=== PATIENT | male | born 1935 | race African-American/Black ===

== ENCOUNTER 2016-08-22 10:51 | Observation (INO) ==
--- NOTE | 2016-08-22 11:56 | Emergency Department Note ---
START Narrative - START START: I examined this patient and my medical decision-making was reviewed with the [employer] SERVICE SUPERVISOR/PA/Advanced Practice Nurse/Resident Physician. I agree with the documented findings, disposition and treatment plan as described except to the extent set forth below. Patient presents to the emergency department with a chief complaint of altered mental status. All history is provided per the medics. They state they know him because they transported to dialysis. He is usually oriented 3. Today he is confused. Is apparently seen last night for the same. Patient denies any complaint of having any pain or feeling short of breath. On exam he is awake alert. Abdomen soft. Lungs clear. He is oriented to the month and his name. When asked where he has he just mumbles incoherently. Plan. Altered mental status workup. Patient with UTI. Last cultures grew ESBL. Patient was ordered meropenem. Admitted to Dr. You at 1454.
--- NOTE | 2016-08-22 12:08 | Emergency Department Note ---
Disposition Clinical Impression: Acute encephalopathy Altered mental status Qualifiers: Altered mental status type: transient alteration of awareness Qualified Code(s) : R40.4 - Transient alteration of awareness UTI (urinary tract infection) Qualifiers: Urinary tract infection type: site unspecified Hematuria presence: with hematuria Qualified Code(s): N39.0 - Urinary tract infection, site not specified Disposition: Admitted As Inpatient Condition: Serious Time of Disposition: 14:18 Altered Mental Status HPI - General Chief Complaint: ED Altered Mental Status Stated Complaint: AMS Time Seen by Provider: 08/22/16 10:54 Source: EMS Limitations: altered mental status Nursing Notes Reviewed: Yes Vital Signs Reviewed: Yes - History of Present Illness HPI Narrative: 80-year-old male complains of fall that happened yesterday evening at some time and an unknown time as well as altered mental status without LOC. Patient has a significant cardiac history for CAD, CHF, has pacemaker in place, HLD, ESRD on dialysis, diabetes. EMS reports the patient has been having hallucination day. They stated he is usual with them and he is normally alert and oriented 3 and has memory. He has amputation of fingers of left hand and can tell you how he lost his fingers but today he is having hallucinations about wire sticking out of his hand and talking to his son who is not present - Related Data Home Medications Medication Instructions Recorded Confirmed Allopurinol [Zyloprim] 100 mg PO QAM #0 03/15/15 08/22/16 Aspirin Enteric Coated [Aspirin EC] 81 mg PO QAM #0 03/15/15 08/22/16 Atorvastatin Calcium [Lipitor] 80 mg PO HS #0 03/15/15 08/22/16 Cholecalciferol (Vitamin D3) 50,000 unit PO MO #0 03/15/15 08/22/16 [Vitamin D3] Clopidogrel [Plavix] 75 mg PO QAM #0 03/15/15 08/22/16 Furosemide [Lasix] 40 mg PO SUTUTHSA@0800,1600 #0 03/15/15 08/22/16 Gabapentin [Neurontin] 300 mg PO TID #0 03/15/15 08/22/16 Hydralazine HCl 100 mg PO SUTUTHSA@0800,1600 #0 03/15/15 08/22/16 Terazosin [Hytrin] 5 mg PO QPM #0 03/15/15 08/22/16 Ranolazine [Ranexa] 500 mg PO BID 07/12/15 08/22/16 Lidocaine/Prilocaine CREAM [Emla] 1 appl TP MOWEFR PRN 02/03/16 08/22/16 Sertraline [Zoloft] 50 mg PO DAILY 02/03/16 08/22/16 Sevelamer [Renvela] 800 mg PO TIDWM 02/03/16 08/22/16 Isosorbide MONOnitrate [Isosorbide 120 mg PO DAILY 02/06/16 08/22/16 Mononitrate ER] Nitroglycerin [Nitrostat] 0.4 mg SL Q5M PRN 02/06/16 08/22/16 LORazepam [Ativan] 1 mg PO MOWEFR@1000 04/12/16 08/22/16 Nitroglycerin [Nitro-Bid] 1 appl TD DAILY PRN #0 04/12/16 08/22/16 Pantoprazole Sodium [Protonix] 40 mg PO DAILY 04/12/16 08/22/16 Polyethylene Glycol 3350 [MiraLAX] 17 gm PO QAM 04/12/16 08/22/16 Insulin Glargine [Lantus] 15 unit SQ QAM 06/01/16 08/22/16 Oxycodone HCl 10 mg PO Q4H PRN 07/06/16 08/22/16 Benzocaine/Menthol [Sore Throat 1 each MM PRN PRN 08/22/16 08/22/16 Lozenges] Lisinopril [Zestril] 10 mg PO SUTUTHSA 08/22/16 08/22/16 Megestrol Acetate [Megace] 800 mg PO DAILY 08/22/16 08/22/16 Metoprolol [Lopressor] 25 mg PO SUTUTHSA@0800,1600 08/22/16 08/22/16 Nut.tx.impaired Renal Fxn,Soy 237 ml PO DAILY 08/22/16 08/22/16 [Nepro Carb Steady] Oxycodone HCl [Oxycodone HCl ER] 30 mg PO Q12H 08/22/16 08/22/16 Polyethylene Glycol 3350 [MiraLAX] 17 gm PO DAILY PRN 01/18/17 01/18/17 Allergies Allergy/AdvReac Type Severity Reaction Status Date / Time morphine Allergy Hallucinati Verified 07/06/16 10:27 ng All systems ED: reviewed and negative except as stated. Constitutional: Denies: fever, chills Eyes: Denies: eye pain, eye discharge ENT ED: Denies: ear pain, throat pain Cardiovascular: Denies: chest pain, palpitations Respiratory: Denies: cough, dyspnea Gastrointestinal: Denies: abdominal pain, nausea Genitourinary: Denies: urgency, dysuria Musculoskeletal: Denies: back pain, neck pain Integumentary: Denies: rash, abrasion Neurological: Denies: headache, weakness, vertigo Psychiatric: Denies: anxiety, depression Endocrine: Denies: fatigue, heat or cold intolerance Hematological/Lymphatic: Denies: easy bleeding, easy bruising Allergic/Immunologic: Denies: facial swelling, urticaria Past Medical History - Past Medical History Source: old records reviewed, obtained from family Medical history: Reports: arthritis, cancer, CHF, coronary artery disease, diabetes, dialysis, GERD, hyperlipidemia, hypertension, kidney stones, renal disease, other Surgical history: Reports: cataract, cholecystectomy, knee replacement, pacemaker/AICD, other Psychiatric history: Reports: anxiety - Social History Smoking Status: Never smoker Smokeless Tobacco Status: No Alcohol use: Reports: none Drug use: Reports: none Physical Exam Vital Signs Temperature 97.3 F L 08/22/16 10:52 Pulse Rate 67 08/22/16 10:52 Respiratory Rate 16 08/22/16 10:52 Blood Pressure 132/70 08/22/16 10:52 O2 Sat by Pulse Oximetry 94 L 08/22/16 10:52 Temperature 97.3 F L 08/22/16 11:06 Pulse Rate 64 08/22/16 11:52 Respiratory Rate 16 08/22/16 11:52 Blood Pressure 130/80 08/22/16 11:52 O2 Sat by Pulse Oximetry 95 08/22/16 11:52 Oxygen Delivery Oxygen Delivery Room Air -General Appearance: Patient is a 80-year-old male is alert and oriented 3 at time of exam. Appears patient has periods of a mass intermittently. GCS 15 -Neurological exam: Cranial nerves II-12 intact, no focal deficits observed, strength equal 5/5 bilaterally in upper and lower extremities, Negative loss of sensation - Head Head exam: atraumatic, normocephalic, normal inspection - Eye Eye exam: Present: normal appearance, PERRL, EOMI, negative for scleral icterus negative for conjunctival pallor - ENT ENT exam: normal exam, normal oropharynx, mucous membranes very dry - Neck Neck exam: Present: normal inspection, full ROM, trachea midline, negative JVD - Chest Chest inspection: Present: Patient has bilateral equal rise and fall of chest wall. Non-tender to palpation. - Respiratory Respiratory exam: Clear to auscultation bilaterally without wheezes rales or rhonchi Cardiovascular Cardiovascular exam: Present: regular rate, normal rhythm, normal heart sounds, without murmurs rubs or gallops. - Abdominal Exam Abdominal exam: Present: soft, nondistended, Non-Tender light and deep palpation in all quadrants. Bowel sounds normoactive throughout all 4 quadrants. Negative for hyper or hyperresonance. - Extremities Exam Extremities exam: Present: normal inspection, full ROM - Psychiatric Psychiatric exam: Present: normal affect, normal mood - Skin Skin exam: Present: warm, dry, intact, normal color - General Limitations: altered mental status Course Course Narrative: Patient seen and examined. Labs and imaging ordered. - Reevaluation(s) Reevaluation #1: Patient is seen and reexamined. Patient's has no complaints at this time. Patient's sons are in the room and explained to them what is going on. Patient' s workup so far for him his labs are better than previous accounts to include his troponin which is elevated today but a lot less than his previous troponin. Waiting to get urine. Time: 12:15 Reevaluation #2: Patient's urine came back positive for UTI. Patient admitted to the hospital for further care. - Consultations Consultation #1: Dr. You has accepted the patient for admission Time: 14:19 Vital Signs Temperature 97.3 F L 08/22/16 10:52 Pulse Rate 67 08/22/16 10:52 Respiratory Rate 16 08/22/16 10:52 Blood Pressure 132/70 08/22/16 10:52 O2 Sat by Pulse Oximetry 94 L 08/22/16 10:52 Temperature 98.2 F 08/23/16 07:09 Pulse Rate 77 08/23/16 07:09 Respiratory Rate 19 08/23/16 07:09 Blood Pressure 134/62 08/23/16 07:09 O2 Sat by Pulse Oximetry 93 L 08/23/16 07:09 Oxygen Delivery Oxygen Delivery Room Air Altered Mental Status - MDM Narrative Medical decision making narrative: Mr. Kenny is a 80-year-old male who presented in the state of altered mental status of acute onset. Report is patient also sustained a fall and hit his head. Patient's concerning for possible intracranial hemorrhage: Epidural hematoma, subdural hematoma, subarachnoid hemorrhage, acute delirium secondary to infection. Patient's lung sounds are clear spelled out pulmonary. Patient is on hemodialysis and has previous history of having UTI. Patient's workup so far appears to have no clear source for infection. Patient has an improved troponin compared to previous. Patient's creatinine level 5.07 which is slightly elevated compared to previous but still in our part for patient's baseline. Patient has been started on IV hydration 2/ Patient is very dry. CT and chest x-ray: Chest X-Ray 08/22/16 11:54 IMPRESSION: 1. Cardiomegaly with left basilar atelectasis. 2. Narrowing of the midportion of the left subclavian vein stent. D/ / Shaw Cole MD / Shaw Cole MD Interpreting Provider: Shaw Cole MD Head CT 08/22/16 11:54 IMPRESSION: 1. No acute intracranial abnormality. 2. Chronic small vessel ischemic disease. D/ / Shaw Cole MD / Shaw Cole MD Interpreting Provider: Shaw Cole MD Ankle X-Ray 08/22/16 11:56 IMPRESSION: Study is somewhat limited by diffuse osteopenia. No acute fracture or dislocation noted. D/ / 08/22/2016 12:43:29 Rivera Ng MD / lona Interpreting Provider: Rivera Ng MD Foot X-Ray 08/22/16 11:56 IMPRESSION: Limited study with diffuse osteopenia and no definite acute osseous abnormality noted. D/ / 08/22/2016 12:57:27 Rivera Ng MD / [place] Interpreting Provider: Rivera Ng MD Hand X-Ray 08/22/16 11:56 IMPRESSION: Diffuse osteopenia and postsurgical changes from interval amputation as above. No definite acute abnormality noted. MRI would be more sensitive if there is clinical concern for osteomyelitis D/ / 08/22/2016 12:57:30 Rivera Ng MD / lona Interpreting Provider: Rievra Ng MD Hip X-Ray 08/22/16 11:56 IMPRESSION: 1. No acute osseous abnormality involving the left hip. D/ / Shaw Cole MD / Shaw Cole MD Interpreting Provider: Shaw Cole MD He still waiting urine and we will have to straight catheter patient. Patient has agreed to straight catheter to obtain urine. Patient's urine is only piece of possible that we do not have a source of infection. Patient's urinalysis shows patient has a UTI. Patient started on antibiotics and admitted to hospital for further workup. Dr. You has accepted for admission. - Medical Records Medical records reviewed: Yes I reviewed the patient's medical records. - Lab Data Lab results reviewed: Yes I reviewed the patient's lab results. Lab results narrative: Short CBC 08/22/16 Range/Units 11:05 WBC 9.6 (4.3-11.1) K/mcL Hgb 11.8 L (12.9-16.9) g/dL Hct 38.2 (37.5-50.1) % Plt Count 229 (140-400) K/mcL Neutrophils # 6.5 (1.6-8.9) K/mcL BMP 08/22/16 Range/Units 11:05 Sodium 138 (136-145) mEq/L Potassium 4.5 (3.5-4.5) mEq/L Chloride 102 (98-109) mEq/L Carbon Dioxide 24 (19-29) mEq/L BUN 32 H (8-26) mg/dL Creatinine 5.07 H (0.72-1.25) mg/dL Glucose 108 H (70-99) mg/dL Calcium 9.0 (8.6-10.8) mg/dL Cardiac Enzymes 08/22/16 Range/Units 11:05 Troponin I 0.08 H* (0-0.03) ng/mL Liver Function 08/22/16 Range/Units 11:05 Total Bilirubin 0.8 (0.2-1.2) mg/dL Direct Bilirubin 0.4 (0.0-0.5) mg/dL AST 21 (5-34) Units/L ALT 8 (0-55) Units/L Alkaline Phosphatase 116 (38-126) Units/L Albumin 2.4 L (3.5-5.0) g/dL Urine 08/22/16 Range/Units 13:26 Urine Color Red A (Yellow) Urine Clarity Turbid A (Clear) Urine pH 7.0 (5.0-8.0) pH Units Ur Specific [place] 1.013 (1.010-1.025) Urine Protein >=300 H (Neg-Trace) mg/dL Urine Glucose (UA) Normal (Normal) mg/dL Result diagrams: 08/23/16 05:08 08/23/16 05:08 Lab Results 08/22/16 08/22/16 08/22/16 Range/Units 11:05 11:05 11:05 WBC 9.6 (4.3-11.1) K/mcL RBC 4.28 (4.19-5.50) M/mcL Hgb 11.8 L (12.9-16.9) g/dL Hct 38.2 (37.5-50.1) % MCV 89.3 (83.0-100.0) fL MCH 27.6 L (28.0-33.3) pg MCHC 30.9 L (31.6-35.5) g/dL RDW 18.4 H (11.5-14.5) % Plt Count 229 (140-400) K/mcL MPV 9.7 (9.4-12.4) fL Immature Gran % 0.5 (0-4) % Seg Neutrophils % 67.6 % Lymphocytes % 17.2 % Monocytes % 10.9 % Eosinophils % 3.4 % Basophils % 0.4 % Neutrophils # 6.5 (1.6-8.9) K/mcL Lymphocytes # 1.7 (0.6-4.6) K/mcL Monocytes # 1.1 (0.0-1.3) K/mcL Eosinophils # 0.3 (0.0-0.6) K/mcL Basophils # 0.0 (0.0-0.2) K/mcL PT 11.9 (9.4-12.1) Seconds INR 1.1 APTT 32.0 (26.0-36.0) Seconds Sodium 138 (136-145) mEq/L Potassium 4.5 (3.5-4.5) mEq/L Chloride 102 (98-109) mEq/L Carbon Dioxide 24 (19-29) mEq/L BUN 32 H (8-26) mg/dL Creatinine 5.07 H (0.72-1.25) mg/dL Est GFR ( Amer) 13 L (> 60) Est GFR (Non-Af Amer) 11 L (> 60) BUN/Creatinine Ratio 6 (6-26) Glucose 108 H (70-99) mg/dL Calculated Osmolality 293 (280-300) Calcium 9.0 (8.6-10.8) mg/dL Total Bilirubin 0.8 (0.2-1.2) mg/dL Direct Bilirubin 0.4 (0.0-0.5) mg/dL Indirect Bilirubin 0.4 (0.0-1.2) mg/dL AST 21 (5-34) Units/L ALT 8 (0-55) Units/L Alkaline Phosphatase 116 (38-126) Units/L Troponin I (0-0.03) ng/mL Serum Total Protein 7.2 (6.0-8.3) g/dL Albumin 2.4 L (3.5-5.0) g/dL Globulin 4.8 H (2.4-3.5) g/dL Albumin/Globulin Ratio 0.5 L (1.1-2.2) Urine Color (Yellow) Urine Clarity (Clear) Urine pH (5.0-8.0) pH Units Ur Specific [place] (1.010-1.025) Urine Protein (Neg-Trace) mg/dL Urine Glucose (UA) (Normal) mg/dL Urine Ketones (Negative) mg/dL Urine Blood (Negative) Urine Nitrite (Negative) Urine Bilirubin (Negative) Urine Urobilinogen (Normal) mg/dL Ur Leukocyte Esterase (Negative) Urine Microscopic RBC (0-3) per hpf Urine Microscopic WBC (0-3) per hpf Urine Bacteria (None-Few) per hpf Urine Yeast (None Seen) per hpf Ur Culture Indicated? (NO) 08/22/16 08/22/16 Range/Units 11:05 13:26 WBC (4.3-11.1) K/mcL RBC (4.19-5.50) M/mcL Hgb (12.9-16.9) g/dL Hct (37.5-50.1) % MCV (83.0-100.0) fL MCH (28.0-33.3) pg MCHC (31.6-35.5) g/dL RDW (11.5-14.5) % Plt Count (140-400) K/mcL MPV (9.4-12.4) fL Immature Gran % (0-4) % Seg Neutrophils % % Lymphocytes % % Monocytes % % Eosinophils % % Basophils % % Neutrophils # (1.6-8.9) K/mcL Lymphocytes # (0.6-4.6) K/mcL Monocytes # (0.0-1.3) K/mcL Eosinophils # (0.0-0.6) K/mcL Basophils # (0.0-0.2) K/mcL PT (9.4-12.1) Seconds INR APTT (26.0-36.0) Seconds Sodium (136-145) mEq/L Potassium (3.5-4.5) mEq/L Chloride (98-109) mEq/L Carbon Dioxide (19-29) mEq/L BUN (8-26) mg/dL Creatinine (0.72-1.25) mg/dL Est GFR ( Amer) (> 60) Est GFR (Non-Af Amer) (> 60) BUN/Creatinine Ratio (6-26) Glucose (70-99) mg/dL Calculated Osmolality (280-300) Calcium (8.6-10.8) mg/dL Total Bilirubin (0.2-1.2) mg/dL Direct Bilirubin (0.0-0.5) mg/dL Indirect Bilirubin (0.0-1.2) mg/dL AST (5-34) Units/L ALT (0-55) Units/L Alkaline Phosphatase (38-126) Units/L Troponin I 0.08 H* (0-0.03) ng/mL Serum Total Protein (6.0-8.3) g/dL Albumin (3.5-5.0) g/dL Globulin (2.4-3.5) g/dL Albumin/Globulin Ratio (1.1-2.2) Urine Color Red A (Yellow) Urine Clarity Turbid A (Clear) Urine pH 7.0 (5.0-8.0) pH Units Ur Specific [place] 1.013 (1.010-1.025) Urine Protein >=300 H (Neg-Trace) mg/dL Urine Glucose (UA) Normal (Normal) mg/dL Urine Ketones Negative (Negative) mg/dL Urine Blood Moderate H (Negative) Urine Nitrite Negative (Negative) Urine Bilirubin Small H (Negative) Urine Urobilinogen Normal (Normal) mg/dL Ur Leukocyte Esterase Large H (Negative) Urine Microscopic RBC Present (0-3) per hpf Urine Microscopic WBC TNTC H (0-3) per hpf Urine Bacteria Present (None-Few) per hpf Urine Yeast Present H (None Seen) per hpf Ur Culture Indicated? YES A (NO) - Radiology Data Radiology results reviewed: Yes I reviewed the patient's radiology results. Chest X-Ray 08/22/16 11:54 IMPRESSION: 1. Cardiomegaly with left basilar atelectasis. 2. Narrowing of the midportion of the left subclavian vein stent. D/ / Shaw Cole MD / Shaw Cole MD Interpreting Provider: Shaw Cole MD Head CT 08/22/16 11:54 IMPRESSION: 1. No acute intracranial abnormality. 2. Chronic small vessel ischemic disease. D/ / Shaw Cole MD / Shaw Cole MD Interpreting Provider: Shaw Cole MD Ankle X-Ray 08/22/16 11:56 IMPRESSION: Study is somewhat limited by diffuse osteopenia. No acute fracture or dislocation noted. D/ / 08/22/2016 12:43:29 Rivera Ng MD / lona Interpreting Provider: Rivera Ng MD Foot X-Ray 08/22/16 11:56 IMPRESSION: Limited study with diffuse osteopenia and no definite acute osseous abnormality noted. D/ / 08/22/2016 12:57:27 Rivera Ng MD / [place] Interpreting Provider: Rivera Ng MD Hand X-Ray 08/22/16 11:56 IMPRESSION: Diffuse osteopenia and postsurgical changes from interval amputation as above. No definite acute abnormality noted. MRI would be more sensitive if there is clinical concern for osteomyelitis D/ / 08/22/2016 12:57:30 Rivera Ng MD / lona Interpreting Provider: Rivera Ng MD Hip X-Ray 08/22/16 11:56 IMPRESSION: 1. No acute osseous abnormality involving the left hip. D/ / Shaw Cole MD / Shaw Cole MD Interpreting Provider: Shaw Cole MD - EKG Data EKG attestation: Yes I reviewed and interpreted this EKG. EKG results narrative: EKG taken 08/22/2016 at 1143 hrs. shows a paced rhythm at 64 bpm. EKG looks similar to EKG taken 06/07/2016 shows a ventricularly paced rhythm
[2016-08-22 12:12] LABS: Basophils % 0.4 %; Eosinophils # 0.3 K/mcL (0.0-0.6); Eosinophils % 3.4 %; Hematocrit 38.2 % (37.5-50.1); Hemoglobin 11.8 g/dL (12.9-16.9); Immature Granulocytes % 0.5 % (0-4); Lymphocytes # 1.7 K/mcL (0.6-4.6); Lymphocytes % 17.2 %; Mean Corpuscular HGB Conc 30.9 g/dL (31.6-35.5); Mean Corpuscular Hemoglobin 27.6 pg (28.0-33.3); Mean Corpuscular Volume 89.3 fL (83.0-100.0); Mean Platelet Volume 9.7 fL (9.4-12.4); Monocytes # 1.1 K/mcL (0.0-1.3); Monocytes % 10.9 %; Neutrophils # 6.5 K/mcL (1.6-8.9); Platelet Count 229 K/mcL (140-400); Red Blood Count 4.28 M/mcL (4.19-5.50); Red Cell Distribution Width 18.4 % (11.5-14.5); Segmented Neutrophils % 67.6 %
[2016-08-22 12:18] LABS: INR 1.1; Prothrombin Time 11.9 Seconds (9.4-12.1)
[2016-08-22 12:26] LABS: Albumin 2.4 g/dL (3.5-5.0); Albumin/Globulin Ratio 0.5 (1.1-2.2); Bilirubin,Direct 0.4 mg/dL (0.0-0.5); Bilirubin,Indirect 0.4 mg/dL (0.0-1.2); Bilirubin,Total 0.8 mg/dL (0.2-1.2); Globulin 4.8 g/dL (2.4-3.5); Potassium 4.5 mEq/L (3.5-4.5); Total Protein 7.2 g/dL (6.0-8.3)
[2016-08-22 13:42] LABS: Bilirubin,Urine Small (Negative); Blood,Urine Moderate (Negative); Clarity,Urine Turbid (Clear); Color,Urine Red (Yellow); Glucose,Urine (UA) Normal (Normal); Ketones,Urine Negative (Negative); Leukocyte Esterase,Urine Large (Negative); Nitrite,Urine Negative (Negative); Protein,Urine >=300 mg/dL (Neg-Trace); Specific Gravity,Urine 1.013 (1.010-1.025); Urobilinogen,Urine Normal (Normal)
[2016-08-22 13:58] LABS: Bacteria,Urine Present per hpf (None-Few); RBC,Urine Present per hpf (0-3); WBC,Urine TNTC per hpf (0-3)
[2016-08-22 14:00] LABS: Yeast,Urine Present per hpf (None Seen)
[2016-08-22] MEDS ORDERED: Meropenem 1,000 MG in 0.9 % Sodium Chloride Mini Bag 100 ML IVPB STA (14:19)
[2016-08-22] MEDS ORDERED: Ondansetron 4 MG/2 ML VIAL IVP PRN (15:01)
[2016-08-22] MEDS ORDERED: D5% in Water 1,000 ML IV PRN (15:01)
[2016-08-22] MEDS ORDERED: Dextrose Gel 15 GM PO PRN ×2 (15:01)
[2016-08-22] MEDS ORDERED: *HR* Dextrose 50 % in Water (Syg) 50 ML SYRINGE IVP PRN (15:01)
[2016-08-22] MEDS ORDERED: Naloxone 0.4 MG/ML INJ IVP PRN (15:01)
[2016-08-22] MEDS ORDERED: Acetaminophen 325 MG TABLET PO PRN (15:01)
--- NOTE | 2016-08-22 15:11 | Internal Med History&Physical ---
Date of Encounter: 08/22/16 Time of Encounter: 15:08 Assessment and Plan (1) Encephalopathy Current visit: No Status: Resolved Acute metabolic encephalopathy secondary to urinary tract infection with ESBL Escherichia coli Continue Merrem at adjusted renal dose Mild hydration Full precautions Send culture (2) ESBL (extended spectrum beta-lactamase) producing bacteria infection Current visit: No Status: Acute (3) CAD (coronary artery disease) Current visit: No Status: Acute Continue aspirin, Plavix, Lipitor, metoprolol, isosorbide Qualifiers: Coronary Disease-Associated Artery/Lesion type: [place] artery [place] vs. transplanted heart: lummi heart Associated angina: with unstable angina Qualified Code(s): I25.110 - Atherosclerotic heart disease of [place] coronary artery with unstable angina pectoris (4) Demand ischemia of myocardium Current visit: No Status: Acute Elevated troponins likely secondary to demand ischemia (5) Diabetes mellitus Current visit: No Status: Chronic Continue insulin sliding scale Qualifiers: Diabetes mellitus type: type 2 Diabetes mellitus complication status: with kidney complications Diabetes mellitus complication detail: with chronic kidney disease Diabetes mellitus half-way insulin use: unspecified superintendent terminal insulin use status Chronic kidney disease stage: on chronic dialysis Qualified Code(s): E11.22 - Type 2 diabetes mellitus with diabetic chronic kidney disease; N18.6 - End stage renal disease (6) Diastolic heart failure Current visit: No Status: Chronic Stable Hold Lasix for now Qualifiers: Heart failure chronicity: chronic Qualified Code(s): I50.32 - Chronic diastolic (congestive) heart failure (7) ESRD (end stage renal disease) on dialysis Current visit: No Status: Chronic He is a patient of Dr. Kahlil Mathias for GI prophylaxis and yulisa Hwang for DVT prophylaxis. Patient will be admitted as inpatient, he is expected to stay mobile into midnights. Full code. Time spent on this admission 40 minutes. He is high risk due to recent falls and acute metabolic encephalopathy from ESBL UTI Internal Medicine - H&P: HPI Chief complaint: Altered mental status Admitted From: Emergency Dept History of present illness: Mr. Kenny is a 80 year old male with a past medical history of urinary tract infections with Escherichia coli ESBL last culture on August 13, end-stage renal disease on hemodialysis, CAD, hypertension, diabetes type 2 insulin- dependent who comes emergency room brought by family as he has been very confused since yesterday. Apparently he has been having hallucinations and becomes disoriented at times. The patient fell and multiple x-rays has been done including CT scan of the head in multiple joints without finding any fracture. The patient's urine analysis is positive for too numerous to count white blood cells and positive bacteria, he still makes urine and is on Lasix. His troponin is 0.08 but has been lower than the prior values which were 0.29 and higher. Creatinine is 5.07. Chest x-ray does not show any infectious process. Patient is not able to provide any history due to his confusion but he appears to be in no distress at the time. Past Med Surg Social Fam HX - Past Medical History Medical history: arthritis, cancer (Prostate), CHF (Diastolic ), coronary artery disease, diabetes (Insulin-dependent), dialysis, GERD, hyperlipidemia, hypertension, kidney stones, renal disease (End-stage renal disease on hemodialysis), other (Left second phalanx gangrene, Escherichia coli ESBL recurrent UTIs, gastritis, nephrolithiasis, degenerative joint disease) Psychiatric history: anxiety - Past Surgical History Surgical History: cataract, cholecystectomy, knee replacement, pacemaker/AICD, other (Left subclavian stent, left hand surgeries/amputations of all fingers, bilateral knee replacement) - Social History Smoking Status: Former smoker (Quit smoking in 1958) Smokeless Tobacco Status: No Alcohol use: none Drug use: none - Family History Father Living Status: Hx Family Cardiac Disorders: Yes Mother Adopted: No Living Status: Hx Family Cardiac Disorders: Yes Hx Family Respiratory Disorders: No Hx Family Cancer: No Hx Family GI Disorders: No Hx Family Endocrine Disorder: No Hx Family Neuromuscular Disorders: No Hx Family Neurologic Disorders: No Hx Family HEENT Disorders: No Hx Family Autoimmune Disorders: No - Additional Family History Additional family history: Father with CHF, mother with hypertension and heart disease Internal Medicine - H&P: Meds Allopurinol [Zyloprim] 100 mg PO QAM #0 03/15/15 [History] Aspirin Enteric Coated [Aspirin EC] 81 mg PO QAM #0 03/15/15 [History] Atorvastatin Calcium [Lipitor] 80 mg PO HS #0 03/15/15 [History] Cholecalciferol (Vitamin D3) [Vitamin D3] 50,000 unit PO MO #0 03/15/15 [ History] Clopidogrel [Plavix] 75 mg PO QAM #0 03/15/15 [History] Furosemide [Lasix] 40 mg PO BID #0 03/15/15 [History] Gabapentin [Neurontin] 300 mg PO TID #0 03/15/15 [History] Hydralazine HCl 100 mg PO BID #0 03/15/15 [History] Lisinopril [Zestril] 20 mg PO BID #0 03/15/15 [History] Terazosin [Hytrin] 5 mg PO QPM #0 03/15/15 [History] Metoprolol [Lopressor] 25 mg PO BID #60 tablet 05/02/15 [Rx] Ranolazine [Ranexa] 500 mg PO BID 07/12/15 [History] Lidocaine/Prilocaine CREAM [Emla] 1 appl TP AD PRN 02/03/16 [History] Sertraline [Zoloft] 50 mg PO DAILY 02/03/16 [History] Sevelamer [Renvela] 800 mg PO TIDWM 02/03/16 [History] Isosorbide MONOnitrate [Isosorbide Mononitrate ER] 120 mg PO DAILY 02/06/16 [ History] Nitroglycerin [Nitrostat] 0.4 mg SL AD PRN 02/06/16 [History] LORazepam [Ativan] 1 mg PO MOWEFR 04/12/16 [History] Nitroglycerin [Nitro-Bid] 1 appl TD AD PRN #0 04/12/16 [History] Pantoprazole Sodium [Protonix] 40 mg PO DAILY 04/12/16 [History] Polyethylene Glycol 3350 [MiraLAX] 17 gm PO DAILY PRN 04/12/16 [History] Triamcinolone Acetonide [Nasacort] 2 spray NS DAILY 04/12/16 [History] Insulin Glargine [Lantus] 15 unit SQ QAM 06/01/16 [History] Oxycodone HCl 10 mg PO Q4H PRN 07/06/16 [History] Allergies morphine Allergy (Verified 07/06/16 10:27) Hallucinating All Systems PM: A 10-system review of systems was performed and is negative for pertinent findings except as documented above in the HPI. Review of systems: Review of systems Unable to be completed due to confusion - Constitutional Vitals: Temp Pulse Resp BP Pulse Ox 97.3 F L 66 16 153/86 95 08/22/16 11:06 08/22/16 13:42 08/22/16 11:52 08/22/16 13:42 08/22/16 13:42 General appearance: Present: A&O X 2 - Head Head exam: Present: atraumatic, normocephalic - Eye Eye exam: Present: PERRL, conjuntiva pink, sclera anicteric Pupils: Present: PERRL - Neck Neck exam general surgery: Present: supple, trachea midline. Absent: lymphadenopathy - Respiratory Respiratory exam: Present: decreased breath sounds, CTAB. Absent: accessory muscle use, rales, rhonchi, wheezes - Cardiovascular Cardiovascular exam: Present: RRR, +S1, +S2. Absent: diastolic murmur, gallop, rubs, systolic murmur - GI/Abdominal GI/Abdominal exam: Present: distended, normal bowel sounds, soft, no peritoneal signs. Absent: tenderness - Extremities Exam Extremities exam: Present: warm, radial pulses palpable and symetrical. Absent : calf tenderness, cyanotic, pedal edema Additional comments: Left fingers amputation, left upper extremity AV fistula - Neurological Exam Neurological exam: Present: CN II-XII intact, no focal deficits. Absent: oriented X3, pronater drift, facial droop, speech deficit - Skin Skin exam: Present: dry, intact Internal Med - H&P Results - Labs CBC & Chem 7: 08/22/16 11:05 08/22/16 11:05 Labs: Short CBC 08/22/16 Range/Units 11:05 WBC 9.6 (4.3-11.1) K/mcL Hgb 11.8 L (12.9-16.9) g/dL Hct 38.2 (37.5-50.1) % Plt Count 229 (140-400) K/mcL Neutrophils # 6.5 (1.6-8.9) K/mcL BMP 08/22/16 11:05 Sodium 138 Potassium 4.5 Chloride 102 Carbon Dioxide 24 BUN 32 H Creatinine 5.07 H Glucose 108 H Calcium 9.0 Cardiac Enzymes 08/22/16 Range/Units 11:05 Troponin I 0.08 H* (0-0.03) ng/mL Liver Function 08/22/16 Range/Units 11:05 Total Bilirubin 0.8 (0.2-1.2) mg/dL Direct Bilirubin 0.4 (0.0-0.5) mg/dL AST 21 (5-34) Units/L ALT 8 (0-55) Units/L Alkaline Phosphatase 116 (38-126) Units/L Albumin 2.4 L (3.5-5.0) g/dL Urine 08/22/16 Range/Units 13:26 Urine Color Red A (Yellow) Urine Clarity Turbid A (Clear) Urine pH 7.0 (5.0-8.0) pH Units Ur Specific Lyman 1.013 (1.010-1.025) Urine Protein >=300 H (Neg-Trace) mg/dL Urine Glucose (UA) Normal (Normal) mg/dL - Impressions ITS Impressions Chest X-Ray 08/22/16 11:54 IMPRESSION: 1. Cardiomegaly with left basilar atelectasis. 2. Narrowing of the midportion of the left subclavian vein stent. D/ / Shaw Cole MD / Shaw Cole MD Interpreting Provider: Shaw Cole MD Head CT 08/22/16 11:54 IMPRESSION: 1. No acute intracranial abnormality. 2. Chronic small vessel ischemic disease. D/ / Shaw Cole MD / Shaw Cole MD Interpreting Provider: Shaw Cole MD Ankle X-Ray 08/22/16 11:56 IMPRESSION: Study is somewhat limited by diffuse osteopenia. No acute fracture or dislocation noted. D/ / 08/22/2016 12:43:29 Rivera Ng MD / lona Interpreting Provider: Rivera Ng MD Foot X-Ray 08/22/16 11:56 IMPRESSION: Limited study with diffuse osteopenia and no definite acute osseous abnormality noted. D/ / 08/22/2016 12:57:27 Rivera Ng MD / [place] Interpreting Provider: Rivera Ng MD Hand X-Ray 08/22/16 11:56 IMPRESSION: Diffuse osteopenia and postsurgical changes from interval amputation as above. No definite acute abnormality noted. MRI would be more sensitive if there is clinical concern for osteomyelitis D/ / 08/22/2016 12:57:30 Rivera Ng MD / [facility] Interpreting Provider: Rivera Ng MD Hip X-Ray 08/22/16 11:56 IMPRESSION: 1. No acute osseous abnormality involving the left hip. D/ / Shaw Cole MD / Shaw Cole MD Interpreting Provider: Shaw Cole MD
[2016-08-22] MEDS ORDERED: 0.9 % Sodium Chloride 1,000 ML IVC SCH (15:15)
[2016-08-22] MEDS: Insulin LISPRO 300 UNITS/3 ML VIAL SQ SCH (17:09)
[2016-08-22] MEDS: hydrALAZINE 25 MG TABLET PO SCH (20:46)
[2016-08-22] MEDS: Ranolazine 500 MG TAB.ER.12H PO SCH (20:46)
[2016-08-22] MEDS ORDERED: Gabapentin 300 MG CAPSULE PO SCH (21:00)
[2016-08-22] MEDS ORDERED: Famotidine 20 MG TABLET PO SCH ×2 (21:00)
[2016-08-23] MEDS: Meropenem 500 MG in 0.9 % Sodium Chloride Mini Bag 100 ML IVPB SCH ×2 (03:55→15:33)
[2016-08-23 05:36] LABS: Calcium 8.6 mg/dL (8.6-10.8); Potassium 5.1 mEq/L (3.5-4.5)
[2016-08-23 05:43] LABS: Hematocrit 38.7 % (37.5-50.1); Hemoglobin 12.2 g/dL (12.9-16.9); Mean Corpuscular HGB Conc 31.5 g/dL (31.6-35.5); Mean Corpuscular Hemoglobin 27.7 pg (28.0-33.3); Mean Corpuscular Volume 87.8 fL (83.0-100.0); Mean Platelet Volume 9.8 fL (9.4-12.4); Platelet Count 208 K/mcL (140-400); Red Blood Count 4.41 M/mcL (4.19-5.50); Red Cell Distribution Width 18.3 % (11.5-14.5)
[2016-08-23] MEDS: Insulin LISPRO 300 UNITS/3 ML VIAL SQ SCH ×4 (07:31→21:29)
--- NOTE | 2016-08-23 08:04 | Internal Med Progress Note ---
Date of Encounter: 08/23/16 Time of Encounter: 08:02 - Assessment and plan (1) Acute encephalopathy Current Visit: Yes Status: Acute Assessment and plan: Continues to be altered, unclear etiology. Could be related to UTI but unclear if this is a true UTI or contamination as patient is noted to have ESBL positive Escherichia coli in the last 2 urine cultures with no evidence of receiving treatment in the hospital. CT head done in the emergency room shows no acute abnormality, no other metabolic abnormalities found at this time. Recurrent admissions with encephalopathy could be related to uremia, acid base, volume and electrolyte shifts related to hemodialysis. Continue to monitor closely, fall precautions. (2) UTI (urinary tract infection) Current Visit: Yes Status: Acute Assessment and plan: No fever or leukocytosis or suprapubic pain. Urine dipstick positive for UTI. History of ESBL positive Escherichia coli in previous urine cultures. Continue IV meropenem and follow up final urine culture. 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 Medical management is recommended at this time. Continue aspirin, Plavix, beta benjy, statin, and Ranexa. Qualifiers: Coronary Disease-Associated Artery/Lesion type: [place] artery [place] vs. transplanted heart: [place] heart Associated angina: with unstable angina Qualified Code(s): I25.110 - Atherosclerotic heart disease of [place] coronary artery with unstable angina pectoris (4) AICD (automatic cardioverter/defibrillator) present Current Visit: Yes Status: Chronic (5) Chronic diastolic CHF (congestive heart failure) Current Visit: Yes Status: Chronic (6) Diabetes mellitus Current Visit: Yes Status: Chronic Assessment and plan: Continue Accu-Chek blood glucose monitoring with basal bolus insulin regimen. Diabetic diet. Qualifiers: Diabetes mellitus type: type 2 Diabetes mellitus complication status: with kidney complications Diabetes mellitus complication detail: with chronic kidney disease Diabetes mellitus half-way insulin use: with edge dyer use Chronic kidney disease stage: on chronic dialysis Qualified Code(s): E11.22 - Type 2 diabetes mellitus with diabetic chronic kidney disease; N18.6 - End stage renal disease; Z79.4 - MCFP (current) use of insulin; Z99.2 - Dependence on renal dialysis (7) ESRD (end stage renal disease) on dialysis Current Visit: Yes Status: Chronic Assessment and plan: Nephrology has been consulted, patient will receive regular hemodialysis sessions while in the hospital. Continue phosphate binders and multivitamins. - Subjective Interval history: continues to be confused; able to answer 1 or 2 questions but mostly speaks inappropriately; no distress but reports left hand chronic pain due to ischemia and recent finger amputations; - Constitutional Vitals: Temp Pulse Resp BP Pulse Ox 98.2 F 77 19 134/62 93 L 08/23/16 07:09 08/23/16 07:09 08/23/16 07:09 08/23/16 07:09 08/23/16 07:09 General appearance: Present: A&O X 0 - Head Head exam: Present: atraumatic, normocephalic - Neck Neck exam general surgery: Present: supple, trachea midline. Absent: lymphadenopathy - Respiratory Respiratory exam: Present: CTAB. Absent: accessory muscle use, rales, rhonchi, wheezes - Cardiovascular Cardiovascular exam: Present: RRR, +S1, +S2. Absent: diastolic murmur, gallop, rubs, systolic murmur - GI/Abdominal GI/Abdominal exam: Present: normal bowel sounds, soft, no peritoneal signs. Absent: distended, tenderness - Extremities Exam Extremities exam: Present: normal inspection (left hand s/p amputation of 1st 4 fingers, no active signs of infection/discharge), warm, radial pulses palpable and symetrical. Absent: calf tenderness, cyanotic, pedal edema - Neurological Exam Neurological exam: Present: altered (confused and disoriented, able to follow simpe commands; occasional hallucinations;), no focal deficits (moves all 4 extremities spontaneously; ). Absent: pronater drift, facial droop, speech deficit - Skin Skin exam: Present: dry, intact Internal Medicine: Result - Labs CBC & Chem 7: 08/23/16 05:08 08/23/16 05:08 Labs: Short CBC 08/23/16 Range/Units 05:08 WBC 11.1 (4.3-11.1) K/mcL Hgb 12.2 L (12.9-16.9) g/dL Hct 38.7 (37.5-50.1) % Plt Count 208 (140-400) K/mcL BMP 08/23/16 05:08 Sodium 137 Potassium 5.1 H Chloride 105 Carbon Dioxide 18 L BUN 37 H Creatinine 5.27 H Glucose 107 H Calcium 8.6 - ABG Interpretation ABG results: PT/INR, D-dimer PT 11.9 Seconds (9.4-12.1) 08/22/16 11:05 Consult Discharge Plan - Plan Referrals: NO,PCP [Non-Partnered Physician] -
[2016-08-23] MEDS ORDERED: 0.9 % Sodium Chloride 250 ML IV PRN (08:21)
--- NOTE | 2016-08-23 08:27 | Nephrology Consult Note ---
Date of Encounter: 08/23/16 Time of Encounter: 10:00 Assessment and Plan (1) ESRD (end stage renal disease) on dialysis Current Visit: Yes Status: Chronic ESRD on HD M/W/F, patient of Dr. Jeronimo. I reviewed the outside medical records from [facility]: Dry Weight 90kg, CONCEPCION AVF Will arrange for an abbreviated HD treatment today () since he missed yesterday for clearance as he is hyperkalemic on today's labs. I'll also plan for HD tomorrow (Saturday) to maintain his M/W/F schedule. Acute Encephalopathy/AMS: it is unclear why he takes such a high dose of Gabapentin, but I recommend reducing it to no more than 300mg per day, which is the FDA listed limit for patients on Dialysis. His UTI could be contributing as well. 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 He has Hectorol provided incenter at [facility] , but will monitor during this expected brief hospitalization. Access: LUE AVF Nutrition: goal serum Albumin is 4, when able and when he is eating, please provide Nepro protein shakes. Anemia in CKD: the goal Hgb is 10-11 and he is above the goal. It appears that he is not on an RUPERT at the HD unit when I reviewed his incenter medication list Thank you for consulting the [facility] group. (2) Hyperkalemia Current Visit: No Status: Acute Will need HD today to make up for the missed dialysis yesterday. (3) Acute encephalopathy Current Visit: Yes Status: Acute (4) UTI (urinary tract infection) Current Visit: Yes Status: Acute Qualifiers: Urinary tract infection type: site unspecified Hematuria presence: without hematuria Qualified Code(s): N39.0 - Urinary tract infection, site not specified (5) Secondary hyperparathyroidism (of renal origin) Current Visit: Yes Status: Chronic See above comments on Hectorol. History of Present Illness - Reason for Consult Consult date: 08/23/16 end stage renal disease Requesting physician: Clara Mendez - Chief Complaint ESRD, Missed Dialysis, AMS - History of Present Illness Que Kenny is a very pleasant gentleman with a pmh of ESRD on HD M/W/F, left hand/digital ischemia, and et al who presented with AMS. He last dialyzed on Saturday. Last night he was admitted and the wrong nephrology group was consulted , but today the consult order was changed to [facility]. His primary Environmental Professional is Dr. Jeronimo, he dialyzes via a LUE AVF at [facility] unit in [place], [place]. He was found to have a UTI, and was started on Abx. I reviewed his [facility] medical records and his listed dry/target weight is 90kg (of the note the listed weights in [facility] for this hospitalization thus far are widely different and therefore appear less reliable). He was not able to provide any history due to his AMS. His RN was in the room at the time of my exam; the pt was receiving IVF of 0.9% and I instructed him to stop the IVF as I plan for him to have HD today. Past Med Surg Social Fam HX - Past Medical History Medical history: arthritis, cancer, CHF, coronary artery disease, diabetes, dialysis, GERD, hyperlipidemia, hypertension, kidney stones, renal disease, other Psychiatric history: anxiety - Past Surgical History Surgical History: cataract, cholecystectomy, knee replacement, pacemaker/AICD, other - Social History Smoking Status: Never smoker Smokeless Tobacco Status: No Alcohol use: none Drug use: none - Family History Father Living Status: Hx Family Cardiac Disorders: Yes Mother Adopted: No Living Status: Hx Family Cardiac Disorders: Yes Hx Family Respiratory Disorders: No Hx Family Cancer: No Hx Family GI Disorders: No Hx Family Endocrine Disorder: No Hx Family Neuromuscular Disorders: No Hx Family Neurologic Disorders: No Hx Family HEENT Disorders: No Hx Family Autoimmune Disorders: No Medications and Allergies Allopurinol [Zyloprim] 100 mg PO QAM #0 03/15/15 [History] Aspirin Enteric Coated [Aspirin EC] 81 mg PO QAM #0 03/15/15 [History] Atorvastatin Calcium [Lipitor] 80 mg PO HS #0 03/15/15 [History] Cholecalciferol (Vitamin D3) [Vitamin D3] 50,000 unit PO MO #0 03/15/15 [ History] Clopidogrel [Plavix] 75 mg PO QAM #0 03/15/15 [History] Furosemide [Lasix] 40 mg PO SUTUTHSA@0800,1600 #0 03/15/15 [History] Gabapentin [Neurontin] 300 mg PO TID #0 03/15/15 [History] Hydralazine HCl 100 mg PO SUTUTHSA@0800,1600 #0 03/15/15 [History] Terazosin [Hytrin] 5 mg PO QPM #0 03/15/15 [History] Ranolazine [Ranexa] 500 mg PO BID 07/12/15 [History] Lidocaine/Prilocaine CREAM [Emla] 1 appl TP MOWEFR PRN 02/03/16 [History] Sertraline [Zoloft] 50 mg PO DAILY 02/03/16 [History] Sevelamer [Renvela] 800 mg PO TIDWM 02/03/16 [History] Isosorbide MONOnitrate [Isosorbide Mononitrate ER] 120 mg PO DAILY 02/06/16 [ History] Nitroglycerin [Nitrostat] 0.4 mg SL Q5M PRN 02/06/16 [History] LORazepam [Ativan] 1 mg PO MOWEFR@1000 04/12/16 [History] Nitroglycerin [Nitro-Bid] 1 appl TD DAILY PRN #0 04/12/16 [History] Pantoprazole Sodium [Protonix] 40 mg PO DAILY 04/12/16 [History] Polyethylene Glycol 3350 [MiraLAX] 17 gm PO QAM 04/12/16 [History] Insulin Glargine [Lantus] 15 unit SQ QAM 06/01/16 [History] Oxycodone HCl 10 mg PO Q4H PRN 07/06/16 [History] Benzocaine/Menthol [Sore Throat Lozenges] 1 each MM PRN PRN 08/22/16 [History] Lisinopril [Zestril] 10 mg PO SUTUTHSA 08/22/16 [History] Megestrol Acetate [Megace] 800 mg PO DAILY 08/22/16 [History] Metoprolol [Lopressor] 25 mg PO SUTUTHSA@0800,1600 08/22/16 [History] Nut.tx.impaired Renal Fxn,Soy [Nepro Carb Steady] 237 ml PO DAILY 08/22/16 [ History] Oxycodone HCl [Oxycodone HCl ER] 30 mg PO Q12H 08/22/16 [History] Polyethylene Glycol 3350 [MiraLAX] 17 gm PO DAILY PRN 08/22/16 [History] Allergies morphine Allergy (Verified 07/06/16 10:27) Hallucinating Review of Systems ROS unobtainable: due to mental status Exam - Vital Signs Vital signs: Initial Vital Signs Temp Pulse Resp BP Pulse Ox 97.3 F L 67 16 132/70 94 L 08/22/16 10:52 08/22/16 10:52 08/22/16 10:52 08/22/16 10:52 08/22/16 10:52 Vital Signs - Last 8 Hours Temp Pulse Resp BP Pulse Ox 08/23/16 07:09 98.2 F 77 19 134/62 93 L 08/23/16 04:05 98.8 F 75 16 137/75 93 L Intake and Output 08/22/16 08/23/16 08/23/16 23:59 07:59 15:59 Intake Total 0 / 0 100 / 100 Balance 0 / 0 100 / 100 Intake: IV Fluids 100 / 100 Merrem 500 MG In 0.9 % 100 / 100 Sodium Chloride (Mini-Bag +) 100 ML @ 200 mls/hr IVPB Q12H ELISE Rx#: [id number] Oral 0 / 0 Other: # Urine Diapers 1 1 Weight 90.4 kg 85.2 kg Blood Glucose* 82 92 Patient Weight 08/23/16 23:59 Weight 85.2 kg - General Appearance General appearance: fatigue, frail EENT: mucous membranes moist Neck: supple Respiratory: clear Cardiology: edema, normal S1, normal S2 - Dialysis Access Dialysis Vascular Access: Arteriovenous Fistula thrill: Yes bruit: Yes Gastrointestinal: normoactive bowel sounds, no tenderness, no guarding Integumentary: warm and dry Neurologic: disoriented Musculoskeletal: deformities (Left hand/fingers were absent) Psychiatric: cooperative Results - Lab Results 08/23/16 05:08 08/23/16 05:08 Most recent lab results Calcium 8.6 mg/dL (8.6-10.8) 08/23/16 05:08 I reviewed the above autogenerated data including labs, meds, vital, imaging and outside med records from [facility]. Consult Discharge Plan - Plan Referrals: NO,PCP [Non-Partnered Physician] - (PATIENT WILL FOLLOW UP WITH THE F PCP)
[2016-08-23] MEDS ORDERED: NON-FORMULARY MEDICATION 1 EACH EACH (Insulin Glargine [Lantus] 15 UNIT) SQ SCH (09:00)
[2016-08-23] MEDS: Insulin DETEMIR 100 UNIT/ML X5UNITS SQ SCH (09:07)
[2016-08-23] MEDS: Aspirin Enteric Coated 81 MG Tablet PO SCH (09:07)
[2016-08-23] MEDS: hydrALAZINE 25 MG TABLET PO SCH ×2 (09:17→21:50)
[2016-08-23] MEDS: Isosorbide MONOnitrate (24 HR) 60 MG TAB.ER.24H PO SCH (09:18)
[2016-08-23] MEDS: Ranolazine 500 MG TAB.ER.12H PO SCH ×2 (09:19→21:50)
[2016-08-23] MEDS: Gabapentin 100 MG CAPSULE PO SCH ×2 (09:34→21:50)
--- NOTE | 2016-08-23 11:23 | Electrocardiograph Report ---
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
--- NOTE | 2016-08-23 16:14 | Neurology - Consult Note ---
Date of Encounter: 08/23/16 Time of Encounter: 16:09 Assessment and Plan (1) Acute encephalopathy Current Visit: Yes Status: Acute This likely still medically related and may be complicated by missing HD, polypharmacy, on top of chronic renal failure. No focal deficits/ no speech difficulty note, although he appears disoriented to time and place but language appears fluent especially when talking to tis daughter. No nuchal rigidity, no leucocytosis on CBC to suspect [employer] infection. Would recommend that he complete an MRI of brain without contrast to rule out intracranial abnormality and continue medical treatment. I agree that he would be better off taking a smaller dose of gabapentin and his other pain medications/benzo can also be a source of fluctuating mental status. History of Present Illness Chief complaint: confusion HPI: Mr. Kenny is a 80 year old male, halfway resident, with PMH significant for ESRD on HD, HTN, DM, hyperlipidemia, chronic pain on regular narcotic regimen who presented with changes in his mental status. He has ESRD getting HD 1,3,5 but missed HD yesterday and did get HD this morning. Developed changes in his mental status. No focal neurological deficits. Seems restless. Interviewed the daughter and she says that the patient used to have difficulty walking and unable to walk without assistance. He used to be able to make good conversation but today he is different. Patient did make some conversation with his daughter and it seemed that his language is fluent. But he seems very restless and moves his hands up and down in bed. CT of head showed no acute abnormality. Urine analysis negative for infection per medical team. Patient denies headaches and no fever reported. Past Med Surg Social Fam HX - Past Medical History Medical history: arthritis, cancer, CHF, coronary artery disease, diabetes, dialysis, GERD, hyperlipidemia, hypertension, kidney stones, renal disease, other Psychiatric history: anxiety - Past Surgical History Surgical History: cataract, cholecystectomy, knee replacement, pacemaker/AICD, other - Social History Smoking Status: Never smoker Smokeless Tobacco Status: No Alcohol use: none Drug use: none - Family History Father Living Status: Hx Family Cardiac Disorders: Yes Mother Adopted: No Living Status: Hx Family Cardiac Disorders: Yes Hx Family Respiratory Disorders: No Hx Family Cancer: No Hx Family GI Disorders: No Hx Family Endocrine Disorder: No Hx Family Neuromuscular Disorders: No Hx Family Neurologic Disorders: No Hx Family HEENT Disorders: No Hx Family Autoimmune Disorders: No Medications and Allergies Allopurinol [Zyloprim] 100 mg PO QAM #0 03/15/15 [History] Aspirin Enteric Coated [Aspirin EC] 81 mg PO QAM #0 03/15/15 [History] Atorvastatin Calcium [Lipitor] 80 mg PO HS #0 03/15/15 [History] Cholecalciferol (Vitamin D3) [Vitamin D3] 50,000 unit PO MO #0 03/15/15 [ History] Clopidogrel [Plavix] 75 mg PO QAM #0 03/15/15 [History] Furosemide [Lasix] 40 mg PO SUTUTHSA@0800,1600 #0 03/15/15 [History] Gabapentin [Neurontin] 300 mg PO TID #0 03/15/15 [History] Hydralazine HCl 100 mg PO SUTUTHSA@0800,1600 #0 03/15/15 [History] Terazosin [Hytrin] 5 mg PO QPM #0 03/15/15 [History] Ranolazine [Ranexa] 500 mg PO BID 07/12/15 [History] Lidocaine/Prilocaine CREAM [Emla] 1 appl TP MOWEFR PRN 02/03/16 [History] Sertraline [Zoloft] 50 mg PO DAILY 02/03/16 [History] Sevelamer [Renvela] 800 mg PO TIDWM 02/03/16 [History] Isosorbide MONOnitrate [Isosorbide Mononitrate ER] 120 mg PO DAILY 02/06/16 [ History] Nitroglycerin [Nitrostat] 0.4 mg SL Q5M PRN 02/06/16 [History] LORazepam [Ativan] 1 mg PO MOWEFR@1000 04/12/16 [History] Nitroglycerin [Nitro-Bid] 1 appl TD DAILY PRN #0 04/12/16 [History] Pantoprazole Sodium [Protonix] 40 mg PO DAILY 04/12/16 [History] Polyethylene Glycol 3350 [MiraLAX] 17 gm PO QAM 04/12/16 [History] Insulin Glargine [Lantus] 15 unit SQ QAM 06/01/16 [History] Oxycodone HCl 10 mg PO Q4H PRN 07/06/16 [History] Benzocaine/Menthol [Sore Throat Lozenges] 1 each MM PRN PRN 08/22/16 [History] Lisinopril [Zestril] 10 mg PO SUTUTHSA 08/22/16 [History] Megestrol Acetate [Megace] 800 mg PO DAILY 08/22/16 [History] Metoprolol [Lopressor] 25 mg PO SUTUTHSA@0800,1600 08/22/16 [History] Nut.tx.impaired Renal Fxn,Soy [Nepro Carb Steady] 237 ml PO DAILY 08/22/16 [ History] Oxycodone HCl [Oxycodone HCl ER] 30 mg PO Q12H 08/22/16 [History] Polyethylene Glycol 3350 [MiraLAX] 17 gm PO DAILY PRN 08/22/16 [History] Allergies morphine Allergy (Verified 07/06/16 10:27) Hallucinating All Systems: A 10-system review of systems was performed and is negative for pertinent findings except as documented above in the HPI. Physical Examination - Vital Signs Vital Signs: Initial Vital Signs Temp Pulse Resp BP Pulse Ox 97.3 F L 67 16 132/70 94 L 08/22/16 10:52 08/22/16 10:52 08/22/16 10:52 08/22/16 10:52 08/22/16 10:52 - Constitutional General appearance: comfortable - Neurologic Sensorimotor examination: other (Uanble to assess. Patient has his eyes closed and follows simple command but most of time he simply ingores questions. Able to keep conversation only to his daughter. Says that he was just sitting and sleeping. Says that he feels pretty good) Detailed motor examination: grossly full strength in all extremities (He moves every thing. No signficant focal weakness noted. Seems restless in his arms. Strength 5/5. Able to squeez hand, right and left with thumb) Mental Status Examination: awake, alert, oriented to person (Not to time per my inquiry but conversation more to the point with his daughter. ), no agnosia, no aphasia, no aproxia, agitated, opens eyes to voice, opens eyes to noxious stimulation, follows simple commands, inattentive Cranial nerve examination: PERRL, EOMI, visual brandon intact (unable to assess) , corneal reflexes brisk symmetrically, sensory to face intact, mastication intact, no facial asymmetry is present, no dysarthria, soft palate elevates bilaterally upon phonation, gag reflex intact, tongue protrudes midline Results - Laboratory Findings CBC and BMP: 08/23/16 05:08 08/23/16 05:08 Abnormal lab findings: Abnormal lab results Hgb 12.2 g/dL (12.9-16.9) L 08/23/16 05:08 MCH 27.7 pg (28.0-33.3) L 08/23/16 05:08 MCHC 31.5 g/dL (31.6-35.5) L 08/23/16 05:08 RDW 18.3 % (11.5-14.5) H 08/23/16 05:08 Potassium 5.1 mEq/L (3.5-4.5) H 08/23/16 05:08 Carbon Dioxide 18 mEq/L (19-29) L 08/23/16 05:08 BUN 37 mg/dL (8-26) H 08/23/16 05:08 Creatinine 5.27 mg/dL (0.72-1.25) H 08/23/16 05:08 Est GFR ( Amer) 13 (> 60) L 08/23/16 05:08 Est GFR (Non-Af Amer) 11 (> 60) L 08/23/16 05:08 Glucose 107 mg/dL (70-99) H 08/23/16 05:08 POC Glucose 92 (58-89) H 08/23/16 07:11 Troponin I 0.11 ng/mL (0-0.03) H* 08/23/16 14:01 Albumin 2.4 g/dL (3.5-5.0) L 08/22/16 11:05 Globulin 4.8 g/dL (2.4-3.5) H 08/22/16 11:05 Albumin/Globulin Ratio 0.5 (1.1-2.2) L 08/22/16 11:05 Urine Color Red (Yellow) A 08/22/16 13:26 Urine Clarity Turbid (Clear) A 08/22/16 13:26 Urine Protein >=300 mg/dL (Neg-Trace) H 08/22/16 13:26 Urine Blood Moderate (Negative) H 08/22/16 13:26 Urine Bilirubin Small (Negative) H 08/22/16 13:26 Ur Leukocyte Esterase Large (Negative) H 08/22/16 13:26 Urine Microscopic WBC TNTC per hpf (0-3) H 08/22/16 13:26 Urine Yeast Present per hpf (None Seen) H 08/22/16 13:26 Ur Culture Indicated? YES (NO) A 08/22/16 13:26 Consult Discharge Plan - Plan Referrals: NO,PCP [Non-Partnered Physician] - (PATIENT WILL FOLLOW UP WITH THE ECF PCP)
[2016-08-23] MEDS: *HR* Heparin 5,000 UNIT/ML VIAL SQ SCH (18:16)
[2016-08-24] MEDS: Meropenem 500 MG in 0.9 % Sodium Chloride Mini Bag 100 ML IVPB SCH (03:36)
[2016-08-24 04:51] LABS: ABG Base Excess 4.9 mEq/L (-2.0 to 3.0); ABG HCO3 29.2 mEQ/L (21-27); ABG PCO2 41 mmHg (35-45); ABG PH 7.46 pH Units (7.32-7.45); ABG PO2 60 mmHg (85-104); ABG TCO2 30.5 mEq/L (20-26)
[2016-08-24 04:52] LABS: ABG Oxygen Saturation 92 % (95-98); Blood Gas FiO2 21 %
[2016-08-24] MEDS ORDERED: 0.9 % Sodium Chloride 250 ML IV PRN (05:46)
[2016-08-24 05:52] LABS: Basophils # 0.1 K/mcL (0.0-0.2); Basophils % 0.7 %; Eosinophils # 0.3 K/mcL (0.0-0.6); Hematocrit 36.1 % (37.5-50.1); Hemoglobin 11.1 g/dL (12.9-16.9); Immature Granulocytes % 0.4 % (0-4); Lymphocytes # 1.6 K/mcL (0.6-4.6); Lymphocytes % 19.1 %; Mean Corpuscular HGB Conc 30.7 g/dL (31.6-35.5); Mean Corpuscular Hemoglobin 27.3 pg (28.0-33.3); Mean Corpuscular Volume 88.9 fL (83.0-100.0); Mean Platelet Volume 9.6 fL (9.4-12.4); Monocytes # 1.1 K/mcL (0.0-1.3); Monocytes % 13.3 %; Neutrophils # 5.3 K/mcL (1.6-8.9); Platelet Count 182 K/mcL (140-400); Red Blood Count 4.06 M/mcL (4.19-5.50); Red Cell Distribution Width 18.4 % (11.5-14.5); Segmented Neutrophils % 62.5 %
[2016-08-24 06:11] LABS: Calcium 8.3 mg/dL (8.6-10.8); Phosphorous 5.7 mg/dL (2.3-4.7); Potassium 5.2 mEq/L (3.5-4.5)
[2016-08-24] MEDS: Ranolazine 500 MG TAB.ER.12H PO SCH ×2 (06:15→20:04)
[2016-08-24] MEDS: Gabapentin 100 MG CAPSULE PO SCH (06:15)
[2016-08-24] MEDS: Aspirin Enteric Coated 81 MG Tablet PO SCH (06:15)
[2016-08-24] MEDS: *HR* Heparin 5,000 UNIT/ML VIAL SQ SCH ×2 (06:21→20:03)
[2016-08-24] MEDS: Insulin LISPRO 300 UNITS/3 ML VIAL SQ SCH ×4 (07:04→20:39)
--- NOTE | 2016-08-24 07:47 | Internal Med Progress Note ---
Date of Encounter: 08/24/16 Time of Encounter: 07:45 - Assessment and plan (1) Acute encephalopathy Current Visit: Yes Status: Acute Assessment and plan: Uncertain etiology. Also noted to have intermittent myoclonic jerks?. Discussed with patient's rn care manager from the [facility] was reported that patient is alert and oriented 3 at baseline. Neurology evaluation appreciated. Recommend MRI brain, will follow-up. His mental status is likely a result of polypharmacy in the setting of missing hemodialysis; continue to monitor closely. Home dose of gabapentin has been decreased 200 mg twice daily. Avoid narcotic pain medications for now. (2) UTI (urinary tract infection) Current Visit: Yes Status: Acute Assessment and plan: Urine culture shows no growth, previous urine cultures growing ESBL Escherichia coli and likely a colonization. Hold meropenem for now. 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 Medical management is recommended at this time. Serum troponins noted to be fluctuating around 0.1 and currently trending down. Patient always has minor troponin leak due to ESRD. No changes on telemetry and no reported chest pain. Continue aspirin, Plavix, beta benjy , statin, and Ranexa. Qualifiers: Coronary Disease-Associated Artery/Lesion type: [place] artery [place] vs. transplanted heart: [place] heart Associated angina: with unstable angina Qualified Code(s): I25.110 - Atherosclerotic heart disease of [place] coronary artery with unstable angina pectoris (4) AICD (automatic cardioverter/defibrillator) present Current Visit: Yes Status: Chronic (5) Chronic diastolic CHF (congestive heart failure) Current Visit: Yes Status: Chronic (6) Diabetes mellitus Current Visit: Yes Status: Chronic Assessment and plan: Continue Accu-Chek blood glucose monitoring with basal bolus insulin regimen. Diabetic diet. Qualifiers: Diabetes mellitus type: type 2 Diabetes mellitus complication status: with kidney complications Diabetes mellitus complication detail: with chronic kidney disease Diabetes mellitus shelter insulin use: with shelter use Chronic kidney disease stage: on chronic dialysis Qualified Code(s): E11.22 - Type 2 diabetes mellitus with diabetic chronic kidney disease; N18.6 - End stage renal disease; Z79.4 - shelter (current) use of insulin; Z99.2 - Dependence on renal dialysis (7) ESRD (end stage renal disease) on dialysis Current Visit: Yes Status: Chronic Assessment and plan: Nephrology consult appreciated. Patient underwent hemodialysis yesterday and is due today. Continue phosphate binders and multivitamins. - Subjective Interval history: Noted to be somnolent today, difficult to arouse. Not noted to be in distress. Nursing notes show that patient has been alert earlier this morning after which he received his scheduled gabapentin. Awaiting hemodialysis today. - Constitutional Vitals: Temp Pulse Resp BP Pulse Ox 99.1 F 65 18 136/73 94 L 08/24/16 07:03 08/24/16 07:03 08/24/16 07:03 08/24/16 07:03 08/24/16 07:03 General appearance: Present: A&O X 0 (Somnolent) - Head Head exam: Present: atraumatic, normocephalic - Neck Neck exam general surgery: Present: supple, trachea midline. Absent: lymphadenopathy - Respiratory Respiratory exam: Present: CTAB. Absent: accessory muscle use, rales, rhonchi, wheezes - Cardiovascular Cardiovascular exam: Present: RRR, +S1, +S2. Absent: diastolic murmur, gallop, rubs, systolic murmur - GI/Abdominal GI/Abdominal exam: Present: normal bowel sounds, soft, no peritoneal signs. 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 Absent: calf tenderness, cyanotic, pedal edema - Neurological Exam Neurological exam: Absent: pronater drift, facial droop, speech deficit Additional comments: Complete examination cannot be completed. Patient is noted to be lethargic and somnolent, grimacing and withdrawing to deep painful stimuli. Intermittent shoulder and upper extremity jerks noted. - Skin Skin exam: Present: dry, intact Internal Medicine: Result - Labs CBC & Chem 7: 08/24/16 05:33 08/24/16 05:33 Labs: Short CBC 08/24/16 Range/Units 05:33 WBC 8.4 (4.3-11.1) K/mcL Hgb 11.1 L (12.9-16.9) g/dL Hct 36.1 L (37.5-50.1) % Plt Count 182 (140-400) K/mcL Neutrophils # 5.3 (1.6-8.9) K/mcL BMP 08/24/16 05:33 Sodium 134 L Potassium 5.2 H Chloride 103 Carbon Dioxide 20 BUN 45 H Creatinine 5.43 H Glucose 77 Calcium 8.3 L Cardiac Enzymes 08/23/16 08/23/16 08/23/16 Range/Units 08:58 14:01 21:37 Troponin I 0.10 H* 0.11 H* 0.12 H* (0-0.03) ng/mL 08/24/16 Range/Units 05:33 Troponin I 0.09 H* (0-0.03) ng/mL - ABG Interpretation ABG results: ABG ABG pH 7.46 pH Units (7.32-7.45) H 08/24/16 04:16 ABG pCO2 41 mmHg (35-45) 08/24/16 04:16 ABG pO2 60 mmHg (85-104) L 08/24/16 04:16 ABG O2 Saturation 92 % (95-98) L 08/24/16 04:16 PT/INR, D-dimer PT 11.9 Seconds (9.4-12.1) 08/22/16 11:05 Consult Discharge Plan - Plan Referrals: NO,PCP [Non-Partnered Physician] - (PATIENT WILL FOLLOW UP WITH THE ECF PCP)
[2016-08-24 09:38] LABS: Hepatitis B Surface Antibody 0.07 mIU/mL; Hepatitis B Surface Antigen Nonreactive (Nonreactive)
--- NOTE | 2016-08-24 10:10 | Nephrology Progress Note ---
Date of Encounter: 08/24/16 Time of Encounter: 10:08 - Assessment and Plan (1) Altered mental status Current Visit: Yes Status: Acute Unclear etiology. Gabapentin discontinued until mental status returns to normal. Then restart gabapentin at 100mg po tid. Avoid mind altering medications such as sedatives. Continue to evaluate for sources of infection. Per neurology and primary care. Qualifiers: Altered mental status type: transient alteration of awareness Qualified Code(s): R40.4 - Transient alteration of awareness (2) Diabetes mellitus Current Visit: Yes Status: Chronic Per primary team. 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 Adjust medications for renal function. Renal diet. Subjective Principal diagnosis: ESRD Interval history: Mr. Kenny was seen while on dialysis. He remains confused, but is able to answer questions. He denies shortness of breath, but then does not answer any other questions. Objective - Vital Signs Vital signs: Vital Signs Temp Pulse Resp BP Pulse Ox 08/24/16 07:46 94 L 08/24/16 07:03 99.1 F 65 18 136/73 94 L 08/24/16 04:00 98.8 F 76 16 110/62 94 L 08/24/16 03:38 98.8 F 66 12 110/62 92 L 08/24/16 00:03 98.3 F 78 20 150/72 94 L 08/23/16 20:17 98.9 F 69 20 125/57 91 L 08/23/16 15:36 75 14 125/72 08/23/16 11:15 132/51 08/23/16 11:00 130/48 08/23/16 10:45 129/47 08/23/16 10:30 107/63 08/23/16 10:15 97.4 F L 22 154/70 Intake and Output 0108/24/16 08/24/16 23:59 07:59 15:59 Intake Total 160 / 160 0 / 0 0 / 0 Output Total 0 / 0 Balance 160 / 160 0 / 0 0 / 0 Intake: IV Fluids 100 / 100 Merrem 500 MG In 0.9 % 100 / 100 Sodium Chloride (Mini-Bag +) 100 ML @ 200 mls/hr IVPB Q12H ELISE Rx#: [id number] Oral 60 / 60 0 / 0 0 / 0 Output: Urine 0 / 0 Other: Meal Breakfast Percent of Meal Consumed 0% Stool Size Small Stool Consistency soft Stool Color Brown # Urine Diapers 1 1 Weight 85.7 kg Blood Glucose* 100 80 Patient Weight 08/24/16 23:59 Weight 85.7 kg - General Appearance General appearance: Present: well-developed, well-nourished EENT: Present: ATNC Respiratory: Present: clear Cardiology: Present: no edema, regular rate, regular rhythm Gastrointestinal: Present: no tenderness Integumentary: Present: warm and dry Neurologic: Present: confused Musculoskeletal: Present: no cyanosis - Lab 08/24/16 05:33 08/24/16 05:33 Most recent lab results ABG pH 7.46 pH Units (7.32-7.45) H 08/24/16 04:16 ABG pCO2 41 mmHg (35-45) 08/24/16 04:16 ABG pO2 60 mmHg (85-104) L 08/24/16 04:16 ABG HCO3 29.2 mEQ/L (21-27) H 08/24/16 04:16 ABG O2 Saturation 92 % (95-98) L 08/24/16 04:16 Calcium 8.3 mg/dL (8.6-10.8) L 08/24/16 05:33 Phosphorus 5.7 mg/dL (2.3-4.7) H 08/24/16 05:33 Consult Discharge Plan - Plan Referrals: NO,PCP [Non-Partnered Physician] - (PATIENT WILL FOLLOW UP WITH THE ECF PCP)
[2016-08-24] MEDS ORDERED: 0.9 % Sodium Chloride 2,000 ML ONE (11:04)
[2016-08-24] MEDS ORDERED: *HR* LORazepam 2 MG/ML VIAL IVP PRN (13:09)
[2016-08-24] MEDS: hydrALAZINE 25 MG TABLET PO SCH ×2 (14:52→20:04)
[2016-08-24] MEDS: Isosorbide MONOnitrate (24 HR) 60 MG TAB.ER.24H PO SCH (14:53)
[2016-08-24] MEDS: Insulin DETEMIR 100 UNIT/ML X5UNITS SQ SCH (14:53)
--- NOTE | 2016-08-24 15:24 | Neurology Progress Note ---
Date of Encounter: 08/24/16 Time of Encounter: 15:22 Assessment and Plan (1) Acute encephalopathy Current Visit: Yes Status: Acute Patient has acute encephalopathy, slightly improved today. No speech difficulty and still mildly disoriented. No focal weakness. MRI of brain showed no acute changes. The symptoms are likely secondary to diffuse encephalopathy related to medical conditions.Please continue medical and supportive care. Will sign off at this time. Subjective Principal diagnosis: confusion Interval history: Patient seen and examined at noon right after hemodialysis. He is lying in bed and comfortable. Wide awake and his mental status appears improved compared to yesterday when i saw him. It was told that he was lethagic this morning however. No significant discomforts. MRI just done and reviewed, no acute infarct noted. Objective - Constitutional Vitals: Temp Pulse Resp BP Pulse Ox 97.5 F L 64 16 128/57 94 L 08/24/16 14:47 08/24/16 14:47 08/24/16 14:47 08/24/16 14:47 08/24/16 14:47 - Neurological Exam Sensorimotor examination: Present: other (Grossly intact. Pain to left hand when touched) Motor Examination: Present: grossly full strength in all extremities Sensation intact: Present: other (Grossly intact) Reflexes: Biceps: 1+, Brachioradialis: 1+, Patella: 1+ Mental Status Examination: Present: awake, alert, oriented to person (Not to time per my inquiry but conversation more to the point with his daughter. ), oriented to time, no agnosia, no aphasia, no aproxia, agitated, opens eyes to voice, opens eyes to noxious stimulation, follows simple commands, inattentive Cranial nerve examination: Present: PERRL, EOMI, visual brandon intact (unable to assess), corneal reflexes brisk symmetrically, sensory to face intact, mastication intact, no facial asymmetry is present, no dysarthria, soft palate elevates bilaterally upon phonation, gag reflex intact, tongue protrudes midline Results - Laboratory Findings CBC and BMP: 08/24/16 05:33 08/24/16 05:33 Abnormal lab findings: Abnormal lab results RBC 4.06 M/mcL (4.19-5.50) L 08/24/16 05:33 Hgb 11.1 g/dL (12.9-16.9) L 08/24/16 05:33 Hct 36.1 % (37.5-50.1) L 08/24/16 05:33 MCH 27.3 pg (28.0-33.3) L 08/24/16 05:33 MCHC 30.7 g/dL (31.6-35.5) L 08/24/16 05:33 RDW 18.4 % (11.5-14.5) H 08/24/16 05:33 ABG pH 7.46 pH Units (7.32-7.45) H 08/24/16 04:16 ABG pO2 60 mmHg (85-104) L 08/24/16 04:16 ABG HCO3 29.2 mEQ/L (21-27) H 08/24/16 04:16 ABG Total CO2 30.5 mEq/L (20-26) H 08/24/16 04:16 ABG O2 Saturation 92 % (95-98) L 08/24/16 04:16 ABG Base Excess 4.9 mEq/L (-2.0 to 3.0) H 08/24/16 04:16 Sodium 134 mEq/L (136-145) L 08/24/16 05:33 Potassium 5.2 mEq/L (3.5-4.5) H 08/24/16 05:33 BUN 45 mg/dL (8-26) H 08/24/16 05:33 Creatinine 5.43 mg/dL (0.72-1.25) H 08/24/16 05:33 Est GFR ( Amer) 12 (> 60) L 08/24/16 05:33 Est GFR (Non-Af Amer) 10 (> 60) L 08/24/16 05:33 Calcium 8.3 mg/dL (8.6-10.8) L 08/24/16 05:33 Phosphorus 5.7 mg/dL (2.3-4.7) H 08/24/16 05:33 Troponin I 0.09 ng/mL (0-0.03) H* 08/24/16 05:33 Albumin 2.4 g/dL (3.5-5.0) L 08/22/16 11:05 Globulin 4.8 g/dL (2.4-3.5) H 08/22/16 11:05 Albumin/Globulin Ratio 0.5 (1.1-2.2) L 08/22/16 11:05 Urine Color Red (Yellow) A 08/22/16 13:26 Urine Clarity Turbid (Clear) A 08/22/16 13:26 Urine Protein >=300 mg/dL (Neg-Trace) H 08/22/16 13:26 Urine Blood Moderate (Negative) H 08/22/16 13:26 Urine Bilirubin Small (Negative) H 08/22/16 13:26 Ur Leukocyte Esterase Large (Negative) H 08/22/16 13:26 Urine Microscopic WBC TNTC per hpf (0-3) H 08/22/16 13:26 Urine Yeast Present per hpf (None Seen) H 08/22/16 13:26 Ur Culture Indicated? YES (NO) A 08/22/16 13:26 Consult Discharge Plan - Plan Referrals: NO,PCP [Non-Partnered Physician] - (PATIENT WILL FOLLOW UP WITH THE [facility] PCP)
[2016-08-25] MEDS: Insulin LISPRO 300 UNITS/3 ML VIAL SQ SCH ×2 (09:55→12:34)
[2016-08-25] MEDS: *HR* Heparin 5,000 UNIT/ML VIAL SQ SCH (09:55)
[2016-08-25] MEDS: hydrALAZINE 25 MG TABLET PO SCH (10:02)
[2016-08-25] MEDS: Ranolazine 500 MG TAB.ER.12H PO SCH (10:02)
[2016-08-25] MEDS: Aspirin Enteric Coated 81 MG Tablet PO SCH (10:03)
[2016-08-25] MEDS: Isosorbide MONOnitrate (24 HR) 60 MG TAB.ER.24H PO SCH (10:03)
[2016-08-25] MEDS: Insulin DETEMIR 100 UNIT/ML X5UNITS SQ SCH (10:03)
--- NOTE | 2016-08-25 10:24 | Nephrology Progress Note ---
Date of Encounter: 08/25/16 Time of Encounter: 10:11 - Assessment and Plan (1) Altered mental status Current Visit: Yes Status: Acute Unclear etiology, but seems to be metabolic. Gabapentin discontinued. Can resume at a reduced dose and titrate up to 300mg/day max. Avoid mind altering medications such as sedatives. Continue to evaluate for sources of infection. Per neurology and primary care. MRI without acute change. Qualifiers: Altered mental status type: transient alteration of awareness Qualified Code(s): R40.4 - Transient alteration of awareness (2) Diabetes mellitus Current Visit: Yes Status: Chronic Per primary team. 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 Adjust medications for renal function. Renal diet. No labs today. Subjective Principal diagnosis: confusion Interval history: Patient seen and evaluated. No new complaint. He is alert and appropriate this am and seems to be close to his baseline from a mental status standpoint. Objective - Vital Signs Vital signs: Vital Signs Temp Pulse Resp BP Pulse Ox 08/25/16 08:00 92 L 08/25/16 07:05 98.2 F 65 17 128/65 92 L 08/25/16 04:59 98.9 F 65 16 127/62 94 L 08/25/16 00:32 97.8 F 60 16 75/53 96 08/24/16 20:00 97.8 F 64 16 118/71 93 L 08/24/16 16:45 99.9 F H 67 18 113/66 99 08/24/16 14:47 97.5 F L 64 16 128/57 94 L 08/24/16 12:57 99/68 08/24/16 12:45 99/68 08/24/16 12:30 117/66 08/24/16 12:15 120/68 08/24/16 12:00 121/58 08/24/16 11:45 150/79 08/24/16 11:30 121/57 08/24/16 11:15 120/60 08/24/16 11:00 149/107 08/24/16 10:45 157/70 08/24/16 10:30 130/59 08/24/16 10:15 117/63 Intake and Output 08/24/16 08/25/16 08/25/16 23:59 07:59 15:59 Other: Weight 85 kg Blood Glucose* 148 92 Patient Weight 08/25/16 23:59 Weight 85 kg - General Appearance General appearance: Present: well-developed, well-nourished EENT: Present: ATNC Neck: Present: supple Respiratory: Present: clear Cardiology: Present: no edema, regular rate, regular rhythm Gastrointestinal: Present: no tenderness Integumentary: Present: warm and dry Additional Comments: Alert and answered questions appropriately. Musculoskeletal: Present: no cyanosis Psychiatric: Present: mood/affect appropriate - Lab 08/24/16 05:33 08/24/16 05:33 Most recent lab results ABG pH 7.46 pH Units (7.32-7.45) H 08/24/16 04:16 ABG pCO2 41 mmHg (35-45) 08/24/16 04:16 ABG pO2 60 mmHg (85-104) L 08/24/16 04:16 ABG HCO3 29.2 mEQ/L (21-27) H 08/24/16 04:16 ABG O2 Saturation 92 % (95-98) L 08/24/16 04:16 Calcium 8.3 mg/dL (8.6-10.8) L 08/24/16 05:33 Phosphorus 5.7 mg/dL (2.3-4.7) H 08/24/16 05:33 Consult Discharge Plan - Plan Referrals: NO,PCP [Non-Partnered Physician] - (PATIENT WILL FOLLOW UP WITH THE F PCP)
[2016-08-25 11:07] VITALS: BP 133/61
--- NOTE | 2016-08-25 11:35 | Discharge Summary ---
Date of Encounter: 08/25/16 Time of Encounter: 11:35 - Discharge Diagnosis (1) Acute encephalopathy Priority: Primary Status: Resolved (2) UTI (urinary tract infection) Priority: Primary Status: Ruled-out Qualifiers: Urinary tract infection type: site unspecified Hematuria presence: without hematuria Qualified Code(s): N39.0 - Urinary tract infection, site not specified (3) CAD (coronary artery disease) Priority: Secondary Status: Chronic Qualifiers: Coronary Disease-Associated Artery/Lesion type: [place] artery [place] vs. transplanted heart: [place] heart Associated angina: with unstable angina Qualified Code(s): I25.110 - Atherosclerotic heart disease of [place] coronary artery with unstable angina pectoris (4) AICD (automatic cardioverter/defibrillator) present Priority: Secondary Status: Chronic (5) Chronic diastolic CHF (congestive heart failure) Priority: Secondary Status: Chronic (6) Diabetes mellitus Priority: Secondary Status: Chronic Qualifiers: Diabetes mellitus complication status: with kidney complications Diabetes mellitus complication detail: with chronic kidney disease Diabetes mellitus longterm insulin use: with remote computer terminal operator use Chronic kidney disease stage: on chronic dialysis Qualified Code(s): E08.22 - Diabetes mellitus due to underlying condition with diabetic chronic kidney disease; N18.6 - End stage renal disease; Z79.4 - manager long term care (current) use of insulin; Z99.2 - Dependence on renal dialysis (7) ESRD (end stage renal disease) on dialysis Priority: Secondary Status: Chronic - Discharge Medications Prescriptions: Gabapentin [Neurontin] 100 mg PO DAILY #30 capsule Home Medications: Allopurinol [Zyloprim] 100 mg PO QAM #0 03/15/15 [History] Aspirin Enteric Coated [Aspirin EC] 81 mg PO QAM #0 03/15/15 [History] Atorvastatin Calcium [Lipitor] 80 mg PO HS #0 03/15/15 [History] Cholecalciferol (Vitamin D3) [Vitamin D3] 50,000 unit PO MO #0 03/15/15 [ History] Clopidogrel [Plavix] 75 mg PO QAM #0 03/15/15 [History] Furosemide [Lasix] 40 mg PO SUTUTHSA@0800,1600 #0 03/15/15 [History] Hydralazine HCl 100 mg PO SUTUTHSA@0800,1600 #0 03/15/15 [History] Terazosin [Hytrin] 5 mg PO QPM #0 03/15/15 [History] Ranolazine [Ranexa] 500 mg PO BID 07/12/15 [History] Lidocaine/Prilocaine CREAM [Emla] 1 appl TP MOWEFR PRN 02/03/16 [History] Sertraline [Zoloft] 50 mg PO DAILY 02/03/16 [History] Sevelamer [Renvela] 800 mg PO TIDWM 02/03/16 [History] Isosorbide MONOnitrate [Isosorbide Mononitrate ER] 120 mg PO DAILY 02/06/16 [ History] Nitroglycerin [Nitrostat] 0.4 mg SL Q5M PRN 02/06/16 [History] Nitroglycerin [Nitro-Bid] 1 appl TD DAILY PRN #0 04/12/16 [History] Pantoprazole Sodium [Protonix] 40 mg PO DAILY 04/12/16 [History] Polyethylene Glycol 3350 [MiraLAX] 17 gm PO QAM 04/12/16 [History] Insulin Glargine [Lantus] 15 unit SQ QAM 06/01/16 [History] Benzocaine/Menthol [Sore Throat Lozenges] 1 each MM PRN PRN 08/22/16 [History] Lisinopril [Zestril] 10 mg PO SUTUTHSA 08/22/16 [History] Megestrol Acetate [Megace] 800 mg PO DAILY 08/22/16 [History] Metoprolol [Lopressor] 25 mg PO SUTUTHSA@0800,1600 08/22/16 [History] Nut.tx.impaired Renal Fxn,Soy [Nepro Carb Steady] 237 ml PO DAILY 08/22/16 [ History] Polyethylene Glycol 3350 [MiraLAX] 17 gm PO DAILY PRN 08/22/16 [History] Gabapentin [Neurontin] 100 mg PO DAILY #30 capsule 08/25/16 [Rx] LORazepam [Ativan] 1 mg PO MOWEFR@1000 #20 08/25/16 [Rx] Oxycodone HCl 10 mg PO Q6H PRN #0 08/25/16 [Rx] Oxycodone HCl [Oxycodone HCl ER] 30 mg PO Q12H #20 08/25/16 [Rx] Allergies/Adverse Reactions: Allergies morphine Allergy (Verified 07/06/16 10:27) Hallucinating Procedures/tests Complete & Pending: Procedures Performed prior 72 hours Category Date Time Status MR head/brain wo con [MR] Routine MRI 08/24/16 13:00 Completed Date of admission: 08/22/16 15:15 Primary care physician: Tone Kirkland Consults: 08/22/16 16:38 Consult to Celebrity Manager [CONS] Routine Reason for SW Consult: from [facility] 08/23/16 08:08 Consult to Nephrology [CONS] Routine Consulting Provider: Mark Lay Reason for Consult: HD Time Notified: 08:08 Call Completed: Yes 08/23/16 08:30 Consult to Dialysis [CONS] ONCE 08/23/16 15:10 Consult to Neurology [CONS] Routine Consulting Provider: Neu[facility] Reason for Consult: Acute encephalopathy Call Completed: Yes 08/24/16 06:00 Consult to Dialysis [CONS] ONCE Discharging clinician: Clara Mendez Anticipated date of discharge: 08/25/16 - Patient Status Disposition: Transfer SNF Condition: Good Functional capacity at discharge: uses cane/walker Overall status at discharge: patient is back to baseline - Discharge Instructions Follow Up With: NO,PCP [Non-Partnered Physician] - (PATIENT WILL FOLLOW UP WITH THE F PCP) Additional Instructions: F/up with PCP, - [facility] - Diet and Activity Activity: as per physical therapy, resume usual activities as tolerated Diet: diabetic diet, low fat, low cholesterol, low salt diet, other (renal diet) Hospital course: Mr. Kenny is a 80 year old male with the above medical problems [facility] from jail for evaluation of altered mental status. CT head done in the emergency room showed no acute abnormality. Initial labs were within normal limits. Urine dipstick was positive for UTI and he was started on IV meropenem due to history of previous urine cultures growing ESBL positive Escherichia coli. However, urine culture showed no significant growth and his antibiotics were held. Patient remained confused and disoriented initially after which he became more lethargic and somnolent and difficult to arouse. He was noted to be on multiple pain medications and sedatives including opiates, gabapentin, benzodiazepines at the jail for ongoing left hand ischemic pain, anxiety and depression. These medications were held and the dose of gabapentin is being changed to a lower dose, adjusted for his renal function. Neurology was consulted and recommended MRI brain, each was noted to be normal. His encephalopathy is likely metabolic and toxic related to hemodialysis, along with polypharmacy. Nephrology was consulted and patient received regular hemodialysis sessions while in the hospital. His mental status significantly improved today after receiving 2 sessions of dialysis since admission. He is medically stable for discharge back to jail. - Time Spent with Patient Total time spent providing and/or coordinating discharge services: Greater than 30 minutes (50 min) - Constitutional Vitals: Temp Pulse Resp BP Pulse Ox 98.1 F 64 17 133/61 93 L 08/25/16 11:06 08/25/16 11:06 08/25/16 11:06 08/25/16 11:06 08/25/16 11:06 General appearance: Present: A&O X 3, answers questions appropriately - Respiratory Respiratory exam: Present: CTAB. Absent: accessory muscle use, rales, rhonchi, wheezes - Cardiovascular Cardiovascular exam: Present: RRR, +S1, +S2. Absent: diastolic murmur, gallop, rubs, systolic murmur
--- NOTE | 2016-08-25 11:47 | Physician Discharge Referral ---
ExtendedCare Referral Info Transfer To: [facility] Provider in Charge: Clara Mendez Provider in Charge after Transfer: PCP Institutional Level of Care: Skilled - Diagnosis (1) Acute encephalopathy Priority: Primary Status: Resolved (2) UTI (urinary tract infection) Priority: Primary Status: Ruled-out (3) CAD (coronary artery disease) Priority: Secondary Status: Chronic (4) AICD (automatic cardioverter/defibrillator) present Priority: Secondary Status: Chronic (5) Chronic diastolic CHF (congestive heart failure) Priority: Secondary Status: Chronic (6) Diabetes mellitus Priority: Secondary Status: Chronic (7) ESRD (end stage renal disease) on dialysis Priority: Secondary Status: Chronic Expected Duration of Placement: 4 weeks Prognosis: Fair Aware of Diagnosis: Patient Aware of Prognosis: Patient - Transfer Medications Prescriptions: Gabapentin [Neurontin] 100 mg PO DAILY #30 capsule Home Medications: Allopurinol [Zyloprim] 100 mg PO QAM #0 03/15/15 [History] Aspirin Enteric Coated [Aspirin EC] 81 mg PO QAM #0 03/15/15 [History] Atorvastatin Calcium [Lipitor] 80 mg PO HS #0 03/15/15 [History] Cholecalciferol (Vitamin D3) [Vitamin D3] 50,000 unit PO MO #0 03/15/15 [ History] Clopidogrel [Plavix] 75 mg PO QAM #0 03/15/15 [History] Furosemide [Lasix] 40 mg PO SUTUTHSA@0800,1600 #0 03/15/15 [History] Hydralazine HCl 100 mg PO SUTUTHSA@0800,1600 #0 03/15/15 [History] Terazosin [Hytrin] 5 mg PO QPM #0 03/15/15 [History] Ranolazine [Ranexa] 500 mg PO BID 07/12/15 [History] Lidocaine/Prilocaine CREAM [Emla] 1 appl TP MOWEFR PRN 02/03/16 [History] Sertraline [Zoloft] 50 mg PO DAILY 02/03/16 [History] Sevelamer [Renvela] 800 mg PO TIDWM 02/03/16 [History] Isosorbide MONOnitrate [Isosorbide Mononitrate ER] 120 mg PO DAILY 02/06/16 [ History] Nitroglycerin [Nitrostat] 0.4 mg SL Q5M PRN 02/06/16 [History] LORazepam [Ativan] 1 mg PO MOWEFR@1000 04/12/16 [History] Nitroglycerin [Nitro-Bid] 1 appl TD DAILY PRN #0 04/12/16 [History] Pantoprazole Sodium [Protonix] 40 mg PO DAILY 04/12/16 [History] Polyethylene Glycol 3350 [MiraLAX] 17 gm PO QAM 04/12/16 [History] Insulin Glargine [Lantus] 15 unit SQ QAM 06/01/16 [History] Benzocaine/Menthol [Sore Throat Lozenges] 1 each MM PRN PRN 08/22/16 [History] Lisinopril [Zestril] 10 mg PO SUTUTHSA 08/22/16 [History] Megestrol Acetate [Megace] 800 mg PO DAILY 08/22/16 [History] Metoprolol [Lopressor] 25 mg PO SUTUTHSA@0800,1600 08/22/16 [History] Nut.tx.impaired Renal Fxn,Soy [Nepro Carb Steady] 237 ml PO DAILY 08/22/16 [ History] Polyethylene Glycol 3350 [MiraLAX] 17 gm PO DAILY PRN 08/22/16 [History] Gabapentin [Neurontin] 100 mg PO DAILY #30 capsule 08/25/16 [Rx] Oxycodone HCl 10 mg PO Q6H PRN #0 08/25/16 [Rx] Oxycodone HCl [Oxycodone HCl ER] 30 mg PO Q12H #20 08/25/16 [Rx] Allergies/Adverse Reactions: Allergies morphine Allergy (Verified 07/06/16 10:27) Hallucinating - Respiratory Orders Smoking Cessation: Smoking cessation has been advised. For more information, call the [place] Tobacco Quit Line at 3-139-DAAR-NOW. - Ancillary Orders May use pressure relief devices daily prn - Advance Directives Code Status: Full Code - Mobility Orders Ambulate - Rehabiliation Orders Rehab Potential: Fair Rehab Orders: ROM Exercises, Evaluation for Physical Therapy, Evaluation for Occupational Therapy - Diet Orders No Added Salt (BRIAN), No Concentrated Sweets, Renal, Cardiac CERTIFICATION: I certify that the transfer of the above named patient to an Extended Care Facility is necessary for the continuing treatment of the diagnosis listed. The above information is true and accurate reflection of patient's current condition. Confidential - Redisclosure prohibited without a patient's written consent.
[2016-08-26] MEDS ORDERED: Gabapentin 100 MG CAPSULE PO SCH (09:00)
== END 2016-08-25 13:27 ==
LOC: 2ANU 10:51 → EMEROO 10:51 → 2ANU 15:10 → UNDODISIN 08-25 12:59
PROVIDERS: ADMIT Internal Medicine; ATTEND Internal Medicine

== ENCOUNTER 2016-08-28 18:17 | Inpatient (IN) ==
[2016-08-28 19:07] LABS: Hematocrit 32.5 % (37.5-50.1); Hemoglobin 10.3 g/dL (12.9-16.9); Mean Corpuscular HGB Conc 31.7 g/dL (31.6-35.5); Mean Corpuscular Hemoglobin 28.4 pg (28.0-33.3); Mean Corpuscular Volume 89.5 fL (83.0-100.0); Red Blood Count 3.63 M/mcL (4.19-5.50)
[2016-08-28 19:08] LABS: Basophils % 0.2 %; Eosinophils # 0.1 K/mcL (0.0-0.6); Eosinophils % 0.6 %; Immature Granulocytes % 0.2 % (0-4); Lymphocytes # 1.2 K/mcL (0.6-4.6); Lymphocytes % 14.4 %; Mean Platelet Volume 9.7 fL (9.4-12.4); Monocytes # 0.9 K/mcL (0.0-1.3); Monocytes % 10.5 %; Neutrophils # 6.2 K/mcL (1.6-8.9); Platelet Count 267 K/mcL (140-400); Segmented Neutrophils % 74.1 %
[2016-08-28 19:21] LABS: Albumin 2.3 g/dL (3.5-5.0); Albumin/Globulin Ratio 0.5 (1.1-2.2); Bilirubin,Direct 0.5 mg/dL (0.0-0.5); Bilirubin,Indirect 0.3 mg/dL (0.0-1.2); Bilirubin,Total 0.8 mg/dL (0.2-1.2); Calcium 9.3 mg/dL (8.6-10.8); Globulin 5.1 g/dL (2.4-3.5); Potassium 4.2 mEq/L (3.5-4.5); Total Protein 7.4 g/dL (6.0-8.3)
[2016-08-28 19:22] LABS: INR 1.1; Prothrombin Time 12.2 Seconds (9.4-12.1)
[2016-08-28 19:25] LABS: Activated Partial Thrombo Time 29.9 Seconds (26.0-36.0)
--- NOTE | 2016-08-28 20:30 | Emergency Department Note ---
Disposition Clinical Impression: Subcapital fracture of left femur Disposition: Admitted As Inpatient Referrals: Tone Kirkland DO [Primary Care Provider] - Forms: ED Satisfaction Letter Lower Extremity Injury HPI - General Chief Complaint: ED Extremity Injury, Lower Stated Complaint: left hip fracture Time Seen by Provider: 08/28/16 18:21 Source: patient, EMS Mode of arrival: EMS Limitations: no limitations Nursing Notes Reviewed: Yes Vital Signs Reviewed: Yes - History of Present Illness Pt Subjective Complaint: hip injury Injury location: Left hip Onset (ago): day(s) (1) Mechanism of Injury: fall (Her wheelchair) Place: home Pain Severity: moderate Improves with: nothing Worsens with: movement, palpation Associated symptoms: Reports: other (She can normally walk with a walker but also uses a wheelchair he has been unable to ambulate since his fall). Denies: ambulatory - Related Data Home Medications Medication Instructions Recorded Confirmed Allopurinol [Zyloprim] 100 mg PO QAM #0 03/15/15 08/22/16 Aspirin Enteric Coated [Aspirin EC] 81 mg PO QAM #0 03/15/15 08/22/16 Atorvastatin Calcium [Lipitor] 80 mg PO HS #0 03/15/15 08/22/16 Cholecalciferol (Vitamin D3) 50,000 unit PO MO #0 03/15/15 08/22/16 [Vitamin D3] Clopidogrel [Plavix] 75 mg PO QAM #0 03/15/15 08/22/16 Furosemide [Lasix] 40 mg PO SUTUTHSA@0800,1600 #0 03/15/15 08/22/16 Hydralazine HCl 100 mg PO SUTUTHSA@0800,1600 #0 03/15/15 08/22/16 Terazosin [Hytrin] 5 mg PO QPM #0 03/15/15 08/22/16 Ranolazine [Ranexa] 500 mg PO BID 07/12/15 08/22/16 Lidocaine/Prilocaine CREAM [Emla] 1 appl TP MOWEFR PRN 02/03/16 08/22/16 Sertraline [Zoloft] 50 mg PO DAILY 02/03/16 08/22/16 Sevelamer [Renvela] 800 mg PO TIDWM 02/03/16 08/22/16 Isosorbide MONOnitrate [Isosorbide 120 mg PO DAILY 02/06/16 08/22/16 Mononitrate ER] Nitroglycerin [Nitrostat] 0.4 mg SL Q5M PRN 02/06/16 08/22/16 Nitroglycerin [Nitro-Bid] 1 appl TD DAILY PRN #0 04/12/16 08/22/16 Pantoprazole Sodium [Protonix] 40 mg PO DAILY 04/12/16 08/22/16 Polyethylene Glycol 3350 [MiraLAX] 17 gm PO QAM 04/12/16 08/22/16 Insulin Glargine [Lantus] 15 unit SQ QAM 06/01/16 08/22/16 Benzocaine/Menthol [Sore Throat 1 each MM PRN PRN 08/22/16 08/22/16 Lozenges] Lisinopril [Zestril] 10 mg PO SUTUTHSA 08/22/16 08/22/16 Megestrol Acetate [Megace] 800 mg PO DAILY 08/22/16 08/22/16 Metoprolol [Lopressor] 25 mg PO SUTUTHSA@0800,1600 08/22/16 08/22/16 Nut.tx.impaired Renal Fxn,Soy 237 ml PO DAILY 08/22/16 08/22/16 [Nepro Carb Steady] Polyethylene Glycol 3350 [MiraLAX] 17 gm PO DAILY PRN 08/22/16 08/22/16 Previous Rx's Medication Instructions Recorded Gabapentin [Neurontin] 100 mg PO DAILY #30 capsule 08/25/16 LORazepam [Ativan] 1 mg PO MOWEFR@1000 #20 08/25/16 Oxycodone HCl 10 mg PO Q6H PRN #0 08/25/16 Oxycodone HCl [Oxycodone HCl ER] 30 mg PO Q12H #20 08/25/16 Allergies Allergy/AdvReac Type Severity Reaction Status Date / Time morphine Allergy Hallucinati Verified 07/06/16 10:27 ng All systems ED: reviewed and negative except as stated. Constitutional: Denies: fever, chills Cardiovascular: Denies: chest pain, palpitations Past Medical History - Past Medical History Source: patient, old records reviewed, nursing notes reviewed Medical history: Reports: arthritis, cancer, CHF, coronary artery disease, diabetes, dialysis, GERD, hyperlipidemia, hypertension, kidney stones, renal disease, other Surgical history: Reports: cataract, cholecystectomy, knee replacement, pacemaker/AICD, other Psychiatric history: Reports: anxiety - Social History Smoking Status: Never smoker Smokeless Tobacco Status: No Alcohol use: Reports: none Drug use: Reports: none Physical Exam - General Limitations: no limitations General appearance: alert, in no apparent distress - Head Head exam: atraumatic, normocephalic, normal inspection - Eye Eye exam: Present: normal appearance, PERRL, EOMI - ENT ENT exam: normal exam, normal oropharynx, mucous membranes moist - Neck Neck exam: Present: normal inspection, full ROM, trachea midline - Chest Chest inspection: Present: normal inspection, symmetric chest wall rise - Respiratory Respiratory exam: Present: normal lung sounds bilaterally - Cardiovascular Cardiovascular exam: Present: regular rate, normal rhythm, normal heart sounds - Expanded Lower Extremity Exam Hip/Pelvis exam: Present: external rotation, other (Patient unable to move the left hip without pain) Neurovascular/Tendon exam: Present: normal capillary refill - Neurological Exam Neurological exam: Present: alert, oriented X3 - Psychiatric Psychiatric exam: Present: normal affect, normal mood - Skin Skin exam: Present: warm, dry, intact, normal color Course Vital Signs Temperature 98.3 F 08/28/16 18:29 Pulse Rate 74 08/28/16 18:29 Respiratory Rate 16 08/28/16 18:29 Blood Pressure 149/81 08/28/16 18:29 O2 Sat by Pulse Oximetry 100 08/28/16 18:29 Temperature 98.3 F 08/28/16 18:29 Pulse Rate 68 08/28/16 19:49 Respiratory Rate 16 08/28/16 19:49 Blood Pressure 149/81 08/28/16 18:29 O2 Sat by Pulse Oximetry 100 08/28/16 19:49 Oxygen Delivery Oxygen Delivery Room Air Extremity Injury, Lower - MDM Narrative Medical decision making narrative: Dr. Ramires consult and will admit the medical service - Differential Diagnosis Likely: sprain/strain, acute internal derangement of knee, puncture wound, dislocation - Medical Records Medical records reviewed: Yes I reviewed the patient's medical records. - Lab Data Lab results reviewed: Yes I reviewed the patient's lab results. Result diagrams: 08/28/16 18:59 08/28/16 18:59 Lab Results 08/28/16 08/28/16 08/28/16 Range/Units 18:59 18:59 18:59 WBC 8.4 (4.3-11.1) K/mcL RBC 3.63 L (4.19-5.50) M/mcL Hgb 10.3 L (12.9-16.9) g/dL Hct 32.5 L (37.5-50.1) % MCV 89.5 (83.0-100.0) fL MCH 28.4 (28.0-33.3) pg MCHC 31.7 (31.6-35.5) g/dL RDW 17.0 H (11.5-14.5) % Plt Count 267 (140-400) K/mcL MPV 9.7 (9.4-12.4) fL Immature Gran % 0.2 (0-4) % Seg Neutrophils % 74.1 % Lymphocytes % 14.4 % Monocytes % 10.5 % Eosinophils % 0.6 % Basophils % 0.2 % Neutrophils # 6.2 (1.6-8.9) K/mcL Lymphocytes # 1.2 (0.6-4.6) K/mcL Monocytes # 0.9 (0.0-1.3) K/mcL Eosinophils # 0.1 (0.0-0.6) K/mcL Basophils # 0.0 (0.0-0.2) K/mcL Immature Plt Fraction 2.0 (1.1-6.1) % PT 12.2 H (9.4-12.1) Seconds INR 1.1 APTT 29.9 (26.0-36.0) Seconds Sodium 139 (136-145) mEq/L Potassium 4.2 (3.5-4.5) mEq/L Chloride 100 (98-109) mEq/L Carbon Dioxide 26 (19-29) mEq/L BUN 32 H D (8-26) mg/dL Creatinine 4.33 H (0.72-1.25) mg/dL Est GFR ( Amer) 16 L (> 60) Est GFR (Non-Af Amer) 13 L (> 60) BUN/Creatinine Ratio 7 (6-26) Glucose 121 H (70-99) mg/dL Calculated Osmolality 296 (280-300) Calcium 9.3 (8.6-10.8) mg/dL Total Bilirubin 0.8 (0.2-1.2) mg/dL Direct Bilirubin 0.5 (0.0-0.5) mg/dL Indirect Bilirubin 0.3 (0.0-1.2) mg/dL AST 32 (5-34) Units/L ALT 7 (0-55) Units/L Alkaline Phosphatase 95 (38-126) Units/L Serum Total Protein 7.4 (6.0-8.3) g/dL Albumin 2.3 L (3.5-5.0) g/dL Globulin 5.1 H (2.4-3.5) g/dL Albumin/Globulin Ratio 0.5 L (1.1-2.2) Blood Type Antibody Screen 08/28/16 Range/Units 18:59 WBC (4.3-11.1) K/mcL RBC (4.19-5.50) M/mcL Hgb (12.9-16.9) g/dL Hct (37.5-50.1) % MCV (83.0-100.0) fL MCH (28.0-33.3) pg MCHC (31.6-35.5) g/dL RDW (11.5-14.5) % Plt Count (140-400) K/mcL MPV (9.4-12.4) fL Immature Gran % (0-4) % Seg Neutrophils % % Lymphocytes % % Monocytes % % Eosinophils % % Basophils % % Neutrophils # (1.6-8.9) K/mcL Lymphocytes # (0.6-4.6) K/mcL Monocytes # (0.0-1.3) K/mcL Eosinophils # (0.0-0.6) K/mcL Basophils # (0.0-0.2) K/mcL Immature Plt Fraction (1.1-6.1) % PT (9.4-12.1) Seconds INR APTT (26.0-36.0) Seconds Sodium (136-145) mEq/L Potassium (3.5-4.5) mEq/L Chloride (98-109) mEq/L Carbon Dioxide (19-29) mEq/L BUN (8-26) mg/dL Creatinine (0.72-1.25) mg/dL Est GFR ( Amer) (> 60) Est GFR (Non-Af Amer) (> 60) BUN/Creatinine Ratio (6-26) Glucose (70-99) mg/dL Calculated Osmolality (280-300) Calcium (8.6-10.8) mg/dL Total Bilirubin (0.2-1.2) mg/dL Direct Bilirubin (0.0-0.5) mg/dL Indirect Bilirubin (0.0-1.2) mg/dL AST (5-34) Units/L ALT (0-55) Units/L Alkaline Phosphatase (38-126) Units/L Serum Total Protein (6.0-8.3) g/dL Albumin (3.5-5.0) g/dL Globulin (2.4-3.5) g/dL Albumin/Globulin Ratio (1.1-2.2) Blood Type O POSITIVE Antibody Screen NEGATIVE - Radiology Data Radiology results reviewed: Yes I reviewed the patient's radiology results.
[2016-08-28] MEDS ORDERED: *HR* OxyCODONE/APAP 5/325 TABLET PO ONE (20:32)
[2016-08-29] MEDS ORDERED: Nitroglycerin 0.4 MG TAB.SUBL SL PRN (00:15)
[2016-08-29] MEDS ORDERED: Naloxone 0.4 MG/ML INJ IVP PRN ×2 (00:19→20:17)
[2016-08-29] MEDS ORDERED: Ondansetron 4 MG/2 ML VIAL IVP PRN (00:19)
[2016-08-29] MEDS ORDERED: Dextrose Gel 15 GM PO PRN ×2 (00:25)
[2016-08-29] MEDS ORDERED: D5% in Water 1,000 ML IV PRN (00:25)
[2016-08-29] MEDS ORDERED: *HR* Dextrose 50 % in Water (Syg) 50 ML SYRINGE IVP PRN (00:25)
--- NOTE | 2016-08-29 00:32 | Internal Med History&Physical ---
Date of Encounter: 08/29/16 Time of Encounter: 23:40 Internal Medicine - H&P: HPI Chief complaint: left hip pain x 2 days Admitted From: Emergency Dept Plans for Post Hospital Care: Transfer [facility] History of present illness: Mr. Kenny is a 80 year old male resident of a local [facility] with medical history significant for ESRD on HD, HTN, DM2, hyperlipidemia, chronic pain, on chronic maintenance opioid analgesia, recently evaluated for encephalopathy which is now thought to be medication-related, presents with left hip pain after a mechanical fall 2 days ago. Patient is wheel-chair bound, he was attempting to reach a candy bar above him when his wheel-chair (which he describes as defective) turned over. He fell on his left hip. The [facility] requested pelvic xray at the time of the incident, but studies did not show hip fracture. However, pain persisting, he was referred ti the ED TODAY, CT pelvis/hip done to re-evaluate hip pain shows a sub-capital femoral neck fracture with anterior angulation of apex. No focal neurological deficits reported, MRI done a couple of days ago to evaluated somnolence and change in status did not suggest acute intracranial findings. His daughter was concerned for AMS 3 days ago and brought him to hospital. He was evaluated by neurology and nephrology. Medication and metabolic effects of missed hemodialysis was entertained. He still appears to be drowsy and intermittently gibberish despite discontinuing high dose Gabapentin and reducing use of opioid analgesia. He only reports left hip pain. He is drowy, uncertain if this is related to analgesia given in the ED. He answers no to items of ROS. He is FULL CODE as per discussion, he nominates his son, Elliot Kenny ([phone]) as his NOK/POA. Source: patient, old records reviewed, nursing notes reviewed Medical history: Reports: arthritis, cancer, CHF, coronary artery disease, diabetes, ESRD on hemodialysis, GERD, hyperlipidemia, hypertension, nephrolithiasis. Surgical history: Reports: cataract, cholecystectomy, bilateral knee replacement , pacemaker/AICD, AV fistula for HD Psychiatric history: Reports: anxiety Smoking Status: Never smoker Smokeless Tobacco Status: No Alcohol use: Reports: none Drug use: Reports: none Family history: The patient is unable to provide. ROS: A 10-point ROS was performed, positives and relevant negatives are detailed , system-symptoms not mentioned are assumed negative unless otherwise stated. Vital Signs Temperature 98.3 F 08/28/16 18:29 Pulse Rate 74 08/28/16 18:29 Respiratory Rate 16 08/28/16 18:29 Blood Pressure 149/81 08/28/16 18:29 O2 Sat by Pulse Oximetry 100 08/28/16 18:29 Temperature 98.3 F 08/28/16 18:29 Pulse Rate 68 08/28/16 19:49 Respiratory Rate 16 08/28/16 19:49 Blood Pressure 149/81 08/28/16 18:29 O2 Sat by Pulse Oximetry 100 08/28/16 19:49 O/E: In mild distress from left hip pain/spasm HEENT: Not pale, anicteric, afebrile, acyanotic, no JVD Chest: CTAB, Heart/CVS: RRR, HS1/2, soft systolic murmur Abdomen: right subcoastal (cholecystectomy), and midline laparostomy scar, soft , non-tender, no masses. EXCEL EXPERT: largely coherent, buy intermittently drowsy, he moves all limbs spontaneous. no gross focal neurological decifits, PERRL/EOMI Skin: clinical evidence of ESRD on HD, hyperpigmentation with mild xerosis. 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 weak pedal pulses bilaterally, no calf tenderness. Left upper arm AVF with palpable thril, left lower extremity is marginally shorter, held in a mild lateral rotated position. Lab Results 08/28/16 08/28/16 08/28/16 Range/Units 18:59 18:59 18:59 WBC 8.4 (4.3-11.1) K/mcL RBC 3.63 L (4.19-5.50) M/mcL Hgb 10.3 L (12.9-16.9) g/dL Hct 32.5 L (37.5-50.1) % MCV 89.5 (83.0-100.0) fL MCH 28.4 (28.0-33.3) pg MCHC 31.7 (31.6-35.5) g/dL RDW 17.0 H (11.5-14.5) % Plt Count 267 (140-400) K/mcL MPV 9.7 (9.4-12.4) fL Immature Gran % 0.2 (0-4) % Seg Neutrophils % 74.1 % Lymphocytes % 14.4 % Monocytes % 10.5 % Eosinophils % 0.6 % Basophils % 0.2 % Neutrophils # 6.2 (1.6-8.9) K/mcL Lymphocytes # 1.2 (0.6-4.6) K/mcL Monocytes # 0.9 (0.0-1.3) K/mcL Eosinophils # 0.1 (0.0-0.6) K/mcL Basophils # 0.0 (0.0-0.2) K/mcL Immature Plt Fraction 2.0 (1.1-6.1) % PT 12.2 H (9.4-12.1) Seconds INR 1.1 APTT 29.9 (26.0-36.0) Seconds Sodium 139 (136-145) mEq/L Potassium 4.2 (3.5-4.5) mEq/L Chloride 100 (98-109) mEq/L Carbon Dioxide 26 (19-29) mEq/L BUN 32 H D (8-26) mg/dL Creatinine 4.33 H (0.72-1.25) mg/dL Est GFR ( Amer) 16 L (> 60) Est GFR (Non-Af Amer) 13 L (> 60) BUN/Creatinine Ratio 7 (6-26) Glucose 121 H (70-99) mg/dL Calculated Osmolality 296 (280-300) Calcium 9.3 (8.6-10.8) mg/dL Total Bilirubin 0.8 (0.2-1.2) mg/dL Direct Bilirubin 0.5 (0.0-0.5) mg/dL Indirect Bilirubin 0.3 (0.0-1.2) mg/dL AST 32 (5-34) Units/L ALT 7 (0-55) Units/L Alkaline Phosphatase 95 (38-126) Units/L Serum Total Protein 7.4 (6.0-8.3) g/dL Albumin 2.3 L (3.5-5.0) g/dL Globulin 5.1 H (2.4-3.5) g/dL Albumin/Globulin Ratio 0.5 L (1.1-2.2) Blood Type Antibody Screen 08/28/16 Range/Units 18:59 WBC (4.3-11.1) K/mcL RBC (4.19-5.50) M/mcL Hgb (12.9-16.9) g/dL Hct (37.5-50.1) % MCV (83.0-100.0) fL MCH (28.0-33.3) pg MCHC (31.6-35.5) g/dL RDW (11.5-14.5) % Plt Count (140-400) K/mcL MPV (9.4-12.4) fL Immature Gran % (0-4) % Seg Neutrophils % % Lymphocytes % % Monocytes % % Eosinophils % % Basophils % % Neutrophils # (1.6-8.9) K/mcL Lymphocytes # (0.6-4.6) K/mcL Monocytes # (0.0-1.3) K/mcL Eosinophils # (0.0-0.6) K/mcL Basophils # (0.0-0.2) K/mcL Immature Plt Fraction (1.1-6.1) % PT (9.4-12.1) Seconds INR APTT (26.0-36.0) Seconds Sodium (136-145) mEq/L Potassium (3.5-4.5) mEq/L Chloride (98-109) mEq/L Carbon Dioxide (19-29) mEq/L BUN (8-26) mg/dL Creatinine (0.72-1.25) mg/dL Est GFR ( Amer) (> 60) Est GFR (Non-Af Amer) (> 60) BUN/Creatinine Ratio (6-26) Glucose (70-99) mg/dL Calculated Osmolality (280-300) Calcium (8.6-10.8) mg/dL Total Bilirubin (0.2-1.2) mg/dL Direct Bilirubin (0.0-0.5) mg/dL Indirect Bilirubin (0.0-1.2) mg/dL AST (5-34) Units/L ALT (0-55) Units/L Alkaline Phosphatase (38-126) Units/L Serum Total Protein (6.0-8.3) g/dL Albumin (3.5-5.0) g/dL Globulin (2.4-3.5) g/dL Albumin/Globulin Ratio (1.1-2.2) Blood Type O POSITIVE Antibody Screen NEGATIVE CT hip: subcapital fracture of left femoral neck, no other fracture. CXR: stable cardiomegaly with radiological evidence of decompensation IMP Left sub-capital femoral fracture after a fall Mechanical fall ESRD for hemodialysis Medication related drowsiness vs uremic encephalopathy. 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 Mild anemia of CKD, stable, at goal. PLAN Admit Hold Plavix Heprin sub-cut q12h for DVT prophylaxis Optimal pain control Consult orthopedic surgeon Consult staff editor, will need hemodialysis today. I await recommendation of orthopedic surgeon, if surgery contemplated should be done after dialysis. Continue other medications of chronic morbidities. Levemir 10u QHS, low dose insulin sliding scale. Continue diabetic diet until details of surgery is available. I will clear patient as at least moderate risk for naomi-operative cardiovascular event for IM nailing or unipolar left hip replacement. Past Med Surg Social Fam HX - Past Medical History Medical history: arthritis, cancer, CHF, coronary artery disease, diabetes, dialysis, GERD, hyperlipidemia, hypertension, kidney stones, renal disease, other Psychiatric history: anxiety - Past Surgical History Surgical History: cataract, cholecystectomy, knee replacement, pacemaker/AICD, other - Social History Smoking Status: Never smoker Smokeless Tobacco Status: No Alcohol use: none Drug use: none - Family History Father Living Status: Hx Family Cardiac Disorders: Yes Mother Adopted: No Living Status: Hx Family Cardiac Disorders: Yes Hx Family Respiratory Disorders: No Hx Family Cancer: No Hx Family GI Disorders: No Hx Family Endocrine Disorder: No Hx Family Neuromuscular Disorders: No Hx Family Neurologic Disorders: No Hx Family HEENT Disorders: No Hx Family Autoimmune Disorders: No Internal Medicine - H&P: Meds Allopurinol [Zyloprim] 100 mg PO QAM #0 03/15/15 [History] Aspirin Enteric Coated [Aspirin EC] 81 mg PO QAM #0 03/15/15 [History] Atorvastatin Calcium [Lipitor] 80 mg PO HS #0 03/15/15 [History] Clopidogrel [Plavix] 75 mg PO QAM #0 03/15/15 [History] Furosemide [Lasix] 40 mg PO SUTUTHSA@0800,1600 #0 03/15/15 [History] Hydralazine HCl 100 mg PO SUTUTHSA@0800,1600 #0 03/15/15 [History] Terazosin [Hytrin] 5 mg PO QPM #0 03/15/15 [History] Ranolazine [Ranexa] 500 mg PO BID 07/12/15 [History] Lidocaine/Prilocaine CREAM [Emla] 1 appl TP MOWEFR PRN 02/03/16 [History] Sertraline [Zoloft] 50 mg PO DAILY 02/03/16 [History] Sevelamer [Renvela] 800 mg PO TIDWM 02/03/16 [History] Isosorbide MONOnitrate [Isosorbide Mononitrate ER] 120 mg PO DAILY 02/06/16 [ History] Nitroglycerin [Nitrostat] 0.4 mg SL Q5M PRN 02/06/16 [History] Pantoprazole Sodium [Protonix] 40 mg PO DAILY 04/12/16 [History] Polyethylene Glycol 3350 [MiraLAX] 17 gm PO QAM 04/12/16 [History] Insulin Glargine [Lantus] 15 unit SQ QAM 06/01/16 [History] Lisinopril [Zestril] 10 mg PO SUTUTHSA 08/22/16 [History] Megestrol Acetate [Megace] 800 mg PO DAILY 08/22/16 [History] Metoprolol [Lopressor] 25 mg PO SUTUTHSA@0800,1600 08/22/16 [History] Nut.tx.impaired Renal Fxn,Soy [Nepro Carb Steady] 237 ml PO DAILY 08/22/16 [ History] LORazepam [Ativan] 1 mg PO MOWEFR@1000 #20 08/25/16 [Rx] Oxycodone HCl 10 mg PO Q6H PRN #0 08/25/16 [Rx] Oxycodone HCl [Oxycodone HCl ER] 30 mg PO Q12H #20 08/25/16 [Rx] Allergies morphine Allergy (Verified 07/06/16 10:27) Hallucinating All Systems PM: A 10-system review of systems was performed and is negative for pertinent findings except as documented above in the HPI. - Constitutional Vitals: Temp Pulse Resp BP Pulse Ox 98.9 F 67 16 148/64 96 08/28/16 22:32 08/28/16 22:32 08/28/16 22:32 08/28/16 22:32 08/28/16 22:32 Internal Med - H&P Results - Labs CBC & Chem 7: 08/28/16 18:59 08/28/16 18:59
[2016-08-29 01:07] LABS: Hemoglobin A1C 4.4 %
[2016-08-29] MEDS: *HR* OxyCODONE ER (12 HR) 10 MG TABLET PO SCH ×3 (01:30→23:17)
[2016-08-29] MEDS: *HR* HYDROmorphone (PF) 1 MG/ML SYRINGE IVP PRN (02:53)
[2016-08-29] MEDS ORDERED: *HR* Heparin 5,000 UNIT/ML VIAL SQ SCH (07:00)
--- NOTE | 2016-08-29 07:27 | Orthopedic Consult Note ---
Date of Encounter: 08/29/16 Time of Encounter: 07:25 Assessment and Plan (1) Subcapital fracture of left femur Current Visit: Yes Status: Acute The patient has clinical and radiographic evidence of left displaced femoral neck fracture. The recommendation at this time is to proceed with a left hip hemiarthroplasty in order to control his pain, facilitate nursing care. The risks, benefits, potential complications, and alternatives were discussed with the patient in detail. The risks discussed included but were not limited to bleeding, infection, anesthesia risks, damage to neurovascular structures, damage to tendons, ligaments, and bone, continued pain, possible need for further procedures, blood clots, myocardial infarction, stroke, and . Perioperative blood management and the potential for blood transfusion were discussed with risks and options clearly outlined. Specific details of the surgical procedure, hospitalization, recovery, rehabilitation, and long-term precautions were also presented. Preoperative teaching was provided. Implants/ prosthesis selection was outlined, and the many options available were explained ; final choice will be made at the time of the procedure to match the anatomy and the condition of the bone, ligaments, tendons, and muscles. Given this instruction, the patient wishes to proceed with the left hip hemiarthroplasty and consent will be obtained. Of note I discussed this thoroughly with both the patient is well as Bryant Kenny, the patient's son. The patient will require medical clearance as well as dialysis today prior to surgery. History of Present Illness Chief complaint: Left hip fracture HPI: Mr. Kenny is a 80 year old multiply medically comorbid male who sustained a fall from his wheelchair couple of days ago. He is reaching for something on the vanity when he fell out of the chair and has left hip and groin pain. He was admitted after being found to have a left displaced femoral neck fracture. I was consult to assist in the evaluation and management of the patient. Again estimated he is multiply medically comorbid, notably for his end-stage renal disease on dialysis. I had recently treated him for gangrenous digits on the left via amputation of the index through small fingers. He had been recovering reasonably well from this, however he said episodes of urinary tract infections and altered mental status since, including a recent admission for such. Nevertheless, this morning his mental status is very good, and the patient does corroborate the above history. He is complaining of isolated pain to the left hip and groin which radiates down to the knee. He denies any other pain. He denies loss of consciousness, headaches, neck pain, chest pain, abdominal pain, bilateral proximity pain, and right lower extremity pain. Past Med Surg Social Fam HX - Past Medical History Medical history: arthritis, cancer, CHF, coronary artery disease, diabetes, dialysis, GERD, hyperlipidemia, hypertension, kidney stones, renal disease, other Psychiatric history: anxiety - Past Surgical History Surgical History: cataract, cholecystectomy, knee replacement, pacemaker/AICD, other - Social History Smoking Status: Never smoker Smokeless Tobacco Status: No Alcohol use: none Drug use: none - Family History Father Living Status: Hx Family Cardiac Disorders: Yes Mother Adopted: No Living Status: Hx Family Cardiac Disorders: Yes Hx Family Respiratory Disorders: No Hx Family Cancer: No Hx Family GI Disorders: No Hx Family Endocrine Disorder: No Hx Family Neuromuscular Disorders: No Hx Family Neurologic Disorders: No Hx Family HEENT Disorders: No Hx Family Autoimmune Disorders: No Medications and Allergies Allopurinol [Zyloprim] 100 mg PO QAM #0 03/15/15 [History] Aspirin Enteric Coated [Aspirin EC] 81 mg PO QAM #0 03/15/15 [History] Atorvastatin Calcium [Lipitor] 80 mg PO HS #0 03/15/15 [History] Clopidogrel [Plavix] 75 mg PO QAM #0 03/15/15 [History] Furosemide [Lasix] 40 mg PO SUTUTHSA@0800,1600 #0 03/15/15 [History] Hydralazine HCl 100 mg PO SUTUTHSA@0800,1600 #0 03/15/15 [History] Terazosin [Hytrin] 5 mg PO QPM #0 03/15/15 [History] Ranolazine [Ranexa] 500 mg PO BID 07/12/15 [History] Lidocaine/Prilocaine CREAM [Emla] 1 appl TP MOWEFR PRN 02/03/16 [History] Sertraline [Zoloft] 50 mg PO DAILY 02/03/16 [History] Sevelamer [Renvela] 800 mg PO TIDWM 02/03/16 [History] Isosorbide MONOnitrate [Isosorbide Mononitrate ER] 120 mg PO DAILY 02/06/16 [ History] Nitroglycerin [Nitrostat] 0.4 mg SL Q5M PRN 02/06/16 [History] Pantoprazole Sodium [Protonix] 40 mg PO DAILY 04/12/16 [History] Polyethylene Glycol 3350 [MiraLAX] 17 gm PO QAM 04/12/16 [History] Insulin Glargine [Lantus] 15 unit SQ QAM 06/01/16 [History] Lisinopril [Zestril] 10 mg PO SUTUTHSA 08/22/16 [History] Megestrol Acetate [Megace] 800 mg PO DAILY 08/22/16 [History] Metoprolol [Lopressor] 25 mg PO SUTUTHSA@0800,1600 08/22/16 [History] Nut.tx.impaired Renal Fxn,Soy [Nepro Carb Steady] 237 ml PO DAILY 08/22/16 [ History] LORazepam [Ativan] 1 mg PO MOWEFR@1000 #20 08/25/16 [Rx] Oxycodone HCl 10 mg PO Q6H PRN #0 08/25/16 [Rx] Oxycodone HCl [Oxycodone HCl ER] 30 mg PO Q12H #20 08/25/16 [Rx] Allergies morphine Allergy (Verified 07/06/16 10:27) Hallucinating All Systems Reviewed: Constitutional and musculoskeletal systems were reviewed and are negative unless otherwise stated in history of present illness. Physical Exam - Constitutional Vitals: Temp Pulse Resp BP Pulse Ox 99.1 F 81 16 164/64 95 08/29/16 04:44 08/29/16 04:44 08/29/16 04:44 08/29/16 04:44 08/29/16 04:44 Constitutional -Vitals reviewed -The patient is well developed and well nourished. -Mood is pleasant. -The patient is well groomed. Psychiatric -The patient is fully alert and oriented x 3. Respiratory: -Respiratory effort normal Abdomen: -Soft abdomen -Non tender -Non distended: Left upper extremity: -Absent index, long finger, ring finger, and small fingers. The wound is dry with eschar. Looks good overall, no concern for infection. -No tenderness to palpation throughout. -No significant pain with passive motion of the shoulder, elbow, and wrist within the limits of the bed. -Sensation grossly intact to light touch throughout the median, radial, and ulnar distributions. Right upper extremity: -No deformities. The overlying skin is intact. No obvious signs of acute trauma. -No tenderness to palpation throughout. -No significant pain with passive motion of the shoulder, elbow, wrist, and fingers within the limits of the bed. -Able to make an "OK" sign, cross the index and long fingers, and extend the thumb. -Sensation grossly intact to light touch throughout the median, radial, and ulnar distributions. -Radial pulse is present; Fingers have good capillary refill. Left lower extremity: -Mildly shortened extremity. -Tenderness about the left thigh and groin. -I did not range the hip due to his known fracture. -Able to dorsiflex and plantarflex the ankle and toes. -Sensation is grossly intact to light touch throughout the sural, saphenous, superficial peroneal, and deep peroneal distributions. -Toes have good capillary refill. Right lower extremity: -No deformities. The overlying skin is intact. No obvious signs of acute trauma. -No tenderness to palpation throughout. -No pain with passive motion of the hip, knee, ankle, and toes within the limits of the bed. -No pain with axial loading of the thigh. -Able to dorsiflex and plantarflex the ankle and toes. -Sensation is grossly intact to light touch throughout the sural, saphenous, superficial peroneal, and deep peroneal distributions. -Toes have good capillary refill. Results - Labs Result Diagrams: 08/28/16 18:59 08/28/16 18:59 Labs: Abnormal lab results RBC 3.63 M/mcL (4.19-5.50) L 08/28/16 18:59 Hgb 10.3 g/dL (12.9-16.9) L 08/28/16 18:59 Hct 32.5 % (37.5-50.1) L 08/28/16 18:59 RDW 17.0 % (11.5-14.5) H 08/28/16 18:59 PT 12.2 Seconds (9.4-12.1) H 08/28/16 18:59 BUN 32 mg/dL (8-26) H D 08/28/16 18:59 Creatinine 4.33 mg/dL (0.72-1.25) H 08/28/16 18:59 Est GFR ( Amer) 16 (> 60) L 08/28/16 18:59 Est GFR (Non-Af Amer) 13 (> 60) L 08/28/16 18:59 Glucose 121 mg/dL (70-99) H 08/28/16 18:59 Albumin 2.3 g/dL (3.5-5.0) L 08/28/16 18:59 Globulin 5.1 g/dL (2.4-3.5) H 08/28/16 18:59 Albumin/Globulin Ratio 0.5 (1.1-2.2) L 08/28/16 18:59 All other labs normal. - Diagnostic results Hip CT: image reviewed (Hip CT scan on the left does demonstrate a displaced femoral neck fracture.) Consult Discharge Plan - Plan Referrals: Tone Kirkland DO [Primary Care Provider] -
[2016-08-29 07:30] LABS: Hematocrit 31.6 % (37.5-50.1); Hemoglobin 9.8 g/dL (12.9-16.9); Immature Platelets 1.6 % (1.1-6.1); Mean Corpuscular Hemoglobin 27.8 pg (28.0-33.3); Mean Corpuscular Volume 89.8 fL (83.0-100.0); Mean Platelet Volume 9.5 fL (9.4-12.4); Red Blood Count 3.52 M/mcL (4.19-5.50)
[2016-08-29 07:43] LABS: Potassium 4.4 mEq/L (3.5-4.5)
[2016-08-29] MEDS ORDERED: 0.9 % Sodium Chloride 250 ML IV PRN (08:43)
[2016-08-29] MEDS ORDERED: 0.9 % Sodium Chloride 1,000 ML PRIME SCH (08:45)
[2016-08-29] MEDS ORDERED: NON-FORMULARY MEDICATION 1 EACH EACH (Insulin Glargine [Lantus] 15 UNIT) SQ SCH (09:00)
[2016-08-29] MEDS ORDERED: NON-FORMULARY MEDICATION 1 EACH EACH (Insulin Glargine [Lantus] 10 UNIT) SQ SCH (09:00)
[2016-08-29] MEDS ORDERED: Aspirin Enteric Coated 81 MG Tablet PO SCH (09:00)
--- NOTE | 2016-08-29 09:15 | Anesthesia Evaluation PreOp ---
Date of Encounter: 08/28/16 Time of Encounter: 16:40 - Past History Planned Operation: Left Anthony Hip Cardiac History: CHF, HTN, Hyperlipidemia, Cardiac Stent (Multiple stents all > 1 year old), Pacemaker/ICD (Dual chamber pacemaker only. ECHO 06/07/2016 EF 45- 50%, Apical-Mid Inferior and apical septal - mid inferior septal wall hypokinesis) Other Medical History: Renal (ESRD Dialysis today ( MWF)), Diabetes Type II Anesthesia History: No Prior Anesthetic Complications, Past Anesthesia (Long finger amp., B-tkr, GB, Pacer, Left had ring, small and index finger amps) Alcohol Use: none Drug use: none Medications and Allergies Allopurinol [Zyloprim] 100 mg PO QAM #0 03/15/15 [History] Atorvastatin Calcium [Lipitor] 80 mg PO HS #0 03/15/15 [History] Clopidogrel [Plavix] 75 mg PO QAM #0 03/15/15 [History] Furosemide [Lasix] 40 mg PO SUTUTHSA@0800,1600 #0 03/15/15 [History] Hydralazine HCl 100 mg PO SUTUTHSA@0800,1600 #0 03/15/15 [History] Terazosin [Hytrin] 5 mg PO QPM #0 03/15/15 [History] Ranolazine [Ranexa] 500 mg PO BID 07/12/15 [History] Lidocaine/Prilocaine CREAM [Emla] 1 appl TP MOWEFR PRN 02/03/16 [History] Sertraline [Zoloft] 50 mg PO DAILY 02/03/16 [History] Sevelamer [Renvela] 800 mg PO TIDWM 02/03/16 [History] Isosorbide MONOnitrate [Isosorbide Mononitrate ER] 120 mg PO DAILY 02/06/16 [ History] Nitroglycerin [Nitrostat] 0.4 mg SL Q5M PRN 02/06/16 [History] Pantoprazole Sodium [Protonix] 40 mg PO DAILY 04/12/16 [History] Polyethylene Glycol 3350 [MiraLAX] 17 gm PO QAM 04/12/16 [History] Lisinopril [Zestril] 10 mg PO SUTUTHSA 08/22/16 [History] Megestrol Acetate [Megace] 800 mg PO DAILY 08/22/16 [History] Metoprolol [Lopressor] 25 mg PO SUTUTHSA@0800,1600 08/22/16 [History] Nut.tx.impaired Renal Fxn,Soy [Nepro Carb Steady] 237 ml PO DAILY 08/22/16 [ History] Aspirin Enteric Coated [Aspirin EC] 325 mg PO BID 30 Days 09/01/16 [Rx] HYDROmorphone [Dilaudid] 1 mg PO BID PRN #10 tablet 09/01/16 [Rx] LORazepam [Ativan] 1 mg PO MOWEFR@1000 #20 tablet 09/01/16 [Rx] Oxycodone HCl 10 mg PO Q4H PRN #20 tablet 09/01/16 [Rx] Oxycodone HCl [Oxycodone HCl ER] 30 mg PO Q12H #30 tab.er.12h 09/01/16 [Rx] Allergies morphine Allergy (Verified 07/06/16 10:27) Hallucinating - Meds/Allergy Pre-op Review Medications Reviewed: Yes Allergies Reviewed: Yes Anesthesia Results - Labs 09/01/16 06:21 09/01/16 06:21 - Imaging EKG: image reviewed (Demand AV paced) Anesthesia Exam O2 Sat Height 1.83 m Weight 86.5 kg Weight 135.171 kg O2 Sat by Pulse Oximetry 95 O2 Sat by Pulse Oximetry 96 O2 Sat by Pulse Oximetry 100 O2 Sat by Pulse Oximetry 100 O2 Sat by Pulse Oximetry 100 Vital Signs Temp Pulse Resp BP Pulse Ox 98.3 F 74 16 149/81 100 08/28/16 18:29 08/28/16 18:29 08/28/16 18:29 08/28/16 18:29 08/28/16 18:29 Vital Signs/O2 Sat, Most Current Vital Signs/O2 Sat, Most Current Temp Pulse Resp BP Pulse Ox 98.0 F 67 16 160/78 95 08/29/16 16:42 08/29/16 16:42 08/29/16 16:42 08/29/16 16:42 08/29/16 12:12 Height: 6' Weight: 190# Pain Scale: 0 Pain Scale Used: Numeric (1 - 10) - HEENT Pupil (Motor): Pupils equal, EOMI Mallampati: II Teeth: Edentulous Denture Type: Upper: Complete, Lower: Complete Oral Opening: Greater than 3 - HANDLE ROUNDER OPERATOR LOC: Oriented HANDLE ROUNDER OPERATOR Motor: Normal RUE, Normal LUE, Normal RLE, Normal LLE, Normal Face HANDLE ROUNDER OPERATOR Sensory: Normal: RUE, LUE, RLE, LLE, Face - Cardiac Rhythm: Regular Murmur: None JVD: No Carotid Bruit: No - Pulmonary Breath Sounds: bilateral Clear Respiratory Effort: Symmetrical Anesthesia Assess/Plan ASA Score: 4 Modified Mar Scale for Level of Consciousness: Cooperative, oriented, and tranquil Anesthetic Plan: General Autologous Blood: Yes Monitoring Plan: Standard Monitors Recovery Plan: PACU
--- NOTE | 2016-08-29 09:51 | Nephrology Consult Note ---
Date of Encounter: 08/29/16 Time of Encounter: 09:47 Assessment and Plan (1) Subcapital fracture of left femur Current Visit: Yes Status: Acute Management per orthopedic surgery. (2) End stage renal disease Current Visit: No Status: Acute Patient with ESRD - Continue HD MWF and as needed. Renal dose medications Renal diet. (3) Anemia in chronic kidney disease Current Visit: No Status: Chronic Monitor for bleeding. If hemoglobin trends down then give RUPERT. (4) Diabetes mellitus Current Visit: No Status: Chronic per primary team. Qualifiers: Diabetes mellitus complication status: with kidney complications Diabetes mellitus complication detail: with chronic kidney disease Diabetes mellitus terminal carman insulin use: with terminal carman use Chronic kidney disease stage: on chronic dialysis Qualified Code(s): E08.22 - Diabetes mellitus due to underlying condition with diabetic chronic kidney disease; N18.6 - End stage renal disease; Z79.4 - senior living (current) use of insulin; Z99.2 - Dependence on renal dialysis History of Present Illness - Reason for Consult Consult date: 08/29/16 end stage renal disease - Chief Complaint ESRD. Hip fracture - History of Present Illness Mr. Kenny is a 80 yo man with a history of ESRD who was recently in the hospital for altered mental status. He presents to [facility] after suffering a mechanical fall from his wheelchair according to the H&P. Patient was asleep at the time of evaluation, and when awakened he simply nodded yes in agreement with the story I relayed from the H&P and then he went back to sleep. He denied hip pain, chest pain or shortness of breath. Past Med Surg Social Fam HX - Past Medical History Medical history: arthritis, cancer, CHF, coronary artery disease, diabetes, dialysis, GERD, hyperlipidemia, hypertension, kidney stones, renal disease, other Psychiatric history: anxiety - Past Surgical History Surgical History: cataract, cholecystectomy, knee replacement, pacemaker/AICD, other - Social History Smoking Status: Never smoker Smokeless Tobacco Status: No Alcohol use: none Drug use: none - Family History Father Living Status: Hx Family Cardiac Disorders: Yes Mother Adopted: No Living Status: Hx Family Cardiac Disorders: Yes Hx Family Respiratory Disorders: No Hx Family Cancer: No Hx Family GI Disorders: No Hx Family Endocrine Disorder: No Hx Family Neuromuscular Disorders: No Hx Family Neurologic Disorders: No Hx Family HEENT Disorders: No Hx Family Autoimmune Disorders: No Medications and Allergies Allopurinol [Zyloprim] 100 mg PO QAM #0 03/15/15 [History] Aspirin Enteric Coated [Aspirin EC] 81 mg PO QAM #0 03/15/15 [History] Atorvastatin Calcium [Lipitor] 80 mg PO HS #0 03/15/15 [History] Clopidogrel [Plavix] 75 mg PO QAM #0 03/15/15 [History] Furosemide [Lasix] 40 mg PO SUTUTHSA@0800,1600 #0 03/15/15 [History] Hydralazine HCl 100 mg PO SUTUTHSA@0800,1600 #0 03/15/15 [History] Terazosin [Hytrin] 5 mg PO QPM #0 03/15/15 [History] Ranolazine [Ranexa] 500 mg PO BID 07/12/15 [History] Lidocaine/Prilocaine CREAM [Emla] 1 appl TP MOWEFR PRN 02/03/16 [History] Sertraline [Zoloft] 50 mg PO DAILY 02/03/16 [History] Sevelamer [Renvela] 800 mg PO TIDWM 02/03/16 [History] Isosorbide MONOnitrate [Isosorbide Mononitrate ER] 120 mg PO DAILY 02/06/16 [ History] Nitroglycerin [Nitrostat] 0.4 mg SL Q5M PRN 02/06/16 [History] Pantoprazole Sodium [Protonix] 40 mg PO DAILY 04/12/16 [History] Polyethylene Glycol 3350 [MiraLAX] 17 gm PO QAM 04/12/16 [History] Insulin Glargine [Lantus] 15 unit SQ QAM 06/01/16 [History] Lisinopril [Zestril] 10 mg PO SUTUTHSA 08/22/16 [History] Megestrol Acetate [Megace] 800 mg PO DAILY 08/22/16 [History] Metoprolol [Lopressor] 25 mg PO SUTUTHSA@0800,1600 08/22/16 [History] Nut.tx.impaired Renal Fxn,Soy [Nepro Carb Steady] 237 ml PO DAILY 08/22/16 [ History] LORazepam [Ativan] 1 mg PO MOWEFR@1000 #20 08/25/16 [Rx] Oxycodone HCl 10 mg PO Q6H PRN #0 08/25/16 [Rx] Oxycodone HCl [Oxycodone HCl ER] 30 mg PO Q12H #20 08/25/16 [Rx] Allergies morphine Allergy (Verified 07/06/16 10:27) Hallucinating Review of Systems ROS unobtainable: due to mental status Exam - Vital Signs Vital signs: Initial Vital Signs Temp Pulse Resp BP Pulse Ox 98.3 F 74 16 149/81 100 08/28/16 18:29 08/28/16 18:29 08/28/16 18:29 08/28/16 18:29 08/28/16 18:29 Vital Signs - Last 8 Hours Temp Pulse Resp BP Pulse Ox 08/29/16 04:44 99.1 F 81 16 164/64 95 Intake and Output 08/28/16 08/29/16 08/29/16 23:59 07:59 15:59 Other: Weight 86.5 kg Patient Weight 08/29/16 23:59 Weight 86.5 kg - General Appearance General appearance: well-developed, well-nourished EENT: ATNC Neck: supple Respiratory: clear Cardiology: no edema Gastrointestinal: normoactive bowel sounds Integumentary: warm and dry Additional Comments: Asleep, but arousable. He quickly falls asleep. Musculoskeletal: no cyanosis Psychiatric: mood/affect appropriate Results - Lab Results 08/29/16 07:24 08/29/16 07:24 Most recent lab results Calcium 9.0 mg/dL (8.6-10.8) 08/29/16 07:24 Consult Discharge Plan - Plan Referrals: Tone Kirkland DO [Primary Care Provider] -
--- NOTE | 2016-08-29 11:43 | Electrocardiograph Report ---
[facility] Test Date: 2016-08-28 Pat Name: Que Kenny Department: 105 Room: 2A51 Gender: M Infectious Disease Physician: PAULO : [id number] Requested By: Dewayne Dowling Order Number: [id number] Reading MD: Aniket Packer MD Measurements Intervals [place] Rate: 70 P: 261 DE: 194 QRS: -78 QRSD: 178 T: 97 QT: 442 QTc: 464 Interpretive Statements DEMAND AV PACING Electronically Signed On 08-29-16 11:42:44 EST by Aniket Packer MD
[2016-08-29] MEDS ORDERED: 0.9 % Sodium Chloride 2,000 ML ONE (14:37)
[2016-08-29] MEDS ORDERED: *HR* FentaNYL (PF) 100 MCG/2 ML VIAL ONE ×2 (16:19→17:47)
[2016-08-29] MEDS ORDERED: *HR* Propofol 200 MG/20 ML VIAL IVP ONE (16:19)
[2016-08-29] MEDS ORDERED: Lidocaine -MPF 2% 2 ML VIAL ONE (16:20)
[2016-08-29] MEDS ORDERED: *HR* Rocuronium Bromide 50 MG/5 ML VIAL ONE (16:20)
[2016-08-29] MEDS ORDERED: Ketamine *HR* 500 MG/10 ML MDV ONE (17:00)
[2016-08-29] MEDS ORDERED: Acetaminophen IV 1,000 MG/100 ML INFUS..BTL ONE (17:00)
--- NOTE | 2016-08-29 17:11 | Internal Med Progress Note ---
Date of Encounter: 08/29/16 Time of Encounter: 17:09 - Assessment and plan (1) Subcapital fracture of left femur Current Visit: Yes Status: Acute Assessment and plan: moderate risk for naomi-operative cardiovascular event for IM nailing or unipolar left hip replacement. planned for surgery today after HD, ortho on board. remains NPO. pain adequately controlled continue DVT prophylaxis. management as per ortho. (2) DVT prophylaxis Current Visit: No Status: Acute (3) Anemia in chronic kidney disease Current Visit: No Status: Chronic Assessment and plan: h/h stable, will continue to monitor. (4) HTN (hypertension) Current Visit: No Status: Chronic Assessment and plan: stable. Qualifiers: Hypertension type: essential hypertension Qualified Code(s): I10 - Essential (primary) hypertension (5) Type 2 diabetes mellitus Current Visit: No Status: Chronic Assessment and plan: continue to monitor accuchecks. Qualifiers: Diabetes mellitus complication status: with kidney complications Diabetes mellitus complication detail: with chronic kidney disease Diabetes mellitus detention insulin use: without detention use Chronic kidney disease stage: on chronic dialysis Qualified Code(s): E11.22 - Type 2 diabetes mellitus with diabetic chronic kidney disease; N18.6 - End stage renal disease; Z99.2 - Dependence on renal dialysis (6) End stage renal disease Current Visit: No Status: Acute Assessment and plan: on HD, no signs of volume overload. HD today, renal on board. - Time Spent With Patient 25 - 35 minutes - Subjective Interval history: seen at the bedside, denies any complaints, no pain. here for Left sub-capital femoral fracture after a fall planned for surgery ortho has been consulted. - Constitutional Vitals: Temp Pulse Resp BP Pulse Ox 98.0 F 67 16 160/78 95 08/29/16 16:42 08/29/16 16:42 08/29/16 16:42 08/29/16 16:42 08/29/16 12:12 General appearance: Present: A&O X 3, no acute distress Exam: O/E: no acute distress HEENT: Not pale, anicteric, afebrile, acyanotic, no JVD Chest: CTAB, Heart/CVS: RRR, HS1/2, soft systolic murmur Abdomen: right subcoastal (cholecystectomy), and midline laparostomy scar, soft , non-tender, no masses. ENGINEERING GROUP MANAGER: no gross focal neurological decifits, PERRL/EOMI Skin: clinical evidence of ESRD on HD, hyperpigmentation with mild xerosis. 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 weak pedal pulses bilaterally, no calf tenderness. Left upper arm AVF with palpable thril, left lower extremity is marginally shorter, held in a mild lateral rotated position. Internal Medicine: Result - Labs CBC & Chem 7: 08/29/16 07:24 08/29/16 07:24 Labs: Short CBC 08/29/16 Range/Units 07:24 WBC 7.5 (4.3-11.1) K/mcL Hgb 9.8 L (12.9-16.9) g/dL Hct 31.6 L (37.5-50.1) % Plt Count 273 (140-400) K/mcL BMP 08/29/16 07:24 Sodium 140 Potassium 4.4 Chloride 102 Carbon Dioxide 27 BUN 38 H Creatinine 4.81 H Glucose 84 Calcium 9.0 - ABG Interpretation ABG results: PT/INR, D-dimer PT 12.2 Seconds (9.4-12.1) H 08/28/16 18:59 - Impressions Impressions Femur X-Ray 08/29/16 07:34 IMPRESSION: Stable alignment of a subcapital left femoral neck fracture when compared with yesterday's CT. Osteopenia. 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 D/ / Derrick Gage MD / Derrick Gage MD Interpreting Provider: Derrick Gage MD Consult Discharge Plan - Plan Referrals: Tone Kirkland DO [Primary Care Provider] -
[2016-08-29] MEDS ORDERED: Vancomycin 1,000 MG VIAL ONE (17:15)
[2016-08-29] MEDS ORDERED: *HR* Labetalol 100 MG/20 ML MDV IVP PRN (17:58)
[2016-08-29] MEDS ORDERED: 0.9 % Sodium Chloride 1,000 ML IVC SCH (18:00)
[2016-08-29] MEDS: Insulin LISPRO 300 UNITS/3 ML VIAL SQ SCH ×2 (18:30→21:53)
[2016-08-29] MEDS: Megestrol Acetate 400 MG/10 ML UDC PO SCH (18:31)
[2016-08-29] MEDS: Isosorbide MONOnitrate (24 HR) 60 MG TAB.ER.24H PO SCH (18:31)
[2016-08-29] MEDS: Insulin DETEMIR 100 UNIT/ML X5UNITS SQ SCH (18:31)
[2016-08-29] MEDS: *HR* LORazepam 1 MG TABLET PO SCH (18:32)
[2016-08-29] MEDS: NEPRO CARB STEADY PO SCH (18:32)
[2016-08-29] MEDS: Ranolazine 500 MG TAB.ER.12H PO SCH ×3 (18:32→22:05)
[2016-08-29] MEDS: *HR* FentaNYL (PF) 100 MCG/2 ML VIAL IVP PRN ×2 (19:40→19:49)
--- NOTE | 2016-08-29 20:10 | Orthopedic Operative Note ---
Procedure: OPERATIVE REPORT DATE OF PROCEDURE: 08/29/2016 SURGEON: Regulo Ramires MD AGRONOMY TECHNICIAN(S): There are no assistants PREOPERATIVE DIAGNOSIS: Left displaced femoral neck fracture POSTOPERATIVE DIAGNOSIS: Left displaced femoral neck fracture PROCEDURE: Left hip hemiarthroplasty ANESTHESIA: General anesthesia PREOPERATIVE ANTIBIOTICS: 2 g of Ancef ESTIMATED BLOOD LOSS: 400 milliliters SPECIMENS: There were no specimens IMPLANTS: Duncan Secur-Fit Max Size 10 127 degree hip stem, press fit. Unitrax -3mm neck sleeve. Unitrax 53 mm head component. LOCAL INJECTION: None PREOPERATIVE NOTE AND INDICATIONS: Que is a 80 year old male who sustained a left displaced femoral neck fracture after fall from his wheelchair. He has multiple medical comorbidities including diabetes and end-stage renal disease on dialysis. He has also been treated for recent lower urinary tract infections without concern for pyelonephritis or sepsis. Treatment options regarding the left hip were discussed and the recommendation was for left hip hemiarthroplasty in order to provide pain control facilitate nursing care. The surgical plan was discussed with the patient. The risks, benefits, alternatives, and potential complications of this procedure were discussed with the patient including injury to veins, arteries, nerves, tendons, ligaments, and bone. Also discussed were the risks of infection, bleeding, pain, blood clots, the possible need for a blood transfusion, the possible need for further procedures, heart attack, stroke, and . Specific risks for the surgery also include dislocation, prosthetic infection, fracture, and the need for revision hip surgery. All of this was explained in simple terms, and the patient and power of civil attorney verbalized understanding and wished to proceed. Consent was given to proceed with surgery. PROCEDURE: The patient was seen in the preoperative holding area where the identify and the consent were confirmed. The left hip was marked. Final questions were answered. The patient was brought back to the operating room and placed supine on the operating room table. A huddle was performed with the patient and all vital surgical team members confirming patient identity, the correct procedure, and the correct operative site. General anesthesia was administered. The patient was placed in the right lateral decubitus position. The left lower extremity was prepped and draped in the usual sterile fashion. A surgical time out was performed immediately preceding the incision with all personnel in the operating room to confirm patient identity, the correct operative site and extremity, correct radiographic studies, availability of appropriate surgical equipment, and agreement on the planned procedure. A curvilinear incision was made centered over the greater trochanter and dissection proceeded through the subcutaneous tissue down to the deep fascial layer. The iliotibial band was split distally and the gluteal fascia was opened and the gluteus vikram split open. The loose areolar tissue around the posterior greater trochanteric region and over the short external rotators was dissected posteriorly. The sciatic nerve was palpable but it was not dissected out. A retractor was placed just superior to the piriformis to reflect the abductors out of the way. The piriformis as well as the short external rotators were taken down and tagged for later repair. The capsule was opened and the femoral neck fracture was identified. A revision neck cut was made 1 cm above the lesser trochanter. The femur was retracted out of the way and the femoral head extracted with a corkscrew. It measured 53 mm. Pulvinar and the round ligament were debrided. Attention was directed to the femoral neck. A corrugated box machine operator was used to open the lateral portion. The opening reamer was used. Broaching started with a 5 and went up to a 10 which fit nicely, though during the process, the canal was reamed to allow the trial to fit. The calcar was planed. The high offset neck and 53 mm trial were placed and the hip was articulated. The hip was stable throughout a functional range of motion and length felt good. The trial components were removed and the hip was copiously irrigated. The definitive size 10 stem was placed and impacted. During impaction, the lateral portion of the prosthesis wedged into the medial portion of the greater trochanter, causing a crack to propagate through the greater trochanter. The decision was made to fix this with a tension band, and therefore a small 2 mm hole was drilled through the lateral cortex distal to the crack and a [id number] #5 FiberWire stitch was weaved through this hole and through the insertion of the abductors and tied down securely. This secured the fracture very nicely. The definitive femoral head was impacted onto the prosthesis. The hip was re-articulated, and again it felt very stable throughout a range of motion and length felt appropriate. The short external rotators were repaired with the #2 FiberWire tag stitches through bone tunnels in the greater trochanter. The wound was again copiously irrigated. A layered closure was performed using #2 Fiberwire and #1 Vicryl stitches for the deep layer followed by 0-Vicryl, 3-0 Vicryl, and pavan for the skin. The instrument, sponge, and needle counts were correct after wound closure. POST OPERATIVE PLAN: Weight Bearing: NWDolores LLE. Okay to pivot for transfers on the left lower extremity. DVT Prophylaxis: Aspirin Activity: As tolerated Wound Care: Daily dressing changes with dry gauze and paper tape Pain Control: Per primary team Perioperative antibiotic prophylaxis: 2 doses of Ancef Social work for discharge planning Follow Up: 2 weeks
--- NOTE | 2016-08-29 20:15 | Anesthesia Evaluation Post Op ---
Date of Encounter: 08/29/16 Time of Encounter: 20:15 - Vital Signs Vital Signs: Last Vital Signs Temp 97.3 F L 08/29/16 19:58 Pulse 80 08/29/16 20:08 Resp 20 08/29/16 20:08 BP 124/76 08/29/16 20:08 Pulse Ox 99 08/29/16 20:08 - Lungs Lungs: Clear Ascult./Percussion - Airway Airway: Non-obstructed - Cardiovascular Baseline Rhythm (paced rhythm) - Mental Status Mental Status: Confused - Nausea Vomiting Nausea Vomiting: Not Present - Hydration Hydration: NPO, Chow catheter - Discharge PostOp Status: Transfer Patient to floor
[2016-08-29] MEDS: *HR* OxyCODONE Immed Rel 5 MG TABLET PO PRN (21:55)
[2016-08-30] MEDS: ceFAZolin 2,000 MG in D5% in Water 100 ML IVPB SCH ×2 (00:08→09:09)
[2016-08-30 06:05] LABS: Hematocrit 34.4 % (37.5-50.1); Hemoglobin 10.7 g/dL (12.9-16.9)
[2016-08-30 06:17] LABS: Calcium 9.3 mg/dL (8.6-10.8); Phosphorous 4.7 mg/dL (2.3-4.7); Potassium 4.5 mEq/L (3.5-4.5)
--- NOTE | 2016-08-30 07:48 | Orthopedics Progress Note ---
Date of Encounter: 08/30/16 Time of Encounter: 07:45 - Assessment and Plan (1) Subcapital fracture of left femur Current Visit: Yes Status: Acute Subjective Interval history: S: Expected postoperative pain to the left thigh. His pain med was held due to his blood pressure. O: Afebrile, and vitals are stable. Sitting up in a chair. No distress. Left thigh dressing is clean and dry. I can gently passively range the hip without significant pain exacerbation. He can flex and extend his ankle and toes. Foot perfused at baseline. A: Post left hip hemiarthroplasty. P: -Post op ABX (Ancef 2 doses). -PT/OT; NWB LLE - Okay to put weight down for transferring. -Posterior hip precautions. -Up to chair BID at least. -Aspirin 325 PO BID for DVT prophylaxis. -Hold BP meds to allow for pain meds. -Dressing change tomorrow. Objective Vital signs: Vital Signs Temp Pulse Resp BP Pulse Ox 08/30/16 07:35 97.8 F 86 16 140/56 96 08/30/16 05:17 98.3 F 89 20 96/54 97 08/30/16 00:18 99.3 F 75 20 136/63 94 L 08/29/16 22:11 71 152/64 08/29/16 21:45 73 159/69 08/29/16 21:30 72 147/60 08/29/16 21:28 97.8 F 73 16 154/71 100 08/29/16 21:15 73 138/64 08/29/16 21:00 75 141/66 95 08/29/16 20:18 97.3 F L 81 20 114/63 99 08/29/16 20:08 80 20 124/76 99 08/29/16 19:58 97.3 F L 82 20 129/81 100 08/29/16 19:48 92 20 155/70 100 08/29/16 19:38 96 20 158/78 100 08/29/16 19:28 97.9 F 74 20 179/89 100 08/29/16 16:42 98.0 F 67 16 160/78 08/29/16 16:10 98.0 F 14 170/75 08/29/16 16:00 169/76 08/29/16 15:45 142/80 08/29/16 15:30 168/71 08/29/16 15:15 164/84 08/29/16 15:00 170/81 08/29/16 14:45 162/84 08/29/16 14:30 160/86 08/29/16 14:15 164/87 08/29/16 14:00 173/78 08/29/16 13:45 163/76 08/29/16 13:30 179/83 08/29/16 13:15 165/66 08/29/16 13:00 166/77 08/29/16 12:45 151/67 08/29/16 12:30 98.0 F 14 148/63 08/29/16 12:12 98.0 F 66 16 149/66 95 Intake and Output 08/29/16 08/29/16 08/30/16 15:59 23:59 07:59 Intake Total 600 / 600 100 / 100 Output Total 2250 / 2250 50 / 50 Balance 600 / 600 -2250 / -2250 50 / 50 Intake: IV Fluids 100 / 100 Ancef 2,000 MG In 100 / 100 Dextrose 5% 100 ML @ 200 mls/hr IVPB Q8HR [facility] Rx#: [id number] Oral 0 / 0 0 / 0 Intake, Rinseback and 600 / 600 Flushes Output: Urine 0 / 0 Total Dialysis Output 1600 / 1600 Estimated Blood Loss 400 / 400 Urine Amount (Catheter) 250 / 250 Catheter 50 / 50 Other: Weight 91.3 kg Blood Glucose* 67 113 Hemodialysis Net Fluid 1491 1000 Removed (mL) - Labs CBC & BMP: 08/30/16 05:52 08/30/16 05:52 Labs: Abnormal lab results RBC 3.52 M/mcL (4.19-5.50) L 08/29/16 07:24 Hgb 10.7 g/dL (12.9-16.9) L 08/30/16 05:52 Hct 34.4 % (37.5-50.1) L 08/30/16 05:52 MCH 27.8 pg (28.0-33.3) L 08/29/16 07:24 MCHC 31.0 g/dL (31.6-35.5) L 08/29/16 07:24 RDW 17.0 % (11.5-14.5) H 08/29/16 07:24 PT 12.2 Seconds (9.4-12.1) H 08/28/16 18:59 Sodium 135 mEq/L (136-145) L 08/30/16 05:52 Chloride 96 mEq/L (98-109) L 08/30/16 05:52 Creatinine 3.31 mg/dL (0.72-1.25) H 08/30/16 05:52 Est GFR ( Amer) 22 (> 60) L 08/30/16 05:52 Est GFR (Non-Af Amer) 18 (> 60) L 08/30/16 05:52 Glucose 105 mg/dL (70-99) H 08/30/16 05:52 Albumin 2.3 g/dL (3.5-5.0) L 08/28/16 18:59 Globulin 5.1 g/dL (2.4-3.5) H 08/28/16 18:59 Albumin/Globulin Ratio 0.5 (1.1-2.2) L 08/28/16 18:59 - VTE Documentation of Mechanical Device: Intermittent pneumatic compression device Consult Discharge Plan - Plan Referrals: ColTone koroma DO [Primary Care Provider] -
[2016-08-30] MEDS ORDERED: hydrALAZINE 25 MG TABLET PO SCH (08:00)
[2016-08-30] MEDS: Insulin LISPRO 300 UNITS/3 ML VIAL SQ SCH ×4 (08:48→23:48)
[2016-08-30] MEDS: *HR* OxyCODONE Immed Rel 5 MG TABLET PO PRN ×2 (09:10→16:42)
[2016-08-30] MEDS: Ranolazine 500 MG TAB.ER.12H PO SCH ×2 (09:11→21:17)
[2016-08-30] MEDS: Megestrol Acetate 400 MG/10 ML UDC PO SCH (09:13)
[2016-08-30] MEDS: Insulin DETEMIR 100 UNIT/ML X5UNITS SQ SCH (09:14)
[2016-08-30] MEDS: NEPRO CARB STEADY PO SCH (09:20)
[2016-08-30] MEDS ORDERED: 0.9 % Sodium Chloride 1,000 ML ONE (09:21)
[2016-08-30] MEDS: Furosemide 40 MG TABLET PO SCH ×2 (09:22→16:42)
--- NOTE | 2016-08-30 09:35 | Nephrology Progress Note ---
Date of Encounter: 08/30/16 Time of Encounter: 09:33 - Assessment and Plan (1) End stage renal disease Current Visit: No Status: Acute Plan for dialysis tomorrow Renal diet Fluid restriction of 1.5 liters/day Avoid nephrotoxins if possible (2) Subcapital fracture of left femur Current Visit: Yes Status: Acute per orthopedics team (3) Anemia in chronic kidney disease Current Visit: No Status: Chronic Hgb 10.7 Goal hgb between 10-11 (4) Diabetes mellitus Current Visit: No Status: Chronic per primary team Qualifiers: Diabetes mellitus type: type 2 Diabetes mellitus complication status: with kidney complications Diabetes mellitus complication detail: with chronic kidney disease Diabetes mellitus door captain insulin use: with fpc use Chronic kidney disease stage: on chronic dialysis Qualified Code(s): E11.22 - Type 2 diabetes mellitus with diabetic chronic kidney disease; N18.6 - End stage renal disease; Z79.4 - asset protection specialist (current) use of insulin; Z99.2 - Dependence on renal dialysis Subjective Principal diagnosis: subcapital fracure of left femur; ESRD on dialysis Interval history: Patient seen and examined. Sleeping during exam but does open eyes a few times and mumbles a little to my questions. Appears to be resting easily. Objective - Vital Signs Vital signs: Vital Signs Temp Pulse Resp BP Pulse Ox 08/30/16 07:35 97.8 F 86 16 140/56 96 08/30/16 05:17 98.3 F 89 20 96/54 97 08/30/16 00:18 99.3 F 75 20 136/63 94 L 08/29/16 22:11 71 152/64 08/29/16 21:45 73 159/69 08/29/16 21:30 72 147/60 08/29/16 21:28 97.8 F 73 16 154/71 100 08/29/16 21:15 73 138/64 08/29/16 21:00 75 141/66 95 08/29/16 20:18 97.3 F L 81 20 114/63 99 08/29/16 20:08 80 20 124/76 99 08/29/16 19:58 97.3 F L 82 20 129/81 100 08/29/16 19:48 92 20 155/70 100 08/29/16 19:38 96 20 158/78 100 08/29/16 19:28 97.9 F 74 20 179/89 100 08/29/16 16:42 98.0 F 67 16 160/78 08/29/16 16:10 98.0 F 14 170/75 08/29/16 16:00 169/76 08/29/16 15:45 142/80 08/29/16 15:30 168/71 08/29/16 15:15 164/84 08/29/16 15:00 170/81 08/29/16 14:45 162/84 08/29/16 14:30 160/86 08/29/16 14:15 164/87 08/29/16 14:00 173/78 08/29/16 13:45 163/76 08/29/16 13:30 179/83 08/29/16 13:15 165/66 08/29/16 13:00 166/77 08/29/16 12:45 151/67 08/29/16 12:30 98.0 F 14 148/63 08/29/16 12:12 98.0 F 66 16 149/66 95 Intake and Output 08/29/16 08/30/16 08/30/16 23:59 07:59 15:59 Intake Total 100 / 100 Output Total 2250 / 2250 50 / 50 Balance -2250 / -2250 50 / 50 Intake: IV Fluids 100 / 100 Ancef 2,000 MG In 100 / 100 Dextrose 5% 100 ML @ 200 mls/hr IVPB Q8HR [facility] Rx#: [id number] Oral 0 / 0 Output: Urine 0 / 0 Total Dialysis Output 1600 / 1600 Estimated Blood Loss 400 / 400 Urine Amount (Catheter) 250 / 250 Catheter 50 / 50 Other: Blood Glucose* 67 113 Hemodialysis Net Fluid 1000 Removed (mL) - General Appearance General appearance: Present: well-developed, well-nourished EENT: Present: ATNC Neck: Present: supple Respiratory: Present: clear Cardiology: Present: no edema, normal S1, normal S2 Dialysis Vascular Access: Arteriovenous Fistula Gastrointestinal: Present: no guarding Integumentary: Present: warm and dry Psychiatric: Present: cooperative - Lab 08/30/16 05:52 08/30/16 05:52 Most recent lab results Calcium 9.3 mg/dL (8.6-10.8) 08/30/16 05:52 Phosphorus 4.7 mg/dL (2.3-4.7) 08/30/16 05:52 - VTE Documentation of Mechanical Device: Intermittent pneumatic compression device Consult Discharge Plan - Plan Referrals: ColTone koroma DO [Primary Care Provider] -
[2016-08-30] MEDS: Isosorbide MONOnitrate (24 HR) 60 MG TAB.ER.24H PO SCH (10:36)
--- NOTE | 2016-08-30 11:00 | Internal Med Progress Note ---
Date of Encounter: 08/30/16 Time of Encounter: 10:15 - Assessment and plan (1) Subcapital fracture of left femur Current Visit: Yes Status: Acute Assessment and plan: 08/29: Left hip hemiarthroplasty Orthopedic service is following. continue pain control with opiates and may hold anitypertensive if episode of hypotension re-occurs. continue PT/OT, aspirin 325 bid. (2) Diabetes mellitus Current Visit: No Status: Chronic Assessment and plan: controlled with no medication. patient takes levemir 10 units at home. hold levemir for now. continue sliding scale and diabetic diet. 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 may hold lisinopril and oral hydralazine for SBP<150. continue imdur, lasix and metoprolol. Qualifiers: Hypertension type: essential hypertension Qualified Code(s): I10 - Essential (primary) hypertension (4) Anemia in chronic kidney disease Current Visit: No Status: Chronic Assessment and plan: h/h stable, will continue to monitor. (5) ESRD (end stage renal disease) on dialysis Current Visit: No Status: Chronic Assessment and plan: nephrology service is following. continue HD per their recs. (6) Diastolic dysfunction with chronic heart failure Current Visit: Yes Status: Acute Assessment and plan: compensated. continue lasix and fluid restriction diet. - Subjective Interval history: Patient underwent reports that his hip pain is well controlled with medications. no diarrhea. Episode of hypotension due to IV opiates in combination with antihypertensive. - Constitutional Vitals: Temp Pulse Resp BP Pulse Ox 97.8 F 86 16 144/49 96 08/30/16 07:35 08/30/16 07:35 08/30/16 07:35 08/30/16 10:25 08/30/16 07:35 General appearance: Present: cooperative, A&O X 3, pleasant, no acute distress, answers questions appropriately - Eye Eye exam: Present: PERRL, sclera anicteric - ENT ENT exam: Present: mucous membranes moist - Neck Neck exam general surgery: Present: supple, trachea midline. Absent: lymphadenopathy - Respiratory Respiratory exam: Present: CTAB - Cardiovascular Cardiovascular exam: Present: RRR - GI/Abdominal GI/Abdominal exam: Present: distended, normal bowel sounds, soft. Absent: tenderness - Extremities Exam Extremities exam: Absent: pedal edema - Back Exam Back exam: Absent: CVA tenderness (L), CVA tenderness (R) - Neurological Exam Neurological exam: Present: alert, oriented X3. Absent: facial droop, speech deficit - Skin Skin exam: Absent: rash Internal Medicine: Result - Labs CBC & Chem 7: 08/30/16 05:52 08/30/16 05:52 Labs: Short CBC 08/30/16 Range/Units 05:52 Hgb 10.7 L (12.9-16.9) g/dL Hct 34.4 L (37.5-50.1) % BMP 08/30/16 05:52 Sodium 135 L Potassium 4.5 Chloride 96 L Carbon Dioxide 21 BUN 24 D Creatinine 3.31 H Glucose 105 H Calcium 9.3 - ABG Interpretation ABG results: PT/INR, D-dimer PT 12.2 Seconds (9.4-12.1) H 08/28/16 18:59 - Impressions Impressions Hip X-Ray 08/29/16 19:25 IMPRESSION: 1. Status post left hip hemiarthroplasty without evidence for immediate postoperative complication. 2. Moderate osteoarthritis of the right hip. 3. Severe atherosclerotic disease. D/ / Theodore Barney MD / Theodore Barney MD Interpreting Provider: Theodore Barney MD Pelvis X-Ray 08/29/16 19:25 IMPRESSION: 1. Status post left hip hemiarthroplasty without evidence for immediate postoperative complication. 2. Moderate osteoarthritis of the right hip. 3. Severe atherosclerotic disease. D/ / Theodore Barney MD / Theodore Barney MD Interpreting Provider: Theodore Barney MD - VTE Documentation of Mechanical Device: Intermittent pneumatic compression device Consult Discharge Plan - Plan Referrals: Colopy,Tone Stern DO [Primary Care Provider] - (PATIENT WILL F/U WITH ECF PCP )
[2016-08-30] MEDS: *HR* OxyCODONE ER (12 HR) 10 MG TABLET PO SCH ×2 (11:55→23:53)
[2016-08-30] MEDS: hydrALAZINE 25 MG TABLET PO SCH ×2 (17:09→21:17)
[2016-08-30] MEDS: Aspirin Enteric Coated 325 MG Tablet PO SCH (21:17)
[2016-08-31] MEDS: *HR* OxyCODONE Immed Rel 5 MG TABLET PO PRN ×2 (01:14→14:41)
[2016-08-31] MEDS: Aspirin Enteric Coated 325 MG Tablet PO SCH (06:16)
[2016-08-31 06:17] LABS: Basophils % 0.4 %; Eosinophils # 0.1 K/mcL (0.0-0.6); Eosinophils % 1.7 %; Hematocrit 24.1 % (37.5-50.1); Immature Granulocytes % 0.4 % (0-4); Lymphocytes # 1.7 K/mcL (0.6-4.6); Mean Corpuscular HGB Conc 31.5 g/dL (31.6-35.5); Mean Corpuscular Hemoglobin 27.9 pg (28.0-33.3); Mean Corpuscular Volume 88.6 fL (83.0-100.0); Mean Platelet Volume 9.8 fL (9.4-12.4); Monocytes % 12.8 %; Neutrophils # 4.8 K/mcL (1.6-8.9); Platelet Count 290 K/mcL (140-400); Red Blood Count 2.72 M/mcL (4.19-5.50); Red Cell Distribution Width 17.3 % (11.5-14.5); Segmented Neutrophils % 62.7 %
[2016-08-31] MEDS: *HR* HYDROmorphone (PF) 1 MG/ML SYRINGE IVP PRN ×2 (06:17→10:21)
[2016-08-31 06:20] LABS: Hemoglobin 7.6 g/dL (12.9-16.9)
[2016-08-31 06:35] LABS: Calcium 8.6 mg/dL (8.6-10.8); Magnesium 1.7 mg/dL (1.6-2.6); Potassium 4.2 mEq/L (3.5-4.5)
[2016-08-31] MEDS: Insulin LISPRO 300 UNITS/3 ML VIAL SQ SCH ×4 (08:00→22:03)
[2016-08-31 08:04] LABS: Basophils % 0.2 %; Eosinophils # 0.2 K/mcL (0.0-0.6); Eosinophils % 1.8 %; Hematocrit 24.4 % (37.5-50.1); Hemoglobin 7.7 g/dL (12.9-16.9); Immature Granulocytes % 0.2 % (0-4); Immature Platelets 1.4 % (1.1-6.1); Lymphocytes # 1.6 K/mcL (0.6-4.6); Lymphocytes % 19.1 %; Mean Corpuscular HGB Conc 31.6 g/dL (31.6-35.5); Mean Corpuscular Hemoglobin 28.1 pg (28.0-33.3); Mean Corpuscular Volume 89.1 fL (83.0-100.0); Mean Platelet Volume 9.1 fL (9.4-12.4); Monocytes # 0.9 K/mcL (0.0-1.3); Neutrophils # 5.5 K/mcL (1.6-8.9); Platelet Count 332 K/mcL (140-400); Red Blood Count 2.74 M/mcL (4.19-5.50); Red Cell Distribution Width 17.2 % (11.5-14.5); Segmented Neutrophils % 67.7 %
[2016-08-31] MEDS: Megestrol Acetate 400 MG/10 ML UDC PO SCH (10:20)
[2016-08-31] MEDS: *HR* LORazepam 1 MG TABLET PO SCH (10:21)
--- NOTE | 2016-08-31 11:33 | Nephrology Progress Note ---
Date of Encounter: 08/31/16 Time of Encounter: 11:30 - Assessment and Plan (1) Acute blood loss anemia Status: Acute Hgb now down from 10.7 to 7.7 after surgery, will transfuse a unit pRBCs during HD Will monitor closely (2) End stage renal disease Status: Acute HD planned today with UF as tolerated (3) Subcapital fracture of left femur Status: Acute POD #2, no new complaints Continue current pain management Subjective Principal diagnosis: subcapital fracure of left femur; ESRD on dialysis Interval history: Pt seen and examined with no new complaints. Pain controlled. Nurse at bedside Objective - Vital Signs Vital signs: Vital Signs Temp Pulse Resp BP Pulse Ox 08/31/16 07:45 98.1 F 60 18 133/53 95 08/31/16 04:46 98.1 F 60 18 110/49 95 08/31/16 01:22 98.3 F 59 16 108/46 93 L 08/30/16 19:56 98 F 59 16 106/49 97 08/30/16 15:31 98.7 F 62 17 124/71 96 Intake and Output 08/30/16 08/31/16 08/31/16 23:59 07:59 15:59 Intake Total 300 / 300 80 / 80 Output Total 0 / 0 0 / 0 Balance 300 / 300 80 / 80 Intake: IV Fluids 250 / 250 0.9 % Sodium Chloride 1, 250 / 250 000 ML @ 25 mls/hr IVC . Q24H ELISE Rx#:[id number] Oral 50 / 50 80 / 80 Output: Urine 0 / 0 0 / 0 Other: Meal Dinner Percent of Meal Consumed 10% Weight 83.4 kg Blood Glucose* 148 98 Patient Weight 08/31/16 23:59 Weight 83.4 kg - General Appearance General appearance: Present: chronically ill (NAD) EENT: Present: ATNC, mucous membranes moist Neck: Present: no JVD, supple Respiratory: Present: clear Cardiology: Present: no edema, normal S1, normal S2 Dialysis Vascular Access: Arteriovenous Fistula thrill: Yes bruit: Yes Gastrointestinal: Present: no tenderness, no guarding Integumentary: Present: warm and dry Neurologic: Present: no focal deficit Musculoskeletal: Present: no deformities Psychiatric: Present: mood/affect appropriate, cooperative - Lab 09/01/16 06:21 09/01/16 06:21 Most recent lab results Calcium 8.6 mg/dL (8.6-10.8) 08/31/16 05:41 Phosphorus 4.7 mg/dL (2.3-4.7) 08/30/16 05:52 Magnesium 1.7 mg/dL (1.6-2.6) 08/31/16 05:41 - VTE Documentation of Mechanical Device: Intermittent pneumatic compression device Consult Discharge Plan - Plan Additional Instructions: DISCHARGE INSTRUCTIONS Dr. Ramires Left Hip Hemiarthroplasty Wound Care -Keep wound / incision area clean and dry. -Change dressing daily with dry gauze and paper tape. -No baths or swimming until otherwise instructed. -After 14 days, you may begin to shower only if no drainage is present. No submerging the wound under standing water until cleared by your physician (no baths, hot tubs, swimming pools, etc). Sponge baths are the best way to perform personal hygiene while at the same time protecting the wound from moisture. -No scrubbing the wound. You may "pad dry" the wound, but do not rub, as this may open up he wound and pre-dispose to wound infection. -Do not apply lotions or creams to incision site, unless instructed otherwise. -Observe for redness, swelling, or drainage. Please call the clinic immediately if you have fevers, chills with warmth/redness surrounding wound site or if you notice pus drainage from the wound site Activity -No heavy lifting objects greater than 10 pounds. -Do not put any weight down on the left lower extremity when walking, though may put weight down on the left for transfers. -Use crutches or a walker for ambulation. -Posterior hip precautions for 6 weeks: No bending the hip past 90 degrees. Do not allow the leg to cross the midline of your body (adduction). No twisting motions. Ask your physical therapist to review these precautions with you. Reducing the Risk of Blood Clots -You will need to complete a total 4 week course of enteric coated aspirin 325 mg twice daily. -Wear knee high compression hose 23 hours per day. Discharge Pain Medications -You will be given a prescription for pain medication. Wean off as tolerated. Do not wait to take the pain medication until the pain is severe, as it will be difficult to "catch up" once this occurs. The pain medication usually reaches its full effect ~1 hour after ingesting. -Your prescribed pain medication may contain Tylenol. You must be careful not to exceed 4,000 mg (4 g) of Tylenol (or generic equivalent), from all sources, within a single 24-hour period. -Some common side effects of the narcotic pain medications (Percocet, Oxycodone , Vicodin, etc) include nausea and itching. Benadryl is a great over the counter medication that helps calm your stomach, decreases your anxiety levels, and minimizes the itching. You can easily purchase this at your local pharmacy as an [id number] medication. Please abide by the instructions as printed on t-he bottle. If your nausea persists, make sure to take small amounts of crackers or other meteorological technician foods. Follow-Up -Follow-up with Dr. Ramires office in 2 weeks from the surgery date for a post- operative evaluation. -Call the office at [phone] to schedule or confirm your appointment. Referrals: Tone Kirkland DO [Primary Care Provider] - (PATIENT WILL F/U WITH ECF PCP ) Regulo Ramires MD [Partnered Physician] - (f/u in 2 weeks) Prescriptions: HYDROmorphone [Dilaudid] 1 mg PO BID PRN #10 tablet PRN Reason: Pain LORazepam [Ativan] 1 mg PO MOWEFR@1000 #20 tablet Oxycodone HCl 10 mg PO Q4H PRN #20 tablet PRN Reason: Pain Oxycodone HCl [Oxycodone HCl ER] 30 mg PO Q12H #30 tab.er.12h
[2016-08-31] MEDS: *HR* OxyCODONE ER (12 HR) 10 MG TABLET PO SCH ×2 (12:16→23:35)
--- NOTE | 2016-08-31 13:46 | Internal Med Progress Note ---
Date of Encounter: 08/31/16 Time of Encounter: 11:30 - Assessment and plan (1) Subcapital fracture of left femur Current Visit: Yes Status: Acute Assessment and plan: 08/29: Left hip hemiarthroplasty Orthopedic service is following. continue pain control with opiates. continue PT /OT, aspirin 325 bid. (2) Diabetes mellitus Current Visit: No Status: Chronic Assessment and plan: controlled with no medication. patient takes levemir 10 units at home. holding levemir and glucose levels are adequate. continue insulin sliding scale and diabetic diet. 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 controlled. may hold lisinopril and oral hydralazine for SBP<150. continue imdur , lasix and metoprolol. Qualifiers: Hypertension type: essential hypertension Qualified Code(s): I10 - Essential (primary) hypertension (4) ESRD (end stage renal disease) on dialysis Current Visit: No Status: Chronic Assessment and plan: nephrology service is following. continue HD per their recs. (5) Acute blood loss anemia Current Visit: Yes Status: Acute Assessment and plan: Acute blood loss anemia in the setting of anemia of chronic kidney disease. patient lost 400 ml of blood during surgery. 08/31: hgb dropped to 7.7. will transfuse 1 PRBC during dialysis. continue to monitor. (6) Anemia in chronic kidney disease Current Visit: No Status: Chronic Assessment and plan: plan as above (7) Diastolic dysfunction with chronic heart failure Current Visit: Yes Status: Acute Assessment and plan: compensated. continue lasix and fluid restriction diet. - Subjective Interval history: Patient reports his pain is well controlled with oral opiates. no other complaints. - Constitutional Vitals: Temp Pulse Resp BP Pulse Ox 98.2 F 66 18 148/58 93 L 08/31/16 11:36 08/31/16 11:36 08/31/16 11:36 08/31/16 11:36 08/31/16 11:36 General appearance: Present: cooperative, A&O X 3, pleasant, no acute distress, answers questions appropriately - Eye Eye exam: Present: PERRL, sclera anicteric - Neck Neck exam general surgery: Present: supple, trachea midline. Absent: lymphadenopathy - Respiratory Respiratory exam: Present: CTAB - Cardiovascular Cardiovascular exam: Present: RRR - GI/Abdominal GI/Abdominal exam: Present: normal bowel sounds, soft. Absent: distended, tenderness - Extremities Exam Extremities exam: Absent: pedal edema - Back Exam Back exam: Absent: CVA tenderness (L), CVA tenderness (R) - Neurological Exam Neurological exam: Present: alert, oriented X3. Absent: facial droop, speech deficit Internal Medicine: Result - Labs CBC & Chem 7: 08/31/16 07:57 08/31/16 05:41 Labs: Short CBC 08/31/16 08/31/16 Range/Units 05:41 07:57 WBC 7.7 8.2 (4.3-11.1) K/mcL Hgb 7.6 L D 7.7 L (12.9-16.9) g/dL Hct 24.1 L 24.4 L (37.5-50.1) % Plt Count 290 332 (140-400) K/mcL Neutrophils # 4.8 5.5 (1.6-8.9) K/mcL BMP 08/31/16 05:41 Sodium 135 L Potassium 4.2 Chloride 97 L Carbon Dioxide 27 BUN 36 H D Creatinine 4.35 H Glucose 90 Calcium 8.6 - ABG Interpretation ABG results: PT/INR, D-dimer PT 12.2 Seconds (9.4-12.1) H 08/28/16 18:59 - VTE Documentation of Mechanical Device: Intermittent pneumatic compression device Consult Discharge Plan - Plan Referrals: Tone Kirkland DO [Primary Care Provider] - (PATIENT WILL F/U WITH ECF PCP )
--- NOTE | 2016-08-31 14:49 | Orthopedics Progress Note ---
Date of Encounter: 08/31/16 Time of Encounter: 14:47 - Assessment and Plan (1) Subcapital fracture of left femur Current Visit: Yes Status: Acute Subjective Principal diagnosis: subcapital fracure of left femur; ESRD on dialysis Interval history: S: Expected postoperative pain to the left thigh. O: Afebrile, and vitals are stable. No distress. Left thigh wound is clean, dry, and intact. I can gently passively range the hip without significant pain exacerbation. He can flex and extend his ankle and toes. Foot perfused at baseline. A: Post left hip hemiarthroplasty. P: -PT/OT; NWB LLE - Okay to put weight down for transferring. -Posterior hip precautions. -Up to chair BID at least. -Aspirin 325 PO BID for DVT prophylaxis. -Will need continued therapy upon discharge at facility. -Getting blood today for acute blood loss anemia. -Follow up with me in the office 2 weeks after the surgery date. Objective Vital signs: Vital Signs Temp Pulse Resp BP Pulse Ox 08/31/16 11:36 98.2 F 66 18 148/58 93 L 08/31/16 07:45 98.1 F 60 18 133/53 95 08/31/16 04:46 98.1 F 60 18 110/49 95 08/31/16 01:22 98.3 F 59 16 108/46 93 L 08/30/16 19:56 98 F 59 16 106/49 97 08/30/16 15:31 98.7 F 62 17 124/71 96 Intake and Output 08/30/16 08/31/16 08/31/16 23:59 07:59 15:59 Intake Total 300 / 300 80 / 80 240 / 240 Output Total 0 / 0 0 / 0 Balance 300 / 300 80 / 80 240 / 240 Intake: IV Fluids 250 / 250 0.9 % Sodium Chloride 1, 250 / 250 000 ML @ 25 mls/hr IVC . Q24H ELISE Rx#:[id number] Oral 50 / 50 80 / 80 240 / 240 Output: Urine 0 / 0 0 / 0 Other: Meal Dinner Lunch Percent of Meal Consumed 10% 100% Weight 83.4 kg Blood Glucose* 148 98 167 Patient Weight 08/31/16 23:59 Weight 83.4 kg - Labs CBC & BMP: 08/31/16 07:57 08/31/16 05:41 Labs: Abnormal lab results RBC 2.74 M/mcL (4.19-5.50) L 08/31/16 07:57 Hgb 7.7 g/dL (12.9-16.9) L 08/31/16 07:57 Hct 24.4 % (37.5-50.1) L 08/31/16 07:57 RDW 17.2 % (11.5-14.5) H 08/31/16 07:57 MPV 9.1 fL (9.4-12.4) L 08/31/16 07:57 PT 12.2 Seconds (9.4-12.1) H 08/28/16 18:59 Sodium 135 mEq/L (136-145) L 08/31/16 05:41 Chloride 97 mEq/L (98-109) L 08/31/16 05:41 BUN 36 mg/dL (8-26) H D 08/31/16 05:41 Creatinine 4.35 mg/dL (0.72-1.25) H 08/31/16 05:41 Est GFR ( Amer) 16 (> 60) L 08/31/16 05:41 Est GFR (Non-Af Amer) 13 (> 60) L 08/31/16 05:41 POC Glucose 167 (58-89) H 08/31/16 11:31 Albumin 2.3 g/dL (3.5-5.0) L 08/28/16 18:59 Globulin 5.1 g/dL (2.4-3.5) H 08/28/16 18:59 Albumin/Globulin Ratio 0.5 (1.1-2.2) L 08/28/16 18:59 - VTE Documentation of Mechanical Device: Intermittent pneumatic compression device Consult Discharge Plan - Plan Additional Instructions: DISCHARGE INSTRUCTIONS Dr. Ramires Left Hip Hemiarthroplasty Wound Care -Keep wound / incision area clean and dry. -Change dressing daily with dry gauze and paper tape. -No baths or swimming until otherwise instructed. -After 14 days, you may begin to shower only if no drainage is present. No submerging the wound under standing water until cleared by your physician (no baths, hot tubs, swimming pools, etc). Sponge baths are the best way to perform personal hygiene while at the same time protecting the wound from moisture. -No scrubbing the wound. You may "pad dry" the wound, but do not rub, as this may open up he wound and pre-dispose to wound infection. -Do not apply lotions or creams to incision site, unless instructed otherwise. -Observe for redness, swelling, or drainage. Please call the clinic immediately if you have fevers, chills with warmth/redness surrounding wound site or if you notice pus drainage from the wound site Activity -No heavy lifting objects greater than 10 pounds. -Do not put any weight down on the left lower extremity when walking, though may put weight down on the left for transfers. -Use crutches or a walker for ambulation. -Posterior hip precautions for 6 weeks: No bending the hip past 90 degrees. Do not allow the leg to cross the midline of your body (adduction). No twisting motions. Ask your physical therapist to review these precautions with you. Reducing the Risk of Blood Clots -You will need to complete a total 4 week course of enteric coated aspirin 325 mg twice daily. -Wear knee high compression hose 23 hours per day. Discharge Pain Medications -You will be given a prescription for pain medication. Wean off as tolerated. Do not wait to take the pain medication until the pain is severe, as it will be difficult to "catch up" once this occurs. The pain medication usually reaches its full effect ~1 hour after ingesting. -Your prescribed pain medication may contain Tylenol. You must be careful not to exceed 4,000 mg (4 g) of Tylenol (or generic equivalent), from all sources, within a single 24-hour period. -Some common side effects of the narcotic pain medications (Percocet, Oxycodone , Vicodin, etc) include nausea and itching. Benadryl is a great over the counter medication that helps calm your stomach, decreases your anxiety levels, and minimizes the itching. You can easily purchase this at your local pharmacy as an [id number] medication. Please abide by the instructions as printed on t-he bottle. If your nausea persists, make sure to take small amounts of crackers or other public works technician foods. Follow-Up -Follow-up with Dr. Ramires office in 2 weeks from the surgery date for a post- operative evaluation. -Call the office at [phone] to schedule or confirm your appointment. Referrals: Colga,Tone Stern DO [Primary Care Provider] - (PATIENT WILL F/U WITH ECF PCP )
[2016-08-31] MEDS ORDERED: 0.9 % Sodium Chloride 250 ML IV PRN (15:17)
[2016-08-31] MEDS: Ranolazine 500 MG TAB.ER.12H PO SCH (16:59)
[2016-08-31] MEDS: hydrALAZINE 25 MG TABLET PO SCH ×2 (16:59→20:47)
[2016-08-31] MEDS: Isosorbide MONOnitrate (24 HR) 60 MG TAB.ER.24H PO SCH (17:00)
[2016-08-31] MEDS ORDERED: 0.9 % Sodium Chloride 250 ML ONE (18:01)
[2016-09-01] MEDS: *HR* OxyCODONE Immed Rel 5 MG TABLET PO PRN ×2 (00:38→08:40)
[2016-09-01] MEDS: Aspirin Enteric Coated 325 MG Tablet PO SCH ×2 (00:38→08:37)
[2016-09-01] MEDS: Ranolazine 500 MG TAB.ER.12H PO SCH ×2 (00:38→08:37)
[2016-09-01] MEDS: *HR* HYDROmorphone (PF) 1 MG/ML SYRINGE IVP PRN (01:53)
[2016-09-01 06:29] LABS: Hematocrit 26.5 % (37.5-50.1); Hemoglobin 8.4 g/dL (12.9-16.9)
[2016-09-01 06:46] LABS: Calcium 8.7 mg/dL (8.6-10.8); Potassium 3.9 mEq/L (3.5-4.5)
[2016-09-01] MEDS: Insulin LISPRO 300 UNITS/3 ML VIAL SQ SCH (08:13)
[2016-09-01 08:14] VITALS: BP 147/65
[2016-09-01] MEDS: hydrALAZINE 25 MG TABLET PO SCH (08:37)
[2016-09-01] MEDS: Megestrol Acetate 400 MG/10 ML UDC PO SCH (08:37)
[2016-09-01] MEDS: Isosorbide MONOnitrate (24 HR) 60 MG TAB.ER.24H PO SCH (08:37)
[2016-09-01] MEDS: Furosemide 40 MG TABLET PO SCH (08:41)
--- NOTE | 2016-09-01 08:52 | Discharge Summary ---
Date of Encounter: 09/01/16 Time of Encounter: 08:30 - Discharge Diagnosis (1) Subcapital fracture of left femur Priority: Primary Status: Acute (2) Acute blood loss anemia Priority: Primary Status: Acute (3) Diabetes mellitus Priority: Secondary Status: Chronic Qualifiers: Diabetes mellitus type: type 2 Diabetes mellitus complication status: with kidney complications Diabetes mellitus complication detail: with chronic kidney disease Diabetes mellitus medical terminologist insulin use: with long-term use Chronic kidney disease stage: on chronic dialysis Qualified Code(s): E11.22 - Type 2 diabetes mellitus with diabetic chronic kidney disease; N18.6 - End stage renal disease; 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; Z99.2 - Dependence on renal dialysis (4) HTN (hypertension) Priority: Secondary Status: Chronic Qualifiers: Hypertension type: essential hypertension Qualified Code(s): I10 - Essential (primary) hypertension (5) ESRD (end stage renal disease) on dialysis Priority: Secondary Status: Chronic (6) Anemia in chronic kidney disease Priority: Secondary Status: Chronic (7) Diastolic dysfunction with chronic heart failure Priority: Secondary Status: Chronic - Discharge Medications Prescriptions: HYDROmorphone [Dilaudid] 1 mg PO BID PRN #10 tablet PRN Reason: Pain LORazepam [Ativan] 1 mg PO MOWEFR@1000 #20 tablet Oxycodone HCl 10 mg PO Q4H PRN #20 tablet PRN Reason: Pain Oxycodone HCl [Oxycodone HCl ER] 30 mg PO Q12H #30 tab.er.12h Home Medications: Allopurinol [Zyloprim] 100 mg PO QAM #0 03/15/15 [History] Atorvastatin Calcium [Lipitor] 80 mg PO HS #0 03/15/15 [History] Clopidogrel [Plavix] 75 mg PO QAM #0 03/15/15 [History] Furosemide [Lasix] 40 mg PO SUTUTHSA@0800,1600 #0 03/15/15 [History] Hydralazine HCl 100 mg PO SUTUTHSA@0800,1600 #0 03/15/15 [History] Terazosin [Hytrin] 5 mg PO QPM #0 03/15/15 [History] Ranolazine [Ranexa] 500 mg PO BID 07/12/15 [History] Lidocaine/Prilocaine CREAM [Emla] 1 appl TP MOWEFR PRN 02/03/16 [History] Sertraline [Zoloft] 50 mg PO DAILY 02/03/16 [History] Sevelamer [Renvela] 800 mg PO TIDWM 02/03/16 [History] Isosorbide MONOnitrate [Isosorbide Mononitrate ER] 120 mg PO DAILY 02/06/16 [ History] Nitroglycerin [Nitrostat] 0.4 mg SL Q5M PRN 02/06/16 [History] Pantoprazole Sodium [Protonix] 40 mg PO DAILY 04/12/16 [History] Polyethylene Glycol 3350 [MiraLAX] 17 gm PO QAM 04/12/16 [History] Lisinopril [Zestril] 10 mg PO SUTUTHSA 08/22/16 [History] Megestrol Acetate [Megace] 800 mg PO DAILY 08/22/16 [History] Metoprolol [Lopressor] 25 mg PO SUTUTHSA@0800,1600 08/22/16 [History] Nut.tx.impaired Renal Fxn,Soy [Nepro Carb Steady] 237 ml PO DAILY 08/22/16 [ History] Aspirin Enteric Coated [Aspirin EC] 325 mg PO BID 30 Days 09/01/16 [Rx] HYDROmorphone [Dilaudid] 1 mg PO BID PRN #10 tablet 09/01/16 [Rx] LORazepam [Ativan] 1 mg PO MOWEFR@1000 #20 tablet 09/01/16 [Rx] Oxycodone HCl 10 mg PO Q4H PRN #20 tablet 09/01/16 [Rx] Oxycodone HCl [Oxycodone HCl ER] 30 mg PO Q12H #30 tab.er.12h 09/01/16 [Rx] Allergies/Adverse Reactions: Allergies morphine Allergy (Verified 07/06/16 10:27) Hallucinating Date of admission: 08/28/16 21:24 Primary care physician: Tone Stern Colopy Consults: 08/28/16 22:42 Consult to Nutrition [CONS] Routine Comment: losing weight---ECF pt Consulting Provider: NUTRITION Reason for Dietary Consult: MST Score Consult to Animal Anatomist [CONS] Routine Reason for SW Consult: discharge back to ECF--signature [place] 08/29/16 00:23 Consult to Nephrology [CONS] Routine Consulting Provider: Kidney Spclst Chrissy MCGINNIS/ROSIE Reason for Consult: ESRD on HD TTHSAT, admitted with left hip fracture. Call Completed: No 08/29/16 08:45 Consult to Dialysis [CONS] ONCE 08/29/16 20:17 Consult to Occupational Therapy [CONS] Routine Comment: Evaluate, develop and implement POC Consult to Orthopedic Navigator [CONS] [CONS] Routine Consult to Physical Therapy [CONS] Routine Comment: Evaluate, develop and implement POC Consult to Animal Anatomist [CONS] Routine Reason for SW Consult: post -op hip fracture RT Post Op Consult [CONS] Routine 08/31/16 15:30 Consult to Dialysis [CONS] ONCE - Patient Status Disposition: Transfer Inpatient Rehab Fac Condition: Good Functional capacity at discharge: uses cane/walker Overall status at discharge: patient is not back to baseline - Discharge Instructions Follow Up With: Tone Kirkland DO [Primary Care Provider] - (PATIENT WILL F/U WITH ECF PCP ) Regulo Ramires MD [Partnered Physician] - (f/u in 2 weeks) Additional Instructions: DISCHARGE INSTRUCTIONS Dr. Ramires Left Hip Hemiarthroplasty Wound Care -Keep wound / incision area clean and dry. -Change dressing daily with dry gauze and paper tape. -No baths or swimming until otherwise instructed. -After 14 days, you may begin to shower only if no drainage is present. No submerging the wound under standing water until cleared by your physician (no baths, hot tubs, swimming pools, etc). Sponge baths are the best way to perform personal hygiene while at the same time protecting the wound from moisture. -No scrubbing the wound. You may "pad dry" the wound, but do not rub, as this may open up he wound and pre-dispose to wound infection. -Do not apply lotions or creams to incision site, unless instructed otherwise. -Observe for redness, swelling, or drainage. Please call the clinic immediately if you have fevers, chills with warmth/redness surrounding wound site or if you notice pus drainage from the wound site Activity -No heavy lifting objects greater than 10 pounds. -Do not put any weight down on the left lower extremity when walking, though may put weight down on the left for transfers. -Use crutches or a walker for ambulation. -Posterior hip precautions for 6 weeks: No bending the hip past 90 degrees. Do not allow the leg to cross the midline of your body (adduction). No twisting motions. Ask your physical therapist to review these precautions with you. Reducing the Risk of Blood Clots -You will need to complete a total 4 week course of enteric coated aspirin 325 mg twice daily. -Wear knee high compression hose 23 hours per day. Discharge Pain Medications -You will be given a prescription for pain medication. Wean off as tolerated. Do not wait to take the pain medication until the pain is severe, as it will be difficult to "catch up" once this occurs. The pain medication usually reaches its full effect ~1 hour after ingesting. -Your prescribed pain medication may contain Tylenol. You must be careful not to exceed 4,000 mg (4 g) of Tylenol (or generic equivalent), from all sources, within a single 24-hour period. -Some common side effects of the narcotic pain medications (Percocet, Oxycodone , Vicodin, etc) include nausea and itching. Benadryl is a great over the counter medication that helps calm your stomach, decreases your anxiety levels, and minimizes the itching. You can easily purchase this at your local pharmacy as an pjmh-ylg-abrilry medication. Please abide by the instructions as printed on t-he bottle. If your nausea persists, make sure to take small amounts of crackers or other geography department chair foods. Follow-Up -Follow-up with Dr. Ramires office in 2 weeks from the surgery date for a post- operative evaluation. -Call the office at [phone] to schedule or confirm your appointment. - Diet and Activity Activity: resume usual activities as tolerated Diet: other (renal. diabetic. ) Interval History: patient reports his pain is controlled with pain meds. no other complaint. Hospital course: Mr. Kenny is a 80 year old male resident of a local longterm with medical history significant for ESRD on HD, HTN, DM2, hyperlipidemia, chronic pain, and on chronic maintenance opioid analgesia who had a mechanical fall and developed a left sub-capital femoral fracture. He underwent Left hip hemiarthroplasty on 08/29. His hospital course was complicated by acute blood loss anemia and episodes of hypotension. He received 1 unit PRBC. His blood pressure medications were held sometime to allow for him to have his pain medications and being able to do PT/OT. He underwent HD as usual. PLAN: PT/OT. aspirin 325 mg bid for 30 days, then resume 81 mg daily. continue plavix. repeat H/H in 1 week. - Time Spent with Patient Total time spent providing and/or coordinating discharge services: - Constitutional Vitals: Temp Pulse Resp BP Pulse Ox 97.7 F 62 16 147/65 99 09/01/16 08:13 09/01/16 08:13 09/01/16 08:13 09/01/16 08:13 09/01/16 08:13 General appearance: Present: cooperative, A&O X 3, pleasant, no acute distress, answers questions appropriately - Eye Eye exam: Present: PERRL, sclera anicteric - Neck Neck exam general surgery: Present: supple, trachea midline. Absent: lymphadenopathy - Respiratory Respiratory exam: Present: CTAB - Cardiovascular Cardiovascular exam: Present: RRR - GI/Abdominal GI/Abdominal exam: Present: normal bowel sounds, soft. Absent: distended, tenderness - Extremities Exam Extremities exam: Present: pedal edema - Back Exam Back exam: Absent: CVA tenderness (L), CVA tenderness (R) - Neurological Exam Neurological exam: Present: alert, oriented X3. Absent: facial droop, speech deficit - VTE Documentation of Mechanical Device: Intermittent pneumatic compression device
--- NOTE | 2016-09-01 09:08 | Physician Discharge Referral ---
ExtendedCare Referral Info Transfer To: rehab Provider in Charge: barrett Provider in Charge after Transfer: PCP Institutional Level of Care: Skilled - Diagnosis (1) Subcapital fracture of left femur Status: Acute (2) Acute blood loss anemia Status: Acute (3) Diabetes mellitus Status: Chronic (4) HTN (hypertension) Status: Chronic (5) ESRD (end stage renal disease) on dialysis Status: Chronic (6) Anemia in chronic kidney disease Status: Chronic (7) Diastolic dysfunction with chronic heart failure Status: Chronic - Transfer Medications Prescriptions: HYDROmorphone [Dilaudid] 1 mg PO BID PRN #10 tablet PRN Reason: Pain LORazepam [Ativan] 1 mg PO MOWEFR@1000 #20 tablet Oxycodone HCl 10 mg PO Q4H PRN #20 tablet PRN Reason: Pain Oxycodone HCl [Oxycodone HCl ER] 30 mg PO Q12H #30 tab.er.12h Home Medications: Allopurinol [Zyloprim] 100 mg PO QAM #0 03/15/15 [History] Atorvastatin Calcium [Lipitor] 80 mg PO HS #0 03/15/15 [History] Clopidogrel [Plavix] 75 mg PO QAM #0 03/15/15 [History] Furosemide [Lasix] 40 mg PO SUTUTHSA@0800,1600 #0 03/15/15 [History] Hydralazine HCl 100 mg PO SUTUTHSA@0800,1600 #0 03/15/15 [History] Terazosin [Hytrin] 5 mg PO QPM #0 03/15/15 [History] Ranolazine [Ranexa] 500 mg PO BID 07/12/15 [History] Lidocaine/Prilocaine CREAM [Emla] 1 appl TP MOWEFR PRN 02/03/16 [History] Sertraline [Zoloft] 50 mg PO DAILY 02/03/16 [History] Sevelamer [Renvela] 800 mg PO TIDWM 02/03/16 [History] Isosorbide MONOnitrate [Isosorbide Mononitrate ER] 120 mg PO DAILY 02/06/16 [ History] Nitroglycerin [Nitrostat] 0.4 mg SL Q5M PRN 02/06/16 [History] Pantoprazole Sodium [Protonix] 40 mg PO DAILY 04/12/16 [History] Polyethylene Glycol 3350 [MiraLAX] 17 gm PO QAM 04/12/16 [History] Lisinopril [Zestril] 10 mg PO SUTUTHSA 08/22/16 [History] Megestrol Acetate [Megace] 800 mg PO DAILY 08/22/16 [History] Metoprolol [Lopressor] 25 mg PO SUTUTHSA@0800,1600 08/22/16 [History] Nut.tx.impaired Renal Fxn,Soy [Nepro Carb Steady] 237 ml PO DAILY 08/22/16 [ History] Aspirin Enteric Coated [Aspirin EC] 325 mg PO BID 30 Days 09/01/16 [Rx] HYDROmorphone [Dilaudid] 1 mg PO BID PRN #10 tablet 09/01/16 [Rx] LORazepam [Ativan] 1 mg PO MOWEFR@1000 #20 tablet 09/01/16 [Rx] Oxycodone HCl 10 mg PO Q4H PRN #20 tablet 09/01/16 [Rx] Oxycodone HCl [Oxycodone HCl ER] 30 mg PO Q12H #30 tab.er.12h 09/01/16 [Rx] Allergies/Adverse Reactions: Allergies morphine Allergy (Verified 07/06/16 10:27) Hallucinating - Respiratory Orders Smoking Cessation: Smoking cessation has been advised. For more information, call the [place] Tobacco Quit Line at 5-306-UYGD-NOW. - Lab Orders Lab Orders: Other (include drug levels w/frequency) (H/H in 1 week) - Advance Directives Code Status: Full Code - Mobility Orders Ambulate - Rehabiliation Orders Rehab Potential: Good Rehab Orders: Evaluation for Physical Therapy, Evaluation for Occupational Therapy - Treatments List/Other: May hold BP meds to allow for patient to receive pain medications and being able to do PT/OT. - Diet Orders No Concentrated Sweets, Renal CERTIFICATION: I certify that the transfer of the above named patient to an Extended Care Facility is necessary for the continuing treatment of the diagnosis listed. The above information is true and accurate reflection of patient's current condition. Confidential - Redisclosure prohibited without a patient's written consent.
== END 2016-09-01 10:29 | DRG 469 ==
LOC: EMEROO 18:17 → SUATTDRO 21:24 → 2ANU 21:24
PROVIDERS: ADMIT Family Medicine; ATTEND Internal Medicine

== ENCOUNTER 2016-09-24 14:30 | Observation (INO) ==
--- NOTE | 2016-09-24 15:01 | Emergency Department Note ---
Disposition Clinical Impression: Delirium due to general medical condition Disposition: Admitted As Inpatient Condition: Fair Altered Mental Status HPI - General Chief Complaint: ED Altered Mental Status Stated Complaint: confusion Time Seen by Provider: 09/24/16 14:34 Source: patient, EMS Mode of arrival: EMS Limitations: altered mental status Nursing Notes Reviewed: Yes Vital Signs Reviewed: Yes - History of Present Illness HPI Narrative: This 80-year-old male with a history of altered mental status and delirium is here for the above. He was at dialysis today they stated he was very confused he was unaware where he was at or surroundings. When he arrives here he was not aware that he was in the ER he is talking about relatives very difficult to follow story is not having any complaints at this time. MD complaint: altered mental status Onset (ago): hour(s) (3) Timing confirmed by: caregiver Pain Severity: moderate Consistency of Symptoms: constant Associated symptoms: Reports: denies other symptoms - Related Data Home Medications Medication Instructions Recorded Confirmed Allopurinol [Zyloprim] 100 mg PO QAM #0 03/15/15 09/24/16 Atorvastatin Calcium [Lipitor] 80 mg PO HS #0 03/15/15 09/24/16 Clopidogrel [Plavix] 75 mg PO QAM #0 03/15/15 09/24/16 Furosemide [Lasix] 40 mg PO SUTUTHSA@0800,1600 #0 03/15/15 09/24/16 Hydralazine HCl 100 mg PO SUTUTHSA@0800,1600 #0 03/15/15 09/24/16 Terazosin [Hytrin] 5 mg PO QPM #0 03/15/15 09/24/16 Ranolazine [Ranexa] 500 mg PO BID 07/12/15 09/24/16 Lidocaine/Prilocaine CREAM [Emla] 1 appl TP MOWEFR PRN 02/03/16 08/28/16 Sertraline [Zoloft] 50 mg PO DAILY 02/03/16 09/24/16 Sevelamer [Renvela] 800 mg PO TIDWM 02/03/16 09/24/16 Isosorbide MONOnitrate [Isosorbide 120 mg PO DAILY 02/06/16 09/24/16 Mononitrate ER] Nitroglycerin [Nitrostat] 0.4 mg SL Q5M PRN 02/06/16 09/24/16 Pantoprazole Sodium [Protonix] 40 mg PO DAILY 04/12/16 09/24/16 Polyethylene Glycol 3350 [MiraLAX] 17 gm PO QAM 04/12/16 09/24/16 Lisinopril [Zestril] 10 mg PO SUTUTHSA 08/22/16 09/24/16 Megestrol Acetate [Megace] 800 mg PO DAILY 08/22/16 09/24/16 Metoprolol [Lopressor] 25 mg PO SUTUTHSA@0800,1600 08/22/16 09/24/16 Nut.tx.impaired Renal Fxn,Soy 237 ml PO BID 08/22/16 09/24/16 [Nepro Carb Steady] Bisacodyl [Dulcolax] 10 mg RC HS PRN 09/24/16 09/24/16 Docusate [Colace] 100 mg PO BID 09/24/16 09/24/16 FentaNYL PATCH [Duragesic] 100 mcg TD Q72H 09/24/16 09/24/16 HYDROmorphone [Dilaudid] 2 mg PO ONCE PRN 09/24/16 09/24/16 Magnesium Hydroxide [Milk of 2,400 mg PO DAILY PRN 09/24/16 09/24/16 Magnesia] Oxycodone HCl 10 mg PO Q4H PRN 09/24/16 09/24/16 Previous Rx's Medication Instructions Recorded Aspirin Enteric Coated [Aspirin EC] 325 mg PO BID 30 Days 09/01/16 HYDROmorphone [Dilaudid] 1 mg PO BID PRN #10 tablet 09/01/16 LORazepam [Ativan] 1 mg PO MOWEFR@1000 #20 tablet 09/01/16 Allergies Allergy/AdvReac Type Severity Reaction Status Date / Time morphine Allergy Hallucinati Verified 07/06/16 10:27 ng Limitations: ROS unobtainable due to patients medical condition Cardiovascular: Denies: chest pain Past Medical History - Past Medical History Source: patient, old records reviewed, nursing notes reviewed Medical history: Reports: arthritis, cancer, CHF, coronary artery disease, diabetes, dialysis, GERD, hyperlipidemia, hypertension, kidney stones, renal disease, other Surgical history: Reports: cataract, cholecystectomy, knee replacement, pacemaker/AICD, other Psychiatric history: Reports: anxiety - Social History Smoking Status: Former smoker Smokeless Tobacco Status: No Alcohol use: Reports: none Drug use: Reports: none Physical Exam - General Limitations: altered mental status General appearance: in no apparent distress - Head Head exam: atraumatic, normocephalic, normal inspection - Eye Eye exam: Present: normal appearance, PERRL, EOMI - ENT ENT exam: normal exam, normal oropharynx, mucous membranes moist - Neck Neck exam: Present: normal inspection, full ROM, trachea midline - Chest Chest inspection: Present: normal inspection, symmetric chest wall rise - Respiratory Respiratory exam: Present: normal lung sounds bilaterally - Cardiovascular Cardiovascular exam: Present: regular rate, normal rhythm, normal heart sounds - Abdominal Exam Abdominal exam: Present: soft, Non-Tender. Absent: tenderness, distention, guarding, rebound, rigidity - Psychiatric Psychiatric exam: Present: other (Patient is alert and speaks fluently but is acutely delirious he thinks that he is heading out to the parking lot to talk to his [id number] is unaware these in the emergency department he is confused about what going on) - Skin Skin exam: Present: warm, dry, intact, normal color Course Vital Signs Temperature 98.3 F 09/24/16 14:32 Pulse Rate 69 09/24/16 14:32 Respiratory Rate 18 09/24/16 14:32 Blood Pressure 130/59 09/24/16 14:32 O2 Sat by Pulse Oximetry 99 09/24/16 14:32 Temperature 98.4 F 09/24/16 19:15 Pulse Rate 71 09/24/16 19:15 Respiratory Rate 16 09/24/16 19:15 Blood Pressure 167/76 09/24/16 19:15 O2 Sat by Pulse Oximetry 98 09/24/16 19:15 Oxygen Delivery Oxygen Delivery Room Air Altered Mental Status - Differential Diagnosis Likely: delirium, dementia, hypoglycemia, psychiatric disease, subarachnoid hemorrhage, sepsis - Medical Records Medical records reviewed: Yes I reviewed the patient's medical records. - Lab Data Lab results reviewed: Yes I reviewed the patient's lab results. Result diagrams: 09/24/16 16:05 09/24/16 16:05 Lab Results 09/24/16 09/24/16 09/24/16 Range/Units 16:05 16:05 16:05 WBC 9.3 (4.3-11.1) K/mcL RBC 3.26 L (4.19-5.50) M/mcL Hgb 9.6 L (12.9-16.9) g/dL Hct 31.2 L (37.5-50.1) % MCV 95.7 (83.0-100.0) fL MCH 29.4 (28.0-33.3) pg MCHC 30.8 L (31.6-35.5) g/dL RDW 16.8 H (11.5-14.5) % Plt Count 326 (140-400) K/mcL MPV 9.2 L (9.4-12.4) fL Immature Gran % 0.2 (0-4) % Seg Neutrophils % 78.1 % Lymphocytes % 11.8 % Monocytes % 8.2 % Eosinophils % 1.5 % Basophils % 0.2 % Neutrophils # 7.3 (1.6-8.9) K/mcL Lymphocytes # 1.1 (0.6-4.6) K/mcL Monocytes # 0.8 (0.0-1.3) K/mcL Eosinophils # 0.1 (0.0-0.6) K/mcL Basophils # 0.0 (0.0-0.2) K/mcL PT 11.5 (9.4-12.1) Seconds INR 1.1 APTT 27.9 (26.0-36.0) Seconds Sodium 139 (136-145) mEq/L Potassium 3.1 L (3.5-4.5) mEq/L Chloride 101 (98-109) mEq/L Carbon Dioxide 29 (19-29) mEq/L BUN 13 D (8-26) mg/dL Creatinine 2.54 H (0.72-1.25) mg/dL Est GFR ( Amer) 30 L (> 60) Est GFR (Non-Af Amer) 25 L (> 60) BUN/Creatinine Ratio 5 L (6-26) Glucose 133 H (70-99) mg/dL Calculated Osmolality 290 (280-300) Calcium 8.3 L (8.6-10.8) mg/dL Total Bilirubin 0.5 (0.2-1.2) mg/dL Direct Bilirubin 0.3 (0.0-0.5) mg/dL Indirect Bilirubin 0.2 (0.0-1.2) mg/dL AST 17 (5-34) Units/L ALT < 6 (0-55) Units/L Alkaline Phosphatase 127 H (38-126) Units/L Serum Total Protein 7.2 (6.0-8.3) g/dL Albumin 2.2 L (3.5-5.0) g/dL Globulin 5.0 H (2.4-3.5) g/dL Albumin/Globulin Ratio 0.4 L (1.1-2.2) TPA Checklist - LKW: 3-4.5 hrs Add. Contraindications Patient/family understanding: The patient/family members have been counseled and understood the risk, benefit , and alternatives of treatment.
[2016-09-24 16:29] LABS: Basophils % 0.2 %; Eosinophils # 0.1 K/mcL (0.0-0.6); Eosinophils % 1.5 %; Hematocrit 31.2 % (37.5-50.1); Hemoglobin 9.6 g/dL (12.9-16.9); Immature Granulocytes % 0.2 % (0-4); Lymphocytes # 1.1 K/mcL (0.6-4.6); Lymphocytes % 11.8 %; Mean Corpuscular HGB Conc 30.8 g/dL (31.6-35.5); Mean Corpuscular Hemoglobin 29.4 pg (28.0-33.3); Mean Corpuscular Volume 95.7 fL (83.0-100.0); Mean Platelet Volume 9.2 fL (9.4-12.4); Monocytes # 0.8 K/mcL (0.0-1.3); Monocytes % 8.2 %; Neutrophils # 7.3 K/mcL (1.6-8.9); Platelet Count 326 K/mcL (140-400); Red Blood Count 3.26 M/mcL (4.19-5.50); Red Cell Distribution Width 16.8 % (11.5-14.5); Segmented Neutrophils % 78.1 %
[2016-09-24 16:33] LABS: INR 1.1; Prothrombin Time 11.5 Seconds (9.4-12.1)
[2016-09-24 16:36] LABS: Activated Partial Thrombo Time 27.9 Seconds (26.0-36.0)
[2016-09-24 16:47] LABS: Alanine Aminotransferase < 6 Units/L (0-55); Albumin 2.2 g/dL (3.5-5.0); Albumin/Globulin Ratio 0.4 (1.1-2.2); Alkaline Phosphatase 127 Units/L (38-126); Aspartate Amino Transferase 17 Units/L (5-34); BUN/Creatinine Ratio 5 (6-26); Bilirubin,Direct 0.3 mg/dL (0.0-0.5); Bilirubin,Indirect 0.2 mg/dL (0.0-1.2); Bilirubin,Total 0.5 mg/dL (0.2-1.2); Blood Urea Nitrogen 13 mg/dL (8-26); Calcium 8.3 mg/dL (8.6-10.8); Carbon Dioxide 29 mEq/L (19-29); Chloride 101 mEq/L (98-109); Glucose 133 mg/dL (70-99); Osmolality,Calculated 290 (280-300); Potassium 3.1 mEq/L (3.5-4.5); Sodium 139 mEq/L (136-145); Total Protein 7.2 g/dL (6.0-8.3); eGFR For African Americans 30 (> 60); eGFR For Non-African Americans 25 (> 60)
[2016-09-24] MEDS ORDERED: Bisacodyl 10 MG RECTAL SUPPOSITORY RC PRN (21:12)
[2016-09-24] MEDS ORDERED: *HR* OxyCODONE Immed Rel 5 MG TABLET PO PRN (21:12)
[2016-09-24] MEDS ORDERED: Nitroglycerin 0.4 MG TAB.SUBL SL PRN (21:12)
[2016-09-24] MEDS ORDERED: *HR* FentaNYL PATCH 100 MCG PATCH TD SCH (21:15)
[2016-09-24] MEDS ORDERED: Ondansetron 4 MG/2 ML VIAL IVP PRN (21:32)
[2016-09-24] MEDS ORDERED: Naloxone 0.4 MG/ML INJ IVP PRN (21:32)
[2016-09-24] MEDS ORDERED: *HR* FentaNYL (PF) 100 MCG/2 ML VIAL IVP PRN (21:34)
[2016-09-24] MEDS ORDERED: Temazepam 15 MG CAPSULE PO PRN (21:35)
--- NOTE | 2016-09-24 21:38 | Internal Med History&Physical ---
Date of Encounter: 09/25/16 Time of Encounter: 21:36 Assessment and Plan (1) Delirium due to general medical condition Current visit: Yes Status: Acute The patient is back close to his baseline. His delirium could be caused by hemodialysis versus infection versus stroke or cardiovascular event. We will monitor the patient on telemetry. Close hemodynamic monitoring and check white blood cell count in the morning. (2) Acute encephalopathy Current visit: No Status: Acute Seems to be improving. Differential includes toxic versus metabolic. The patient is taking multiple opiate medication for pain given that he has had a repeat recent hip replacement and currently has a fractured left femur which was not operated on. We will try to take extreme care with his sedative medication and we will confirm his pain medication with the skilled nursing prior to discharge. He has a high risk for morbidity mortality and complications due to acute change in mental status. (3) DVT prophylaxis Current visit: No Status: Acute We will use subcutaneous heparin (4) CAD (coronary artery disease) Current visit: No Status: Chronic Continue with aspirin and statin and ARB. Qualifiers: Coronary Disease-Associated Artery/Lesion type: [place] artery [place] vs. transplanted heart: [place] heart Associated angina: without angina Qualified Code(s): I25.10 - Atherosclerotic heart disease of [place] coronary artery without angina pectoris (5) ESRD (end stage renal disease) on dialysis Current visit: No Status: Chronic Continue hemodialysis scheduled Saturday. Consider consultation nephrology and the patient ends up staying in the hospital beyond 1 midnight. (6) Type 2 diabetes mellitus Current visit: No Status: Chronic Qualifiers: Diabetes mellitus complication status: with kidney complications Diabetes mellitus complication detail: with chronic kidney disease Diabetes mellitus residential insulin use: without residential use Chronic kidney disease stage: on chronic dialysis Qualified Code(s): E11.22 - Type 2 diabetes mellitus with diabetic chronic kidney disease; N18.6 - End stage renal disease; Z99.2 - Dependence on renal dialysis (7) Ulcer of heel Current visit: No Status: Chronic Pressure relieved with wound care dressing. Qualifiers: Laterality: left Non-pressure ulcer stage: limited to breakdown of skin Qualified Code(s): L97.421 - Non-pressure chronic ulcer of left heel and midfoot limited to breakdown of skin Internal Medicine - H&P: HPI Chief complaint: Delirium Admitted From: Emergency Dept Plans for Post Hospital Care: Home History of present illness: Mr. Kenny is a 80 year old male with multiple medical comorbidities including end -stage renal disease on hemodialysis, skilled nursing resident was brought to the hospital for delirium. History obtained from the patient is limited by confusion. Patient's family members at the bedside and provided additional history. He is usually slightly confused after dialysis. Today he appeared to be more than his usual and therefore the family was concerned and brought him to the hospital. His initial workup in the emergency department was not revealing and he was referred for admission. Past medical family social history and review of systems Limited by confusion. Past Med Surg Social Fam HX - Past Medical History Medical history: arthritis, cancer, CHF, coronary artery disease, diabetes, dialysis, GERD, hyperlipidemia, hypertension, kidney stones, renal disease, other Psychiatric history: anxiety - Past Surgical History Surgical History: cataract, cholecystectomy, knee replacement, pacemaker/AICD, other - Social History Smoking Status: Former smoker Smokeless Tobacco Status: No Alcohol use: none Drug use: none - Family History Father History Unknown: Yes Living Status: Hx Family Cardiac Disorders: Yes Mother History Unknown: Yes Adopted: No Living Status: Hx Family Cardiac Disorders: Yes Hx Family Respiratory Disorders: No Hx Family Cancer: No Hx Family GI Disorders: No Hx Family Endocrine Disorder: No Hx Family Neuromuscular Disorders: No Hx Family Neurologic Disorders: No Hx Family HEENT Disorders: No Hx Family Autoimmune Disorders: No Internal Medicine - H&P: Meds Allopurinol [Zyloprim] 100 mg PO QAM #0 03/15/15 [History] Atorvastatin Calcium [Lipitor] 80 mg PO HS #0 03/15/15 [History] Clopidogrel [Plavix] 75 mg PO QAM #0 03/15/15 [History] Furosemide [Lasix] 40 mg PO SUTUTHSA@0800,1600 #0 03/15/15 [History] Hydralazine HCl 100 mg PO SUTUTHSA@0800,1600 #0 03/15/15 [History] Terazosin [Hytrin] 5 mg PO QPM #0 03/15/15 [History] Ranolazine [Ranexa] 500 mg PO BID 07/12/15 [History] Lidocaine/Prilocaine CREAM [Emla] 1 appl TP MOWEFR PRN 02/03/16 [History] Sertraline [Zoloft] 50 mg PO DAILY 02/03/16 [History] Sevelamer [Renvela] 800 mg PO TIDWM 02/03/16 [History] Isosorbide MONOnitrate [Isosorbide Mononitrate ER] 120 mg PO DAILY 02/06/16 [ History] Nitroglycerin [Nitrostat] 0.4 mg SL Q5M PRN 02/06/16 [History] Pantoprazole Sodium [Protonix] 40 mg PO DAILY 04/12/16 [History] Polyethylene Glycol 3350 [MiraLAX] 17 gm PO QAM 04/12/16 [History] Lisinopril [Zestril] 10 mg PO SUTUTHSA 08/22/16 [History] Megestrol Acetate [Megace] 800 mg PO DAILY 08/22/16 [History] Metoprolol [Lopressor] 25 mg PO SUTUTHSA@0800,1600 08/22/16 [History] Nut.tx.impaired Renal Fxn,Soy [Nepro Carb Steady] 237 ml PO BID 08/22/16 [ History] Aspirin Enteric Coated [Aspirin EC] 325 mg PO BID 30 Days 09/01/16 [Rx] HYDROmorphone [Dilaudid] 1 mg PO BID PRN #10 tablet 09/01/16 [Rx] LORazepam [Ativan] 1 mg PO MOWEFR@1000 #20 tablet 09/01/16 [Rx] Bisacodyl [Dulcolax] 10 mg RC HS PRN 09/24/16 [History] Docusate [Colace] 100 mg PO BID 09/24/16 [History] FentaNYL PATCH [Duragesic] 100 mcg TD Q72H 09/24/16 [History] HYDROmorphone [Dilaudid] 2 mg PO ONCE PRN 09/24/16 [History] Magnesium Hydroxide [Milk of Magnesia] 2,400 mg PO DAILY PRN 09/24/16 [History] Oxycodone HCl 10 mg PO Q4H PRN 09/24/16 [History] Allergies morphine Allergy (Verified 07/06/16 10:27) Hallucinating All Systems PM: A 10-system review of systems was performed and is negative for pertinent findings except as documented above in the HPI. - Constitutional Vitals: Temp Pulse Resp BP Pulse Ox 98.4 F 71 16 167/76 98 09/24/16 19:15 09/24/16 19:15 09/24/16 19:15 09/24/16 19:15 09/24/16 19:15 General appearance: Present: A&O X 2 - Head Head exam: Present: atraumatic, normocephalic - Respiratory Respiratory exam: Present: CTAB. Absent: accessory muscle use, rales, rhonchi, wheezes - Cardiovascular Cardiovascular exam: Present: RRR, +S1, +S2. Absent: diastolic murmur, gallop, rubs, systolic murmur - GI/Abdominal GI/Abdominal exam: Present: normal bowel sounds, soft, no peritoneal signs. Absent: distended, tenderness - Extremities Exam Extremities exam: Present: warm, radial pulses palpable and symetrical. 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 Absent: pronater drift, facial droop, speech deficit - Skin Additional comments: L heel stage2 decubitus ulcer Internal Med - H&P Results - Labs CBC & Chem 7: 09/25/16 06:04 09/25/16 06:04 - EKG Data EKG comments: 09/25/16 07:43 EKG was personally reviewed and is ventricularly paced at 60 bpm with 100% capture.
[2016-09-25 06:19] LABS: Basophils % 0.4 %; Eosinophils # 0.1 K/mcL (0.0-0.6); Eosinophils % 1.4 %; Hematocrit 31.4 % (37.5-50.1); Hemoglobin 9.4 g/dL (12.9-16.9); Immature Granulocytes % 0.4 % (0-4); Lymphocytes # 1.7 K/mcL (0.6-4.6); Lymphocytes % 21.6 %; Mean Corpuscular HGB Conc 29.9 g/dL (31.6-35.5); Mean Corpuscular Hemoglobin 28.1 pg (28.0-33.3); Mean Platelet Volume 8.8 fL (9.4-12.4); Monocytes # 0.7 K/mcL (0.0-1.3); Monocytes % 8.5 %; Neutrophils # 5.2 K/mcL (1.6-8.9); Platelet Count 291 K/mcL (140-400); Red Blood Count 3.34 M/mcL (4.19-5.50); Red Cell Distribution Width 16.6 % (11.5-14.5); Segmented Neutrophils % 67.7 %
[2016-09-25 06:32] LABS: Calcium 8.7 mg/dL (8.6-10.8); Potassium 3.5 mEq/L (3.5-4.5)
[2016-09-25] MEDS ORDERED: hydrALAZINE 25 MG TABLET PO SCH (08:00)
[2016-09-25] MEDS ORDERED: Furosemide 40 MG TABLET PO SCH (08:00)
[2016-09-25] MEDS ORDERED: Isosorbide MONOnitrate (24 HR) 60 MG TAB.ER.24H PO SCH (09:00)
[2016-09-25] MEDS ORDERED: Aspirin Enteric Coated 325 MG Tablet PO SCH (09:00)
[2016-09-25] MEDS ORDERED: Ranolazine 500 MG TAB.ER.12H PO SCH (09:00)
[2016-09-25] MEDS ORDERED: NON-FORMULARY MEDICATION 1 EACH EACH (Nut.Tx.Impaired Renal Fxn,Soy [Nepro Carb Steady] 23 PO SCH (09:00)
--- NOTE | 2016-09-25 09:31 | Discharge Summary ---
Date of Encounter: 09/25/16 Time of Encounter: 09:31 - Discharge Diagnosis (1) Delirium due to general medical condition Priority: Primary Status: Acute (2) Chronic renal disease Priority: Secondary Status: Acute Qualifiers: Chronic kidney disease stage: stage 5 Qualified Code(s): N18.5 - Chronic kidney disease, stage 5 (3) DVT prophylaxis Priority: Secondary Status: Acute - Discharge Medications Home Medications: Allopurinol [Zyloprim] 100 mg PO QAM #0 03/15/15 [History] Atorvastatin Calcium [Lipitor] 80 mg PO HS #0 03/15/15 [History] Clopidogrel [Plavix] 75 mg PO QAM #0 03/15/15 [History] Furosemide [Lasix] 40 mg PO SUTUTHSA@0800,1600 #0 03/15/15 [History] Hydralazine HCl 100 mg PO SUTUTHSA@0800,1600 #0 03/15/15 [History] Terazosin [Hytrin] 5 mg PO QPM #0 03/15/15 [History] Ranolazine [Ranexa] 500 mg PO BID 07/12/15 [History] Lidocaine/Prilocaine CREAM [Emla] 1 appl TP MOWEFR PRN 02/03/16 [History] Sertraline [Zoloft] 50 mg PO DAILY 02/03/16 [History] Sevelamer [Renvela] 800 mg PO TIDWM 02/03/16 [History] Isosorbide MONOnitrate [Isosorbide Mononitrate ER] 120 mg PO DAILY 02/06/16 [ History] Nitroglycerin [Nitrostat] 0.4 mg SL Q5M PRN 02/06/16 [History] Pantoprazole Sodium [Protonix] 40 mg PO DAILY 04/12/16 [History] Polyethylene Glycol 3350 [MiraLAX] 17 gm PO QAM 04/12/16 [History] Lisinopril [Zestril] 10 mg PO SUTUTHSA 08/22/16 [History] Megestrol Acetate [Megace] 800 mg PO DAILY 08/22/16 [History] Metoprolol [Lopressor] 25 mg PO SUTUTHSA@0800,1600 08/22/16 [History] Nut.tx.impaired Renal Fxn,Soy [Nepro Carb Steady] 237 ml PO BID 08/22/16 [ History] Aspirin Enteric Coated [Aspirin EC] 325 mg PO BID 30 Days 09/01/16 [Rx] HYDROmorphone [Dilaudid] 1 mg PO BID PRN #10 tablet 09/01/16 [Rx] LORazepam [Ativan] 1 mg PO MOWEFR@1000 #20 tablet 09/01/16 [Rx] Bisacodyl [Dulcolax] 10 mg RC HS PRN 09/24/16 [History] Docusate [Colace] 100 mg PO BID 09/24/16 [History] FentaNYL PATCH [Duragesic] 100 mcg TD Q72H 09/24/16 [History] HYDROmorphone [Dilaudid] 2 mg PO ONCE PRN 09/24/16 [History] Magnesium Hydroxide [Milk of Magnesia] 2,400 mg PO DAILY PRN 09/24/16 [History] Oxycodone HCl 10 mg PO Q4H PRN 09/24/16 [History] Allergies/Adverse Reactions: Allergies morphine Allergy (Verified 07/06/16 10:27) Hallucinating Date of admission: 09/24/16 17:44 Primary care physician: PCP NO Consults: 09/24/16 19:10 Consult to Scarf Gluer [CONS] Routine Reason for SW Consult: f/u dialysis, possible ECF 09/24/16 21:34 Consult to Occupational Therapy [CONS] Routine Comment: Evaluate, develop and implement POC Consult to Physical Therapy [CONS] Routine Comment: Evaluate, develop and implement POC Discharging clinician: Lamin Tiwari Anticipated date of discharge: 09/25/16 - Patient Status Disposition: Transfer Inpatient Rehab Fac Condition: Fair Functional capacity at discharge: uses cane/walker Overall status at discharge: patient is back to baseline - Discharge Instructions Follow Up With: NO,PCP [Primary Care Provider] - - Diet and Activity Activity: increase activity as tolerated Diet: advance to your usual diet Interval History: Mr. Kenny is a 80 year old male with multiple medical comorbidities including end -stage renal disease on hemodialysis, residential resident was brought to the hospital for delirium. History obtained from the patient is limited by confusion. Patient's family members at the bedside and provided additional history. He is usually slightly confused after dialysis. Today he appeared to be more than his usual and therefore the family was concerned and brought him to the hospital. His initial workup in the emergency department was not revealing and he was referred for admission. Past medical family social history and review of systems Limited by confusion. Hospital course: Mr. Kenny is a 80 year old male admitted due to acute confusion after hemodialysis. Durig my encounter with the patient he was otherwise alert, awake , oriented, not in distress. I have seen this patient in the past and at this point the patient seems to be at his baseline clinical condition. Likely etiology of confusion is due to medications, additionally AMS could be associated with hemodialysis. We will discharge the patient back to rehabilitation center today. Vital signs are otherwise stable. Mild elevation of troponins in the absence of chest pain, which Has been noted as well in the past. - Time Spent with Patient Total time spent providing and/or coordinating discharge services: Greater than 30 minutes - Constitutional Vitals: Temp Pulse Resp BP Pulse Ox 97.6 F 72 16 163/75 99 09/25/16 06:47 09/25/16 06:47 09/25/16 06:47 09/25/16 06:47 09/25/16 06:47 General appearance: Present: A&O X 2 - Head Head exam: Present: atraumatic, normocephalic - Eye Eye exam: Present: PERRL, conjuntiva pink, sclera anicteric Pupils: Present: PERRL - Neck Neck exam general surgery: Present: supple, trachea midline. Absent: lymphadenopathy - Respiratory Respiratory exam: Present: CTAB. Absent: accessory muscle use, rales, rhonchi, wheezes - Cardiovascular Cardiovascular exam: Present: RRR, +S1, +S2. Absent: diastolic murmur, gallop, rubs, systolic murmur - GI/Abdominal GI/Abdominal exam: Present: normal bowel sounds, soft, no peritoneal signs. Absent: distended, tenderness - Extremities Exam Extremities exam: Present: warm, radial pulses palpable and symetrical. Absent : calf tenderness, cyanotic, pedal edema - Neurological Exam Neurological exam: Present: CN II-XII intact, oriented X3, no focal deficits. Absent: pronater drift, facial droop, speech deficit - Skin Skin exam: Present: dry, intact
--- NOTE | 2016-09-25 09:37 | Physician Discharge Referral ---
ExtendedCare Referral Info Transfer To: REhab Institutional Level of Care: Skilled - Diagnosis (1) Delirium due to general medical condition Status: Acute (2) Chronic renal disease Status: Acute (3) DVT prophylaxis Status: Acute Prognosis: Fair Aware of Diagnosis: Patient Aware of Prognosis: Patient - Transfer Medications Home Medications: Allopurinol [Zyloprim] 100 mg PO QAM #0 03/15/15 [History] Atorvastatin Calcium [Lipitor] 80 mg PO HS #0 03/15/15 [History] Clopidogrel [Plavix] 75 mg PO QAM #0 03/15/15 [History] Furosemide [Lasix] 40 mg PO SUTUTHSA@0800,1600 #0 03/15/15 [History] Hydralazine HCl 100 mg PO SUTUTHSA@0800,1600 #0 03/15/15 [History] Terazosin [Hytrin] 5 mg PO QPM #0 03/15/15 [History] Ranolazine [Ranexa] 500 mg PO BID 07/12/15 [History] Lidocaine/Prilocaine CREAM [Emla] 1 appl TP MOWEFR PRN 02/03/16 [History] Sertraline [Zoloft] 50 mg PO DAILY 02/03/16 [History] Sevelamer [Renvela] 800 mg PO TIDWM 02/03/16 [History] Isosorbide MONOnitrate [Isosorbide Mononitrate ER] 120 mg PO DAILY 02/06/16 [ History] Nitroglycerin [Nitrostat] 0.4 mg SL Q5M PRN 02/06/16 [History] Pantoprazole Sodium [Protonix] 40 mg PO DAILY 04/12/16 [History] Polyethylene Glycol 3350 [MiraLAX] 17 gm PO QAM 04/12/16 [History] Lisinopril [Zestril] 10 mg PO SUTUTHSA 08/22/16 [History] Megestrol Acetate [Megace] 800 mg PO DAILY 08/22/16 [History] Metoprolol [Lopressor] 25 mg PO SUTUTHSA@0800,1600 08/22/16 [History] Nut.tx.impaired Renal Fxn,Soy [Nepro Carb Steady] 237 ml PO BID 08/22/16 [ History] Aspirin Enteric Coated [Aspirin EC] 325 mg PO BID 30 Days 09/01/16 [Rx] HYDROmorphone [Dilaudid] 1 mg PO BID PRN #10 tablet 09/01/16 [Rx] LORazepam [Ativan] 1 mg PO MOWEFR@1000 #20 tablet 09/01/16 [Rx] Bisacodyl [Dulcolax] 10 mg RC HS PRN 09/24/16 [History] Docusate [Colace] 100 mg PO BID 09/24/16 [History] FentaNYL PATCH [Duragesic] 100 mcg TD Q72H 09/24/16 [History] HYDROmorphone [Dilaudid] 2 mg PO ONCE PRN 09/24/16 [History] Magnesium Hydroxide [Milk of Magnesia] 2,400 mg PO DAILY PRN 09/24/16 [History] Oxycodone HCl 10 mg PO Q4H PRN 09/24/16 [History] Allergies/Adverse Reactions: Allergies morphine Allergy (Verified 07/06/16 10:27) Hallucinating - Respiratory Orders Smoking Cessation: Smoking cessation has been advised. For more information, call the [place] Tobacco Quit Line at 4-629-UDDD-NOW. - Advance Directives Code Status: Full Code - Mobility Orders Other (As tolerated, fall precautions) - Rehabiliation Orders Rehab Potential: Fair Rehab Orders: ROM Exercises, Evaluation for Physical Therapy, Evaluation for Occupational Therapy - Diet Orders Renal CERTIFICATION: I certify that the transfer of the above named patient to an Extended Care Facility is necessary for the continuing treatment of the diagnosis listed. The above information is true and accurate reflection of patient's current condition. Confidential - Redisclosure prohibited without a patient's written consent.
[2016-09-25 10:57] VITALS: BP 117/51
--- NOTE | 2016-09-25 18:15 | Electrocardiograph Report ---
[address] [address] Test Date: 2016-09-24 Pat Name: Que Kenny Department: 103 Room: [facility] Gender: M Medical Office Representative: : 1935 Requested By: Dewayne Dowling Order Number: [id number] Reading MD: She Nava Measurements Intervals [place] Rate: 68 P: 52 SD: 197 QRS: -82 QRSD: 163 T: 94 QT: 401 QTc: 419 Interpretive Statements ELECTRONIC VENTRICULAR PACEMAKER ABNORMAL RHYTHM ECG Electronically Signed On 09-25-2016 18:13:29 EST by She Nava
== END 2016-09-25 13:35 ==
LOC: 2ANU 14:30 → EMEROO 14:30 → 2ANU 18:42
PROVIDERS: ADMIT Registered Nurse; ATTEND Internal Medicine

== ENCOUNTER 2017-12-20 19:45 | Inpatient (IN) ==
[2017-12-20] MEDS ORDERED: 0.9 % Sodium Chloride 250 ML IVC ONE (20:01)
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
[2017-12-20 20:18] LABS: Basophils % 0.4 %; Eosinophils # 0.2 K/mcL (0.0-0.6); Eosinophils % 3.9 %; Hematocrit 29.9 % (37.5-50.1); Hemoglobin 9.9 g/dL (12.9-16.9); Immature Granulocytes % 0.4 % (0-4); Lymphocytes # 1.1 K/mcL (0.6-4.6); Lymphocytes % 19.7 %; Mean Corpuscular HGB Conc 33.1 g/dL (31.6-35.5); Mean Corpuscular Hemoglobin 32.2 pg (28.0-33.3); Mean Corpuscular Volume 97.4 fL (83.0-100.0); Mean Platelet Volume 10.4 fL (9.4-12.4); Monocytes # 0.7 K/mcL (0.0-1.3); Monocytes % 12.2 %; Neutrophils # 3.5 K/mcL (1.6-8.9); Platelet Count 149 K/mcL (140-400); Red Blood Count 3.07 M/mcL (4.19-5.50); Red Cell Distribution Width 13.1 % (11.5-14.5); Segmented Neutrophils % 63.4 %
[2017-12-20 20:24] LABS: INR 1.1; Prothrombin Time 11.6 Seconds (9.4-12.1)
[2017-12-20 20:27] LABS: Activated Partial Thrombo Time 32.4 Seconds (26.0-36.0)
--- NOTE | 2017-12-20 20:39 | Emergency Department Note ---
Disposition Clinical Impression: Altered mental status, Hypotension Disposition: Still a Patient Condition: Undetermined Forms: ED Satisfaction Letter, Work/School Release General Adult HPI - General Chief complaint: ED General Medical Stated complaint: Left arm pain Source: patient, family Mode of arrival: ambulatory Limitations: no limitations Nursing Notes Reviewed: Yes Vital Signs Reviewed: Yes - History of Present Illness Pain Scale: 8 - Related Data Home Medications Medication Instructions Recorded Confirmed Allopurinol [Zyloprim] 100 mg PO QAM #0 03/15/15 11/16/16 Atorvastatin Calcium [Lipitor] 80 mg PO HS #0 03/15/15 11/16/16 Clopidogrel [Plavix] 75 mg PO QAM #0 03/15/15 11/16/16 Furosemide [Lasix] 40 mg PO SUTUTHSA@0800,1600 #0 03/15/15 11/16/16 Hydralazine HCl 100 mg PO SUTUTHSA@0800,1600 #0 03/15/15 11/16/16 Terazosin [Hytrin] 5 mg PO QPM #0 03/15/15 11/16/16 Ranolazine [Ranexa] 500 mg PO BID 07/12/15 11/16/16 Lidocaine/Prilocaine CREAM [Emla] 1 appl TP MOWEFR PRN 02/03/16 11/16/16 Sertraline [Zoloft] 50 mg PO DAILY 02/03/16 11/16/16 Sevelamer [Renvela] 800 mg PO TIDWM 02/03/16 11/16/16 Isosorbide MONOnitrate [Isosorbide 120 mg PO DAILY 02/06/16 11/16/16 Mononitrate ER] Nitroglycerin [Nitrostat] 0.4 mg SL Q5M PRN 02/06/16 11/16/16 Pantoprazole Sodium [Protonix] 40 mg PO DAILY 04/12/16 11/16/16 Polyethylene Glycol 3350 [MiraLAX] 17 gm PO QAM 04/12/16 11/16/16 Lisinopril [Zestril] 10 mg PO SUTUTHSA 08/22/16 11/16/16 Megestrol Acetate [Megace] 800 mg PO DAILY 08/22/16 11/16/16 Metoprolol [Lopressor] 25 mg PO SUTUTHSA@0800,1600 08/22/16 11/16/16 Nut.tx.impaired Renal Fxn,Soy 237 ml PO BID 08/22/16 11/16/16 [Nepro Carb Steady] Bisacodyl [Dulcolax] 10 mg RC HS PRN 09/24/16 11/16/16 Docusate [Colace] 100 mg PO BID 09/24/16 11/16/16 Magnesium Hydroxide [Milk of 2,400 mg PO DAILY PRN 09/24/16 11/16/16 Magnesia] Previous Rx's Medication Instructions Recorded Aspirin Enteric Coated [Aspirin EC] 325 mg PO BID 30 Days tablet. 09/01/16 FentaNYL PATCH [Duragesic] 100 mcg TD Q72H #4 patch.td72 09/25/16 LORazepam [Ativan] 1 mg PO MOWEFR@1000 #20 tablet 09/25/16 OxyCODONE Immed Rel [Roxicodone 10 10 mg PO Q6H PRN #20 tablet 09/25/16 MG] levoFLOXacin [Levaquin] 500 mg PO DAILY #7 tablet 04/05/17 Allergies Allergy/AdvReac Type Severity Reaction Status Date / Time morphine Allergy Hallucinati Verified 07/06/16 10:27 ng Past Medical History - Past Medical History Medical history: Reports: arthritis, cancer, CHF, coronary artery disease, diabetes, dialysis, GERD, hyperlipidemia, hypertension, kidney stones, renal disease, other Surgical history: Reports: cataract, cholecystectomy, knee replacement, pacemaker/AICD, other Psychiatric history: Reports: anxiety - Social History Smoking Status: Former smoker Smokeless Tobacco Status: No Alcohol use: Reports: none Drug use: Reports: none Physical Exam - General Limitations: no limitations General appearance: alert, in no apparent distress Course Vital Signs Temperature 97.7 F 12/20/17 19:47 Pulse Rate 70 12/20/17 19:47 Respiratory Rate 18 12/20/17 19:47 Blood Pressure 70/55 12/20/17 19:47 O2 Sat by Pulse Oximetry 98 12/20/17 19:47 Temperature 97.7 F 12/20/17 19:47 Pulse Rate 59 12/20/17 20:09 Respiratory Rate 18 12/20/17 20:09 Blood Pressure 117/87 12/20/17 20:09 O2 Sat by Pulse Oximetry 100 12/20/17 20:09 Oxygen Delivery Oxygen Delivery Room Air Medical Decision Making - Lab Data Result diagrams: 12/20/17 20:10 Lab Results 12/20/17 12/20/17 Range/Units 20:00 20:10 WBC 5.6 (4.3-11.1) K/mcL RBC 3.07 L (4.19-5.50) M/mcL Hgb 9.9 L (12.9-16.9) g/dL Hct 29.9 L (37.5-50.1) % MCV 97.4 (83.0-100.0) fL MCH 32.2 (28.0-33.3) pg MCHC 33.1 (31.6-35.5) g/dL RDW 13.1 (11.5-14.5) % Plt Count 149 (140-400) K/mcL MPV 10.4 (9.4-12.4) fL Immature Gran % 0.4 (0-4) % Seg Neutrophils % 63.4 % Lymphocytes % 19.7 % Monocytes % 12.2 % Eosinophils % 3.9 % Basophils % 0.4 % Neutrophils # 3.5 (1.6-8.9) K/mcL Lymphocytes # 1.1 (0.6-4.6) K/mcL Monocytes # 0.7 (0.0-1.3) K/mcL Eosinophils # 0.2 (0.0-0.6) K/mcL Basophils # 0.0 (0.0-0.2) K/mcL PT 11.6 (9.4-12.1) Seconds INR 1.1 APTT 32.4 (26.0-36.0) Seconds D-Dimer 1477 H (0-500) ng/mLFEU Attestation Statement - Attestation Attestation: I, Mukund Diaz, examined this patient and my medical decision-making was reviewed with the INSURANCE CLAIMS PROCESSOR/PA/Advanced Practice Nurse/Resident Physician. I agree with the documented findings, disposition and treatment plan as described except to the extent set forth below. 82-year-old male brought to the emergency department by EMS for concerns of altered mental status, lethargy and left-sided chest and lower extremity pain. Patient states pain started within the past 12 hours. He does report having had a dialysis session today. He denies associated fever, shortness of breath. Patient states his chest pain is an aching in the left upper chest that radiates to his left upper extremity. He denies syncopal events. Patient was initially hypotensive on the evaluation. It is unclear how long he has been hypertensive. Patient has a history of blood pressure at 115 systolic per the family. Patient is unable to give a history regarding his case presentation. We will obtain laboratory evaluation for investigation of his chest pain as well as the hypotension. CT of the head was ordered for altered mental status. Imaging and laboratory evaluation is pending at this time.
[2017-12-20 20:41] LABS: Calcium 8.9 mg/dL (8.6-10.3); Potassium 4.1 mEq/L (3.5-5.1)
[2017-12-20 20:43] LABS: Troponin I 0.17 ng/mL (< 0.04)
[2017-12-20] MEDS ORDERED: Isovue-370 500 ML INFUS..BTL IV ONE (20:56)
[2017-12-20] MEDS ORDERED: *HR* FentaNYL (PF) 100 MCG/2 ML VIAL IVP ONE (22:38)
[2017-12-20] MEDS ORDERED: Aspirin 81 MG TAB.CHEW PO ONE (23:01)
--- NOTE | 2017-12-21 00:32 | Internal Med History&Physical ---
<Olivier Way - Last Filed: 12/21/17 05:53> Date of Encounter: 12/21/17 Time of Encounter: 00:15 Internal Medicine - H&P: HPI Chief complaint: Hypotension and lower extremity pain Admitted From: Long-term Nursing Facility Plans for Post Hospital Care: Transfer [facility] History of present illness: Mr. Kenny is a 82 year old male PMHx CKD on dialysis, HTN, CAD with 3 stents, BL lower extremity ulcerations, multiple comorbidities, presents with confusion, lethargy, and left-sided chest and lower extremity pain. Patient also has episodes of hypotension while lying supine. He states that CP and LE pain started today after dialysis. He denies f/c/SOB, diaphoresis, syncope, headaches. At ED, ASA, Fentanyl, IVF were given and CP resolved. Patient reports that both his legs are very painful. Chest pain resolved with fentanyl, IVFs, ASA. Currently confused and lethargic. mental status improves with movement. No /GI symptoms. Past Med Surg Social Fam HX - Past Medical History Medical history: arthritis, cancer, CHF, coronary artery disease, diabetes, dialysis, GERD, hyperlipidemia, hypertension, kidney stones, renal disease, other Psychiatric history: anxiety - Past Surgical History Surgical History: cataract, cholecystectomy, knee replacement, pacemaker/AICD, other - Social History Smoking Status: Former smoker Smokeless Tobacco Status: No Alcohol use: none Drug use: none - Family History Father Living Status: Hx Family Cardiac Disorders: Yes Mother Adopted: No Living Status: Hx Family Cardiac Disorders: Yes Hx Family Respiratory Disorders: No Hx Family Cancer: No Hx Family GI Disorders: No Hx Family Endocrine Disorder: No Hx Family Neuromuscular Disorders: No Hx Family Neurologic Disorders: No Hx Family HEENT Disorders: No Hx Family Autoimmune Disorders: No Internal Medicine - H&P: Meds Allopurinol [Zyloprim] 100 mg PO QAM #0 03/15/15 [History] Atorvastatin Calcium [Lipitor] 40 mg PO HS #0 03/15/15 [History] Clopidogrel [Plavix] 75 mg PO QAM #0 03/15/15 [History] Furosemide [Lasix] 40 mg PO TUTHSA@0900 #0 03/15/15 [History] Hydralazine HCl 100 mg PO SUTUTHSA@0900 #0 03/15/15 [History] Terazosin [Hytrin] 5 mg PO QPM #0 03/15/15 [History] Ranolazine [Ranexa] 500 mg PO BID 07/12/15 [History] Lidocaine/Prilocaine CREAM [Emla] 1 appl TP MOWEFR PRN 02/03/16 [History] Sertraline [Zoloft] 75 mg PO DAILY 02/03/16 [History] Sevelamer [Renvela] 2,400 mg PO TIDWM 02/03/16 [History] Isosorbide MONOnitrate [Isosorbide Mononitrate ER] 120 mg PO DAILY 02/06/16 [ History] Nitroglycerin [Nitrostat] 0.4 mg SL Q5M PRN 02/06/16 [History] Pantoprazole Sodium [Protonix] 40 mg PO DAILY 04/12/16 [History] Polyethylene Glycol 3350 [MiraLAX] 17 gm PO DAILY 04/12/16 [History] Lisinopril [Zestril] 10 mg PO SUTUTHSA 08/22/16 [History] Megestrol Acetate [Megace] 800 mg PO DAILY 08/22/16 [History] Metoprolol [Lopressor] 25 mg PO SUTUTHSA@0900 08/22/16 [History] Nut.tx.impaired Renal Fxn,Soy [Nepro Carb Steady] 237 ml PO BID 08/22/16 [ History] Aspirin Enteric Coated [Aspirin EC] 325 mg PO BID 30 Days tablet. 09/01/16 [ Rx] Bisacodyl [Dulcolax] 10 mg RC HS PRN 09/24/16 [History] Docusate [Colace] 100 mg PO BID 09/24/16 [History] Magnesium Hydroxide [Milk of Magnesia] 2,400 mg PO DAILY PRN 09/24/16 [History] LORazepam [Ativan] 1 mg PO MOWEFR@1000 #20 tablet 09/25/16 [Rx] levoFLOXacin [Levaquin] 500 mg PO DAILY #7 tablet 04/05/17 [Rx] ALPRAZolam [Xanax 1 MG Tablet] 1 mg PO QMWF 12/21/17 [History] Besifloxacin HCl 0.6 % OP TID 12/21/17 [History] Ergocalciferol (VITAMIN D2) [Drisdol] 50,000 unit PO QWEEK 12/21/17 [History] Famotidine [Acid Filenet Architect] 10 mg PO DAILY 12/21/17 [History] FentaNYL PATCH [Duragesic] 125 mcg TD Q48H 12/21/17 [History] Loratadine [Claritin] 10 mg PO DAILY 12/21/17 [History] Metoclopramide HCl 5 mg PO TID 12/21/17 [History] Multivitamin with Minerals [One-A-Day Maximum Formula] 1 each PO DAILY 12/21/17 [History] OxyCODONE Immed Rel [Roxicodone 10 MG] 10 mg PO Q4H 12/21/17 [History] Pregabalin [Lyrica] 50 mg PO TID 12/21/17 [History] 3 Allergy/AdvReac Type Severity Reaction Status Date / Time morphine Allergy Hallucinati Verified 07/06/16 10:27 ng All Systems PM: A 10-system review of systems was performed and is negative for pertinent findings except as documented above in the HPI. - Constitutional Constitutional: no chills, no fever(s), no night sweats - EENT Eyes: no change in vision, no discharge, no pain, no photophobia Ears: no ear discharge, no ear pain, no tinnitus Nose, mouth and throat: no dysphagia, no nasal discharge, no neck pain, no sore throat - Cardiovascular Cardiovascular ROS IM: no chest pain, no diaphoresis, no dyspnea, no lightheadedness, no palpitations, no syncope - Respiratory Respiratory: no cough, no dyspnea, no wheezing, no excessive phlegm production - Gastrointestinal Gastrointestinal: no abdominal pain, no diarrhea, no hematemesis, no hematochezia, no melena, no nausea, no vomiting - Musculoskeletal Musculoskeletal ROS IM: no numbness, no tingling Additional comments: BL lower extremity pain. - Integumentary Integumentary IM: no rash, no unusual bruising - Neurological Neurological ROS: no confusion, no convulsions, no focal weakness, no numbness, no tingling, no tremor(s) - Hematologic/Lymphatic Hematologic/Lymphatic: no easy bruising - Constitutional Vitals: Temp Pulse Resp BP Pulse Ox 97.7 F 71 18 130/47 98 12/20/17 19:47 12/20/17 22:31 12/20/17 23:28 12/20/17 23:28 12/20/17 22:31 General appearance: Present: A&O X 3, no acute distress, answers questions appropriately - Head Head exam: Present: atraumatic, normocephalic - Eye Eye exam: Present: EOMI, conjuntiva pink, sclera anicteric - Neck Neck exam general surgery: Present: full ROM, supple, trachea midline. Absent: lymphadenopathy - Respiratory Respiratory exam: Present: CTAB. Absent: accessory muscle use, rales, respiratory distress, rhonchi, wheezes - Cardiovascular Cardiovascular exam: Present: RRR, +S1, +S2. Absent: diastolic murmur, gallop, rubs, systolic murmur - GI/Abdominal GI/Abdominal exam: Present: normal bowel sounds, soft, no peritoneal signs. Absent: distended, tenderness - Extremities Exam Extremities exam: Present: warm, radial pulses palpable and symmetrical. Absent : calf tenderness, cyanotic, pedal edema Additional comments: extensive ulcers on BL legs including the soles. Both LE covered in gauze. + edema - Neurological Exam Neurological exam: Present: oriented X3. Absent: pronater drift, facial droop, speech deficit Additional comments: Loss of sensation and motor strength on BL lower extremities. Very tender to palpation. - Skin Skin exam: Present: intact, mottled Internal Med - H&P Results - Labs CBC & Chem 7: 12/21/17 02:34 12/21/17 02:34 - Assessment and plan (1) Chest pain Current Visit: Yes Status: Acute Assessment and plan: Chest pain currently resolved after fentanyl, ASA and IVFs in ED. Patient has extensive history of CAD. Chronically elevated troponins. History of atrial pacemaker. Consult cardiology in the setting of complicated cardiac history with presenting chest pain. Qualifiers: Chest pain type: unspecified Qualified Code(s): R07.9 - Chest pain, unspecified (2) Elevated troponin Current Visit: No Status: Acute Assessment and plan: chronic elevated troponins. Patient did have chest pain prior to admission. history of 3V disease. Consult cardiology for recommendations (3) Hypotension Current Visit: Yes Status: Acute Assessment and plan: Recurring episodes of hypotension while supine. Patient is non-ambulatory. Blood pressure dropped to 60/40 this AM, but improved to 140/70 after sitting patient on side of bed. Have patient sit on side of bed TID. Hold pain medication if SBP <60 IVFs as needed. Qualifiers: Qualified Code(s): I95.9 - Hypotension, unspecified (4) Chronic kidney disease Current Visit: No Status: Acute Assessment and plan: Patient becomes hypotensive when he gets dialysis. Confusion likely secondary to hypotensive episodes. Qualifiers: Qualified Code(s): N18.9 - Chronic kidney disease, unspecified (5) History of pacemaker Current Visit: No Status: Chronic (6) HTN (hypertension) Current Visit: No Status: Chronic Assessment and plan: Hold hypertensive medications in the setting of hypotensive episodes. Qualifiers: Hypertension type: essential hypertension Qualified Code(s): I10 - Essential (primary) hypertension (7) DVT prophylaxis Current Visit: No Status: Acute Assessment and plan: subq heparin (8) Ulcer of heel Current Visit: No Status: Chronic Assessment and plan: consult podiatry for recommendations. Qualifiers: Laterality: left Non-pressure ulcer stage: limited to breakdown of skin Qualified Code(s): L97.421 - Non-pressure chronic ulcer of left heel and midfoot limited to breakdown of skin (9) Chronic venous hypertension with ulcer and inflammation involving both sides Current Visit: No Status: Acute Assessment and plan: wound care. (10) Confusion Current Visit: Yes Status: Acute Assessment and plan: CT head and CXR are unremarkable. Currently, patient is AOx3 Encourage incentive spirometer Up and ambulate/on wheelchair TID - Time Spent With Patient Total time spent is greater than 50% in coordination of care (as documented) at patient's floor/unit and/or counseling patient: Greater than 35 minutes <Todd Oakes P - Last Filed: 12/21/17 07:57> Date of Encounter: 12/20/17 Time of Encounter: 23:47 Internal Medicine - H&P: HPI History of present illness: Mr. Kenny is a 82 year old male All Systems PM: A 10-system review of systems was performed and is negative for pertinent findings except as documented above in the HPI. - Constitutional Vitals: Temp Pulse Resp BP Pulse Ox 98.2 F 67 14 105/64 95 12/21/17 06:57 12/21/17 06:57 12/21/17 06:57 12/21/17 06:57 12/21/17 06:57 Internal Med - H&P Results - Labs CBC & Chem 7: 12/21/17 02:34 12/21/17 02:34 - Attending Attestation I have seen patient and performed my own physical examination on 12/20/17. I have discussed the case with the resident physician, and agree with his plan of care as documented in his history and physical note. Briefly, patient presented to ED with chest pain. Troponin elevated at 0.17; patient has elevated troponin at baseline. Also, some report in ED chart about AMS and lethargy. Patient alert and oriented x 3. Chest pain resolved during my interview. Chest and lungs normal on my exam. Some concern for hypotension, maybe positional, in ED. BP normal on floor right now. Will hydrate gently. Will hold BP medications for now and monitor. Get ECHO in AM. Trend troponins. Consider cardiology consult in AM. Consult nephro in AM. Has some chronic BLE wounds that are bandaged. Will consult wound care in AM. - Assessment and plan (1) Chronic kidney disease Current Visit: No Status: Acute Qualifiers: Qualified Code(s): N18.9 - Chronic kidney disease, unspecified (2) History of pacemaker Current Visit: No Status: Chronic (3) HTN (hypertension) Current Visit: No Status: Chronic Qualifiers: Hypertension type: essential hypertension Qualified Code(s): I10 - Essential (primary) hypertension (4) DVT prophylaxis Current Visit: No Status: Acute (5) Ulcer of heel Current Visit: No Status: Chronic Qualifiers: Laterality: left Non-pressure ulcer stage: limited to breakdown of skin Qualified Code(s): L97.421 - Non-pressure chronic ulcer of left heel and midfoot limited to breakdown of skin (6) Chest pain Current Visit: Yes Status: Acute Qualifiers: Chest pain type: unspecified Qualified Code(s): R07.9 - Chest pain, unspecified (7) Elevated troponin Current Visit: No Status: Acute (8) Chronic venous hypertension with ulcer and inflammation involving both sides Current Visit: No Status: Acute (9) Hypotension Current Visit: Yes Status: Acute Qualifiers: Qualified Code(s): I95.9 - Hypotension, unspecified (10) Confusion Current Visit: Yes Status: Acute - Time Spent With Patient Total time spent is greater than 50% in coordination of care (as documented) at patient's floor/unit and/or counseling patient:
[2017-12-21] MEDS ORDERED: Naloxone 0.4 MG/ML INJ IVP PRN (00:35)
[2017-12-21] MEDS ORDERED: FENTANYL TD SCH (00:45)
[2017-12-21] MEDS: *HR* OxyCODONE Immed Rel 5 MG TABLET PO SCH ×6 (01:39→19:55)
[2017-12-21 03:09] LABS: Basophils % 0.5 %; Eosinophils # 0.1 K/mcL (0.0-0.6); Eosinophils % 2.2 %; Hematocrit 29.9 % (37.5-50.1); Hemoglobin 9.6 g/dL (12.9-16.9); Immature Granulocytes % 0.3 % (0-4); Lymphocytes # 1.1 K/mcL (0.6-4.6); Lymphocytes % 17.2 %; Mean Corpuscular HGB Conc 32.1 g/dL (31.6-35.5); Mean Corpuscular Volume 96.5 fL (83.0-100.0); Mean Platelet Volume 10.3 fL (9.4-12.4); Monocytes # 0.7 K/mcL (0.0-1.3); Neutrophils # 4.4 K/mcL (1.6-8.9); Platelet Count 141 K/mcL (140-400); Red Cell Distribution Width 13.2 % (11.5-14.5); Segmented Neutrophils % 68.8 %
[2017-12-21 03:28] LABS: Calcium 9.1 mg/dL (8.6-10.3); Potassium 4.3 mEq/L (3.5-5.1)
[2017-12-21] MEDS: FentaNYL PATCH 100 MCG, FentaNYL PATCH 25 MCG TD SCH ×2 (05:59→17:08)
[2017-12-21] MEDS: *HR* Heparin 5,000 UNIT/ML VIAL SQ SCH ×2 (06:00→17:08)
[2017-12-21] MEDS: Famotidine 20 MG TABLET PO SCH (06:00)
[2017-12-21] MEDS ORDERED: 0.9 % Sodium Chloride 1,000 ML IVC SCH (07:30)
[2017-12-21] MEDS: Isosorbide MONOnitrate (24 HR) 60 MG TAB.ER.24H PO SCH (08:24)
[2017-12-21] MEDS: Aspirin Enteric Coated 325 MG Tablet PO SCH ×2 (08:25→19:55)
[2017-12-21] MEDS: Multivit/Ca/Min/Fe/FA 1 TAB TABLET PO SCH (08:25)
[2017-12-21] MEDS: Loratadine 10 MG TABLET PO SCH (08:25)
[2017-12-21] MEDS: hydrALAZINE 25 MG TABLET PO SCH (08:35)
[2017-12-21] MEDS: BESIFLOXACIN HCL OP SCH ×3 (08:36→19:58)
[2017-12-21] MEDS ORDERED: Furosemide 40 MG TABLET PO SCH (09:00)
--- NOTE | 2017-12-21 09:09 | Nephrology Consult Note ---
Date of Encounter: 12/22/17 Time of Encounter: 09:00 Assessment and Plan (1) ESRD (end stage renal disease) on dialysis Current Visit: No Status: Chronic Hx of ESRD on HD M/W/. Last HD was yesterday, and his chemistries do not support indications for extra dialysis today. He was not on my list this AM, but I did see a Nephrology consult sent to Dr. Way, so I've corrected the consult order to [facility] (this pt follows with us, specifically Dr. Jeronimo). Last night, the ER asked me if he may have IV contrast, since he has kidney disease; since he was emergently ill and since he has been on dialysis for nearly 2 years (this vintage would suggest a much smaller residual renal function), then his potential benefits outweigh the risks. There are no randomized controlled trial that would suggest dialysis after IV contrast. Will tentatively plan for his next dialysis on Saturday. Thank you for having consulted the [facility] group. I will be available this weekend if needed. Please feel free to call or page me with any questions. (2) Hypotension Current Visit: Yes Status: Acute Could be multifactorial. Certainly dialysis would lower BP, but in a bedbound patient with longstanding DM and probable (to some presumed degree of) autonomic dysfunction, his hypotension may have several contributors. He does not appear to need extra UF today, so will not risk orthostasis. Will defer work up and mgt to primary team. Qualifiers: Hypotension type: unspecified hypotension type Qualified Code(s): I95.9 - Hypotension, unspecified History of Present Illness - Reason for Consult Consult date: 12/20/17 end stage renal disease Requesting physician: Mukund Diaz - Chief Complaint ESRD - History of Present Illness Que Kenny is a very pleasant 82 y/o AAM with a pmh of HTN, T2DM, multiple chronic wounds, ESRD on HD M/W/F and etc who presented with worsening pain of his chronic wounds. He was by himself and was not able to provide a coherent history. He was unsure of the duration of his wounds, of what makes the pain better/worse, but he did describe the intensity as "very painful." He last had HD on Saturday, but he said his memory has not been well of late. I logged into the [facility] mobile [facility] EHR and see that he completed all of his dialysis on Saturday. His primary system admin is Dr. Jeronimo. He dialyzes via a LUE AVF. He did not affirm N/V/D or CP or ShOB. Past Med Surg Social Fam HX - Past Medical History Medical history: arthritis, cancer, CHF, coronary artery disease, diabetes, dialysis, GERD, hyperlipidemia, hypertension, kidney stones, renal disease, other Psychiatric history: anxiety - Past Surgical History Surgical History: cataract, cholecystectomy, knee replacement, pacemaker/AICD, other - Social History Smoking Status: Former smoker Smokeless Tobacco Status: No Alcohol use: none Drug use: none - Family History Father Living Status: Hx Family Cardiac Disorders: Yes Mother Adopted: No Living Status: Hx Family Cardiac Disorders: Yes Hx Family Respiratory Disorders: No Hx Family Cancer: No Hx Family GI Disorders: No Hx Family Endocrine Disorder: No Hx Family Neuromuscular Disorders: No Hx Family Neurologic Disorders: No Hx Family HEENT Disorders: No Hx Family Autoimmune Disorders: No Medications and Allergies Clopidogrel [Plavix] 75 mg PO QAM #0 03/15/15 [History] Hydralazine HCl 100 mg PO SUTUTHSA@0900 #0 03/15/15 [History] Sertraline [Zoloft] 75 mg PO DAILY 02/03/16 [History] Sevelamer [Renvela] 2,400 mg PO TIDWM 02/03/16 [History] Isosorbide MONOnitrate [Isosorbide Mononitrate ER] 120 mg PO DAILY 02/06/16 [ History] Nitroglycerin [Nitrostat] 0.4 mg SL Q5M PRN 02/06/16 [History] Polyethylene Glycol 3350 [MiraLAX] 17 gm PO DAILY 04/12/16 [History] Bisacodyl [Dulcolax] 10 mg RC HS PRN 09/24/16 [History] Docusate [Colace] 100 mg PO BID 09/24/16 [History] Magnesium Hydroxide [Milk of Magnesia] 2,400 mg PO DAILY PRN 09/24/16 [History] ALPRAZolam [Xanax 1 MG Tablet] 1 mg PO MOWEFR 12/21/17 [History] Allopurinol [Zyloprim 100 MG] 100 mg PO QAM 12/21/17 [History] Atorvastatin [Lipitor] 40 mg PO HS 12/21/17 [History] Besifloxacin HCl [Besivance] 1 drop OP TID 12/21/17 [History] Ergocalciferol (VITAMIN D2) [Drisdol] 50,000 unit PO QWEEK 12/21/17 [History] Famotidine [Acid Medical Scientific Liaison] 10 mg PO DAILY 12/21/17 [History] FentaNYL PATCH [Duragesic] 25 mcg TD Q48H 12/21/17 [History] FentaNYL PATCH [Duragesic] 100 mcg TD Q48H 12/21/17 [History] Furosemide [Lasix] 40 mg PO TUTHSA@0900 12/21/17 [History] Glucagon,Human Recombinant [Glucagen] 1 mg IJ ONCE 12/21/17 [History] Insulin ASPART [Novolog Flexpen] 5 units SQ TIDWM 12/21/17 [History] Insulin DETEMIR [Levemir Flextouch] 10 units SQ HS 12/21/17 [History] Lisinopril [Zestril] 10 mg PO SUTUTHSA 12/21/17 [History] Loratadine [Claritin] 10 mg PO DAILY 12/21/17 [History] Metoclopramide HCl 5 mg PO TID 12/21/17 [History] Metoprolol [Lopressor] 25 mg PO SUTUTHSA@0900 12/21/17 [History] Multivitamin with Minerals [One-A-Day Maximum Formula] 1 tab PO DAILY 12/21/17 [ History] Ondansetron HCl [Zofran] 4 mg PO Q8HR PRN 12/21/17 [History] OxyCODONE Immed Rel [Roxicodone 10 MG] 10 mg PO Q4H 12/21/17 [History] Pregabalin [Lyrica] 50 mg PO TID 12/21/17 [History] Ranolazine [Ranexa] 500 mg PO BID 12/21/17 [History] Terazosin [Hytrin] 5 mg PO QPM 12/21/17 [History] 3 Allergy/AdvReac Type Severity Reaction Status Date / Time morphine Allergy Hallucinati Verified 07/06/16 10:27 ng Review of Systems All Systems: reviewed and no additional remarkable complaints except as stated Exam - Vital Signs Vital signs: Initial Vital Signs Temp Pulse Resp BP Pulse Ox 97.7 F 70 18 70/55 98 12/20/17 19:47 12/20/17 19:47 12/20/17 19:47 12/20/17 19:47 12/20/17 19:47 Vital Signs - Last 8 Hours Temp Pulse Resp BP Pulse Ox 12/21/17 06:57 98.2 F 67 14 105/64 95 Intake and Output 12/20/17 12/21/17 12/21/17 23:59 07:59 15:59 Other: Blood Glucose* 171 - General Appearance General appearance: appears started age, chronically ill, fatigue, frail EENT: mucous membranes moist Neck: supple Respiratory: clear Cardiology: no edema, normal S1, normal S2 - Dialysis Access Dialysis Vascular Access: Arteriovenous Fistula (LUE) thrill: Yes bruit: Yes Gastrointestinal: no tenderness, no guarding Integumentary: erythema, ecchymotic Additional Comments: wound dressings of both LEs upto the knees Neurologic: confused Psychiatric: cooperative Results - Lab Results 12/21/17 02:34 12/21/17 02:34 Most recent lab results Calcium 9.1 mg/dL (8.6-10.3) 12/21/17 02:34 I reviewed the labs, vitals, med lists, outpatient dialysis notes and run sheets , imaging and progress notes. Consult Discharge Plan - Plan Referrals: Morales Fischer MD [Primary Care Provider] -
--- NOTE | 2017-12-21 13:05 | Cardiology Consult Note ---
Date of Encounter: 12/21/17 Time of Encounter: 13:00 Assessment and Plan (1) Elevated troponin Current Visit: No Status: Acute Flat troponin elevation in the setting of ESRD, non-diagnostic for ACS. Also found to have hypotension upon admission. No chest pain/angina reported. No ECG changes noted. Suspect demand ischemia. Continue current medical therapy including asa, statin, BB, plavix, and nitrates. Monitor BP closely as inpatient. Echo pending, prior EF 45-50%. If no significant changes noted on TTE, anticipate continuation of medical therapy. (2) CAD (coronary artery disease) Current Visit: No Status: Chronic Hx of CAD s/p PCI. Last [facility] 2015 demonstrated stable CAD with patent stents. Asa, statin, BB, nitrates. Qualifiers: Coronary Disease-Associated Artery/Lesion type: [place] artery [place] vs. transplanted heart: [place] heart Associated angina: without angina Qualified Code(s): I25.10 - Atherosclerotic heart disease of [place] coronary artery without angina pectoris (3) Chronic renal disease Current Visit: No Status: Acute Hx of CKD on HD, MWF. Nephrology consulted and following. Qualifiers: Chronic kidney disease stage: on chronic dialysis Qualified Code(s): N18.6 - End stage renal disease; Z99.2 - Dependence on renal dialysis Discussion w patient/family: The assessment and plan as outlined above was discussed with the patient and/or family members who expressed understanding and agreement. All questions were answered. Thank you for involving us in the care of your patient. Please call with any questions. The patient will be discussed and reviewed with Dr. She Nava; changes to be made accordingly. History of Present Illness Consult date: 12/21/17 Requesting physician: Nora Melo Consult reason: Elevated trop Chief complaint: Left leg pain History of present illness: Mr. Kenny is a 82 year old male with PMHx significant for CAD s/p PCI, AV node dysfunction s/p PPM, HTN, HLD, CKD on HD who resides in a SNF who presented to the ED with complaints of left leg pain. Reports brief left sided chest discomfort. States has multiple open wounds and sores on legs however has severe left leg pain which prompted ED evaluation. He denies chest pain/ discomfort or symptoms similar to prior [place] presentation. Also noted to be hypotensive upon admission. ECG demonstrated paced rhythm. Troponin 0.17. Prior CV testing: [facility] 06/2016: stable CAD, patent stents from previous procedure--proximal and mid LAD, proximal and mid RCA and R PDA. Medical therapy recommended. TTE 06/2016: LVEF 45-50% with SWMA. Past Med Surg Social Fam HX - Past Medical History Attestation: Yes The following information was validated with the patient. Source: patient Medical history: arthritis, cancer, coronary artery disease, diabetes, dialysis , GERD, hyperlipidemia, hypertension, kidney stones, renal disease, other Psychiatric history: anxiety - Past Surgical History Surgical History: angioplasty/stent, cataract, cholecystectomy, knee replacement , pacemaker - Social History Smoking Status: Former smoker Smokeless Tobacco Status: No Alcohol use: none Drug use: none Current living situation: ECF - Family History Father Living Status: Hx Family Cardiac Disorders: Yes Mother Adopted: No Living Status: Hx Family Cardiac Disorders: Yes Hx Family Respiratory Disorders: No Hx Family Cancer: No Hx Family GI Disorders: No Hx Family Endocrine Disorder: No Hx Family Neuromuscular Disorders: No Hx Family Neurologic Disorders: No Hx Family HEENT Disorders: No Hx Family Autoimmune Disorders: No Medications and Allergies Clopidogrel [Plavix] 75 mg PO QAM #0 03/15/15 [History] Hydralazine HCl 100 mg PO SUTUTHSA@0900 #0 03/15/15 [History] Sertraline [Zoloft] 75 mg PO DAILY 02/03/16 [History] Sevelamer [Renvela] 2,400 mg PO TIDWM 02/03/16 [History] Isosorbide MONOnitrate [Isosorbide Mononitrate ER] 120 mg PO DAILY 02/06/16 [ History] Nitroglycerin [Nitrostat] 0.4 mg SL Q5M PRN 02/06/16 [History] Polyethylene Glycol 3350 [MiraLAX] 17 gm PO DAILY 04/12/16 [History] Bisacodyl [Dulcolax] 10 mg RC HS PRN 09/24/16 [History] Docusate [Colace] 100 mg PO BID 09/24/16 [History] Magnesium Hydroxide [Milk of Magnesia] 2,400 mg PO DAILY PRN 09/24/16 [History] ALPRAZolam [Xanax 1 MG Tablet] 1 mg PO MOWEFR 12/21/17 [History] Allopurinol [Zyloprim 100 MG] 100 mg PO QAM 12/21/17 [History] Atorvastatin [Lipitor] 40 mg PO HS 12/21/17 [History] Besifloxacin HCl [Besivance] 1 drop OP TID 12/21/17 [History] Ergocalciferol (VITAMIN D2) [Drisdol] 50,000 unit PO QWEEK 12/21/17 [History] Famotidine [Acid Filtration Plant Mechanic] 10 mg PO DAILY 12/21/17 [History] FentaNYL PATCH [Duragesic] 25 mcg TD Q48H 12/21/17 [History] FentaNYL PATCH [Duragesic] 100 mcg TD Q48H 12/21/17 [History] Furosemide [Lasix] 40 mg PO TUTHSA@0900 12/21/17 [History] Glucagon,Human Recombinant [Glucagen] 1 mg IJ ONCE 12/21/17 [History] Insulin ASPART [Novolog Flexpen] 5 units SQ TIDWM 12/21/17 [History] Insulin DETEMIR [Levemir Flextouch] 10 units SQ HS 12/21/17 [History] Lisinopril [Zestril] 10 mg PO SUTUTHSA 12/21/17 [History] Loratadine [Claritin] 10 mg PO DAILY 12/21/17 [History] Metoclopramide HCl 5 mg PO TID 12/21/17 [History] Metoprolol [Lopressor] 25 mg PO SUTUTHSA@0900 12/21/17 [History] Multivitamin with Minerals [One-A-Day Maximum Formula] 1 tab PO DAILY 12/21/17 [ History] Ondansetron HCl [Zofran] 4 mg PO Q8HR PRN 12/21/17 [History] OxyCODONE Immed Rel [Roxicodone 10 MG] 10 mg PO Q4H 12/21/17 [History] Pregabalin [Lyrica] 50 mg PO TID 12/21/17 [History] Ranolazine [Ranexa] 500 mg PO BID 12/21/17 [History] Terazosin [Hytrin] 5 mg PO QPM 12/21/17 [History] 3 Allergy/AdvReac Type Severity Reaction Status Date / Time morphine Allergy Hallucinati Verified 07/06/16 10:27 ng All Systems Review: The remainder of the systems were reviewed and are negative - Cardiovascular Cardiovascular: as per HPI Physical Examination Vital Signs, Last 4 Hours Temp Pulse Resp BP Pulse Ox 12/21/17 10:54 98.0 F 64 15 105/74 95 General: Conversant, No Apparent Distress HEENT: Atraumatic, Normocephaly, Mucus Membranes Moist Cardiac: Reg Rate and Rhythm, Normal S1 and S2 Lungs: Normal Breath Sounds Neuro: Alert and responsive Abdomen: Soft Skin: No rashes noted on visualized skin Extremities: Other (bilateral LE's wrapped in kerlix) Results 12/21/17 02:34 12/21/17 02:34 Lab Results 12/21/17 08:33 Troponin I 0.17 H* Active Medications Acetaminophen (Tylenol) 650 mg PO Q6HR PRN PRN Reason: Mild Pain/Fever Stop: 06/22/18 00:36 Aspirin (Aspirin Ec) 325 mg PO BID [facility] Stop: 06/22/18 09:01 Last Admin: 12/21/17 08:25 Dose: 325 mg Atorvastatin Calcium (Lipitor) 40 mg PO HS [facility] Stop: 06/22/18 21:01 Clopidogrel Bisulfate (Plavix) 75 mg PO QAM [facility] Stop: 06/22/18 09:01 Last Admin: 12/21/17 08:25 Dose: 75 mg Docusate Sodium (Colace) 100 mg PO BID [facility] PRN Reason: Protocol Stop: 06/22/18 09:01 Last Admin: 12/21/17 08:25 Dose: 100 mg Ergocalciferol (Drisdol (50,000 Unit)) 50,000 unit PO QWEEK [facility] Stop: 06/24/18 08:01 Famotidine (Pepcid) 10 mg PO 0630 [facility] Stop: 06/22/18 06:31 Last Admin: 12/21/17 06:00 Dose: 10 mg Fentanyl 100 mcg/ Fentanyl 25 (mcg) 125 mcg TD Q48H [facility] Stop: 06/22/18 06:01 Last Admin: 12/21/17 05:59 Dose: 125 mcg Furosemide (Lasix) 40 mg PO TUTHSA@0900 [facility] Stop: 06/22/18 09:01 Last Admin: 12/21/17 08:33 Dose: 40 mg Heparin Sodium (Porcine) (Heparin) 5,000 unit SQ Q12HCO [facility] Stop: 06/22/18 06:01 Last Admin: 12/21/17 06:00 Dose: 5,000 unit Hydralazine HCl (Hydralazine) 100 mg PO SUTUTHSA@0900 [facility] Stop: 06/22/18 09:01 Last Admin: 12/21/17 08:35 Dose: 100 mg Sodium Chloride (0.9 % Sodium Chloride) 1,000 mls @ 50 mls/hr IVC .Q20H [facility] Stop: 06/22/18 07:31 Last Admin: 12/21/17 11:00 Dose: 50 mls/hr Isosorbide Mononitrate (Imdur) 120 mg PO DAILY [facility] Stop: 06/22/18 09:01 Last Admin: 12/21/17 08:24 Dose: 120 mg Loratadine (Claritin) 10 mg PO DAILY [facility] PRN Reason: Protocol Stop: 06/22/18 09:01 Last Admin: 12/21/17 08:25 Dose: 10 mg Metoclopramide HCl (Reglan) 5 mg PO TID [facility] Stop: 06/22/18 09:01 Last Admin: 12/21/17 08:25 Dose: 5 mg Multivitamins/Calcium (Thera M Plus) 1 tab PO DAILY [facility] Stop: 06/22/18 09:01 Last Admin: 12/21/17 08:25 Dose: 1 tab Naloxone HCl (Narcan) 0.4 mg IVP Q2MIN PRN PRN Reason: SEE COMMENTS Stop: 06/22/18 00:36 Oxycodone HCl (Roxicodone) 10 mg PO Q4HR [facility] Stop: 06/22/18 00:46 Last Admin: 12/21/17 11:39 Dose: 10 mg Pharmacy Profile Note (Patient Taking Own Medication) 1 each OP TID [facility] Stop: 12/24/17 09:01 Last Admin: 12/21/17 08:36 Dose: Not Given Sevelamer HCl (Renvela) 2,400 mg PO TIDWM [facility] Stop: 06/22/18 08:01 Last Admin: 12/21/17 11:39 Dose: 2,400 mg - Imaging and Cardiology Echo: pending, report reviewed Cardiac cath: report reviewed - EKG Interpretation EKG results cardiology: personally reviewed Consult Discharge Plan - Plan Referrals: Morales Fischer MD [Primary Care Provider] -
[2017-12-21] MEDS ORDERED: Bisacodyl 10 MG RECTAL SUPPOSITORY RC PRN (16:27)
[2017-12-21] MEDS ORDERED: Nitroglycerin 0.4 MG TAB.SUBL SL PRN (16:27)
[2017-12-21] MEDS ORDERED: MOM Conc 10 ML UD.LIQ PO PRN (16:27)
--- NOTE | 2017-12-21 16:56 | Internal Med Progress Note ---
Date of Encounter: 12/21/17 Time of Encounter: 16:30 - Assessment and plan (1) Chest pain Current Visit: Yes Status: Acute Assessment and plan: Prior CV testing: [facility] 06/2016: stable CAD, patent stents from previous procedure--proximal and mid LAD, proximal and mid RCA and R PDA. Medical therapy recommended. TTE 06/2016: LVEF 45-50% with SWMA. Plan: Repeat echo is pending. Troponin elevated to 0.17 but no further elevation noted. Suspect type II [place]. Continue aspirin, statin, beta benjy, Plavix, nitrates. Qualifiers: Chest pain type: unspecified Qualified Code(s): R07.9 - Chest pain, unspecified (2) Confusion Current Visit: Yes Status: Acute Assessment and plan: Resolved. Possibly related to ESRD/HD related hypertension with medication side effects. Send blood cultures due to hypotension.. (3) Chronic kidney disease Current Visit: No Status: Acute Assessment and plan: Qualifiers: Qualified Code(s): N18.9 - Chronic kidney disease, unspecified (4) History of pacemaker Current Visit: No Status: Chronic (5) HTN (hypertension) Current Visit: No Status: Chronic Assessment and plan: Hold hypertensive medications in the setting of hypotensive episodes. Qualifiers: Hypertension type: essential hypertension Qualified Code(s): I10 - Essential (primary) hypertension (6) Ulcer of heel Current Visit: No Status: Chronic Assessment and plan: consult podiatry for recommendations. 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 (8) Hypotension Current Visit: Yes Status: Acute Assessment and plan: Qualifiers: Hypotension type: unspecified hypotension type Qualified Code(s): I95.9 - Hypotension, unspecified (9) DVT prophylaxis Current Visit: No Status: Acute Assessment and plan: subq heparin - Time Spent With Patient Total time spent is greater than 50% in coordination of care (as documented) at patient's floor/unit and/or counseling patient: 25 - 35 minutes - Subjective Interval history: Reports pain in legs and swelling. He denies chest pain. - Constitutional Vitals: Temp Pulse Resp BP Pulse Ox 98.0 F 64 15 105/74 95 12/21/17 10:54 12/21/17 10:54 12/21/17 10:54 12/21/17 10:54 12/21/17 10:54 General appearance: Present: A&O X 3, no acute distress, answers questions appropriately Exam: Physical exam Gen: Comfortable, laying in bed, in no visible distress HEENT: Normocephalic, atraumatic. No conjunctival icterus. Moist oral mucosa. Neck: Supple Lungs: Clear to auscultation, no foreign sounds Heart: Normal S1-S2, no murmurs rubs or gallops Abdomen: Normoactive bowel sounds, no guarding rigidity or tenderness Extremities: 2+ edema of lower extremities. No clubbing or cyanosis Neuro: Alert oriented 3, no focal deficits Skin: Legs covered with bandages Internal Medicine: Result - Labs CBC & Chem 7: 12/21/17 02:34 12/21/17 02:34 Labs: Cardiac Enzymes 12/21/17 Range/Units 08:33 Troponin I 0.17 H* (< 0.04) ng/mL - ABG Interpretation ABG results: PT/INR, D-dimer PT 11.6 Seconds (9.4-12.1) 12/20/17 20:00 D-Dimer 1477 ng/mLFEU (0-500) H 12/20/17 20:00 Consult Discharge Plan - Plan Referrals: Morales Fischer MD [Primary Care Provider] -
[2017-12-21] MEDS: *HR* FentaNYL PATCH 25 MCG PATCH TD SCH (17:36)
[2017-12-21] MEDS: *HR* FentaNYL PATCH 100 MCG PATCH TD SCH (17:37)
[2017-12-21] MEDS: Pregabalin 50 MG CAPSULE PO SCH (19:55)
[2017-12-21] MEDS: Ranolazine 500 MG TAB.ER.12H PO SCH (19:56)
[2017-12-22] MEDS: *HR* OxyCODONE Immed Rel 5 MG TABLET PO SCH ×7 (00:48→23:59)
[2017-12-22] MEDS: *HR* Heparin 5,000 UNIT/ML VIAL SQ SCH ×2 (05:05→15:41)
[2017-12-22] MEDS: Famotidine 20 MG TABLET PO SCH (05:05)
[2017-12-22] MEDS: Multivit/Ca/Min/Fe/FA 1 TAB TABLET PO SCH (08:04)
[2017-12-22] MEDS: Aspirin Enteric Coated 325 MG Tablet PO SCH ×2 (08:04→20:38)
[2017-12-22] MEDS: Loratadine 10 MG TABLET PO SCH (08:04)
[2017-12-22] MEDS: Ranolazine 500 MG TAB.ER.12H PO SCH ×2 (08:04→20:38)
[2017-12-22] MEDS: Pregabalin 50 MG CAPSULE PO SCH ×3 (08:05→20:39)
[2017-12-22] MEDS: Isosorbide MONOnitrate (24 HR) 60 MG TAB.ER.24H PO SCH (08:05)
[2017-12-22] MEDS: hydrALAZINE 25 MG TABLET PO SCH (08:20)
[2017-12-22] MEDS: BESIFLOXACIN HCL OP SCH ×3 (08:21→20:35)
--- NOTE | 2017-12-22 10:30 | Internal Med Progress Note ---
Date of Encounter: 12/22/17 Time of Encounter: 10:00 - Assessment and plan (1) Chest pain Current Visit: Yes Status: Acute Assessment and plan: Prior CV testing: [facility] 06/2016: stable CAD, patent stents from previous procedure--proximal and mid LAD, proximal and mid RCA and R PDA. Medical therapy recommended. TTE 06/2016: LVEF 45-50% with SWMA. Plan: Repeat echo is pending. Troponin elevated to 0.17 but no further elevation noted. Suspect type II [place]. Continue aspirin, statin, beta benjy, Plavix, nitrates. Qualifiers: Chest pain type: unspecified Qualified Code(s): R07.9 - Chest pain, unspecified (2) Confusion Current Visit: Yes Status: Resolved Assessment and plan: Resolved. Possibly related to ESRD/HD related hypertension with medication side effects. Send blood cultures due to hypotension.. (3) Chronic kidney disease Current Visit: No Status: Acute Assessment and plan: Qualifiers: Qualified Code(s): N18.9 - Chronic kidney disease, unspecified (4) History of pacemaker Current Visit: No Status: Chronic (5) HTN (hypertension) Current Visit: No Status: Chronic Assessment and plan: Hold hypertensive medications in the setting of hypotensive episodes. Qualifiers: Hypertension type: essential hypertension Qualified Code(s): I10 - Essential (primary) hypertension (6) Ulcer of heel Current Visit: No Status: Chronic Assessment and plan: consult podiatry for recommendations. 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 (8) Hypotension Current Visit: Yes Status: Acute Assessment and plan: Qualifiers: Hypotension type: unspecified hypotension type Qualified Code(s): I95.9 - Hypotension, unspecified (9) DVT prophylaxis Current Visit: No Status: Acute Assessment and plan: subq heparin - Time Spent With Patient Total time spent is greater than 50% in coordination of care (as documented) at patient's floor/unit and/or counseling patient: 25 - 35 minutes - Subjective Interval history: Reports pain in legs and swelling. He denies chest pain. No new complaints. - Constitutional Vitals: Temp Pulse Resp BP Pulse Ox 98.0 F 62 17 128/54 96 12/22/17 07:34 12/22/17 07:34 12/22/17 07:34 12/22/17 07:34 12/22/17 07:34 General appearance: Present: A&O X 3, no acute distress, answers questions appropriately Exam: Physical exam Gen: Comfortable, laying in bed, in no visible distress HEENT: Normocephalic, atraumatic. No conjunctival icterus. Moist oral mucosa. Neck: Supple Lungs: Clear to auscultation, no foreign sounds Heart: Normal S1-S2, no murmurs rubs or gallops Abdomen: Normoactive bowel sounds, no guarding rigidity or tenderness Extremities: No clubbing or cyanosis. 2+ edema of legs. Neuro: Alert oriented 3, no focal deficits Skin: Leg ulcers under dressing. Internal Medicine: Result - Labs CBC & Chem 7: 12/21/17 02:34 12/21/17 02:34 - ABG Interpretation ABG results: PT/INR, D-dimer PT 11.6 Seconds (9.4-12.1) 12/20/17 20:00 D-Dimer 1477 ng/mLFEU (0-500) H 12/20/17 20:00 Consult Discharge Plan - Plan Referrals: Morales Fischer MD [Primary Care Provider] -
[2017-12-23] MEDS: Famotidine 20 MG TABLET PO SCH (05:08)
[2017-12-23] MEDS: *HR* Heparin 5,000 UNIT/ML VIAL SQ SCH ×2 (05:08→17:19)
[2017-12-23] MEDS: *HR* OxyCODONE Immed Rel 5 MG TABLET PO SCH ×3 (05:08→13:35)
[2017-12-23] MEDS ORDERED: 0.9 % Sodium Chloride 250 ML IVC PRN (06:00)
[2017-12-23 06:46] LABS: Calcium 8.9 mg/dL (8.6-10.3); Potassium 6.1 mEq/L (3.5-5.1)
[2017-12-23 06:50] LABS: Basophils % 0.4 %; Eosinophils # 0.2 K/mcL (0.0-0.6); Eosinophils % 3.7 %; Hematocrit 28.4 % (37.5-50.1); Hemoglobin 9.2 g/dL (12.9-16.9); Immature Granulocytes % 0.5 % (0-4); Lymphocytes % 18.7 %; Mean Corpuscular HGB Conc 32.4 g/dL (31.6-35.5); Mean Corpuscular Hemoglobin 31.9 pg (28.0-33.3); Mean Corpuscular Volume 98.6 fL (83.0-100.0); Monocytes # 0.6 K/mcL (0.0-1.3); Monocytes % 10.6 %; Neutrophils # 3.6 K/mcL (1.6-8.9); Platelet Count 147 K/mcL (140-400); Red Blood Count 2.88 M/mcL (4.19-5.50); Red Cell Distribution Width 13.1 % (11.5-14.5); Segmented Neutrophils % 66.1 %
[2017-12-23 07:35] LABS: Hepatitis B Surface Antibody 0.13 mIU/mL; Hepatitis B Surface Antigen Nonreactive (Nonreactive)
[2017-12-23] MEDS: BESIFLOXACIN HCL OP SCH (08:29)
[2017-12-23] MEDS: Aspirin Enteric Coated 325 MG Tablet PO SCH ×2 (08:30→21:02)
[2017-12-23] MEDS: Multivit/Ca/Min/Fe/FA 1 TAB TABLET PO SCH (08:30)
[2017-12-23] MEDS: Loratadine 10 MG TABLET PO SCH (08:30)
[2017-12-23] MEDS: Ranolazine 500 MG TAB.ER.12H PO SCH ×2 (08:30→21:02)
[2017-12-23] MEDS: Isosorbide MONOnitrate (24 HR) 60 MG TAB.ER.24H PO SCH (08:31)
[2017-12-23] MEDS: Pregabalin 50 MG CAPSULE PO SCH ×3 (08:32→21:02)
--- NOTE | 2017-12-23 09:38 | Nephrology Progress Note ---
Date of Encounter: 12/23/17 Time of Encounter: 09:36 - Assessment and Plan (1) End stage renal disease Current Visit: No Status: Acute MWF of Dr. Glynn at [facility]. Continue to renal dose and avoid nephrotoxins. HD in progress now, last treatment was Saturday. (2) Hypotension Current Visit: Yes Status: Acute Has resolved. Qualifiers: Hypotension type: unspecified hypotension type Qualified Code(s): I95.9 - Hypotension, unspecified (3) Chronic venous hypertension with ulcer and inflammation involving both sides Current Visit: No Status: Acute Per wound care. Subjective Principal diagnosis: Left arm pain Interval history: Pt seen and examined in HD, Denies CP, SOB, nausea/vomiting. Objective - Vital Signs Vital signs: Vital Signs Temp Pulse Resp BP Pulse Ox 12/23/17 08:23 97.8 F 65 18 126/80 94 12/23/17 03:44 97.7 F 60 16 127/74 96 12/22/17 23:46 97.6 F 65 16 132/56 94 12/22/17 19:29 97.7 F 75 16 103/65 93 12/22/17 16:00 98.1 F 80 18 131/76 96 12/22/17 11:07 97.7 F 72 18 113/52 95 Intake and Output 12/22/17 12/23/17 12/23/17 23:59 07:59 15:59 Intake Total 660 / 660 150 / 150 60 / 60 Output Total 0 / 0 0 / 0 Balance 660 / 660 150 / 150 60 / 60 Intake: Oral 660 / 660 150 / 150 60 / 60 Output: Urine 0 / 0 0 / 0 Other: Meal yogert Percent of Meal Consumed 100% Weight 89.3 kg Blood Glucose* 151 106 Patient Weight 12/23/17 23:59 Weight 89.3 kg - General Appearance General appearance: Present: well-developed, well-nourished EENT: Present: ATNC, mucous membranes moist, hearing intact, vision intact Respiratory: Present: clear Cardiology: Present: edema (+ ) Dialysis Vascular Access: Arteriovenous Fistula thrill: Yes bruit: Yes Additional Comments: LUE. Gastrointestinal: Present: normoactive bowel sounds, no tenderness, no guarding Integumentary: Present: no rash, warm and dry Additional Comments: Bilat lower extremities wrapped in Kerlix, C/D/I. Neurologic: Present: alert and oriented x3 - Lab 12/23/17 05:31 12/23/17 05:31 Most recent lab results Calcium 8.9 mg/dL (8.6-10.3) 12/23/17 05:31 Consult Discharge Plan - Plan Referrals: Morales Fischer MD [Primary Care Provider] - (patient is from [facility])
--- NOTE | 2017-12-23 11:16 | Event Note ---
Date of Encounter: 12/23/17 Time of Encounter: 11:00 - Cardiology Event Note Awaiting echo findings, however patient reportedly refuses. Presented with non-cardiac symptoms, mild troponin elevation in the setting of CKD on ESRD. Cardiology will sign-off. Will coordinate outpatient follow-up
[2017-12-23] MEDS ORDERED: 0.9 % Sodium Chloride 2,000 ML ONE (11:18)
[2017-12-23] MEDS ORDERED: Dextrose Gel 15 GM/37.5 ML TUBE PO PRN ×2 (12:51)
[2017-12-23] MEDS ORDERED: *HR* Dextrose 50 % in Water (Syg) 50 ML SYRINGE IVP PRN (12:51)
[2017-12-23] MEDS ORDERED: D5% in Water 1,000 ML IVC PRN (12:51)
--- NOTE | 2017-12-23 14:17 | Electrocardiograph Report ---
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
[2017-12-23] MEDS: *HR* OxyCODONE Immed Rel 5 MG TABLET PO PRN ×2 (14:37→21:02)
[2017-12-23] MEDS ORDERED: Vancomycin 1 EACH in 0.9 % Sodium Chloride 250 ML IVPB SCH (14:50)
[2017-12-23] MEDS: Piperacillin/Tazobactam 3.375 GM in 0.9 % Sodium Chloride Mini Bag 100 ML IVPB SCH (16:00)
[2017-12-23] MEDS: Moxifloxacin OPTH Drops 3 ML BOTTLE BOTH EYES SCH ×2 (16:00→21:04)
[2017-12-23] MEDS ORDERED: ALPRAZolam 1 MG TABLET PO SCH (16:27)
[2017-12-23] MEDS: Acetaminophen 325 MG TABLET PO PRN ×2 (17:12→23:55)
[2017-12-23] MEDS: *HR* FentaNYL PATCH 100 MCG PATCH TD SCH (17:13)
[2017-12-23] MEDS: *HR* FentaNYL PATCH 25 MCG PATCH TD SCH (17:13)
--- NOTE | 2017-12-23 17:48 | Internal Med Progress Note ---
Date of Encounter: 12/23/17 Time of Encounter: 14:00 - Assessment and plan (1) Foot abscess, left Current Visit: Yes Status: Acute Assessment and plan: Seems to be he does have foot abscess Hydrogenation Operator consulted started him on empirical abx Zosyn and Vanc Check ESR and CRP Reviewed x ray of both feet - showing diffuse soft tissue swelling (2) Venous stasis ulcer limited to breakdown of skin without varicose veins Current Visit: Yes Status: Acute Qualifiers: Venous stasis ulcer site: other part of lower leg Laterality: unspecified laterality Qualified Code(s): I87.2 - Venous insufficiency (chronic) ( peripheral); L97.801 - Non-pressure chronic ulcer of other part of unspecified lower leg limited to breakdown of skin (3) PAD (peripheral artery disease) Current Visit: Yes Status: Acute Assessment and plan: Ordered SANJEEV and arterial doppler studies (4) Chest pain Current Visit: Yes Status: Acute Assessment and plan: Prior CV testing: [facility] 06/2016: stable CAD, patent stents from previous procedure--proximal and mid LAD, proximal and mid RCA and R PDA. Medical therapy recommended. TTE 06/2016: LVEF 45-50% with SWMA. Reviewed repeat Echo - no septal or wall motion abnormalities Continue aspirin, statin, beta benjy, Plavix, nitrates. Qualifiers: Chest pain type: unspecified Qualified Code(s): R07.9 - Chest pain, unspecified (5) History of pacemaker Current Visit: No Status: Chronic (6) HTN (hypertension) Current Visit: No Status: Chronic Assessment and plan: Stable with home medications Qualifiers: Hypertension type: essential hypertension Qualified Code(s): I10 - Essential (primary) hypertension (7) DVT prophylaxis Current Visit: No Status: Acute Assessment and plan: subq heparin - Time Spent With Patient Total time spent is greater than 50% in coordination of care (as documented) at patient's floor/unit and/or counseling patient: - Subjective Interval history: Mr. Kenny is a 82 year old male PMHx CKD on dialysis, HTN, CAD with 3 stents, BL lower extremity ulcerations, multiple comorbidities, presents with confusion, lethargy, and left-sided chest and lower extremity pain. Patient also has episodes of hypotension while lying supine. He denies f/c/SOB, diaphoresis, syncope, headaches. At ED, ASA, Fentanyl, IVF were given and CP resolved. Patient reports that both his legs are very painful. Pt is alert, awake and O x 3. He just came back from HD. Denied any CP / SOB. Still has severe pain in both legs. No events over night. - Constitutional Vitals: Temp Pulse Resp BP Pulse Ox 97.4 F L 74 17 106/58 94 12/23/17 15:47 12/23/17 15:47 12/23/17 15:47 12/23/17 15:47 12/23/17 15:47 General appearance: Present: A&O X 3, no acute distress, answers questions appropriately - Head Head exam: Present: atraumatic, normal inspection - Neck Neck exam general surgery: Present: supple - Respiratory Respiratory exam: Present: decreased breath sounds. Absent: rales, respiratory distress, rhonchi, wheezes - Cardiovascular Cardiovascular exam: Present: +S1, +S2. Absent: tachycardia - GI/Abdominal GI/Abdominal exam: Present: normal bowel sounds, soft. Absent: rebound, rigid, tenderness - Extremities Exam Extremities exam: Present: pedal edema, tenderness. Absent: calf tenderness Additional comments: 2+ pitting edema Venous stasis ulcers on both lower legs medially and anteriorly He does have 4x4 cm size loculated abscess noticed over Left foot - which may need to be drained - Back Exam Back exam: Absent: CVA tenderness (L), CVA tenderness (R) - Neurological Exam Neurological exam: Present: alert, oriented X3 - Psychiatric Psychiatric exam: Present: normal affect, normal mood Internal Medicine: Result - Labs CBC & Chem 7: 12/23/17 05:31 12/23/17 05:31 Labs: Short CBC 12/23/17 Range/Units 05:31 WBC 5.5 (4.3-11.1) K/mcL Hgb 9.2 L (12.9-16.9) g/dL Hct 28.4 L (37.5-50.1) % Plt Count 147 (140-400) K/mcL Neutrophils # 3.6 (1.6-8.9) K/mcL BMP 12/23/17 05:31 Sodium 135 L Potassium 6.1 H Chloride 96 L Carbon Dioxide 26 BUN 82 H Creatinine 5.81 H Glucose 67 L Calcium 8.9 - ABG Interpretation ABG results: PT/INR, D-dimer PT 11.6 Seconds (9.4-12.1) 12/20/17 20:00 D-Dimer 1477 ng/mLFEU (0-500) H 12/20/17 20:00 - Impressions Impressions Knee X-Ray 12/23/17 01:08 IMPRESSION: No radiographic evidence of complication status post left total knee arthroplasty. Probable osteopenia. D/ / Lamberto Acosta MD / Lamberto Acosta MD Interpreting Provider: Lamberto Acosta MD Foot X-Ray 12/23/17 14:50 IMPRESSION: Diffuse soft tissue swelling about the feet with irregularity along the dorsal left forefoot which may correlate with areas of ulceration. Limited capacity to evaluate for underlying osteomyelitis given extensive osteopenia/ renal osteodystrophy. If there is ongoing clinical concern, recommend evaluation with MRI. D/ / Bryant Mireles / Bryant Mireles Interpreting Provider: Bryant Mireles Foot X-Ray 12/23/17 14:50 IMPRESSION: Diffuse soft tissue swelling about the feet with irregularity along the dorsal left forefoot which may correlate with areas of ulceration. Limited capacity to evaluate for underlying osteomyelitis given extensive osteopenia/ renal osteodystrophy. If there is ongoing clinical concern, recommend evaluation with MRI. D/ / Bryant Mireles / Bryant Mireles Interpreting Provider: Bryant Mireles Consult Discharge Plan - Plan Referrals: Morales Fischer MD [Primary Care Provider] - (patient is from [facility])
--- NOTE | 2017-12-23 18:13 | Podiatry Consult Note ---
Date of Encounter: 12/23/17 Time of Encounter: 17:25 Assessment and Plan (1) Venous ulcer Current visit: Yes Status: Acute Venous ulcerations to BLE secondary to chronic venous hypertension. No signs of bacterial infection. WBC: 5.5 Foot X-Ray 12/23/17 14:50 IMPRESSION: Diffuse soft tissue swelling about the feet with irregularity along the dorsal left forefoot which may correlate with areas of ulceration. Plan: Continue wound care orders with calcium alginate and compression. Keep BLE elevated. Follow up with Dr. Vasquez in the wound care center one week after discharge from the hospital. (2) Chronic kidney disease Current visit: No Status: Acute Qualifiers: Chronic kidney disease stage: on chronic dialysis Qualified Code(s): N18.6 - End stage renal disease; Z99.2 - Dependence on renal dialysis (3) Chronic venous hypertension with ulcer Current visit: Yes Status: Acute Qualifiers: Laterality: bilateral Qualified Code(s): I87.313 - Chronic venous hypertension (idiopathic) with ulcer of bilateral lower extremity; L97.919 - Non -pressure chronic ulcer of unspecified part of right lower leg with unspecified severity; L97.929 - Non-pressure chronic ulcer of unspecified part of left lower leg with unspecified severity History of Present Illness HPI: Mr. Kenny is a 82 year old male admitted to [facility] for lethargy and altered mental status. Patient has a medical history significant for arthritis, cancer, CHF, coronary artery disease, diabetes, dialysis, GERD, hyperlipidemia, hypertension, kidney stones. Podiatry was consulted for wounds to BLE. Patient is currently being managed in wound care with Dr. Vasquez and was last seen . Calcium alginate and unna boots were ordered in wound care. Wound care was consulted as well and recommended continuing the calcium alginate with carlos wraps while patient is inpatient. Arterial studies from December of 2016 showed moderately diminished waveforms, nomcompressible vessels. Patient states the wounds on his legs started a few weeks ago. Patient goes to HD three times a week. Past Med Surg Social Fam HX - Past Medical History Medical history: arthritis, cancer, CHF, coronary artery disease, diabetes, dialysis, GERD, hyperlipidemia, hypertension, kidney stones, renal disease, other Psychiatric history: anxiety - Past Surgical History Surgical History: cataract, cholecystectomy, knee replacement, pacemaker/AICD, other - Social History Smoking Status: Former smoker Smokeless Tobacco Status: No Alcohol use: none Drug use: none - Family History Father Living Status: Hx Family Cardiac Disorders: Yes Mother Adopted: No Living Status: Hx Family Cardiac Disorders: Yes Hx Family Respiratory Disorders: No Hx Family Cancer: No Hx Family GI Disorders: No Hx Family Endocrine Disorder: No Hx Family Neuromuscular Disorders: No Hx Family Neurologic Disorders: No Hx Family HEENT Disorders: No Hx Family Autoimmune Disorders: No Medications and Allergies Clopidogrel [Plavix] 75 mg PO QAM #0 03/15/15 [History] Hydralazine HCl 100 mg PO SUTUTHSA@0900 #0 03/15/15 [History] Sertraline [Zoloft] 75 mg PO DAILY 02/03/16 [History] Sevelamer [Renvela] 2,400 mg PO TIDWM 02/03/16 [History] Isosorbide MONOnitrate [Isosorbide Mononitrate ER] 120 mg PO DAILY 02/06/16 [ History] Nitroglycerin [Nitrostat] 0.4 mg SL Q5M PRN 02/06/16 [History] Polyethylene Glycol 3350 [MiraLAX] 17 gm PO DAILY 04/12/16 [History] Bisacodyl [Dulcolax] 10 mg RC HS PRN 09/24/16 [History] Docusate [Colace] 100 mg PO BID 09/24/16 [History] Magnesium Hydroxide [Milk of Magnesia] 2,400 mg PO DAILY PRN 09/24/16 [History] ALPRAZolam [Xanax 1 MG Tablet] 1 mg PO MOWEFR 12/21/17 [History] Allopurinol [Zyloprim 100 MG] 100 mg PO QAM 12/21/17 [History] Atorvastatin [Lipitor] 40 mg PO HS 12/21/17 [History] Besifloxacin HCl [Besivance] 1 drop OP TID 12/21/17 [History] Ergocalciferol (VITAMIN D2) [Drisdol] 50,000 unit PO QWEEK 12/21/17 [History] Famotidine [Acid Plant Accountant] 10 mg PO DAILY 12/21/17 [History] FentaNYL PATCH [Duragesic] 25 mcg TD Q48H 12/21/17 [History] FentaNYL PATCH [Duragesic] 100 mcg TD Q48H 12/21/17 [History] Furosemide [Lasix] 40 mg PO TUTHSA@0900 12/21/17 [History] Glucagon,Human Recombinant [Glucagen] 1 mg IJ ONCE 12/21/17 [History] Insulin ASPART [Novolog Flexpen] 5 units SQ TIDWM 12/21/17 [History] Insulin DETEMIR [Levemir Flextouch] 10 units SQ HS 12/21/17 [History] Lisinopril [Zestril] 10 mg PO SUTUTHSA 12/21/17 [History] Loratadine [Claritin] 10 mg PO DAILY 12/21/17 [History] Metoclopramide HCl 5 mg PO TID 12/21/17 [History] Metoprolol [Lopressor] 25 mg PO SUTUTHSA@0900 12/21/17 [History] Multivitamin with Minerals [One-A-Day Maximum Formula] 1 tab PO DAILY 12/21/17 [ History] Ondansetron HCl [Zofran] 4 mg PO Q8HR PRN 12/21/17 [History] OxyCODONE Immed Rel [Roxicodone 10 MG] 10 mg PO Q4H 12/21/17 [History] Pregabalin [Lyrica] 50 mg PO TID 12/21/17 [History] Ranolazine [Ranexa] 500 mg PO BID 12/21/17 [History] Terazosin [Hytrin] 5 mg PO QPM 12/21/17 [History] 3 Allergy/AdvReac Type Severity Reaction Status Date / Time morphine Allergy Hallucinati Verified 07/06/16 10:27 ng Physical Exam - Constitutional Vitals: Temp Pulse Resp BP Pulse Ox 97.4 F L 74 17 106/58 94 12/23/17 15:47 12/23/17 15:47 12/23/17 15:47 12/23/17 15:47 12/23/17 15:47 Exam: General appearance: alert awake oriented X 3. Calm and pleasant, no acute distress.. Vascular: Pedal pulses nonpalpable. No evidence of cyanosis, pallor or rubor, Edema graded at 3+/4 pitting, Skin temperature warm, Homans Sign negative, capillary refill time is immediate to digits.. Neurologic: Sensation intact with light touch. Musculoskeletal: Muscle strength 4/5 and equal bilaterally.. Integument: Skin with decreased turgor, decreased subcutaneous tissue, skin thin and shiny with trophic changes associated with comorbidities as described in history. #1 Venous ulcer, Full thickness ulceration to the right anterior lateral aspect of measuring7.5cm in length x 6cm in width. Base of wound beefy red. no odor, no pus, no fluctuance. no probe to bone. #2 Venous ulcer, full thickness right anterior medial aspect measuring 14 cm in length x 3 cm in width. Base of wound beefy red. no odor, no pus, no fluctuance , no probe to bone #3 Venous ulcer dorsum of right foot measuring 2 cm x 2.5 cm in width. Base of wound with fibrous tissue. no odor, no pus, no fluctuance. no probe to bone #4 Venous ulcer left anterior lateral measuring 5.5 cm in length x 1 cm in width , base of wound beefy red. no odor, no pus, no fluctuance. no probe to bone #5 Left anterior medial aspect, venous ulcer measuring 5 cm in length x 5 cm in width. Base of wound red with small amount of serous drainage actively draining. no odor, no pus, no fluctuance. no probe to bone #6 Dorsum of left foot, venous ulcer measuring 3 cm in length x 5 cm in width, base of wound with fibrous tissue. no odor, no pus, no fluctuance. no probe to bone Surrounding skin to BLE is dry. No fluctuance, no pus. Results - Labs Result Diagrams: 12/24/17 06:42 12/24/17 06:42 Labs: Abnormal lab results RBC 2.88 M/mcL (4.19-5.50) L 12/23/17 05:31 Hgb 9.2 g/dL (12.9-16.9) L 12/23/17 05:31 Hct 28.4 % (37.5-50.1) L 12/23/17 05:31 D-Dimer 1477 ng/mLFEU (0-500) H 12/20/17 20:00 Sodium 135 mEq/L (136-145) L 12/23/17 05:31 Potassium 6.1 mEq/L (3.5-5.1) H 12/23/17 05:31 Chloride 96 mEq/L (98-107) L 12/23/17 05:31 BUN 82 mg/dL (8-23) H 12/23/17 05:31 Creatinine 5.81 mg/dL (0.70-1.30) H 12/23/17 05:31 Est GFR ( Amer) 11 (> 60) L 12/23/17 05:31 Est GFR (Non-Af Amer) 9 (> 60) L 12/23/17 05:31 Glucose 67 mg/dL (70-105) L 12/23/17 05:31 POC Glucose 151 mg/dL (70-99) H 12/22/17 19:32 Calculated Osmolality 303 (280-300) H 12/23/17 05:31 Troponin I 0.17 ng/mL (< 0.04) H* 12/21/17 08:33 Lipase 10 Units/L (11-82) L 12/20/17 20:10 H & H 12/23/17 Range/Units 05:31 Hgb 9.2 L (12.9-16.9) g/dL Hct 28.4 L (37.5-50.1) % All other labs normal. Consult Discharge Plan - Plan Referrals: Morales Fischer MD [Primary Care Provider] - (patient is from [facility])
[2017-12-24] MEDS: *HR* OxyCODONE Immed Rel 5 MG TABLET PO PRN ×3 (04:46→17:30)
[2017-12-24] MEDS: Famotidine 20 MG TABLET PO SCH (04:46)
[2017-12-24] MEDS: *HR* Heparin 5,000 UNIT/ML VIAL SQ SCH ×2 (04:47→16:55)
[2017-12-24] MEDS: Piperacillin/Tazobactam 3.375 GM in 0.9 % Sodium Chloride Mini Bag 100 ML IVPB SCH ×2 (04:47→16:03)
[2017-12-24 06:56] LABS: Basophils % 0.5 %; Eosinophils # 0.2 K/mcL (0.0-0.6); Hematocrit 27.9 % (37.5-50.1); Hemoglobin 9.3 g/dL (12.9-16.9); Immature Granulocytes % 0.3 % (0-4); Lymphocytes # 0.9 K/mcL (0.6-4.6); Lymphocytes % 14.5 %; Mean Corpuscular HGB Conc 33.3 g/dL (31.6-35.5); Mean Corpuscular Hemoglobin 32.4 pg (28.0-33.3); Mean Corpuscular Volume 97.2 fL (83.0-100.0); Mean Platelet Volume 10.3 fL (9.4-12.4); Monocytes # 0.6 K/mcL (0.0-1.3); Monocytes % 9.6 %; Neutrophils # 4.3 K/mcL (1.6-8.9); Platelet Count 127 K/mcL (140-400); Red Blood Count 2.87 M/mcL (4.19-5.50); Segmented Neutrophils % 72.1 %
[2017-12-24 07:15] LABS: Calcium 9.1 mg/dL (8.6-10.3); Potassium 5.2 mEq/L (3.5-5.1)
[2017-12-24] MEDS: Ranolazine 500 MG TAB.ER.12H PO SCH ×2 (08:12→19:48)
[2017-12-24] MEDS: Loratadine 10 MG TABLET PO SCH (08:12)
[2017-12-24] MEDS: Isosorbide MONOnitrate (24 HR) 60 MG TAB.ER.24H PO SCH (08:12)
[2017-12-24] MEDS: Renal Vitamin 1 MG CAPSULE PO SCH (08:12)
[2017-12-24] MEDS: Pregabalin 50 MG CAPSULE PO SCH ×3 (08:12→19:49)
[2017-12-24] MEDS: Aspirin Enteric Coated 325 MG Tablet PO SCH ×2 (08:12→19:49)
[2017-12-24] MEDS: hydrALAZINE 25 MG TABLET PO SCH (08:14)
[2017-12-24] MEDS: Moxifloxacin OPTH Drops 3 ML BOTTLE BOTH EYES SCH ×3 (08:15→19:49)
[2017-12-24] MEDS ORDERED: Furosemide 40 MG TABLET PO SCH (09:00)
[2017-12-24] MEDS ORDERED: Vancomycin 1 EACH in 0.9 % Sodium Chloride 250 ML IVPB PRN (09:45)
--- NOTE | 2017-12-24 13:53 | Nephrology Progress Note ---
Date of Encounter: 12/24/17 Time of Encounter: 13:51 - Assessment and Plan (1) End stage renal disease Current Visit: No Status: Acute MWF of Dr. Glynn at [facility]. Continue to renal dose and avoid nephrotoxins. HD tomorrow. (2) Hypotension Current Visit: Yes Status: Acute Has resolved. Qualifiers: Hypotension type: unspecified hypotension type Qualified Code(s): I95.9 - Hypotension, unspecified (3) PAD (peripheral artery disease) Current Visit: Yes Status: Acute Per primary team. Subjective Principal diagnosis: Left arm pain Interval history: Pt seen and examined on 2A. Student nurses were assisting with bilateral wound dressings. Denies SENAIT or pain. Objective - Vital Signs Vital signs: Vital Signs Temp Pulse Resp BP Pulse Ox 12/24/17 11:17 98.5 F 62 16 152/59 96 12/24/17 07:49 97.9 F 62 16 121/63 94 12/24/17 03:36 97.7 F 68 16 104/48 96 12/23/17 23:35 97.5 F L 44 16 122/76 93 12/23/17 20:15 97.5 F L 66 16 124/82 96 12/23/17 15:47 97.4 F L 74 17 106/58 94 Intake and Output 12/23/17 12/24/17 12/24/17 23:59 07:59 15:59 Intake Total 400 / 400 Balance 400 / 400 Intake: IV Fluids 100 / 100 Zosyn 3.375 GM In 0.9 % Sodium 100 / 100 Chloride (Mini-Bag +) 100 ML @ 25 mls/hr IVPB Q12H [facility] Rx#: [id number] Oral 300 / 300 Other: Weight 90.1 kg Blood Glucose* 194 99 Patient Weight 12/24/17 23:59 Weight 90.1 kg - General Appearance General appearance: Present: chronically ill EENT: Present: ATNC, hearing intact, vision intact Respiratory: Present: clear Cardiology: Present: edema (Trace bilateral. ), normal S1, normal S2 Dialysis Vascular Access: Arteriovenous Fistula thrill: Yes bruit: Yes Additional Comments: RUE. Integumentary: Present: no rash, warm and dry - Lab 12/24/17 06:42 12/24/17 06:42 Most recent lab results Calcium 9.1 mg/dL (8.6-10.3) 12/24/17 06:42 Consult Discharge Plan - Plan Referrals: Morales Fischer MD [Primary Care Provider] - (patient is from [facility])
[2017-12-24] MEDS ORDERED: Aminoglycoside Consult 1 EACH MC ONE (15:34)
--- NOTE | 2017-12-24 17:21 | Internal Med Progress Note ---
Date of Encounter: 12/24/17 Time of Encounter: 17:18 - Assessment and plan (1) Foot abscess, left Current Visit: Yes Status: Acute Assessment and plan: Seems to be he does have foot abscess Power Reactor Operator consulted - will talk to Dr. Zuleta Cont him on empirical abx Zosyn and Vanc for now ESR- 48 and CRP - 115 Reviewed x ray of both feet - showing diffuse soft tissue swelling (2) Venous stasis ulcer limited to breakdown of skin without varicose veins Current Visit: Yes Status: Acute Qualifiers: Venous stasis ulcer site: other part of lower leg Laterality: unspecified laterality Qualified Code(s): I87.2 - Venous insufficiency (chronic) ( peripheral); L97.801 - Non-pressure chronic ulcer of other part of unspecified lower leg limited to breakdown of skin (3) PAD (peripheral artery disease) Current Visit: Yes Status: Acute Assessment and plan: Ordered SANJEEV and arterial doppler studies - P (4) Chest pain Current Visit: Yes Status: Acute Assessment and plan: Prior CV testing: [facility] 06/2016: stable CAD, patent stents from previous procedure--proximal and mid LAD, proximal and mid RCA and R PDA. Medical therapy recommended. TTE 06/2016: LVEF 45-50% with SWMA. Repeat Echo - P Continue aspirin, statin, beta benjy, Plavix, nitrates. Qualifiers: Chest pain type: unspecified Qualified Code(s): R07.9 - Chest pain, unspecified (5) ESRD (end stage renal disease) on dialysis Current Visit: No Status: Chronic (6) Chronic systolic (congestive) heart failure Current Visit: Yes Status: Acute Assessment and plan: not in exacerbation cont home meds (7) HTN (hypertension) Current Visit: No Status: Chronic Assessment and plan: Stable with home medications Qualifiers: Hypertension type: essential hypertension Qualified Code(s): I10 - Essential (primary) hypertension (8) History of pacemaker Current Visit: No Status: Chronic (9) DVT prophylaxis Current Visit: No Status: Acute Assessment and plan: subq heparin - Time Spent With Patient Total time spent is greater than 50% in coordination of care (as documented) at patient's floor/unit and/or counseling patient: - Subjective Interval history: Mr. Kenny is a 82 year old male PMHx CKD on dialysis, HTN, CAD with 3 stents, BL lower extremity ulcerations, multiple comorbidities, presents with confusion, lethargy, and left-sided chest and lower extremity pain. Patient also has episodes of hypotension while lying supine. He denies f/c/SOB, diaphoresis, syncope, headaches. At ED, ASA, Fentanyl, IVF were given and CP resolved. Patient reports that both his legs are very painful. Pt is alert, awake and O x 3. Denied any CP / SOB. His pain in both feet is better today. No events over night. - Constitutional Vitals: Temp Pulse Resp BP Pulse Ox 98.4 F 68 17 107/52 98 12/24/17 16:40 12/24/17 16:40 12/24/17 16:40 12/24/17 16:40 12/24/17 16:40 General appearance: Present: A&O X 3, no acute distress, answers questions appropriately - Head Head exam: Present: atraumatic, normal inspection - Neck Neck exam general surgery: Present: supple - Respiratory Respiratory exam: Present: decreased breath sounds. Absent: rales, respiratory distress, rhonchi, wheezes - Cardiovascular Cardiovascular exam: Present: RRR, +S1, +S2. Absent: tachycardia - GI/Abdominal GI/Abdominal exam: Present: normal bowel sounds, soft. Absent: rebound, rigid, tenderness - Extremities Exam Extremities exam: Present: pedal edema, tenderness. Absent: calf tenderness Additional comments: 2+ pitting edema Venous stasis ulcers on both lower legs medially and anteriorly He does have 4x4 cm size loculated abscess noticed over Left foot - Back Exam Back exam: Absent: CVA tenderness (L), CVA tenderness (R) - Neurological Exam Neurological exam: Present: alert, oriented X3 - Psychiatric Psychiatric exam: Present: normal affect, normal mood Internal Medicine: Result - Labs CBC & Chem 7: 12/24/17 06:42 12/24/17 06:42 Labs: Short CBC 12/24/17 Range/Units 06:42 WBC 5.9 (4.3-11.1) K/mcL Hgb 9.3 L (12.9-16.9) g/dL Hct 27.9 L (37.5-50.1) % Plt Count 127 L (140-400) K/mcL Neutrophils # 4.3 (1.6-8.9) K/mcL BMP 12/24/17 06:42 Sodium 134 L Potassium 5.2 H Chloride 95 L Carbon Dioxide 28 BUN 49 H Creatinine 4.30 H Glucose 91 Calcium 9.1 - ABG Interpretation ABG results: PT/INR, D-dimer PT 11.6 Seconds (9.4-12.1) 12/20/17 20:00 D-Dimer 1477 ng/mLFEU (0-500) H 12/20/17 20:00 Consult Discharge Plan - Plan Referrals: Morales Fischer MD [Primary Care Provider] - (patient is from [facility])
[2017-12-25] MEDS: Famotidine 20 MG TABLET PO SCH (05:49)
[2017-12-25] MEDS: *HR* Heparin 5,000 UNIT/ML VIAL SQ SCH (05:49)
[2017-12-25] MEDS: Piperacillin/Tazobactam 3.375 GM in 0.9 % Sodium Chloride Mini Bag 100 ML IVPB SCH (06:46)
[2017-12-25] MEDS ORDERED: 0.9 % Sodium Chloride 250 ML IVC PRN (07:02)
[2017-12-25] MEDS: *HR* OxyCODONE Immed Rel 5 MG TABLET PO PRN ×2 (07:18→13:47)
[2017-12-25] MEDS: Pregabalin 50 MG CAPSULE PO SCH ×2 (07:58→13:47)
[2017-12-25] MEDS: Ranolazine 500 MG TAB.ER.12H PO SCH (07:58)
[2017-12-25] MEDS: Isosorbide MONOnitrate (24 HR) 60 MG TAB.ER.24H PO SCH (07:58)
[2017-12-25] MEDS: Aspirin Enteric Coated 325 MG Tablet PO SCH (07:58)
[2017-12-25] MEDS: Renal Vitamin 1 MG CAPSULE PO SCH (07:59)
[2017-12-25] MEDS: Loratadine 10 MG TABLET PO SCH (07:59)
[2017-12-25 08:24] LABS: Hematocrit 26.5 % (37.5-50.1); Hemoglobin 8.4 g/dL (12.9-16.9); Mean Corpuscular HGB Conc 31.7 g/dL (31.6-35.5); Mean Corpuscular Hemoglobin 31.1 pg (28.0-33.3); Mean Corpuscular Volume 98.1 fL (83.0-100.0); Mean Platelet Volume 10.6 fL (9.4-12.4); Platelet Count 142 K/mcL (140-400); Red Cell Distribution Width 13.2 % (11.5-14.5)
[2017-12-25 08:37] LABS: Calcium 8.8 mg/dL (8.6-10.3); Potassium 5.6 mEq/L (3.5-5.1)
[2017-12-25] MEDS ORDERED: Doxycycline 100 MG CAPSULE PO SCH (09:00)
--- NOTE | 2017-12-25 11:08 | Nephrology Progress Note ---
Date of Encounter: 12/25/17 Time of Encounter: 09:05 - Assessment and Plan (1) ESRD (end stage renal disease) on dialysis Current Visit: No Status: Chronic HD today for clearance and UF Hyperkalemia: 2K bath. (2) Confusion Current Visit: Yes Status: Chronic As per primary (3) Hyperkalemia Current Visit: No Status: Acute See above (4) Anemia in chronic kidney disease Current Visit: No Status: Chronic Goal Hgb is 10-11. Will arrange for Aranesp today. Qualifiers: Chronic kidney disease stage: on chronic dialysis Qualified Code(s): N18.6 - End stage renal disease; D63.1 - Anemia in chronic kidney disease; Z99.2 - Dependence on renal dialysis Subjective Principal diagnosis: Left arm pain Interval history: Pt was s/e earlier today. He did not affirm N/V/D but voiced feeling more forgetful over the last several weeks to months. He had no major complaints and voiced understanding that he has HD scheduled today. Objective - Vital Signs Vital signs: Vital Signs Temp Pulse Resp BP Pulse Ox 12/25/17 07:25 97.7 F 60 16 116/51 96 12/25/17 04:04 97.8 F 62 17 139/73 96 12/25/17 00:18 97.7 F 66 17 137/74 98 12/24/17 20:08 97.9 F 67 18 124/60 99 12/24/17 16:40 98.4 F 68 17 107/52 98 12/24/17 11:17 98.5 F 62 16 152/59 96 Intake and Output 12/24/17 12/25/17 12/25/17 23:59 07:59 15:59 Intake Total 100 / 100 120 / 120 240 / 240 Output Total 0 / 0 Balance 100 / 100 120 / 120 240 / 240 Intake: IV Fluids 100 / 100 Zosyn 3.375 GM In 0.9 % Sodium 100 / 100 Chloride (Mini-Bag +) 100 ML @ 25 mls/hr IVPB Q12H [facility] Rx#: [id number] Oral 120 / 120 240 / 240 Output: Urine 0 / 0 Other: Meal Breakfast Percent of Meal Consumed 70% Blood Glucose* 140 228 - General Appearance General appearance: Present: well-developed, well-nourished, appears started age EENT: Present: ATNC, PERRL, mucous membranes moist Neck: Present: supple Respiratory: Present: clear Cardiology: Present: regular rate, regular rhythm, normal S1, normal S2 Dialysis Vascular Access: Arteriovenous Fistula (LUE AVF) thrill: Yes bruit: Yes Gastrointestinal: Present: no tenderness, no guarding Integumentary: Present: warm and dry Neurologic: Present: no asterixis Additional Comments: Not confused but he voiced having more forgetfulness. Musculoskeletal: Present: no cyanosis, no clubbing - Lab 12/25/17 07:53 12/25/17 07:53 Most recent lab results Calcium 8.8 mg/dL (8.6-10.3) 12/25/17 07:53 Consult Discharge Plan - Plan Referrals: Morales Fischer MD [Primary Care Provider] - (patient is from [facility])
[2017-12-25] MEDS ORDERED: Darbepoetin 100 MCG/0.5 ML SYRINGE SQ SCH (11:15)
--- NOTE | 2017-12-25 13:28 | Discharge Summary ---
- NOTES TO OUTPATIENT PROVIDER Notes to Outpatient Provider: f/u with surgery Dr. Vasquez at wound care for your b /l LE ulcers. Cont local wound care as directed. Go for HD as directed before Orders not resulted at time of discharge: Pending orders 12/21/17 17:07 Culture,Blood [BC] Stat 12/21/17 17:16 Culture,Blood,Additional [BC] Stat 12/24/17 17:22 EV echocardiogram Routine 12/26/17 04:00 Basic Metabolic Panel AM 0400 Complete Blood Count w/o Diff [HEME] AM 0400 12/27/17 04:00 Basic Metabolic Panel AM 0400 Complete Blood Count w/o Diff [HEME] AM 0400 12/28/17 04:00 Basic Metabolic Panel AM 0400 Complete Blood Count w/o Diff [HEME] AM 0400 12/29/17 04:00 Basic Metabolic Panel AM 0400 Complete Blood Count w/o Diff [HEME] AM 0400 12/30/17 04:00 Basic Metabolic Panel AM 0400 Complete Blood Count w/o Diff [HEME] AM 0400 Date of Encounter: 12/25/17 Time of Encounter: 13:27 - Discharge Diagnosis (1) Foot abscess, left Priority: Secondary Status: Acute Assessment and Plan: Talked to antique repairer Dr. Zuleta who does not think pt has an abscess. It is sub Q edema Recommend to cont pO abx for venous stasis ulcer (2) Venous stasis ulcer limited to breakdown of skin without varicose veins Priority: Primary Status: Acute Qualifiers: Venous stasis ulcer site: other part of lower leg Laterality: unspecified laterality Qualified Code(s): I87.2 - Venous insufficiency (chronic) ( peripheral); L97.801 - Non-pressure chronic ulcer of other part of unspecified lower leg limited to breakdown of skin (3) PAD (peripheral artery disease) Priority: Secondary Status: Acute (4) Chest pain Priority: Primary Status: Acute Qualifiers: Chest pain type: unspecified Qualified Code(s): R07.9 - Chest pain, unspecified (5) ESRD (end stage renal disease) on dialysis Priority: Secondary Status: Chronic (6) Chronic systolic (congestive) heart failure Priority: Secondary Status: Acute (7) HTN (hypertension) Priority: Secondary Status: Chronic Qualifiers: Hypertension type: essential hypertension Qualified Code(s): I10 - Essential (primary) hypertension (8) History of pacemaker Priority: Secondary Status: Chronic (9) DVT prophylaxis Priority: Secondary Status: Acute Hospital course: Mr. Kenny is a 82 year old male PMHx CKD on dialysis, HTN, CAD with 3 stents, BL lower extremity ulcerations, multiple comorbidities, presents with confusion, lethargy, and left-sided chest and lower extremity pain. Patient also has episodes of hypotension while lying supine. He denied SOB, diaphoresis, syncope , headaches. At ED, ASA, Fentanyl, IVF were given and CP resolved. Pt was evaluated by Card who suggested since pt has minimal troponin elevation in setting of ESRD on HD- flat, adynamic, are not consistent with ACS. Pt refused to go for Echo. Patient reports that both his legs are very painful due to his venous stasis ulcers. I was little concerned about abscess. x ray of both feet - showed diffuse soft tissue swelling. His arterial studies in both legs showed non stenotic plaque in the b/l LE vessels. He was seen by antique repairer and suggested it is clearly edema, no signs of abscess. Recommend to d/c IV abx and place him PO abx for his venous stasis ulcers and f/u with Dr. Vasquez at wound care center. So will d/c him back to [facility] in after HD today. Pt is alert, awake and O x 3. Denied any CP / SOB. His pain in both feet is better today. No events over night. - Time Spent with Patient Total time spent providing and/or coordinating discharge services: - Discharge Medications Prescriptions: FentaNYL PATCH [Duragesic] 100 mcg TD Q72H 7 Days #2 patch.td72 FentaNYL PATCH [Duragesic] 25 mcg TD Q72H 7 Days #2 patch.td72 OxyCODONE Immed Rel [Roxicodone 10 MG] 10 mg PO Q4H 5 Days #20 tablet Home Medications: Clopidogrel [Plavix] 75 mg PO QAM #0 03/15/15 [History] Hydralazine HCl 100 mg PO SUTUTHSA@0900 #0 03/15/15 [History] Sertraline [Zoloft] 75 mg PO DAILY 02/03/16 [History] Sevelamer [Renvela] 2,400 mg PO TIDWM 02/03/16 [History] Isosorbide MONOnitrate [Isosorbide Mononitrate ER] 120 mg PO DAILY 02/06/16 [ History] Nitroglycerin [Nitrostat] 0.4 mg SL Q5M PRN 02/06/16 [History] Polyethylene Glycol 3350 [MiraLAX] 17 gm PO DAILY 04/12/16 [History] Bisacodyl [Dulcolax] 10 mg RC HS PRN 09/24/16 [History] Docusate [Colace] 100 mg PO BID 09/24/16 [History] Magnesium Hydroxide [Milk of Magnesia] 2,400 mg PO DAILY PRN 09/24/16 [History] ALPRAZolam [Xanax 1 MG Tablet] 1 mg PO MOWEFR 12/21/17 [History] Allopurinol [Zyloprim 100 MG] 100 mg PO QAM 12/21/17 [History] Atorvastatin [Lipitor] 40 mg PO HS 12/21/17 [History] Besifloxacin HCl [Besivance] 1 drop OP TID 12/21/17 [History] Ergocalciferol (VITAMIN D2) [Drisdol] 50,000 unit PO QWEEK 12/21/17 [History] Famotidine [Acid Primer Charging Tool Setter] 10 mg PO DAILY 12/21/17 [History] Furosemide [Lasix] 40 mg PO TUTHSA@0900 12/21/17 [History] Glucagon,Human Recombinant [Glucagen] 1 mg IJ ONCE 12/21/17 [History] Insulin ASPART [Novolog Flexpen] 5 units SQ TIDWM 12/21/17 [History] Insulin DETEMIR [Levemir Flextouch] 10 units SQ HS 12/21/17 [History] Lisinopril [Zestril] 10 mg PO SUTUTHSA 12/21/17 [History] Loratadine [Claritin] 10 mg PO DAILY 12/21/17 [History] Metoclopramide HCl 5 mg PO TID 12/21/17 [History] Metoprolol [Lopressor] 25 mg PO SUTUTHSA@0900 12/21/17 [History] Multivitamin with Minerals [One-A-Day Maximum Formula] 1 tab PO DAILY 12/21/17 [ History] Ondansetron HCl [Zofran] 4 mg PO Q8HR PRN 12/21/17 [History] Pregabalin [Lyrica] 50 mg PO TID 12/21/17 [History] Ranolazine [Ranexa] 500 mg PO BID 12/21/17 [History] Terazosin [Hytrin] 5 mg PO QPM 12/21/17 [History] Aspirin Enteric Coated [Aspirin EC] 325 mg PO DAILY tablet. 12/25/17 [Rx] Doxycycline 100 mg PO BID #14 capsule 12/25/17 [Rx] FentaNYL PATCH [Duragesic] 25 mcg TD Q72H 7 Days #2 patch.td72 12/25/17 [Rx] FentaNYL PATCH [Duragesic] 100 mcg TD Q72H 7 Days #2 patch.td72 12/25/17 [Rx] OxyCODONE Immed Rel [Roxicodone 10 MG] 10 mg PO Q4H 5 Days #20 tablet 12/25/17 [ Rx] Allergies/Adverse Reactions: 3 Allergy/AdvReac Type Severity Reaction Status Date / Time morphine Allergy Hallucinati Verified 07/06/16 10:27 ng Date of admission: 12/21/17 05:42 Primary care physician: Morales Fischer MD Consults: 12/21/17 05:59 Consult to Podiatry [CONS] Routine Consulting Provider: [facility] Reason for Consult: BL lower extremity ulcers Call Completed: No 12/21/17 07:25 Consult to Wound Care [CONS] Routine Reason for Consult: BLE Wounds Call Completed: No 12/23/17 06:00 Consult to Dialysis [CONS] ONCE 12/25/17 07:15 Consult to Dialysis [CONS] ONCE - Constitutional Vitals: Temp Pulse Resp BP Pulse Ox 97.7 F 60 16 116/51 96 12/25/17 07:25 12/25/17 07:25 12/25/17 07:25 12/25/17 07:25 12/25/17 07:25 General appearance: Present: A&O X 3, no acute distress, answers questions appropriately - Head Head exam: Present: atraumatic, normal inspection - Neck Neck exam general surgery: Present: supple - Respiratory Respiratory exam: Present: decreased breath sounds. Absent: rales, respiratory distress, rhonchi, wheezes - Cardiovascular Cardiovascular exam: Present: RRR, +S1, +S2. Absent: tachycardia - GI/Abdominal GI/Abdominal exam: Present: normal bowel sounds, soft. Absent: rebound, rigid, tenderness - Extremities Exam Extremities exam: Present: pedal edema, tenderness. Absent: calf tenderness Additional comments: b/l LE venous stasis ulcers noticed.improving swelling and erythema. - Back Exam Back exam: Absent: CVA tenderness (L), CVA tenderness (R) - Neurological Exam Neurological exam: Present: alert, oriented X3 - Psychiatric Psychiatric exam: Present: normal affect, normal mood - Patient Status Disposition: Transfer SNF Condition: Good Overall status at discharge: patient is back to baseline - Discharge Instructions Follow Up With: Morales Fischer MD [Primary Care Provider] - (patient is from [facility]) Scot Vasquez MD [Partnered Physician] - - Diet and Activity Activity: as per physical therapy, increase activity as tolerated Diet: low salt diet
[2017-12-25] MEDS: *HR* FentaNYL PATCH 100 MCG PATCH TD SCH (15:09)
[2017-12-25] MEDS: *HR* FentaNYL PATCH 25 MCG PATCH TD SCH (15:09)
[2017-12-25 17:32] VITALS: BP 118/63
== END 2017-12-25 15:35 | DRG 314 ==
LOC: 2ANU 19:45 → EMEROO 19:45 → 2ANU 23:40
PROVIDERS: ADMIT Internal Medicine; ATTEND Internal Medicine

== ENCOUNTER 2017-12-26 11:14 | Inpatient (IN) ==
[2017-12-26] MEDS ORDERED: 0.9 % Sodium Chloride 1,000 ML IVC ONE (11:16)
[2017-12-26] MEDS ORDERED: Isovue-370 500 ML INFUS..BTL IV ONE (11:16)
--- NOTE | 2017-12-26 11:59 | Emergency Department Note ---
Disposition Clinical Impression: GI bleed Qualifiers: GI bleed type/associated pathology: unspecified gastrointestinal hemorrhage type Qualified Code(s): K92.2 - Gastrointestinal hemorrhage, unspecified Anemia Qualifiers: Anemia type: iron deficiency Iron deficiency anemia type: chronic blood loss Qualified Code(s): D50.0 - Iron deficiency anemia secondary to blood loss ( chronic) Disposition: Admitted As Inpatient Condition: Good Referrals: Morales iFscher MD [Primary Care Provider] - Forms: ED Satisfaction Letter Time of Disposition: 13:48 GI Bleed HPI - General Chief complaint: ED GI Bleed Stated complaint: Rectal Bleed Time Seen by Provider: 12/26/17 11:15 Source: patient, EMS Mode of arrival: EMS Limitations: physical limitation Nursing Notes Reviewed: Yes Vital Signs Reviewed: Yes - History of Present Illness HPI Narrative: 82 year old male pres[facility]es [facility]D from [facility] for lower GI bleed. No history of GI bleeds in the past, not currenlty anticoagulated and no recenty history of colonoscopy. Naresh states that it was one episode while he was going to ebathroom today and it is bright red and mixed with stool. Naresh states that he also has LLQ pain associated with it and a history of hemmorhoids. Naresh states that the rectal bleedin gis painless. Margoth is described as a cramp that radiates into the rest of his abodmen .Leora has no previous history of nausea or vomitting, and appears well at bedside. Although upon ealuation of his medicatin list it appers he is on plavix. He is also a dialysis patinet nad recieved care on [facility] and has not missed a session. - Related Data Home Medications Medication Instructions Recorded Confirmed Clopidogrel [Plavix] 75 mg PO QAM #0 03/15/15 12/21/17 Hydralazine HCl 100 mg PO SUTUTHSA@0900 #0 03/15/15 12/21/17 Sertraline [Zoloft] 75 mg PO DAILY 02/03/16 12/21/17 Sevelamer [Renvela] 2,400 mg PO TIDWM 02/03/16 12/21/17 Isosorbide MONOnitrate [Isosorbide 120 mg PO DAILY 02/06/16 12/21/17 Mononitrate ER] Nitroglycerin [Nitrostat] 0.4 mg SL Q5M PRN 02/06/16 12/21/17 Polyethylene Glycol 3350 [MiraLAX] 17 gm PO DAILY 04/12/16 12/21/17 Bisacodyl [Dulcolax] 10 mg RC HS PRN 09/24/16 12/21/17 Docusate [Colace] 100 mg PO BID 09/24/16 12/21/17 Magnesium Hydroxide [Milk of 2,400 mg PO DAILY PRN 09/24/16 12/21/17 Magnesia] ALPRAZolam [Xanax 1 MG Tablet] 1 mg PO MOWEFR 12/21/17 12/21/17 Allopurinol [Zyloprim 100 MG] 100 mg PO QAM 12/21/17 12/21/17 Atorvastatin [Lipitor] 40 mg PO HS 12/21/17 12/21/17 Besifloxacin HCl [Besivance] 1 drop OP TID 12/21/17 12/21/17 Ergocalciferol (VITAMIN D2) 50,000 unit PO QWEEK 12/21/17 12/21/17 [Drisdol] Famotidine [Acid Insurance Coder] 10 mg PO DAILY 12/21/17 12/21/17 Furosemide [Lasix] 40 mg PO TUTHSA@0900 12/21/17 12/21/17 Glucagon,Human Recombinant 1 mg IJ ONCE 12/21/17 12/21/17 [Glucagen] Insulin ASPART [Novolog Flexpen] 5 units SQ TIDWM 12/21/17 12/21/17 Insulin DETEMIR [Levemir Flextouch] 10 units SQ HS 12/21/17 12/21/17 Lisinopril [Zestril] 10 mg PO SUTUTHSA 12/21/17 12/21/17 Loratadine [Claritin] 10 mg PO DAILY 12/21/17 12/21/17 Metoclopramide HCl 5 mg PO TID 12/21/17 12/21/17 Metoprolol [Lopressor] 25 mg PO SUTUTHSA@0900 12/21/17 12/21/17 Multivitamin with Minerals 1 tab PO DAILY 12/21/17 12/21/17 [One-A-Day Maximum Formula] Ondansetron HCl [Zofran] 4 mg PO Q8HR PRN 12/21/17 12/21/17 Pregabalin [Lyrica] 50 mg PO TID 12/21/17 12/21/17 Ranolazine [Ranexa] 500 mg PO BID 12/21/17 12/21/17 Terazosin [Hytrin] 5 mg PO QPM 12/21/17 12/21/17 Previous Rx's Medication Instructions Recorded Aspirin Enteric Coated [Aspirin EC] 325 mg PO DAILY tablet. 12/25/17 Doxycycline 100 mg PO BID #14 capsule 12/25/17 FentaNYL PATCH [Duragesic] 25 mcg TD Q72H 7 Days #2 patch.td72 12/25/17 FentaNYL PATCH [Duragesic] 100 mcg TD Q72H 7 Days #2 12/25/17 patch.td72 OxyCODONE Immed Rel [Roxicodone 10 10 mg PO Q4H 5 Days #20 tablet 12/25/17 MG] Allergies Allergy/AdvReac Type Severity Reaction Status Date / Time morphine Allergy Hallucinati Verified 07/06/16 10:27 ng Constitutional: Denies: fever, chills, weakness, weight change Eyes: Denies: eye pain, eye discharge, vision change ENT ED: Denies: ear pain, throat pain, dental pain, hearing loss, epistaxis, congestion, dysphagia Cardiovascular: Denies: chest pain, palpitations, dyspnea on exertion, edema, syncope Respiratory: Denies: cough, dyspnea, wheezes, hemoptysis, stridor Gastrointestinal: Reports: abdominal pain, melena. Denies: nausea, vomiting, diarrhea, constipation, hematemesis, hematochezia Genitourinary: Denies: urgency, dysuria, frequency, hematuria Musculoskeletal: Denies: back pain, neck pain, arthralgia, myalgia Integumentary: Denies: rash, abrasion, lesions Neurological: Denies: headache, weakness, numbness, paresthesias, confusion, abnormal gait, vertigo Psychiatric: Denies: anxiety, depression, suicidal thoughts, homicidal thoughts , auditory hallucinations, visual hallucinations Endocrine: Denies: fatigue Hematological/Lymphatic: Denies: easy bleeding, easy bruising Allergic/Immunologic: Denies: facial swelling, urticaria Past Medical History - Past Medical History Medical history: Reports: arthritis, cancer, CHF, coronary artery disease, diabetes, dialysis, GERD, hyperlipidemia, hypertension, kidney stones, renal disease, other Surgical history: Reports: cataract, cholecystectomy, knee replacement, pacemaker/AICD, other Psychiatric history: Reports: anxiety - Social History Smoking Status: Former smoker Smokeless Tobacco Status: No Alcohol use: Reports: none Drug use: Reports: none Physical Exam - General Limitations: physical limitation General appearance: alert, in no apparent distress - Head Head exam: atraumatic, normocephalic, normal inspection - Eye Eye exam: Present: normal appearance, PERRL, EOMI - Expanded Eye Exam Pupils: Bilateral: reactive - ENT ENT exam: normal exam, normal oropharynx, mucous membranes moist - Expanded ENT Exam External ear exam: Present: normal external inspection Mouth exam: Present: normal external inspection Teeth exam: Present: normal inspection Throat exam: Present: normal inspection - Neck Neck exam: Present: normal inspection, full ROM, trachea midline - Chest Chest inspection: Present: normal inspection, symmetric chest wall rise - Respiratory Respiratory exam: Present: normal lung sounds bilaterally - Cardiovascular Cardiovascular exam: Present: regular rate, normal rhythm, normal heart sounds - Abdominal Exam Abdominal exam: Present: soft, tenderness, normal bowel sounds. Absent: Non- Tender, distention, guarding, rebound, rigidity Abdominal tenderness: Present: LLQ, mild - Rectal Exam Internal Audit Senior Manager present during exam: Yes Rectal exam: Present: normal rectal tone, heme (+) stool, bloody stool. Absent : tenderness - Extremities Exam Extremities exam: Present: normal inspection, full ROM. Absent: tenderness, pedal edema - Expanded Upper Extremity Exam Shoulder exam: Present: normal inspection, full ROM Arm exam: Present: normal inspection, full ROM Elbow exam: Present: normal inspection, full ROM Forearm/Wrist exam: Present: normal inspection, full ROM Hand exam: Present: normal inspection, full ROM Vascular exam: Normal: capillary refill, radial pulse - Expanded Lower Extremity Exam Hip/Pelvis exam: Present: normal inspection, full ROM Upper leg exam: Present: normal inspection, full ROM Knee exam: Present: normal inspection, full ROM Lower leg exam: Present: normal inspection, full ROM Ankle exam: Present: normal inspection, full ROM Foot/toe exam: Present: normal inspection, full ROM Neurovascular/Tendon exam: Absent: motor deficit, sensory deficit, tendon deficit - Back Exam Back exam: Present: normal inspection, full ROM. Absent: tenderness - Neurological Exam Neurological exam: Present: alert, oriented X3 - Expanded Neurological Exam Patient oriented to: Present: person, place, time Coma Scale Eye Opening: Spontaneous Coma Scale Motor Response: Obeys Commands Coma Scale Verbal Response: Oriented Coma Scale Total: 15 - Psychiatric Psychiatric exam: Present: normal affect, normal mood - Skin Skin exam: Present: warm, dry, intact, normal color Course Course Narrative: Patient has grossly melanic stool and it is hemmoculut postiitve. WE will continue with ABCT and then admit to medicine pending need for - Reevaluation(s) Reevaluation #1: updated patient on results. WE will admit to medicine with GI/nephro consult Time: 13:47 - Consultations Consultation #1: Dr. Mary is aware of patient needs for dialysis on Saturday Time: 13:47 Consultation #2: discussed case with Dr. Ahuja and he will see in consult Time: 13:47 Consultation #3: discussed case with admitted Dr. Arnold and she has accepted patient to her serivce Time: 13:47 Vital Signs Temperature 98.7 F 12/26/17 11:15 Pulse Rate 78 12/26/17 11:15 Respiratory Rate 18 12/26/17 11:15 Blood Pressure 123/66 12/26/17 11:15 O2 Sat by Pulse Oximetry 99 12/26/17 11:15 Temperature 97.5 F L 12/26/17 13:37 Pulse Rate 68 12/26/17 13:37 Respiratory Rate 18 12/26/17 13:37 Blood Pressure 91/54 12/26/17 13:37 O2 Sat by Pulse Oximetry 100 12/26/17 13:37 Oxygen Delivery Oxygen Delivery Room Air GI Bleed - Medical Records Medical records reviewed: Yes I reviewed the patient's medical records. - Lab Data Lab results reviewed: Yes I reviewed the patient's lab results. Result diagrams: 12/26/17 11:16 12/26/17 11:16 Lab Results 12/26/17 12/26/17 12/26/17 Range/Units 11:16 11:16 11:16 WBC 9.0 (4.3-11.1) K/mcL RBC 2.21 L (4.19-5.50) M/mcL Hgb 7.2 L (12.9-16.9) g/dL Hct 21.9 L (37.5-50.1) % MCV 99.1 (83.0-100.0) fL MCH 32.6 (28.0-33.3) pg MCHC 32.9 (31.6-35.5) g/dL RDW 13.5 (11.5-14.5) % Plt Count 194 (140-400) K/mcL MPV 10.2 (9.4-12.4) fL Immature Gran % 0.6 (0-4) % Seg Neutrophils % 67.5 % Lymphocytes % 17.4 % Monocytes % 11.8 % Eosinophils % 2.4 % Basophils % 0.3 % Neutrophils # 6.1 (1.6-8.9) K/mcL Lymphocytes # 1.6 (0.6-4.6) K/mcL Monocytes # 1.1 (0.0-1.3) K/mcL Eosinophils # 0.2 (0.0-0.6) K/mcL Basophils # 0.0 (0.0-0.2) K/mcL Nucleated RBCs/100 WBC 0.2 H (0) /100 WBC PT 13.1 H (9.4-12.1) Seconds INR 1.2 APTT 34.3 (26.0-36.0) Seconds Sodium 137 (136-145) mEq/L Potassium 5.3 H (3.5-5.1) mEq/L Chloride 94 L (98-107) mEq/L Carbon Dioxide 32 H (23-29) mEq/L BUN 56 H (8-23) mg/dL Creatinine 4.29 H (0.70-1.30) mg/dL Est GFR ( Amer) 16 L (> 60) Est GFR (Non-Af Amer) 13 L (> 60) BUN/Creatinine Ratio 13 (6-26) Glucose 173 H (70-105) mg/dL Calculated Osmolality 304 H (280-300) Lactic Acid (0.5-2.2) mmol/L Calcium 8.8 (8.6-10.3) mg/dL Blood Type Antibody Screen Crossmatch 12/26/17 12/26/17 Range/Units 11:54 12:26 WBC (4.3-11.1) K/mcL RBC (4.19-5.50) M/mcL Hgb (12.9-16.9) g/dL Hct (37.5-50.1) % MCV (83.0-100.0) fL MCH (28.0-33.3) pg MCHC (31.6-35.5) g/dL RDW (11.5-14.5) % Plt Count (140-400) K/mcL MPV (9.4-12.4) fL Immature Gran % (0-4) % Seg Neutrophils % % Lymphocytes % % Monocytes % % Eosinophils % % Basophils % % Neutrophils # (1.6-8.9) K/mcL Lymphocytes # (0.6-4.6) K/mcL Monocytes # (0.0-1.3) K/mcL Eosinophils # (0.0-0.6) K/mcL Basophils # (0.0-0.2) K/mcL Nucleated RBCs/100 WBC (0) /100 WBC PT (9.4-12.1) Seconds INR APTT (26.0-36.0) Seconds Sodium (136-145) mEq/L Potassium (3.5-5.1) mEq/L Chloride (98-107) mEq/L Carbon Dioxide (23-29) mEq/L BUN (8-23) mg/dL Creatinine (0.70-1.30) mg/dL Est GFR ( Amer) (> 60) Est GFR (Non-Af Amer) (> 60) BUN/Creatinine Ratio (6-26) Glucose (70-105) mg/dL Calculated Osmolality (280-300) Lactic Acid 2.3 H (0.5-2.2) mmol/L Calcium (8.6-10.3) mg/dL Blood Type O POSITIVE Antibody Screen NEGATIVE Crossmatch See Detail - Radiology Data Radiology results reviewed: Yes I reviewed the patient's radiology results. - EKG Data EKG attestation: Yes I reviewed and interpreted this EKG. EKG results narrative: electronically paced rhythm with rate of 72. New T wave depression and QTC is prolonged although consistant with preivus EKG. Narrow QRS complexes. 12/20/17. 7603
[2017-12-26 12:06] LABS: Basophils % 0.3 %; Eosinophils # 0.2 K/mcL (0.0-0.6); Eosinophils % 2.4 %; Hematocrit 21.9 % (37.5-50.1); Hemoglobin 7.2 g/dL (12.9-16.9); Immature Granulocytes % 0.6 % (0-4); Lymphocytes # 1.6 K/mcL (0.6-4.6); Lymphocytes % 17.4 %; Mean Corpuscular HGB Conc 32.9 g/dL (31.6-35.5); Mean Corpuscular Hemoglobin 32.6 pg (28.0-33.3); Mean Corpuscular Volume 99.1 fL (83.0-100.0); Mean Platelet Volume 10.2 fL (9.4-12.4); Monocytes # 1.1 K/mcL (0.0-1.3); Monocytes % 11.8 %; Neutrophils # 6.1 K/mcL (1.6-8.9); Nucleated Red Blood Cells 0.2 /100 WBC (0); Platelet Count 194 K/mcL (140-400); Red Blood Count 2.21 M/mcL (4.19-5.50); Red Cell Distribution Width 13.5 % (11.5-14.5); Segmented Neutrophils % 67.5 %
[2017-12-26 12:13] LABS: INR 1.2; Prothrombin Time 13.1 Seconds (9.4-12.1)
[2017-12-26 12:15] LABS: Activated Partial Thrombo Time 34.3 Seconds (26.0-36.0)
[2017-12-26 12:28] LABS: Calcium 8.8 mg/dL (8.6-10.3); Potassium 5.3 mEq/L (3.5-5.1)
[2017-12-26] MEDS ORDERED: 0.9 % Sodium Chloride 500 ML IVC ONE (13:09)
--- NOTE | 2017-12-26 13:44 | Nephrology Consult Note ---
Date of Encounter: 12/26/17 Time of Encounter: 13:41 Assessment and Plan (1) ESRD (end stage renal disease) on dialysis Current Visit: No Status: Chronic Had dialysis yesterday while here-4100ml removed Plan for HD tomorrow Renal diet when diet advanced Strict I/Os Avoid nephrotoxins if possible (2) Acute blood loss anemia Current Visit: No Status: Acute Hgb 7.2 Getting ready to receive PRBCs in ED Goal Hgb 10-11 Yesterday's hgb before discharge was 8.2 (3) GI bleed Current Visit: No Status: Acute per primary team Qualifiers: GI bleed type/associated pathology: unspecified gastrointestinal hemorrhage type Qualified Code(s): K92.2 - Gastrointestinal hemorrhage, unspecified History of Present Illness - Reason for Consult Consult date: 12/26/17 - Chief Complaint GI bleed, ESRD on HD - History of Present Illness Mr Kenny is an 82 year old male well known to our practice who presntes to the ED from half-way for lower GI bleed. Lissethnet stated that he also has LLQ pain associated with it and a history of hemmorhoids. PMH includes arthritis, cancer, CHF, CAD, DM, ESRD on dialysis, GERD, HTN. Patient was just discharged from [facility] yesterday, admitted for left arm pain. He had dialysis yesterday during admission. Past Med Surg Social Fam HX - Past Medical History Medical history: arthritis, cancer, CHF, coronary artery disease, diabetes, dialysis, GERD, hyperlipidemia, hypertension, kidney stones, renal disease, other Psychiatric history: anxiety - Past Surgical History Surgical History: cataract, cholecystectomy, knee replacement, pacemaker/AICD, other - Social History Smoking Status: Former smoker Smokeless Tobacco Status: No Alcohol use: none Drug use: none - Family History Father Living Status: Hx Family Cardiac Disorders: Yes Mother Adopted: No Living Status: Hx Family Cardiac Disorders: Yes Hx Family Respiratory Disorders: No Hx Family Cancer: No Hx Family GI Disorders: No Hx Family Endocrine Disorder: No Hx Family Neuromuscular Disorders: No Hx Family Neurologic Disorders: No Hx Family HEENT Disorders: No Hx Family Autoimmune Disorders: No Medications and Allergies Clopidogrel [Plavix] 75 mg PO QAM #0 03/15/15 [History] Hydralazine HCl 100 mg PO SUTUTHSA@0900 #0 03/15/15 [History] Sertraline [Zoloft] 75 mg PO DAILY 02/03/16 [History] Sevelamer [Renvela] 2,400 mg PO TIDWM 02/03/16 [History] Isosorbide MONOnitrate [Isosorbide Mononitrate ER] 120 mg PO DAILY 02/06/16 [ History] Nitroglycerin [Nitrostat] 0.4 mg SL Q5M PRN 02/06/16 [History] Polyethylene Glycol 3350 [MiraLAX] 17 gm PO DAILY 04/12/16 [History] Bisacodyl [Dulcolax] 10 mg RC HS PRN 09/24/16 [History] Docusate [Colace] 100 mg PO BID 09/24/16 [History] Magnesium Hydroxide [Milk of Magnesia] 2,400 mg PO DAILY PRN 09/24/16 [History] ALPRAZolam [Xanax 1 MG Tablet] 1 mg PO MOWEFR 12/21/17 [History] Allopurinol [Zyloprim 100 MG] 100 mg PO QAM 12/21/17 [History] Atorvastatin [Lipitor] 40 mg PO HS 12/21/17 [History] Besifloxacin HCl [Besivance] 1 drop OP TID 12/21/17 [History] Ergocalciferol (VITAMIN D2) [Drisdol] 50,000 unit PO QWEEK 12/21/17 [History] Famotidine [Acid Lead Nitrate Processor] 10 mg PO DAILY 12/21/17 [History] Furosemide [Lasix] 40 mg PO TUTHSA@0900 12/21/17 [History] Glucagon,Human Recombinant [Glucagen] 1 mg IJ ONCE 12/21/17 [History] Insulin ASPART [Novolog Flexpen] 5 units SQ TIDWM 12/21/17 [History] Insulin DETEMIR [Levemir Flextouch] 10 units SQ HS 12/21/17 [History] Lisinopril [Zestril] 10 mg PO SUTUTHSA 12/21/17 [History] Loratadine [Claritin] 10 mg PO DAILY 12/21/17 [History] Metoclopramide HCl 5 mg PO TID 12/21/17 [History] Metoprolol [Lopressor] 25 mg PO SUTUTHSA@0900 12/21/17 [History] Multivitamin with Minerals [One-A-Day Maximum Formula] 1 tab PO DAILY 12/21/17 [ History] Ondansetron HCl [Zofran] 4 mg PO Q8HR PRN 12/21/17 [History] Pregabalin [Lyrica] 50 mg PO TID 12/21/17 [History] Ranolazine [Ranexa] 500 mg PO BID 12/21/17 [History] Terazosin [Hytrin] 5 mg PO QPM 12/21/17 [History] Aspirin Enteric Coated [Aspirin EC] 325 mg PO DAILY tablet. 12/25/17 [Rx] Doxycycline 100 mg PO BID #14 capsule 12/25/17 [Rx] FentaNYL PATCH [Duragesic] 25 mcg TD Q72H 7 Days #2 patch.td72 12/25/17 [Rx] FentaNYL PATCH [Duragesic] 100 mcg TD Q72H 7 Days #2 patch.td72 12/25/17 [Rx] OxyCODONE Immed Rel [Roxicodone 10 MG] 10 mg PO Q4H 5 Days #20 tablet 12/25/17 [ Rx] 3 Allergy/AdvReac Type Severity Reaction Status Date / Time morphine Allergy Hallucinati Verified 07/06/16 10:27 ng Review of Systems All Systems: reviewed and no additional remarkable complaints except as stated Constitutional: malaise, no fever(s) Cardiovascular: no chest pain, no dyspnea Respiratory: no cough Gastrointestinal: abdominal pain, hematochezia Neurological: confusion Exam - Vital Signs Vital signs: Initial Vital Signs Temp Pulse Resp BP Pulse Ox 98.7 F 78 18 123/66 99 12/26/17 11:15 12/26/17 11:15 12/26/17 11:15 12/26/17 11:15 12/26/17 11:15 Vital Signs - Last 8 Hours Temp Pulse Resp BP Pulse Ox 12/26/17 13:37 97.5 F L 68 18 91/54 100 12/26/17 12:47 69 18 105/63 98 12/26/17 11:15 98.7 F 78 18 123/66 99 Intake and Output 12/25/17 12/26/17 12/26/17 23:59 07:59 15:59 Intake Total 1000 / 1000 Balance 1000 / 1000 Intake: IV Fluids 1000 / 1000 0.9 % Sodium Chloride 1,000 ML 1000 / 1000 @ 3750 mls/hr IVC .Q16M ONE Rx# :[id number] Blood Product 0 / 0 Rbcs Leuko Poor As-1 Unit 0 / 0 [id number] Other: Stool Size Large Stool Characteristics Tarry Stool Color Bright Red Blood Weight 104.326 kg Patient Weight 12/26/17 23:59 Weight 104.326 kg - General Appearance General appearance: well-developed, well-nourished, chronically ill EENT: ATNC, mucous membranes moist, hearing intact, vision intact Neck: supple Respiratory: clear Cardiology: edema, normal S1, normal S2 - Dialysis Access Dialysis Vascular Access: Arteriovenous Fistula Gastrointestinal: no tenderness, no guarding Integumentary: warm and dry Psychiatric: mood/affect appropriate, cooperative Results - Lab Results 12/26/17 11:16 12/26/17 11:16 Most recent lab results Calcium 8.8 mg/dL (8.6-10.3) 12/26/17 11:16 Consult Discharge Plan - Plan Referrals: Morales Fischer MD [Primary Care Provider] -
--- NOTE | 2017-12-26 14:12 | Internal Med History&Physical ---
Date of Encounter: 12/26/17 Time of Encounter: 14:11 Internal Medicine - H&P: HPI Chief complaint: GI bleed History of present illness: Mr. Kenny is a 82 year old male with PMH of ESRD on HD MWF via left AVF and H/O hemmorhoids who presntes to the ED from [facility] for lower GI bleed associated with crampy LLQ pain. Past Med Surg Social Fam HX - Past Medical History Medical history: arthritis, cancer, CHF, coronary artery disease, diabetes, dialysis, GERD, hyperlipidemia, hypertension, kidney stones, renal disease, other Psychiatric history: anxiety - Past Surgical History Surgical History: cataract, cholecystectomy, knee replacement, pacemaker/AICD, other - Social History Smoking Status: Former smoker Smokeless Tobacco Status: No Alcohol use: none Drug use: none - Family History Father Living Status: Hx Family Cardiac Disorders: Yes Mother Adopted: No Living Status: Hx Family Cardiac Disorders: Yes Hx Family Respiratory Disorders: No Hx Family Cancer: No Hx Family GI Disorders: No Hx Family Endocrine Disorder: No Hx Family Neuromuscular Disorders: No Hx Family Neurologic Disorders: No Hx Family HEENT Disorders: No Hx Family Autoimmune Disorders: No Internal Medicine - H&P: Meds Clopidogrel [Plavix] 75 mg PO QAM #0 03/15/15 [History] Hydralazine HCl 100 mg PO SUTUTHSA@0900 #0 03/15/15 [History] Sertraline [Zoloft] 75 mg PO DAILY 02/03/16 [History] Sevelamer [Renvela] 2,400 mg PO TIDWM 02/03/16 [History] Isosorbide MONOnitrate [Isosorbide Mononitrate ER] 120 mg PO DAILY 02/06/16 [ History] Nitroglycerin [Nitrostat] 0.4 mg SL Q5M PRN 02/06/16 [History] Polyethylene Glycol 3350 [MiraLAX] 17 gm PO DAILY 04/12/16 [History] Bisacodyl [Dulcolax] 10 mg RC HS PRN 09/24/16 [History] Docusate [Colace] 100 mg PO BID 09/24/16 [History] Magnesium Hydroxide [Milk of Magnesia] 2,400 mg PO DAILY PRN 09/24/16 [History] ALPRAZolam [Xanax 1 MG Tablet] 1 mg PO MOWEFR 12/21/17 [History] Allopurinol [Zyloprim 100 MG] 100 mg PO QAM 12/21/17 [History] Atorvastatin [Lipitor] 40 mg PO HS 12/21/17 [History] Besifloxacin HCl [Besivance] 1 drop OP TID 12/21/17 [History] Ergocalciferol (VITAMIN D2) [Drisdol] 50,000 unit PO QWEEK 12/21/17 [History] Famotidine [Acid Factory Assembler] 10 mg PO DAILY 12/21/17 [History] Furosemide [Lasix] 40 mg PO TUTHSA@0900 12/21/17 [History] Glucagon,Human Recombinant [Glucagen] 1 mg IJ ONCE 12/21/17 [History] Insulin ASPART [Novolog Flexpen] 5 units SQ TIDWM 12/21/17 [History] Insulin DETEMIR [Levemir Flextouch] 10 units SQ HS 12/21/17 [History] Lisinopril [Zestril] 10 mg PO SUTUTHSA 12/21/17 [History] Loratadine [Claritin] 10 mg PO DAILY 12/21/17 [History] Metoclopramide HCl 5 mg PO TID 12/21/17 [History] Metoprolol [Lopressor] 50 mg PO SUTUTHSA@0900 12/21/17 [History] Multivitamin with Minerals [One-A-Day Maximum Formula] 1 tab PO DAILY 12/21/17 [ History] Ondansetron HCl [Zofran] 4 mg PO Q8HR PRN 12/21/17 [History] Pregabalin [Lyrica] 50 mg PO TID 12/21/17 [History] Ranolazine [Ranexa] 500 mg PO BID 12/21/17 [History] Terazosin [Hytrin] 5 mg PO QPM 12/21/17 [History] Aspirin Enteric Coated [Aspirin EC] 325 mg PO DAILY tablet. 12/25/17 [Rx] Doxycycline 100 mg PO BID #14 capsule 12/25/17 [Rx] FentaNYL PATCH [Duragesic] 25 mcg TD Q72H 7 Days #2 patch.td72 12/25/17 [Rx] FentaNYL PATCH [Duragesic] 100 mcg TD Q72H 7 Days #2 patch.td72 12/25/17 [Rx] OxyCODONE Immed Rel [Roxicodone 10 MG] 10 mg PO Q4H 5 Days #20 tablet 12/25/17 [ Rx] Doxycycline Monohydrate [Mondoxyne Nl] 100 mg PO BID 12/26/17 [History] 3 Allergy/AdvReac Type Severity Reaction Status Date / Time morphine Allergy Hallucinati Verified 07/06/16 10:27 ng All Systems PM: A 10-system review of systems was performed and is negative for pertinent findings except as documented above in the HPI. - Constitutional Constitutional: no chills, no fever(s), no night sweats - Cardiovascular Cardiovascular ROS IM: no chest pain, no diaphoresis, no dyspnea, no lightheadedness, no palpitations, no syncope - Respiratory Respiratory: no cough, no dyspnea, no wheezing, no excessive phlegm production - Gastrointestinal Gastrointestinal: abdominal pain, hematochezia, no diarrhea, no hematemesis, no melena, no nausea, no vomiting - Neurological Neurological ROS: no confusion, no convulsions, no focal weakness, no numbness, no tingling, no tremor(s) - Constitutional Vitals: Temp Pulse Resp BP Pulse Ox 97.2 F L 60 18 98/66 100 12/26/17 13:52 12/26/17 13:52 12/26/17 13:52 12/26/17 13:52 12/26/17 13:52 General appearance: Present: A&O X 3 - Head Head exam: Present: atraumatic, normocephalic - Neck Neck exam general surgery: Present: supple, trachea midline. Absent: lymphadenopathy - Respiratory Respiratory exam: Present: CTAB. Absent: accessory muscle use, rales, rhonchi, wheezes - Cardiovascular Cardiovascular exam: Present: RRR, +S1, +S2. Absent: diastolic murmur, gallop, rubs, systolic murmur - GI/Abdominal GI/Abdominal exam: Present: normal bowel sounds, soft, no peritoneal signs. Absent: distended, tenderness - Extremities Exam Extremities exam: Present: warm, radial pulses palpable and symmetrical. Absent : calf tenderness, cyanotic, pedal edema Internal Med - H&P Results - Labs CBC & Chem 7: 12/27/17 06:20 12/26/17 11:16 - Assessment and plan (1) GI bleed Current Visit: No Status: Acute Assessment and plan: ASSESSMENT: - GI bleeding DD *Gastroenteritis *Gastritis *PUD *Hemorrhoids *Divericulitis *Esophageal varices *Fe Schwarz syndrome *IBD PLAN: - IVF - NPO - H/H now and q 8 hr - Type and screen 2 U PRBC - Protonix 40 mg IV QD/BID - GI consult-> EGD/Colonoscopy - O2 to keep SpO2 > 92% - CBCD, BMP, INR/PTT in AM - Compression stocking BLE for DVT prophylaxis Qualifiers: GI bleed type/associated pathology: unspecified gastrointestinal hemorrhage type Qualified Code(s): K92.2 - Gastrointestinal hemorrhage, unspecified (2) ESRD (end stage renal disease) on dialysis Current Visit: No Status: Chronic Assessment and plan: we will continue maintenance HD MWF (3) CAD (coronary artery disease) Current Visit: No Status: Chronic Assessment and plan: elevated tropnin most likely secondary to demand ischemia Qualifiers: Coronary Disease-Associated Artery/Lesion type: [place] artery [place] vs. transplanted heart: [place] heart Associated angina: without angina Qualified Code(s): I25.10 - Atherosclerotic heart disease of [place] coronary artery without angina pectoris (4) HTN (hypertension) Current Visit: No Status: Chronic Assessment and plan: we'll continue home medication Qualifiers: Hypertension type: essential hypertension Qualified Code(s): I10 - Essential (primary) hypertension (5) Acute blood loss anemia Current Visit: No Status: Acute Assessment and plan: the patient is status post blood transfusion in the ER, we will check hemoglobin every 6 hour we will hold Plavix and aspirin (6) DVT prophylaxis Current Visit: No Status: Acute Assessment and plan: we will place a 60 cc - Time Spent With Patient Total time spent is greater than 50% in coordination of care (as documented) at patient's floor/unit and/or counseling patient:
[2017-12-26] MEDS ORDERED: Naloxone 0.4 MG/ML INJ IVP PRN (14:31)
[2017-12-26] MEDS: Acetaminophen 325 MG TABLET PO PRN (16:57)
[2017-12-26] MEDS ORDERED: 0.9 % Sodium Chloride 500 ML ONE (17:42)
[2017-12-26] MEDS ORDERED: *HR* FentaNYL (PF) 100 MCG/2 ML VIAL ONE (18:17)
[2017-12-26] MEDS ORDERED: *HR* Midazolam HCl 5 MG/5 ML VIAL IVP ONE (18:17)
[2017-12-26] MEDS ORDERED: 0.9 % Sodium Chloride 250 ML IVC PRN (18:23)
[2017-12-26] MEDS ORDERED: 0.9 % Sodium Chloride 250 ML ONE (18:30)
[2017-12-26] MEDS ORDERED: Simethicone 40 MG/0.6 ML MLS IR ONE (18:33)
[2017-12-26] MEDS ORDERED: Tetracaine/Benzocaine/Butamben 200MG/SPRAY (100SPY/BOT) MM ONE (18:33)
[2017-12-26] MEDS ORDERED: *HR* Midazolam HCl 2 MG/2 ML VIAL IVP ONE (18:33)
[2017-12-26] MEDS ORDERED: *HR* FentaNYL (PF) 100 MCG/2 ML VIAL IVP ONE (18:33)
--- NOTE | 2017-12-26 18:33 | Pre-Sedation Evaluation ---
Pre-sedation evaluation - Pre-sedation checklist Procedure: ORIF L hip Recent Vitals: Last Vital Signs Temp 97.9 F 12/26/17 18:05 Pulse 71 12/26/17 18:05 Resp 17 12/26/17 18:05 BP 125/61 12/26/17 18:05 Pulse Ox 93 12/26/17 18:05 H&P (including ROS) documented in medical record: Yes Previous reaction to sedatives/anesthetics: No Dietary Status: NPO after Midnight Dentition: dentures removed ASA Classification *see protocol: CLASS III-Severe systemic disease
[2017-12-26] MEDS ORDERED: SODIUM CHLORIDE/NAHCO3/KCL/PEG 4,000 ML SOLN.RECON PO ONE (19:11)
[2017-12-26] MEDS ORDERED: Bisacodyl 10 MG RECTAL SUPPOSITORY RC PRN (22:05)
[2017-12-26] MEDS ORDERED: Nitroglycerin 0.4 MG TAB.SUBL SL PRN (22:05)
[2017-12-26] MEDS ORDERED: NON-FORMULARY MEDICATION 1 EACH EACH (Glucagon,Human Recombinant [Glucagen] 1 MG) IJ SCH (22:15)
[2017-12-26] MEDS ORDERED: INSULIN DETEMIR 10 UNIT SQ SCH (22:15)
[2017-12-27] MEDS ORDERED: Ondansetron ODT 4 MG TAB.RAPDIS PO PRN (00:02)
[2017-12-27] MEDS: *HR* OxyCODONE Immed Rel 5 MG TABLET PO SCH ×2 (00:15→07:26)
[2017-12-27] MEDS: ALPRAZolam 1 MG TABLET PO SCH (00:20)
[2017-12-27] MEDS: Multivit/Ca/Min/Fe/FA 1 TAB TABLET PO SCH ×2 (00:31→10:27)
[2017-12-27] MEDS: Ranolazine 500 MG TAB.ER.12H PO SCH ×3 (00:31→22:23)
[2017-12-27] MEDS: Pregabalin 50 MG CAPSULE PO SCH ×4 (00:31→22:22)
[2017-12-27] MEDS: Loratadine 10 MG TABLET PO SCH ×2 (00:37→10:28)
[2017-12-27] MEDS: Isosorbide MONOnitrate (24 HR) 60 MG TAB.ER.24H PO SCH ×2 (01:10→09:12)
[2017-12-27 01:15] LABS: Hematocrit 25.8 % (37.5-50.1); Hemoglobin 8.7 g/dL (12.9-16.9)
[2017-12-27] MEDS ORDERED: D5% in Water 1,000 ML IVC PRN (02:03)
[2017-12-27] MEDS ORDERED: Dextrose Gel 15 GM/37.5 ML TUBE PO PRN ×2 (02:03)
[2017-12-27] MEDS ORDERED: *HR* Dextrose 50 % in Water (Syg) 50 ML SYRINGE IVP PRN (02:03)
[2017-12-27] MEDS: Insulin DETEMIR 100 UNIT/ML X5UNITS SQ SCH ×2 (03:37→22:22)
[2017-12-27 06:35] LABS: Basophils % 0.4 %; Eosinophils # 0.2 K/mcL (0.0-0.6); Eosinophils % 2.4 %; Hematocrit 23.1 % (37.5-50.1); Hemoglobin 7.6 g/dL (12.9-16.9); Lymphocytes # 1.5 K/mcL (0.6-4.6); Lymphocytes % 18.8 %; Mean Corpuscular HGB Conc 32.9 g/dL (31.6-35.5); Mean Corpuscular Hemoglobin 31.7 pg (28.0-33.3); Mean Corpuscular Volume 96.3 fL (83.0-100.0); Mean Platelet Volume 10.3 fL (9.4-12.4); Monocytes # 0.8 K/mcL (0.0-1.3); Monocytes % 10.1 %; Neutrophils # 5.3 K/mcL (1.6-8.9); Nucleated Red Blood Cells 0.4 /100 WBC (0); Platelet Count 154 K/mcL (140-400); Red Cell Distribution Width 14.6 % (11.5-14.5); Segmented Neutrophils % 67.3 %
[2017-12-27 06:44] LABS: INR 1.1; Prothrombin Time 12.2 Seconds (9.4-12.1)
[2017-12-27 06:46] LABS: Activated Partial Thrombo Time 33.1 Seconds (26.0-36.0)
[2017-12-27 06:56] LABS: Bilirubin,Total 0.5 mg/dL (0.3-1.0); Calcium 8.6 mg/dL (8.6-10.3); Chol/HDL Ratio 2.7 (0-4.9); Globulin 3.1 g/dL (2.4-3.5); Phosphorous 5.6 mg/dL (2.7-4.5); Potassium 5.5 mEq/L (3.5-5.1); Total Protein 6.1 g/dL (6.4-8.9)
--- NOTE | 2017-12-27 07:05 | Electrocardiograph Report ---
[facility] Test Date: 2017-12-26 Pat Name: Que Kenny Department: 102 Room: 2A25 Gender: M Regulator Inspector: Claudette : 1935 Requested By: Jenn Diaz Order Number: [id number] Reading MD: Lloyd Duckworth Measurements Intervals Twining Rate: 72 P: MA: 0 QRS: 118 QRSD: 225 T: -64 QT: 488 QTc: 512 Interpretive Statements UNCERTAIN IRREGULAR RHYTHM ELECTRONIC VENTRICULAR PACEMAKER -- CONTOUR ANALYSIS BASED ON INTRINSIC RHYTHM RIGHT BUNDLE BRANCH BLOCK [120+ ms QRS DURATION, UPRIGHT V1, 40+ ms S IN I/aVL/V4/V5/V6] LEFT POSTERIOR FASCICULAR BLOCK [QRS AXIS > 109, INFERIOR Q] MARKED ST DEPRESSION, CONSIDER SUBENDOCARDIAL INJURY [0.2+ mV ST DEPRESSION] Electronically Signed On 12-27-2017 7:04:36 EDT by Lloyd Duckworth
[2017-12-27] MEDS ORDERED: EPHEDrine 50 MG/ML VIAL ONE (07:43)
[2017-12-27] MEDS ORDERED: *HR* Etomidate 40 MG/20 ML VIAL IVP ONE (07:44)
[2017-12-27] MEDS: 0.9 % Sodium Chloride 500 ML IVC SCH ×3 (07:44→15:08)
[2017-12-27] MEDS ORDERED: *HR* PHENYLEPHRINE 1,000 MCG/10 ML SYRINGE IVP ONE (07:44)
[2017-12-27] MEDS ORDERED: Insulin LISPRO 300 UNITS/3 ML VIAL SQ SCH (08:00)
--- NOTE | 2017-12-27 08:08 | Anesthesia Evaluation PreOp ---
Date of Encounter: 12/27/17 Time of Encounter: 08:05 - Past History Planned Operation: Colonoscopy Cardiac History: MA, CHF, HTN, Hyperlipidemia, Cardiac Stent (Less than year old ), Pacemaker/ICD (Dual Chamber Pacemaker only), Other (Cardiomyopathy EF 45-50% , Anemia chronic disease) Pulmonary History: Denies Any Significant HX ELECTRON GUN INSPECTOR History: Denies Any Significant HX Other Medical History: Renal (ESRD dialysis MWF), Diabetes Type II, Other (GI Bleed) Alcohol Use: none Drug use: none Medications and Allergies Clopidogrel [Plavix] 75 mg PO QAM #0 03/15/15 [History] Hydralazine HCl 100 mg PO SUTUTHSA@0900 #0 03/15/15 [History] Sertraline [Zoloft] 75 mg PO DAILY 02/03/16 [History] Sevelamer [Renvela] 2,400 mg PO TIDWM 02/03/16 [History] Isosorbide MONOnitrate [Isosorbide Mononitrate ER] 120 mg PO DAILY 02/06/16 [ History] Nitroglycerin [Nitrostat] 0.4 mg SL Q5M PRN 02/06/16 [History] Polyethylene Glycol 3350 [MiraLAX] 17 gm PO DAILY 04/12/16 [History] Bisacodyl [Dulcolax] 10 mg RC HS PRN 09/24/16 [History] Docusate [Colace] 100 mg PO BID 09/24/16 [History] Magnesium Hydroxide [Milk of Magnesia] 2,400 mg PO DAILY PRN 09/24/16 [History] ALPRAZolam [Xanax 1 MG Tablet] 1 mg PO MOWEFR 12/21/17 [History] Allopurinol [Zyloprim 100 MG] 100 mg PO QAM 12/21/17 [History] Atorvastatin [Lipitor] 40 mg PO HS 12/21/17 [History] Ergocalciferol (VITAMIN D2) [Drisdol] 50,000 unit PO QWEEK 12/21/17 [History] Famotidine [Acid Keno Attendant] 10 mg PO DAILY 12/21/17 [History] Furosemide [Lasix] 40 mg PO TUTHSA@0900 12/21/17 [History] Glucagon,Human Recombinant [Glucagen] 1 mg IJ ONCE 12/21/17 [History] Insulin ASPART [Novolog Flexpen] 5 units SQ TIDWM 12/21/17 [History] Insulin DETEMIR [Levemir Flextouch] 10 units SQ HS 12/21/17 [History] Lisinopril [Zestril] 10 mg PO SUTUTHSA 12/21/17 [History] Loratadine [Claritin] 10 mg PO DAILY 12/21/17 [History] Metoclopramide HCl 5 mg PO TID 12/21/17 [History] Metoprolol [Lopressor] 50 mg PO SUTUTHSA@0900 12/21/17 [History] Multivitamin with Minerals [One-A-Day Maximum Formula] 1 tab PO DAILY 12/21/17 [ History] Ondansetron HCl [Zofran] 4 mg PO Q8HR PRN 12/21/17 [History] Pregabalin [Lyrica] 50 mg PO TID 12/21/17 [History] Ranolazine [Ranexa] 500 mg PO BID 12/21/17 [History] Terazosin [Hytrin] 5 mg PO QPM 12/21/17 [History] Aspirin Enteric Coated [Aspirin EC] 325 mg PO DAILY tablet. 12/25/17 [Rx] Doxycycline 100 mg PO BID #14 capsule 12/25/17 [Rx] FentaNYL PATCH [Duragesic] 25 mcg TD Q72H 7 Days #2 patch.td72 12/25/17 [Rx] FentaNYL PATCH [Duragesic] 100 mcg TD Q72H 7 Days #2 patch.td72 12/25/17 [Rx] OxyCODONE Immed Rel [Roxicodone 10 MG] 10 mg PO Q4H 5 Days #20 tablet 12/25/17 [ Rx] Doxycycline Monohydrate [Mondoxyne Nl] 100 mg PO BID 12/26/17 [History] 3 Allergy/AdvReac Type Severity Reaction Status Date / Time morphine Allergy Hallucinati Verified 07/06/16 10:27 ng - Meds/Allergy Pre-op Review Medications Reviewed: Yes Allergies Reviewed: Yes Beta Blockers on Current Med List: Yes (on metoprololo) Anesthesia Results - Labs 12/27/17 06:20 12/27/17 06:20 - Imaging EKG: report reviewed (Ventricular Pacemaker) Additional studies: 2015 ECHO EF 45-50% Anesthesia Exam Vital Signs/O2 Sat/Glucose, Most Current Temp Pulse Resp BP Pulse Ox 12/27/17 08:09 72 16 101/88 100 12/27/17 07:37 97.3 F L 70 16 87/56 96 12/27/17 06:56 97.9 F 70 16 97/63 98 12/27/17 06:46 97.8 F 70 14 90/62 93 12/27/17 04:56 91/56 12/27/17 04:39 97.5 F L 67 14 89/56 92 Height: 5'10 Weight: 208 lbs NPO (# of Hours): MN Pain Scale: 0 - HEENT Pupil (Motor): Pupils equal, EOMI Mallampati: II Denture Type: Upper: Complete Oral Opening: Greater than 3 - ELECTRON GUN INSPECTOR LOC: Oriented ELECTRON GUN INSPECTOR Motor: Normal RUE, Normal LUE, Normal RLE, Normal LLE, Normal Face ELECTRON GUN INSPECTOR Sensory: Normal: RUE, LUE, RLE, LLE, Face - Cardiac Rhythm: Regular Murmur: None JVD: No Carotid Bruit: No - Pulmonary Breath Sounds: bilateral Clear Respiratory Effort: Symmetrical Anesthesia Assess/Plan ASA Score: 4 (ESRD Cardiomyopathy Pacemaker Dependent) Modified Dickinson Scale for Level of Consciousness: Cooperative, oriented, and tranquil Anesthetic Plan: MAC Monitoring Plan: Standard Monitors Recovery Plan: Other (Discussed MAC, agrees to proceed)
[2017-12-27] MEDS: Insulin LISPRO 300 UNITS/3 ML VIAL SQ SCH ×4 (08:11→22:24)
[2017-12-27] MEDS ORDERED: 0.9 % Sodium Chloride 500 ML IVC SCH (08:15)
--- NOTE | 2017-12-27 09:32 | Nephrology Progress Note ---
Date of Encounter: 12/27/17 Objective - Vital Signs Vital signs: Vital Signs Temp Pulse Resp BP Pulse Ox 12/27/17 08:09 72 16 101/88 100 12/27/17 07:55 100/66 12/27/17 07:37 97.3 F L 70 16 87/56 96 12/27/17 06:56 97.9 F 70 16 97/63 98 12/27/17 06:46 97.8 F 70 14 90/62 93 12/27/17 04:56 91/56 12/27/17 04:39 97.5 F L 67 14 89/56 92 12/26/17 23:07 97.7 F 72 13 112/76 97 12/26/17 20:04 97.8 F 78 18 129/88 97 12/26/17 19:06 67 18 95/53 100 12/26/17 19:01 64 18 109/45 100 12/26/17 18:56 66 18 122/62 95 12/26/17 18:51 66 18 120/66 97 12/26/17 18:40 78 18 115/57 96 12/26/17 18:05 97.9 F 71 17 125/61 93 12/26/17 17:50 97.9 F 88 17 125/74 94 12/26/17 17:45 98.4 F 74 16 110/56 95 12/26/17 17:30 98.6 F 76 16 108/57 96 12/26/17 15:27 97.4 F L 75 18 116/75 95 Intake and Output 12/26/17 12/27/17 12/27/17 23:59 07:59 15:59 Intake Total 650 / 650 271 / 271 0 / 0 Balance 650 / 650 271 / 271 0 / 0 Intake: Oral 0 / 0 Blood Product 650 / 650 271 / 271 Rbcs Leuko Poor As-1 Unit 300 / 300 [id number] Rbcs Leuko Poor As-3 Ph Unit 271 / 271 [id number] Rbcs Leuko Poor As-3 Ph Unit 350 / 350 [id number] Other: Meal NPO Percent of Meal Consumed 0% Weight 94.4 kg Blood Glucose* 157 138 Patient Weight 12/27/17 23:59 Weight 94.4 kg - Lab 12/27/17 06:20 12/27/17 06:20 Most recent lab results Calcium 8.6 mg/dL (8.6-10.3) 12/27/17 06:20 Phosphorus 5.6 mg/dL (2.7-4.5) H 12/27/17 06:20 Magnesium 2.0 mg/dL (1.6-2.6) 12/27/17 06:20 Consult Discharge Plan - Plan Referrals: NONE,PCP [Non-Partnered Physician] - (patient is from [facility])
[2017-12-27] MEDS ORDERED: 0.9 % Sodium Chloride 500 ML IVC ONE (09:54)
[2017-12-27] MEDS ORDERED: 0.9 % Sodium Chloride 1,000 ML ONE (10:05)
--- NOTE | 2017-12-27 10:13 | Nephrology Progress Note ---
Date of Encounter: 12/27/17 Time of Encounter: 10:08 - Assessment and Plan (1) End stage renal disease Current Visit: No Status: Acute HD MWF at [facility]. Last HD tx was Saturday, removed 4100 mls. Unsure if he will be able to tolerate HD today with BP systolic 100-105. Continue to avoid nephrotoxins and renal dose all medications. (2) Anemia Current Visit: Yes Status: Acute Hgb was 8.4 when d/c from hospital Saturday12/25/17 Per primary team. Qualifiers: Qualified Code(s): D64.9 - Anemia, unspecified (3) GI bleed Current Visit: Yes Status: Acute GI consult. Will defer blood transfusions to primary team, he has had 2 PRBC's and another 1 is ordered. Qualifiers: Qualified Code(s): K92.1 - Melena Subjective Principal diagnosis: Rectal Bleeding Interval history: Pt seen and examined after colonoscopy. Pt is very drowsy, will arouse with light stimulation. Objective - Vital Signs Vital signs: Vital Signs Temp Pulse Resp BP Pulse Ox 12/27/17 09:44 97.7 F 70 84/49 95 12/27/17 08:09 72 16 101/88 100 12/27/17 07:55 100/66 12/27/17 07:37 97.3 F L 70 16 87/56 96 12/27/17 06:56 97.9 F 70 16 97/63 98 12/27/17 06:46 97.8 F 70 14 90/62 93 12/27/17 04:56 91/56 12/27/17 04:39 97.5 F L 67 14 89/56 92 12/26/17 23:07 97.7 F 72 13 112/76 97 12/26/17 20:04 97.8 F 78 18 129/88 97 12/26/17 19:06 67 18 95/53 100 12/26/17 19:01 64 18 109/45 100 12/26/17 18:56 66 18 122/62 95 12/26/17 18:51 66 18 120/66 97 12/26/17 18:40 78 18 115/57 96 12/26/17 18:05 97.9 F 71 17 125/61 93 12/26/17 17:50 97.9 F 88 17 125/74 94 05/24/18 17:45 98.4 F 74 16 110/56 95 12/26/17 17:30 98.6 F 76 16 108/57 96 12/26/17 15:27 97.4 F L 75 18 116/75 95 Intake and Output 12/26/17 12/27/17 12/27/17 23:59 07:59 15:59 Intake Total 650 / 650 271 / 271 271 / 271 Balance 650 / 650 271 / 271 271 / 271 Intake: Oral 0 / 0 Blood Product 650 / 650 271 / 271 271 / 271 Rbcs Leuko Poor As-1 Unit 300 / 300 [id number] Rbcs Leuko Poor As-3 Ph Unit 271 / 271 271 / 271 [id number] Rbcs Leuko Poor As-3 Ph Unit 350 / 350 [id number] Other: Meal NPO Percent of Meal Consumed 0% Stool Size Large Stool Consistency liquid Stool Color Dark Red Blood # Bowel Movement Diapers 1 Weight 94.4 kg Blood Glucose* 157 138 Patient Weight 12/27/17 23:59 Weight 94.4 kg - General Appearance General appearance: Present: chronically ill EENT: Present: ATNC, hearing intact Respiratory: Present: clear Cardiology: Present: no edema, normal S1, normal S2 Dialysis Vascular Access: Arteriovenous Fistula thrill: Yes bruit: Yes Additional Comments: LLE. Gastrointestinal: Present: normoactive bowel sounds, no tenderness, no guarding Integumentary: Present: no rash, warm and dry Neurologic: Present: disoriented (Sedation from GI procedure.) Psychiatric: Present: mood/affect appropriate - Lab 12/27/17 06:20 12/27/17 06:20 Most recent lab results Calcium 8.6 mg/dL (8.6-10.3) 12/27/17 06:20 Phosphorus 5.6 mg/dL (2.7-4.5) H 12/27/17 06:20 Magnesium 2.0 mg/dL (1.6-2.6) 12/27/17 06:20 Consult Discharge Plan - Plan Referrals: NONE,PCP [Non-Partnered Physician] - (patient is from [facility])
[2017-12-27] MEDS ORDERED: 0.9 % Sodium Chloride 250 ML ONE (11:04)
--- NOTE | 2017-12-27 11:05 | Anesthesia Evaluation Post Op ---
Date of Encounter: 12/27/17 Time of Encounter: 09:45 - Vital Signs Vital Signs: Vital Signs/O2 Sat/Glucose, Most Current Temp Pulse Resp BP Pulse Ox 12/27/17 10:56 97.3 F L 69 17 93/54 100 12/27/17 10:25 104/70 12/27/17 09:44 97.7 F 70 84/49 95 12/27/17 08:09 72 16 101/88 100 12/27/17 07:55 100/66 12/27/17 07:37 97.3 F L 70 16 87/56 96 - Lungs Lungs: Clear Ascult./Percussion - Airway Airway: Non-obstructed - Cardiovascular Regular Rate - Mental Status Mental Status: Alert & Oriented, Answers Appropriately - Pain Pain Scale: 0 - Nausea Vomiting Nausea Vomiting: Not Present - Hydration Hydration: Tolerates oral liquids - Discharge PostOp Status: Transfer Patient to floor
--- NOTE | 2017-12-27 11:26 | Gastroenterology Consult Note ---
<Jeffy Gutierrez - Last Filed: 12/27/17 11:24> Date of Encounter: 12/27/17 Time of Encounter: 10:20 - Assessment and plan (1) Anemia Current Visit: No Status: Chronic Assessment and plan: Hgb on admission was 7.2 and this AM Hgb 7.6. Continue to monitor CBC and transfuse PRBC as needed. Qualifiers: Anemia type: unspecified type Qualified Code(s): D64.9 - Anemia, unspecified (2) GI bleed Current Visit: No Status: Acute Assessment and plan: EGD with large amount of food in stomach. Colonoscopy this morning with poor prep. Continue to follow CBC. Clear liquid diet. Patient did not finish bowel prep last night, have patient complete bowel prep today. Qualifiers: GI bleed type/associated pathology: unspecified gastrointestinal hemorrhage type Qualified Code(s): K92.2 - Gastrointestinal hemorrhage, unspecified - Time Spent With Patient Total time spent is greater than 50% in coordination of care (as documented) at patient's floor/unit and/or counseling patient: GI History of Present Illness - Data of Consult Patient: known to practice within the last 3 years Consult date: 12/27/17 Requesting Physician: Michael Way MD - Consult Narrative Reason for consult: GI bleed History of present illness: Mr. Kenny is a 82 year old male with PMHx of arthritis, cancer, CHF, CAD, DM, ESRD on dialysis, GERD, HTN who presented to the ED from [facility] for lower GI Bleed with associated LLQ pain and history of hemorrhoids. He reports one episode of bright red blood mixed with stool. Hgb on admission was 7.2 and this AM Hgb 7.6. CT A/P with no cause of rectal bleeding identified. Procedures: EGD 07/18/2015 Dr. Ahuja: Chronic gastritis. Colonoscopy 07/18/2015 Dr. Ahuja: Colonoscopy with tubular adenoma and rectal ulcer. Repeat colonoscopy in 2-3 years. Colonoscopy 09/21/2013: 2 polyps-material insufficient for evaluation, external and internal hemorrhoids EGD 09/21/2013: Normal NSAIDs: ASA Anticoagulation: Plavix Past Med Surg Social Fam HX - Past Medical History Medical history: arthritis, cancer, CHF, coronary artery disease, diabetes, dialysis, GERD, hyperlipidemia, hypertension, kidney stones, renal disease, other Psychiatric history: anxiety - Past Surgical History Surgical History: cataract, cholecystectomy, knee replacement, pacemaker/AICD, other - Social History Smoking Status: Former smoker Smokeless Tobacco Status: No Alcohol use: none Drug use: none - Family History Father Living Status: Hx Family Cardiac Disorders: Yes Mother Adopted: No Living Status: Hx Family Cardiac Disorders: Yes Hx Family Respiratory Disorders: No Hx Family Cancer: No Hx Family GI Disorders: No Hx Family Endocrine Disorder: No Hx Family Neuromuscular Disorders: No Hx Family Neurologic Disorders: No Hx Family HEENT Disorders: No Hx Family Autoimmune Disorders: No - Gastrointestinal Gastrointestinal: Present: as per HPI - Constitutional Constitutional: as per HPI - EENT Eyes: as per HPI Ears: Present: as per HPI Nose, mouth and throat: Present: as per HPI - Cardiovascular Cardiovascular ROS: Present: as per HPI - Respiratory Respiratory IM: Present: as per HPI - Genitourinary Genitourinary: Absent: change in color, Urinary frequency - Neurological ROS Neurological GI: Present: as per HPI - Hematologic/Lymphatic Hematologic/Lymphatic pediatric: Present: as per HPI - Musculoskeletal Musculoskeletal ROS GI: Present: as per HPI - Integumentary Integumentary GI: Present: as per HPI - Psychiatric ROS Psychiatric GI: Present: as per HPI - Endocrine Endocrine IM: Present: as per HPI - Constitutional Vitals: Temp Pulse Resp BP Pulse Ox 97.9 F 73 20 114/72 99 12/27/17 11:15 12/27/17 11:15 12/27/17 11:15 12/27/17 11:15 12/27/17 11:15 General appearance: Present: cooperative, no acute distress Exam: Drowsy from colonoscopy - Head Head exam: Present: atraumatic, normocephalic - Eye Eye exam: Present: normal appearance, sclera anicteric - ENT ENT exam: Present: mucous membranes dry - Neck Neck exam general surgery: Present: normal inspection, trachea midline - Respiratory Respiratory exam: Present: CTAB - Cardiovascular Cardiovascular exam: Present: RRR, +S1, +S2 - GI/Abdominal GI/Abdominal exam: Present: soft, no peritoneal signs. Absent: distended, firm , guarding, tenderness - Rectal Rectal exam: Present: deferred - Extremities Exam Extremities exam: Present: warm - Neurological Exam Neurological exam: Present: no focal deficits - Psychiatric Psychiatric exam: Present: normal affect, normal mood - Skin Skin exam: Present: dry, intact, normal color, warm Results - Labs CBC & Chem 7: 12/27/17 10:27 12/27/17 06:20 Labs: Last Result Calcium 8.6 mg/dL (8.6-10.3) 12/27/17 06:20 Triglycerides 98 mg/dL (< 150) 12/27/17 06:20 Entire Visit Hgb 8.1 g/dL (12.9-16.9) L 12/27/17 10:27 Hct 23.1 % (37.5-50.1) L 12/27/17 06:20 PT 12.2 Seconds (9.4-12.1) H 12/27/17 06:20 Total Bilirubin 0.5 mg/dL (0.3-1.0) 12/27/17 06:20 AST 27 Units/L (13-39) 12/27/17 06:20 ALT 15 Units/L (7-52) 12/27/17 06:20 - ABG ABG results: PT/INR, D-dimer PT 12.2 Seconds (9.4-12.1) H 12/27/17 06:20 Consult Discharge Plan - Plan Referrals: NONE,PCP [Non-Partnered Physician] - (patient is from [facility]) <Doyle Ahuja - Last Filed: 12/27/17 12:33> Date of Encounter: 12/27/17 Time of Encounter: 09:00 - Time Spent With Patient Total time spent is greater than 50% in coordination of care (as documented) at patient's floor/unit and/or counseling patient: GI History of Present Illness - Data of Consult Requesting Physician: Michael Way MD - Consult Narrative History of present illness: Mr. Kenny is a 82 year old male - Constitutional Vitals: Temp Pulse Resp BP Pulse Ox 97.5 F L 73 18 104/52 99 12/27/17 11:30 12/27/17 11:30 12/27/17 11:30 12/27/17 11:30 12/27/17 11:15 Results - Labs CBC & Chem 7: 12/27/17 10:27 12/27/17 06:20 Labs: Last Result Calcium 8.6 mg/dL (8.6-10.3) 12/27/17 06:20 Triglycerides 98 mg/dL (< 150) 12/27/17 06:20 Entire Visit Hgb 8.1 g/dL (12.9-16.9) L 12/27/17 10:27 Hct 23.1 % (37.5-50.1) L 12/27/17 06:20 PT 12.2 Seconds (9.4-12.1) H 12/27/17 06:20 Total Bilirubin 0.5 mg/dL (0.3-1.0) 12/27/17 06:20 AST 27 Units/L (13-39) 12/27/17 06:20 ALT 15 Units/L (7-52) 12/27/17 06:20 - ABG ABG results: PT/INR, D-dimer PT 12.2 Seconds (9.4-12.1) H 12/27/17 06:20 - Attending Attestation I have personally performed a face to face evaluation on this patient. I have reviewed and agree with the care plan. History and Exam by me shows: Patient seen. Patient with rectal bleeding EGD was negative colon was poor prep recommend following H&H. If Continue to bleed then we will repeat the EGD ater more prep
[2017-12-27] MEDS ORDERED: SODIUM CHLORIDE/NAHCO3/KCL/PEG 4,000 ML SOLN.RECON PO ONE (15:23)
[2017-12-27] MEDS: Pantoprazole 40 MG VIAL IVP SCH (17:25)
[2017-12-27] MEDS: BESIFLOXACIN HCL OP SCH ×2 (17:32→17:33)
[2017-12-27] MEDS ORDERED: Polyethylene Glycol 3350 255 GM POWDER PO ONE (17:43)
--- NOTE | 2017-12-27 19:03 | Internal Med Progress Note ---
Date of Encounter: 12/27/17 Time of Encounter: 11:00 - Assessment and plan (1) Acute blood loss anemia Current Visit: No Status: Acute Assessment and plan: Patient with hemoglobin of 7.2 on admission now 8.9 status post 3 units of packed red blood cells Continue to monitor serial H&H's (2) GI bleed Current Visit: No Status: Acute Assessment and plan: Discussed with GI who is following for repeat colonoscopy on 12/28/17 to find etiology of bleed Qualifiers: GI bleed type/associated pathology: unspecified gastrointestinal hemorrhage type Qualified Code(s): K92.2 - Gastrointestinal hemorrhage, unspecified (3) ESRD (end stage renal disease) on dialysis Current Visit: No Status: Chronic Assessment and plan: Nephrology following for HD MWF (4) HTN (hypertension) Current Visit: No Status: Chronic Assessment and plan: Continue home medication Qualifiers: Hypertension type: essential hypertension Qualified Code(s): I10 - Essential (primary) hypertension (5) CAD (coronary artery disease) Current Visit: No Status: Chronic Assessment and plan: elevated tropnin most likely secondary to demand ischemia Qualifiers: Coronary Disease-Associated Artery/Lesion type: [place] artery [place] vs. transplanted heart: [place] heart Associated angina: without angina Qualified Code(s): I25.10 - Atherosclerotic heart disease of [place] coronary artery without angina pectoris (6) DVT prophylaxis Current Visit: No Status: Acute Assessment and plan: SCDs - Time Spent With Patient Total time spent is greater than 50% in coordination of care (as documented) at patient's floor/unit and/or counseling patient: - Subjective Interval history: Patient with continued dark maroon stools this morning altered mental status. Patient also hypotensive due to acute blood loss anemia secondary to GI - Constitutional Vitals: Temp Pulse Resp BP Pulse Ox 97.3 F L 75 19 134/80 100 12/27/17 16:18 12/27/17 16:18 12/27/17 16:18 12/27/17 16:18 12/27/17 16:18 General appearance: Present: A&O X 1, A&O X 3, no acute distress - Respiratory Respiratory exam: Present: CTAB. Absent: accessory muscle use, rales, rhonchi, wheezes - Cardiovascular Cardiovascular exam: Present: RRR, +S1, +S2. Absent: diastolic murmur, gallop, rubs, systolic murmur Internal Medicine: Result - Labs CBC & Chem 7: 12/27/17 15:44 12/27/17 06:20 Labs: Short CBC 12/27/17 12/27/17 12/27/17 Range/Units 00:03 06:20 10:27 WBC 7.8 (4.3-11.1) K/mcL Hgb 8.7 L D 7.6 L 8.1 L (12.9-16.9) g/dL Hct 25.8 L 23.1 L (37.5-50.1) % Plt Count 154 (140-400) K/mcL Neutrophils # 5.3 (1.6-8.9) K/mcL 12/27/17 Range/Units 15:44 WBC (4.3-11.1) K/mcL Hgb 8.9 L (12.9-16.9) g/dL Hct (37.5-50.1) % Plt Count (140-400) K/mcL Neutrophils # (1.6-8.9) K/mcL BMP 12/27/17 06:20 Sodium 133 L Potassium 5.5 H Chloride 96 L Carbon Dioxide 26 BUN 66 H Creatinine 4.36 H Glucose 125 H Calcium 8.6 Liver Function 12/27/17 Range/Units 06:20 Total Bilirubin 0.5 (0.3-1.0) mg/dL AST 27 (13-39) Units/L ALT 15 (7-52) Units/L Alkaline Phosphatase 127 H (34-104) Units/L Albumin 3.0 L (3.5-5.7) g/dL - ABG Interpretation ABG results: PT/INR, D-dimer PT 12.2 Seconds (9.4-12.1) H 12/27/17 06:20 Consult Discharge Plan - Plan Referrals: NONE,PCP [Non-Partnered Physician] - (patient is from [facility])
[2017-12-27] MEDS: Acetaminophen 325 MG TABLET PO PRN (22:58)
[2017-12-28] MEDS: 0.9 % Sodium Chloride 500 ML IVC SCH ×5 (06:29→19:57)
[2017-12-28] MEDS: Pantoprazole 40 MG VIAL IVP SCH ×2 (06:30→17:42)
--- NOTE | 2017-12-28 07:44 | Anesthesia Evaluation PreOp ---
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: Denies Any Significant HX Other Medical History: Renal (ESRD on HD MWF), Diabetes Type II, Other (GI bleed , acute blood loss anemia, anemia of chronic disease) Anesthesia History: No Prior Anesthetic Complications, Past Anesthesia (EGD, colonoscopy, pacer, AV fistula) Alcohol Use: none Drug use: none Medications and Allergies Clopidogrel [Plavix] 75 mg PO QAM #0 03/15/15 [History] Hydralazine HCl 100 mg PO SUTUTHSA #0 03/15/15 [History] Sertraline [Zoloft] 75 mg PO QPM 02/03/16 [History] Sevelamer [Renvela] 2,400 mg PO TIDWM 02/03/16 [History] Isosorbide MONOnitrate [Isosorbide Mononitrate ER] 120 mg PO DAILY 02/06/16 [ History] Nitroglycerin [Nitrostat] 0.4 mg SL Q5M PRN 02/06/16 [History] Polyethylene Glycol 3350 [MiraLAX] 17 gm PO DAILY 04/12/16 [History] Bisacodyl [Dulcolax] 10 mg RC HS PRN 09/24/16 [History] Docusate [Colace] 100 mg PO BID 09/24/16 [History] Magnesium Hydroxide [Milk of Magnesia] 2,400 mg PO DAILY PRN 09/24/16 [History] ALPRAZolam [Xanax 1 MG Tablet] 1 mg PO MOWEFR PRN 12/21/17 [History] Allopurinol [Zyloprim 100 MG] 100 mg PO QAM 12/21/17 [History] Atorvastatin [Lipitor] 80 mg PO HS 12/21/17 [History] Ergocalciferol (VITAMIN D2) [Drisdol] 50,000 unit PO QWEEK 12/21/17 [History] Famotidine [Acid Barrel Roller Operator] 10 mg PO QAM 12/21/17 [History] Furosemide [Lasix] 40 mg PO TUTHSA 12/21/17 [History] Glucagon,Human Recombinant [Glucagen] 1 mg IJ ONCE PRN 12/21/17 [History] Insulin ASPART [Novolog Flexpen] 5 units SQ TIDWM 12/21/17 [History] Insulin DETEMIR [Levemir Flextouch] 10 units SQ HS 12/21/17 [History] Lisinopril [Zestril] 10 mg PO SUTUTHSA 12/21/17 [History] Loratadine [Claritin] 10 mg PO DAILY 12/21/17 [History] Metoclopramide HCl 5 mg PO TIDWM 12/21/17 [History] Metoprolol [Lopressor] 50 mg PO SUTUTHSA 12/21/17 [History] Multivitamin with Minerals [One-A-Day Maximum Formula] 1 tab PO DAILY 12/21/17 [ History] Ondansetron HCl [Zofran] 4 mg PO Q8HR PRN 12/21/17 [History] Pregabalin [Lyrica] 50 mg PO TID 12/21/17 [History] Ranolazine [Ranexa] 500 mg PO BID 12/21/17 [History] Terazosin [Hytrin] 5 mg PO QPM 12/21/17 [History] Aspirin Enteric Coated [Aspirin EC] 325 mg PO DAILY tablet. 12/25/17 [Rx] FentaNYL PATCH [Duragesic] 100 mcg TD Q72H 7 Days #2 patch.td72 12/25/17 [Rx] OxyCODONE Immed Rel [Roxicodone 10 MG] 10 mg PO Q4H 5 Days #20 tablet 12/25/17 [ Rx] Doxycycline Monohydrate [Mondoxyne Nl] 100 mg PO BID 12/26/17 [History] 3 Allergy/AdvReac Type Severity Reaction Status Date / Time morphine Allergy Hallucinati Verified 07/06/16 10:27 ng - Meds/Allergy Pre-op Review Medications Reviewed: Yes Allergies Reviewed: Yes Beta Blockers on Current Med List: Yes If Beta Blockers taken, Date/Time (Last Dose taken): prn metoprolo Anesthesia Results - Labs 12/28/17 04:50 12/27/17 06:20 - Imaging EKG: report reviewed (vpaced) Anesthesia Exam Vital Signs/O2 Sat, Most Current Temp Pulse Resp BP Pulse Ox 97.8 F 78 15 105/52 97 12/28/17 04:45 12/28/17 04:45 12/28/17 04:45 12/28/17 04:45 12/28/17 04:45 Height: 1.8m Weight: 96kg NPO (# of Hours): >8 - HEENT Pupil (Motor): Pupils equal, EOMI Mallampati: II Denture Type: Upper: Complete Oral Opening: Greater than 3 - GROUND WATER [employer]OR LOC: Confused GROUND WATER CONTRACTOR Motor: Normal RUE, Normal LUE, Normal RLE, Normal LLE, Normal Face GROUND WATER [employer]OR Sensory: Normal: RUE, LUE, RLE, LLE, Face - Cardiac Rhythm: Regular - Pulmonary Breath Sounds: bilateral Clear Respiratory Effort: Symmetrical Anesthesia Assess/Plan ASA Score: 4 Modified Mar Scale for Level of Consciousness: Anixous, agitated or restless Anesthetic Plan: General (if necessary), MAC Monitoring Plan: Standard Monitors Recovery Plan: PACU
[2017-12-28] MEDS ORDERED: *HR* FentaNYL (PF) 100 MCG/2 ML VIAL ONE (07:54)
[2017-12-28] MEDS: Insulin LISPRO 300 UNITS/3 ML VIAL SQ SCH ×4 (08:19→19:47)
[2017-12-28] MEDS: Loratadine 10 MG TABLET PO SCH (08:19)
[2017-12-28] MEDS: Pregabalin 50 MG CAPSULE PO SCH ×3 (08:19→19:58)
[2017-12-28] MEDS: Ranolazine 500 MG TAB.ER.12H PO SCH ×2 (08:20→19:58)
[2017-12-28] MEDS: Multivit/Ca/Min/Fe/FA 1 TAB TABLET PO SCH (08:20)
[2017-12-28] MEDS ORDERED: 0.9 % Sodium Chloride 2,000 ML ONE (08:34)
--- NOTE | 2017-12-28 09:17 | Anesthesia Progress Note ---
Date of Encounter: 12/28/17 Time of Encounter: 08:45 Anesthesia Note - Note Note: 12/28/17 09:17 At the beginning of the case, pt received 10mcg of fentanyl with 4mg of etomidate and was turned on his side, he became sedated, bradycardic to HR 20, immediate return to HR 70 with verbal and physical stimulation. I suggested to Dr Ahuja that we postpone the case until pt was worked up further including interrogation of the pacemaker and dialysis. Dr Ahuja stated that the case was an emergency so we proceeded, ASA was modified to 4E. Pt tolerated the procedure
[2017-12-28] MEDS ORDERED: 0.9 % Sodium Chloride 250 ML IVC PRN (09:28)
[2017-12-28] MEDS ORDERED: 0.9 % Sodium Chloride 1,000 ML PRIME SCH (09:30)
--- NOTE | 2017-12-28 09:33 | Anesthesia Evaluation Post Op ---
Date of Encounter: 12/28/17 Time of Encounter: 09:31 - Vital Signs Vital Signs: bp 112/52, P 78, RR 16, o2sat 100% on facemask - Lungs Lungs: Clear Ascult./Percussion - Airway Airway: Non-obstructed - Cardiovascular Regular Rate - Mental Status Mental Status: Confused, Baseline Status - Nausea Vomiting Nausea Vomiting: Not Present - Hydration Hydration: NPO - Discharge PostOp Status: Transfer Patient to floor
[2017-12-28 10:02] LABS: Basophils % 0.3 %; Eosinophils # 0.3 K/mcL (0.0-0.6); Eosinophils % 2.9 %; Hematocrit 26.2 % (37.5-50.1); Hemoglobin 8.5 g/dL (12.9-16.9); Lymphocytes # 1.4 K/mcL (0.6-4.6); Lymphocytes % 16.4 %; Mean Corpuscular HGB Conc 32.4 g/dL (31.6-35.5); Mean Corpuscular Hemoglobin 31.1 pg (28.0-33.3); Mean Platelet Volume 10.5 fL (9.4-12.4); Monocytes # 0.8 K/mcL (0.0-1.3); Monocytes % 9.2 %; Nucleated Red Blood Cells 0.5 /100 WBC (0); Platelet Count 141 K/mcL (140-400); Red Blood Count 2.73 M/mcL (4.19-5.50); Red Cell Distribution Width 15.3 % (11.5-14.5); Segmented Neutrophils % 70.2 %
[2017-12-28 10:16] LABS: Calcium 8.4 mg/dL (8.6-10.3); Potassium 5.3 mEq/L (3.5-5.1)
--- NOTE | 2017-12-28 11:00 | Nephrology Progress Note ---
Date of Encounter: 12/28/17 Time of Encounter: 10:57 - Assessment and Plan (1) ESRD (end stage renal disease) on dialysis Current Visit: No Status: Chronic HD MWF. Renal vitamins. Renal dose medications. Renal diet. Additional dialysis and ultrafiltration as needed. Patient was seen on dialysis. (2) GI bleed Current Visit: Yes Status: Acute A bleeding lesion was found in the colon. Status post intervention by gastroenterology. Monitor for additional bleeding. Qualifiers: Qualified Code(s): K92.1 - [place] (3) Anemia Current Visit: Yes Status: Acute Qualifiers: Qualified Code(s): D64.9 - Anemia, unspecified Subjective Principal diagnosis: Rectal Bleeding Interval history: Patient seen on dialysis. Objective - Vital Signs Vital signs: Vital Signs Temp Pulse Resp BP Pulse Ox 12/28/17 10:07 61 109/51 12/28/17 07:58 77 16 117/58 97 12/28/17 04:45 97.8 F 78 15 105/52 97 12/27/17 23:03 98 12/27/17 22:13 84 108/60 12/27/17 19:49 97.3 F L 60 18 122/60 98 12/27/17 16:18 97.3 F L 75 19 134/80 100 12/27/17 14:32 97.4 F L 76 18 100/63 12/27/17 11:30 97.5 F L 73 18 104/52 12/27/17 11:15 97.9 F 73 20 114/72 99 Intake and Output 12/27/17 12/28/17 12/28/17 23:59 07:59 15:59 Intake Total 0 / 0 250 / 250 Balance 0 / 0 250 / 250 Intake: IV Fluids 250 / 250 0.9 % Sodium Chloride 500 ML @ 250 / 250 50 mls/hr IVC .Q10H ELISE Rx#: [id number] Oral 0 / 0 Other: Stool Size Copious Stool Consistency liquid Stool Color Dark Red Blood Weight 96.6 kg Blood Glucose* 149 Patient Weight 12/28/17 23:59 Weight 96.6 kg - General Appearance General appearance: Present: well-developed, well-nourished EENT: Present: ATNC Cardiology: Present: regular rate - Lab 12/28/17 09:34 12/28/17 09:34 Most recent lab results Calcium 8.4 mg/dL (8.6-10.3) L 12/28/17 09:34 Phosphorus 5.6 mg/dL (2.7-4.5) H 12/27/17 06:20 Magnesium 2.0 mg/dL (1.6-2.6) 12/27/17 06:20 Consult Discharge Plan - Plan Referrals: NONE,PCP [Non-Partnered Physician] - (patient is from [facility])
[2017-12-28] MEDS: Isosorbide MONOnitrate (24 HR) 60 MG TAB.ER.24H PO SCH (11:43)
[2017-12-28] MEDS: hydrALAZINE 25 MG TABLET PO SCH (11:44)
--- NOTE | 2017-12-28 18:27 | Internal Med Progress Note ---
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 Continue to follow H&H Qualifiers: GI bleed type/associated pathology: unspecified gastrointestinal hemorrhage type Qualified Code(s): K92.2 - Gastrointestinal hemorrhage, unspecified (2) Acute blood loss anemia Current Visit: No Status: Acute Assessment and plan: Patient with hemoglobin of 7.2 on admission now 8.8 status post 4 units of packed red blood cells Continue to monitor serial H&H's (3) ESRD (end stage renal disease) on dialysis Current Visit: No Status: Chronic Assessment and plan: Nephrology following for HD MWF (4) HTN (hypertension) Current Visit: No Status: Chronic Assessment and plan: Continue home medication Qualifiers: Hypertension type: essential hypertension Qualified Code(s): I10 - Essential (primary) hypertension (5) CAD (coronary artery disease) Current Visit: No Status: Chronic Assessment and plan: elevated tropnin most likely secondary to demand ischemia Qualifiers: Coronary Disease-Associated Artery/Lesion type: [place] artery [place] vs. transplanted heart: [place] heart Associated angina: without angina Qualified Code(s): I25.10 - Atherosclerotic heart disease of [place] coronary artery without angina pectoris (6) DVT prophylaxis Current Visit: No Status: Acute Assessment and plan: SCDs - Time Spent With Patient Total time spent is greater than 50% in coordination of care (as documented) at patient's floor/unit and/or counseling patient: - Subjective Interval history: Patient now hemodynamically stable Status post colonoscopy for lower GI bleed and colonic angioma ectasia was clipped - Constitutional Vitals: Temp Pulse Resp BP Pulse Ox 97.6 F 72 16 122/65 100 12/28/17 13:59 12/28/17 13:59 12/28/17 13:59 12/28/17 13:59 12/28/17 13:59 General appearance: Present: A&O X 1, A&O X 3, no acute distress - Respiratory Respiratory exam: Present: CTAB. Absent: accessory muscle use, rales, rhonchi, wheezes - Cardiovascular Cardiovascular exam: Present: RRR, +S1, +S2. Absent: diastolic murmur, gallop, rubs, systolic murmur Internal Medicine: Result - Labs CBC & Chem 7: 12/28/17 13:42 12/28/17 09:34 Labs: Short CBC 12/27/17 12/28/17 12/28/17 Range/Units 21:46 04:50 09:34 WBC 8.6 (4.3-11.1) K/mcL Hgb 8.6 L 8.5 L 8.5 L (12.9-16.9) g/dL Hct 26.2 L (37.5-50.1) % Plt Count 141 (140-400) K/mcL Neutrophils # 6.0 (1.6-8.9) K/mcL 12/28/17 Range/Units 13:42 WBC (4.3-11.1) K/mcL Hgb 8.8 L (12.9-16.9) g/dL Hct (37.5-50.1) % Plt Count (140-400) K/mcL Neutrophils # (1.6-8.9) K/mcL BMP 12/28/17 09:34 Sodium 132 L Potassium 5.3 H Chloride 95 L Carbon Dioxide 25 BUN 67 H Creatinine 5.31 H Glucose 65 L Calcium 8.4 L - ABG Interpretation ABG results: PT/INR, D-dimer PT 12.2 Seconds (9.4-12.1) H 12/27/17 06:20 Consult Discharge Plan - Plan Referrals: NONE,PCP [Non-Partnered Physician] - (patient is from [facility])
[2017-12-28] MEDS: Insulin DETEMIR 100 UNIT/ML X5UNITS SQ SCH (19:58)
[2017-12-28] MEDS: *HR* OxyCODONE Immed Rel 5 MG TABLET PO PRN (22:16)
[2017-12-29] MEDS: Acetaminophen 325 MG TABLET PO PRN (02:13)
[2017-12-29] MEDS: D5% in 0.45% NACL 1,000 ML IVC SCH ×2 (03:48→13:20)
[2017-12-29] MEDS: *HR* OxyCODONE Immed Rel 5 MG TABLET PO PRN ×4 (04:57→23:21)
[2017-12-29] MEDS: 0.9 % Sodium Chloride 500 ML IVC SCH ×2 (04:57→09:47)
[2017-12-29] MEDS: Pantoprazole 40 MG VIAL IVP SCH ×2 (04:57→17:15)
[2017-12-29 08:45] LABS: Basophils % 0.3 %; Eosinophils # 0.2 K/mcL (0.0-0.6); Eosinophils % 2.1 %; Hematocrit 25.4 % (37.5-50.1); Hemoglobin 8.4 g/dL (12.9-16.9); Immature Granulocytes % 0.6 % (0-4); Lymphocytes # 0.9 K/mcL (0.6-4.6); Lymphocytes % 12.1 %; Mean Corpuscular HGB Conc 33.1 g/dL (31.6-35.5); Mean Corpuscular Hemoglobin 31.8 pg (28.0-33.3); Mean Corpuscular Volume 96.2 fL (83.0-100.0); Mean Platelet Volume 10.4 fL (9.4-12.4); Monocytes # 0.7 K/mcL (0.0-1.3); Monocytes % 10.1 %; Neutrophils # 5.4 K/mcL (1.6-8.9); Nucleated Red Blood Cells 0.4 /100 WBC (0); Platelet Count 126 K/mcL (140-400); Red Blood Count 2.64 M/mcL (4.19-5.50); Red Cell Distribution Width 14.9 % (11.5-14.5); Segmented Neutrophils % 74.8 %
[2017-12-29] MEDS ORDERED: *HR* FentaNYL PATCH 100 MCG PATCH TD SCH (09:00)
[2017-12-29 09:03] LABS: Calcium 8.6 mg/dL (8.6-10.3)
[2017-12-29 09:09] LABS: Potassium 4.3 mEq/L (3.5-5.1)
[2017-12-29] MEDS: Insulin LISPRO 300 UNITS/3 ML VIAL SQ SCH ×4 (09:32→21:26)
[2017-12-29] MEDS: Pregabalin 50 MG CAPSULE PO SCH ×3 (09:42→21:25)
[2017-12-29] MEDS: hydrALAZINE 25 MG TABLET PO SCH (09:43)
[2017-12-29] MEDS: Ranolazine 500 MG TAB.ER.12H PO SCH ×2 (09:44→21:25)
[2017-12-29] MEDS: Loratadine 10 MG TABLET PO SCH (09:44)
[2017-12-29] MEDS: Multivit/Ca/Min/Fe/FA 1 TAB TABLET PO SCH (09:44)
[2017-12-29] MEDS: Isosorbide MONOnitrate (24 HR) 60 MG TAB.ER.24H PO SCH (09:44)
--- NOTE | 2017-12-29 10:32 | Nephrology Progress Note ---
Date of Encounter: 12/29/17 Time of Encounter: 10:31 - Assessment and Plan (1) ESRD (end stage renal disease) on dialysis Current Visit: No Status: Chronic HD MWF. Renal vitamins. Renal dose medications. Renal diet. Additional dialysis and ultrafiltration as needed. . (2) GI bleed Current Visit: Yes Status: Acute A bleeding lesion was found in the colon. Status post intervention by gastroenterology. Monitor for additional bleeding. Qualifiers: Qualified Code(s): K92.2 - Gastrointestinal hemorrhage, unspecified (3) Anemia Current Visit: Yes Status: Acute Qualifiers: Qualified Code(s): D64.9 - Anemia, unspecified Subjective Principal diagnosis: Rectal Bleeding Interval history: Patient seen. He is sitting on the side of the bed. He has no complaints. Objective - Vital Signs Vital signs: Vital Signs Temp Pulse Resp BP Pulse Ox 12/29/17 08:02 97.6 F 90 18 154/89 96 12/29/17 03:21 97.5 F L 65 18 95/55 94 12/29/17 00:48 97.5 F L 72 18 115/68 94 12/28/17 18:35 97.9 F 56 18 112/57 98 12/28/17 13:59 97.6 F 72 16 122/65 100 12/28/17 13:55 97.0 F L 18 122/60 12/28/17 13:30 132/66 12/28/17 13:15 124/66 12/28/17 13:00 131/56 12/28/17 12:45 124/56 12/28/17 12:34 69 18 124/45 12/28/17 12:30 124/45 12/28/17 12:15 126/49 12/28/17 12:00 126/52 12/28/17 11:45 123/49 12/28/17 11:30 122/57 12/28/17 11:15 149/56 12/28/17 11:00 121/59 12/28/17 10:45 116/54 Intake and Output 12/28/17 12/29/17 12/29/17 23:59 07:59 15:59 Intake Total 400 / 400 740 / 740 480 / 480 Output Total 0 / 0 Balance 400 / 400 740 / 740 480 / 480 Intake: IV Fluids 500 / 500 0.9 % Sodium Chloride 500 ML @ 500 / 500 50 mls/hr IVC .Q10H ELISE Rx#: [id number] Oral 400 / 400 240 / 240 480 / 480 Output: Urine 0 / 0 Other: Meal Dinner 2 packs of ghram crackers and peanut butter, turkey and mashed potatos Percent of Meal Consumed 50% 60% Stool Size Smear Stool Consistency liquid Stool Color Brown # Bowel Movement Diapers 1 Weight 97.3 kg Blood Glucose* 78 100 82 Patient Weight 12/29/17 23:59 Weight 97.3 kg - General Appearance General appearance: Present: well-developed, well-nourished EENT: Present: ATNC Cardiology: Present: regular rate Additional Comments: Alert Psychiatric: Present: mood/affect appropriate - Lab 12/29/17 08:28 12/29/17 08:28 Most recent lab results Calcium 8.6 mg/dL (8.6-10.3) 12/29/17 08:28 Phosphorus 5.6 mg/dL (2.7-4.5) H 12/27/17 06:20 Magnesium 2.0 mg/dL (1.6-2.6) 12/27/17 06:20 Consult Discharge Plan - Plan Referrals: NONE,PCP [Non-Partnered Physician] - (patient is from [facility])
--- NOTE | 2017-12-29 17:41 | Internal Med Progress Note ---
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 Continue to follow H&H Qualifiers: GI bleed type/associated pathology: unspecified gastrointestinal hemorrhage type Qualified Code(s): K92.2 - Gastrointestinal hemorrhage, unspecified (2) Acute blood loss anemia Current Visit: No Status: Acute Assessment and plan: Patient with hemoglobin of 7.2 on admission now 8.4 status post 4 units of packed red blood cells Continue to monitor serial H&H's (3) ESRD (end stage renal disease) on dialysis Current Visit: No Status: Chronic Assessment and plan: Nephrology following for HD MWF (4) HTN (hypertension) Current Visit: No Status: Chronic Assessment and plan: Continue home medication Qualifiers: Hypertension type: essential hypertension Qualified Code(s): I10 - Essential (primary) hypertension (5) CAD (coronary artery disease) Current Visit: No Status: Chronic Assessment and plan: elevated tropnin most likely secondary to demand ischemia Qualifiers: Coronary Disease-Associated Artery/Lesion type: [place] artery [place] vs. transplanted heart: [place] heart Associated angina: without angina Qualified Code(s): I25.10 - Atherosclerotic heart disease of [place] coronary artery without angina pectoris (6) DVT prophylaxis Current Visit: No Status: Acute Assessment and plan: SCDs - Time Spent With Patient Total time spent is greater than 50% in coordination of care (as documented) at patient's floor/unit and/or counseling patient: - Subjective Interval history: Patient alert and oriented this morning and confusion has resolved Patient now hemodynamically stable status post 4 units packed red blood cells Status post colonoscopy for lower GI bleed and 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 Absent: accessory muscle use, rales, rhonchi, wheezes - Cardiovascular Cardiovascular exam: Present: RRR, +S1, +S2. Absent: diastolic murmur, gallop, rubs, systolic murmur Internal Medicine: Result - Labs CBC & Chem 7: 12/29/17 08:28 12/29/17 08:28 Labs: Short CBC 12/28/17 12/28/17 12/29/17 Range/Units 20:21 22:30 08:28 WBC 7.2 (4.3-11.1) K/mcL Hgb 8.7 L 8.5 L 8.4 L (12.9-16.9) g/dL Hct 25.4 L (37.5-50.1) % Plt Count 126 L (140-400) K/mcL Neutrophils # 5.4 (1.6-8.9) K/mcL BMP 12/29/17 08:28 Sodium 133 L Potassium 4.3 Chloride 97 L Carbon Dioxide 25 BUN 36 H Creatinine 4.02 H Glucose 106 H Calcium 8.6 - ABG Interpretation ABG results: PT/INR, D-dimer PT 12.2 Seconds (9.4-12.1) H 12/27/17 06:20 Consult Discharge Plan - Plan Referrals: NONE,PCP [Non-Partnered Physician] - (patient is from [facility])
[2017-12-30] MEDS ORDERED: 0.9 % Sodium Chloride 2,000 ML ONE (04:19)
[2017-12-30] MEDS: *HR* OxyCODONE Immed Rel 5 MG TABLET PO PRN ×2 (04:52→09:35)
[2017-12-30] MEDS: Pantoprazole 40 MG VIAL IVP SCH ×2 (04:53→17:47)
[2017-12-30] MEDS ORDERED: 0.9 % Sodium Chloride 250 ML IVC PRN (05:01)
[2017-12-30] MEDS: ALPRAZolam 1 MG TABLET PO SCH (05:32)
[2017-12-30] MEDS: Insulin LISPRO 300 UNITS/3 ML VIAL SQ SCH ×4 (07:34→20:09)
[2017-12-30 09:09] LABS: Basophils % 0.3 %; Eosinophils # 0.3 K/mcL (0.0-0.6); Eosinophils % 3.9 %; Hematocrit 26.2 % (37.5-50.1); Hemoglobin 8.6 g/dL (12.9-16.9); Immature Granulocytes % 0.6 % (0-4); Lymphocytes % 15.5 %; Mean Corpuscular HGB Conc 32.8 g/dL (31.6-35.5); Mean Corpuscular Hemoglobin 31.6 pg (28.0-33.3); Mean Corpuscular Volume 96.3 fL (83.0-100.0); Monocytes # 0.7 K/mcL (0.0-1.3); Monocytes % 11.6 %; Neutrophils # 4.4 K/mcL (1.6-8.9); Platelet Count 146 K/mcL (140-400); Red Blood Count 2.72 M/mcL (4.19-5.50); Red Cell Distribution Width 15.4 % (11.5-14.5); Segmented Neutrophils % 68.1 %
[2017-12-30] MEDS: Isosorbide MONOnitrate (24 HR) 60 MG TAB.ER.24H PO SCH (09:25)
[2017-12-30] MEDS: Pregabalin 50 MG CAPSULE PO SCH ×3 (09:35→20:10)
[2017-12-30] MEDS: Multivit/Ca/Min/Fe/FA 1 TAB TABLET PO SCH (09:36)
[2017-12-30] MEDS: Ranolazine 500 MG TAB.ER.12H PO SCH ×2 (09:36→20:10)
[2017-12-30] MEDS: Loratadine 10 MG TABLET PO SCH (09:36)
[2017-12-30 09:39] LABS: Calcium 8.6 mg/dL (8.6-10.3)
[2017-12-30 09:57] LABS: Potassium 3.9 mEq/L (3.5-5.1)
--- NOTE | 2017-12-30 12:08 | Nephrology Progress Note ---
Date of Encounter: 12/30/17 Time of Encounter: 12:07 - Assessment and Plan (1) ESRD (end stage renal disease) on dialysis Current Visit: No Status: Chronic HD MWF. Renal vitamins. Renal dose medications. Renal diet. Additional dialysis and ultrafiltration as needed. . Patient underwent dialysis today without any problem. (2) GI bleed Current Visit: Yes Status: Acute A bleeding lesion was found in the colon. Status post intervention by gastroenterology. Monitor for additional bleeding. Qualifiers: Qualified Code(s): K92.2 - Gastrointestinal hemorrhage, unspecified (3) Anemia Current Visit: Yes Status: Acute Qualifiers: Qualified Code(s): D64.9 - Anemia, unspecified Subjective Principal diagnosis: Rectal Bleeding Interval history: Patient seen. He is asleep. Objective - Vital Signs Vital signs: Vital Signs Temp Pulse Resp BP Pulse Ox 12/30/17 10:46 97.6 F 60 14 112/69 99 12/30/17 09:45 100 12/30/17 09:00 96.7 F L 60 16 125/52 100 12/30/17 08:49 98.1 F 18 256/60 12/30/17 08:25 140/61 12/30/17 08:10 134/46 12/30/17 07:55 130/62 12/30/17 07:40 124/46 12/30/17 07:25 133/62 12/30/17 07:10 112/69 12/30/17 06:55 116/58 12/30/17 06:40 111/49 12/30/17 06:25 96/43 12/30/17 06:10 98/50 12/30/17 05:55 91/57 12/30/17 05:40 105/55 12/30/17 05:25 97.1 F L 18 101/58 12/30/17 04:23 97.4 F L 60 18 128/75 98 12/30/17 00:34 97.5 F L 65 18 115/68 95 12/29/17 20:19 97.8 F 60 18 128/73 97 12/29/17 16:38 99.0 F 63 19 108/61 96 Intake and Output 12/29/17 12/30/17 12/30/17 23:59 07:59 15:59 Intake Total 693 / 693 600 / 600 0 / 0 Output Total 300 / 300 3600 / 3600 Balance 393 / 393 600 / 600 -3600 / -3600 Intake: IV Fluids 193 / 193 D5% And 0.45% Nacl 1000 Ml Bag 193 / 193 1,000 ML @ 50 mls/hr IVC .Q20H ELISE Rx#:[id number] Oral 500 / 500 0 / 0 0 / 0 Intake, Rinseback and Flushes 600 / 600 Output: Urine 300 / 300 0 / 0 Total Dialysis (HD) Output 3600 / 3600 Other: Weight 97.3 kg Blood Glucose* 114 107 106 Hemodialysis Net Fluid Removed 3004 3000 (mL) Patient Weight 12/30/17 23:59 Weight 97.3 kg - General Appearance General appearance: Present: well-developed, well-nourished Cardiology: Present: regular rate - Lab 12/30/17 08:49 12/30/17 08:49 Most recent lab results Calcium 8.6 mg/dL (8.6-10.3) 12/30/17 08:49 Phosphorus 5.6 mg/dL (2.7-4.5) H 12/27/17 06:20 Magnesium 2.0 mg/dL (1.6-2.6) 12/27/17 06:20 Consult Discharge Plan - Plan Referrals: NONE,PCP [Non-Partnered Physician] - (patient is from [facility])
--- NOTE | 2017-12-30 18:15 | Internal Med Progress Note ---
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 Continue to follow H&H Qualifiers: GI bleed type/associated pathology: unspecified gastrointestinal hemorrhage type Qualified Code(s): K92.2 - Gastrointestinal hemorrhage, unspecified (3) Acute blood loss anemia Current Visit: No Status: Acute Assessment and plan: Patient with hemoglobin of 7.2 on admission now 8.6 status post 4 units of packed red blood cells Continue to monitor serial H&H's (4) ESRD (end stage renal disease) on dialysis Current Visit: No Status: Chronic Assessment and plan: Nephrology following for HD MWF (5) HTN (hypertension) Current Visit: No Status: Chronic Assessment and plan: Continue home medication Qualifiers: Hypertension type: essential hypertension Qualified Code(s): I10 - Essential (primary) hypertension (6) CAD (coronary artery disease) Current Visit: No Status: Chronic Assessment and plan: elevated tropnin most likely secondary to demand ischemia Qualifiers: Coronary Disease-Associated Artery/Lesion type: [place] artery [place] vs. transplanted heart: [place] heart Associated angina: without angina Qualified Code(s): I25.10 - Atherosclerotic heart disease of [place] coronary artery without angina pectoris (7) DVT prophylaxis Current Visit: No Status: Acute Assessment and plan: SCDs - Time Spent With Patient Total time spent is greater than 50% in coordination of care (as documented) at patient's floor/unit and/or counseling patient: - Subjective Interval history: Patient very somnolent this morning and difficult to arouse; nursing staff reports patient was alert and oriented prior to and after dialysis until given pain medication Patient now hemodynamically stable status post 4 units packed red blood cells Status post colonoscopy for lower GI bleed and 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 Absent: accessory muscle use, rales, rhonchi, wheezes - Cardiovascular Cardiovascular exam: Present: RRR, +S1, +S2. Absent: diastolic murmur, gallop, rubs, systolic murmur Internal Medicine: Result - Labs CBC & Chem 7: 12/30/17 08:49 12/30/17 08:49 Labs: Short CBC 12/30/17 Range/Units 08:49 WBC 6.4 (4.3-11.1) K/mcL Hgb 8.6 L (12.9-16.9) g/dL Hct 26.2 L (37.5-50.1) % Plt Count 146 (140-400) K/mcL Neutrophils # 4.4 (1.6-8.9) K/mcL BMP 12/30/17 08:49 Sodium 134 L Potassium 3.9 Chloride 96 L Carbon Dioxide 30 H BUN 19 Creatinine 2.77 H Glucose 99 Calcium 8.6 - ABG Interpretation ABG results: PT/INR, D-dimer PT 12.2 Seconds (9.4-12.1) H 12/27/17 06:20 - Impressions Impressions Head CT 12/30/17 16:07 IMPRESSION: No acute intracranial abnormality. D/ / Theodore Barney MD / Theodore Barney MD Interpreting Provider: Theodore Barney MD Consult Discharge Plan - Plan Referrals: NONE,PCP [Non-Partnered Physician] - (patient is from [facility])
[2017-12-30 18:23] LABS: VBG HCO3 35 mEq/L (21-27); VBG PCO2 60 mmHg (41-51); VBG PH 7.38 pH Units (7.32-7.42); VBG PO2 41 mmHg (25-50)
[2017-12-30] MEDS: Acetaminophen 325 MG TABLET PO PRN (23:26)
[2017-12-31] MEDS: *HR* OxyCODONE Immed Rel 5 MG TABLET PO PRN ×2 (03:24→12:32)
[2017-12-31] MEDS ORDERED: Pregabalin 25 MG CAPSULE PO ONE (04:12)
[2017-12-31] MEDS: Pantoprazole 40 MG VIAL IVP SCH (05:01)
[2017-12-31] MEDS: Insulin LISPRO 300 UNITS/3 ML VIAL SQ SCH ×2 (07:40→12:24)
[2017-12-31] MEDS: Isosorbide MONOnitrate (24 HR) 60 MG TAB.ER.24H PO SCH (08:19)
[2017-12-31] MEDS: Loratadine 10 MG TABLET PO SCH (08:19)
[2017-12-31] MEDS: Multivit/Ca/Min/Fe/FA 1 TAB TABLET PO SCH (08:20)
[2017-12-31] MEDS: Ranolazine 500 MG TAB.ER.12H PO SCH (08:20)
[2017-12-31] MEDS: Pregabalin 50 MG CAPSULE PO SCH (08:20)
[2017-12-31] MEDS: hydrALAZINE 25 MG TABLET PO SCH (08:22)
--- NOTE | 2017-12-31 09:24 | Nephrology Progress Note ---
Date of Encounter: 12/31/17 Time of Encounter: 09:22 - Assessment and Plan (1) End stage renal disease Current Visit: No Status: Acute HD MWF at [facility]. Continue to avoid nephrotoxins and renal dose all medications. Last HD tx 12/30/17, tolerated well. (2) Anemia Current Visit: Yes Status: Acute Hgb 8.6, stable for this stay. Will continue Aranesp home dose if not d/kaylen today. Will order HD for tomorrow if still here. Qualifiers: Qualified Code(s): D64.9 - Anemia, unspecified (3) GI bleed Current Visit: Yes Status: Acute GI consult. Per primary team. Qualifiers: Qualified Code(s): K92.2 - Gastrointestinal hemorrhage, unspecified Subjective Principal diagnosis: Rectal Bleeding Interval history: Pt seen and examined. Denies abdominal pain, CP, SOB. Objective - Vital Signs Vital signs: Vital Signs Temp Pulse Resp BP Pulse Ox 12/31/17 08:38 98 12/31/17 06:58 97.7 F 61 16 144/69 98 12/31/17 03:59 98 F 62 15 122/70 100 12/31/17 00:04 97.8 F 61 15 124/71 100 12/30/17 20:26 100 12/30/17 19:39 97.6 F 64 15 117/68 100 12/30/17 15:45 97.8 F 67 16 104/52 96 12/30/17 10:46 97.6 F 60 14 112/69 99 12/30/17 09:45 100 Intake and Output 12/30/17 12/31/17 12/31/17 23:59 07:59 15:59 Intake Total 50 / 50 0 / 0 0 / 0 Output Total 0 / 0 0 / 0 0 / 0 Balance 50 / 50 0 / 0 0 / 0 Intake: Oral 50 / 50 0 / 0 0 / 0 Output: Urine 0 / 0 0 / 0 0 / 0 Other: Meal Dinner Percent of Meal Consumed 0% Weight 96.8 kg Blood Glucose* 82 82 Patient Weight 12/31/17 23:59 Weight 96.8 kg - General Appearance General appearance: Present: chronically ill, frail EENT: Present: ATNC, hearing intact, vision intact Neck: Present: supple Respiratory: Present: clear Cardiology: Present: edema (Trace BLL. ), regular rate, regular rhythm, normal S1, normal S2 Dialysis Vascular Access: Arteriovenous Fistula (LLE) thrill: Yes bruit: Yes Gastrointestinal: Present: normoactive bowel sounds, no tenderness, no guarding Integumentary: Present: no rash, warm and dry Neurologic: Present: confused Psychiatric: Present: mood/affect appropriate, cooperative - Lab 12/30/17 08:49 12/30/17 08:49 Most recent lab results Calcium 8.6 mg/dL (8.6-10.3) 12/30/17 08:49 Phosphorus 5.6 mg/dL (2.7-4.5) H 12/27/17 06:20 Magnesium 2.0 mg/dL (1.6-2.6) 12/27/17 06:20 Consult Discharge Plan - Plan Instructions: Anemia (GEN) Referrals: NONE,PCP [Non-Partnered Physician] - (patient is from [facility]) Prescriptions: ALPRAZolam [Xanax 1 MG Tablet] 1 mg PO MOWEFR PRN 7 Days #5 tablet PRN Reason: Before Dialysis FentaNYL PATCH [Duragesic] 100 mcg TD Q72H 7 Days #2 patch.td72 OxyCODONE Immed Rel [Roxicodone 10 MG] 10 mg PO Q4H 5 Days #20 tablet
--- NOTE | 2017-12-31 11:46 | Discharge Summary ---
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 He has received 4 units of packed red cells and his hemoglobin has been stable. He is medically and hemodynamically stable to continue his current management at the snf. Date of Encounter: 12/31/17 Time of Encounter: 11:32 - Discharge Diagnosis (1) HTN (hypertension) Priority: Secondary Status: Chronic Qualifiers: Hypertension type: essential hypertension Qualified Code(s): I10 - Essential (primary) hypertension (2) CAD (coronary artery disease) Priority: Secondary Status: Chronic Qualifiers: Coronary Disease-Associated Artery/Lesion type: [place] artery [place] vs. transplanted heart: [place] heart Associated angina: without angina Qualified Code(s): I25.10 - Atherosclerotic heart disease of [place] coronary artery without angina pectoris (3) DVT prophylaxis Priority: Secondary Status: Acute (4) GI bleed Priority: Primary Status: Resolved Qualifiers: GI bleed type/associated pathology: unspecified gastrointestinal hemorrhage type Qualified Code(s): K92.2 - Gastrointestinal hemorrhage, unspecified (5) ESRD (end stage renal disease) on dialysis Priority: Secondary Status: Chronic (6) Acute encephalopathy Priority: Primary Status: Resolved (7) Acute blood loss anemia Priority: Primary Status: Resolved Hospital course: Mr. Kenny is a 82 year old male with medical history of end-stage renal disease, hypertension, diabetes mellitus, anxiety, coronary artery disease. The patient was admitted for acute blood loss anemia following lower GI bleed and associated left lower quadrant pain with a history of hemorrhoids. He had bright red blood mixed with stool upon admission and hemoglobin was 7.2. Abdomen and pelvis CT showed glucose of rectal bleeding. 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 He received a total of 4 units of red blood cells inpatient, his hemoglobin has been stable at 8.8. He has had no further bleeding. The patient is on aspirin and Plavix, per GI recommendation he can resume those medications upon discharge. He developed one episode of altered mental status following hemodialysis, which Family said was common following hemodialysis. He is also on multiple pain medications from the snf. Other chronic medical conditions remained stable. He is stable to be discharged to SNF,to continue routine care and HD Discharge discussed with: patient, family, nurse, social work, case management - Time Spent with Patient Total time spent providing and/or coordinating discharge services: Greater than 30 minutes - Discharge Medications Prescriptions: ALPRAZolam [Xanax 1 MG Tablet] 1 mg PO MOWEFR PRN 7 Days #5 tablet PRN Reason: Before Dialysis FentaNYL PATCH [Duragesic] 100 mcg TD Q72H 7 Days #2 patch.td72 OxyCODONE Immed Rel [Roxicodone 10 MG] 10 mg PO Q4H 5 Days #20 tablet Home Medications: Clopidogrel [Plavix] 75 mg PO QAM #0 03/15/15 [History] Hydralazine HCl 100 mg PO SUTUTHSA #0 03/15/15 [History] Sertraline [Zoloft] 75 mg PO QPM 02/03/16 [History] Sevelamer [Renvela] 2,400 mg PO TIDWM 02/03/16 [History] Isosorbide MONOnitrate [Isosorbide Mononitrate ER] 120 mg PO DAILY 02/06/16 [ History] Nitroglycerin [Nitrostat] 0.4 mg SL Q5M PRN 02/06/16 [History] Polyethylene Glycol 3350 [MiraLAX] 17 gm PO DAILY 04/12/16 [History] Bisacodyl [Dulcolax] 10 mg RC HS PRN 09/24/16 [History] Docusate [Colace] 100 mg PO BID 09/24/16 [History] Magnesium Hydroxide [Milk of Magnesia] 2,400 mg PO DAILY PRN 09/24/16 [History] Allopurinol [Zyloprim 100 MG] 100 mg PO QAM 12/21/17 [History] Atorvastatin [Lipitor] 80 mg PO HS 12/21/17 [History] Ergocalciferol (VITAMIN D2) [Drisdol] 50,000 unit PO QWEEK 12/21/17 [History] Famotidine [Acid Wool [employer] Flanger] 10 mg PO QAM 12/21/17 [History] Furosemide [Lasix] 40 mg PO TUTHSA 12/21/17 [History] Glucagon,Human Recombinant [Glucagen] 1 mg IJ ONCE PRN 12/21/17 [History] Insulin ASPART [Novolog Flexpen] 5 units SQ TIDWM 12/21/17 [History] Insulin DETEMIR [Levemir Flextouch] 10 units SQ HS 12/21/17 [History] Lisinopril [Zestril] 10 mg PO SUTUTHSA 12/21/17 [History] Loratadine [Claritin] 10 mg PO DAILY 12/21/17 [History] Metoclopramide HCl 5 mg PO TIDWM 12/21/17 [History] Metoprolol [Lopressor] 50 mg PO SUTUTHSA 12/21/17 [History] Multivitamin with Minerals [One-A-Day Maximum Formula] 1 tab PO DAILY 12/21/17 [ History] Ondansetron HCl [Zofran] 4 mg PO Q8HR PRN 12/21/17 [History] Pregabalin [Lyrica] 50 mg PO TID 12/21/17 [History] Ranolazine [Ranexa] 500 mg PO BID 12/21/17 [History] Terazosin [Hytrin] 5 mg PO QPM 12/21/17 [History] Aspirin Enteric Coated [Aspirin EC] 325 mg PO DAILY tablet. 12/25/17 [Rx] ALPRAZolam [Xanax 1 MG Tablet] 1 mg PO MOWEFR PRN 7 Days #5 tablet 12/31/17 [Rx] FentaNYL PATCH [Duragesic] 100 mcg TD Q72H 7 Days #2 patch.td72 12/31/17 [Rx] OxyCODONE Immed Rel [Roxicodone 10 MG] 10 mg PO Q4H 5 Days #20 tablet 12/31/17 [ Rx] Allergies/Adverse Reactions: 3 Allergy/AdvReac Type Severity Reaction Status Date / Time morphine Allergy Hallucinati Verified 07/06/16 10:27 ng Date of admission: 12/26/17 14:31 Primary care physician: Morales Fishcer MD Consults: 12/26/17 15:25 Consult to Nutrition [CONS] Routine Comment: Consulting Provider: NUTRITION Reason for Dietary Consult: MST Score 12/26/17 18:30 Consult to Dialysis [CONS] ONCE 12/27/17 10:41 Consult to Bench Carpenter [CONS] Routine Reason for SW Consult: return to [facility] 12/28/17 09:30 Consult to Dialysis [CONS] ONCE 12/29/17 09:30 Consult to Dialysis [CONS] ONCE 12/29/17 23:03 Consult to Wound Care [CONS] Routine Reason for Consult: artierial bilateral leg woungs Call Completed: No 12/30/17 05:15 Consult to Dialysis [CONS] ONCE Discharging clinician: Tay Landeros Anticipated date of discharge: 12/31/17 - Constitutional Vitals: Temp Pulse Resp BP Pulse Ox 97.7 F 61 16 144/69 98 12/31/17 06:58 12/31/17 06:58 12/31/17 06:58 12/31/17 06:58 12/31/17 08:38 General appearance: Present: A&O X 3, no acute distress - Head Head exam: Present: atraumatic, normocephalic - Eye Eye exam: Present: PERRL, conjuntiva pink, sclera anicteric Pupils: Present: PERRL - Neck Neck exam general surgery: Present: supple, trachea midline. Absent: lymphadenopathy - Respiratory Respiratory exam: Present: CTAB. Absent: accessory muscle use, rales, rhonchi, wheezes - Cardiovascular Cardiovascular exam: Present: RRR, +S1, +S2. Absent: diastolic murmur, gallop, rubs, systolic murmur - GI/Abdominal GI/Abdominal exam: Present: normal bowel sounds, soft, no peritoneal signs. Absent: distended, tenderness - Extremities Exam Extremities exam: Present: warm, radial pulses palpable and symmetrical. Absent : calf tenderness, cyanotic, pedal edema Additional comments: Both legs in carlos wraps - Neurological Exam Neurological exam: Present: alert, CN II-XII intact, oriented X3, no focal deficits. Absent: pronater drift, facial droop, speech deficit - Patient Status Disposition: Transfer SNF Condition: Good Functional capacity at discharge: wheelchair bound - Discharge Instructions Instructions: Anemia (GEN) Follow Up With: NONE,PCP [Non-Partnered Physician] - (patient is from [facility]) - Diet and Activity Activity: resume usual activities as tolerated Diet: diabetic diet, low fat, low cholesterol, low salt diet, other (renal diet)
[2017-12-31 11:47] VITALS: BP 95/49
--- NOTE | 2017-12-31 11:52 | Physician Discharge Referral ---
ExtendedCare Referral Info Transfer To: [facility] Provider in Charge after Transfer: PCP Institutional Level of Care: Skilled - Diagnosis (1) HTN (hypertension) Priority: Secondary Status: Chronic (2) CAD (coronary artery disease) Priority: Secondary Status: Chronic (3) DVT prophylaxis Priority: Primary Status: Acute (4) GI bleed Priority: Primary Status: Resolved (5) ESRD (end stage renal disease) on dialysis Priority: Secondary Status: Chronic (6) Acute encephalopathy Priority: Primary Status: Resolved (7) Acute blood loss anemia Priority: Primary Status: Resolved - Transfer Medications Prescriptions: ALPRAZolam [Xanax 1 MG Tablet] 1 mg PO MOWEFR PRN 7 Days #5 tablet PRN Reason: Before Dialysis FentaNYL PATCH [Duragesic] 100 mcg TD Q72H 7 Days #2 patch.td72 OxyCODONE Immed Rel [Roxicodone 10 MG] 10 mg PO Q4H 5 Days #20 tablet Home Medications: Clopidogrel [Plavix] 75 mg PO QAM #0 03/15/15 [History] Hydralazine HCl 100 mg PO SUTUTHSA #0 03/15/15 [History] Sertraline [Zoloft] 75 mg PO QPM 02/03/16 [History] Sevelamer [Renvela] 2,400 mg PO TIDWM 02/03/16 [History] Isosorbide MONOnitrate [Isosorbide Mononitrate ER] 120 mg PO DAILY 02/06/16 [ History] Nitroglycerin [Nitrostat] 0.4 mg SL Q5M PRN 02/06/16 [History] Polyethylene Glycol 3350 [MiraLAX] 17 gm PO DAILY 04/12/16 [History] Bisacodyl [Dulcolax] 10 mg RC HS PRN 09/24/16 [History] Docusate [Colace] 100 mg PO BID 09/24/16 [History] Magnesium Hydroxide [Milk of Magnesia] 2,400 mg PO DAILY PRN 09/24/16 [History] Allopurinol [Zyloprim 100 MG] 100 mg PO QAM 12/21/17 [History] Atorvastatin [Lipitor] 80 mg PO HS 12/21/17 [History] Ergocalciferol (VITAMIN D2) [Drisdol] 50,000 unit PO QWEEK 12/21/17 [History] Famotidine [Acid Strategic Planner] 10 mg PO QAM 12/21/17 [History] Furosemide [Lasix] 40 mg PO TUTHSA 12/21/17 [History] Glucagon,Human Recombinant [Glucagen] 1 mg IJ ONCE PRN 12/21/17 [History] Insulin ASPART [Novolog Flexpen] 5 units SQ TIDWM 12/21/17 [History] Insulin DETEMIR [Levemir Flextouch] 10 units SQ HS 12/21/17 [History] Lisinopril [Zestril] 10 mg PO SUTUTHSA 12/21/17 [History] Loratadine [Claritin] 10 mg PO DAILY 12/21/17 [History] Metoclopramide HCl 5 mg PO TIDWM 12/21/17 [History] Metoprolol [Lopressor] 50 mg PO SUTUTHSA 12/21/17 [History] Multivitamin with Minerals [One-A-Day Maximum Formula] 1 tab PO DAILY 12/21/17 [ History] Ondansetron HCl [Zofran] 4 mg PO Q8HR PRN 12/21/17 [History] Pregabalin [Lyrica] 50 mg PO TID 12/21/17 [History] Ranolazine [Ranexa] 500 mg PO BID 12/21/17 [History] Terazosin [Hytrin] 5 mg PO QPM 12/21/17 [History] Aspirin Enteric Coated [Aspirin EC] 325 mg PO DAILY tablet. 12/25/17 [Rx] ALPRAZolam [Xanax 1 MG Tablet] 1 mg PO MOWEFR PRN 7 Days #5 tablet 12/31/17 [Rx] FentaNYL PATCH [Duragesic] 100 mcg TD Q72H 7 Days #2 patch.td72 12/31/17 [Rx] OxyCODONE Immed Rel [Roxicodone 10 MG] 10 mg PO Q4H 5 Days #20 tablet 12/31/17 [ Rx] Allergies/Adverse Reactions: 3 Allergy/AdvReac Type Severity Reaction Status Date / Time morphine Allergy Hallucinati Verified 07/06/16 10:27 ng - Respiratory Orders Oxygen / L per min Smoking Cessation: Smoking cessation has been advised. For more information, call the [place] Tobacco Quit Line at 4-845-SNIE-NOW. - Advance Directives Code Status: Full Code - Diet Orders No Concentrated Sweets, Renal, Cardiac CERTIFICATION: I certify that the transfer of the above named patient to an Extended Care Facility is necessary for the continuing treatment of the diagnosis listed. The above information is true and accurate reflection of patient's current condition. Confidential - Redisclosure prohibited without a patient's written consent.
== END 2017-12-31 13:18 | DRG 377 ==
LOC: 2ANU 11:14 → EMEROO 11:14 → SUATTDRO 14:31 → 2ANU 14:32
PROVIDERS: ADMIT Hospitalist; ATTEND Internal Medicine

== ENCOUNTER 2018-01-13 10:31 | Inpatient (IN) ==
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
[2018-01-13 11:04] LABS: Basophils % 0.3 %; Eosinophils % 0.4 %; Hematocrit 33.9 % (37.5-50.1); Hemoglobin 10.6 g/dL (12.9-16.9); Immature Granulocytes % 0.1 % (0-4); Lymphocytes # 0.7 K/mcL (0.6-4.6); Lymphocytes % 10.2 %; Mean Corpuscular HGB Conc 31.3 g/dL (31.6-35.5); Mean Corpuscular Hemoglobin 30.5 pg (28.0-33.3); Mean Corpuscular Volume 97.7 fL (83.0-100.0); Mean Platelet Volume 9.5 fL (9.4-12.4); Monocytes % 14.2 %; Neutrophils # 5.4 K/mcL (1.6-8.9); Platelet Count 221 K/mcL (140-400); Red Blood Count 3.47 M/mcL (4.19-5.50); Red Cell Distribution Width 14.8 % (11.5-14.5); Segmented Neutrophils % 74.8 %
[2018-01-13 11:12] LABS: INR 1.2; Prothrombin Time 12.6 Seconds (9.4-12.1)
[2018-01-13 11:28] LABS: Alanine Aminotransferase 13 Units/L (7-52); Albumin 3.2 g/dL (3.5-5.7); Albumin/Globulin Ratio 0.8 (1.1-2.2); Alkaline Phosphatase 160 Units/L (34-104); Aspartate Amino Transferase 22 Units/L (13-39); BUN/Creatinine Ratio 12 (6-26); Bilirubin,Direct 0.2 mg/dL (0.0-0.2); Bilirubin,Indirect 0.4 mg/dL (0.0-1.2); Bilirubin,Total 0.6 mg/dL (0.3-1.0); Blood Urea Nitrogen 40 mg/dL (8-23); Calcium 8.6 mg/dL (8.6-10.3); Carbon Dioxide 28 mEq/L (23-29); Chloride 95 mEq/L (98-107); Ethanol < 10 mg/dL (Less than 10); Globulin 4.1 g/dL (2.4-3.5); Glucose 181 mg/dL (70-105); Osmolality,Calculated 294 (280-300); Potassium 3.5 mEq/L (3.5-5.1); Sodium 135 mEq/L (136-145); Total Protein 7.3 g/dL (6.4-8.9); eGFR For African Americans 22 (> 60); eGFR For Non-African Americans 18 (> 60)
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
[2018-01-13 12:44] LABS: Bilirubin,Urine Small (Negative); Blood,Urine Large (Negative); Clarity,Urine Turbid (Clear); Color,Urine Brown (Yellow); Glucose,Urine (UA) Normal (Normal); Ketones,Urine Negative (Negative); Leukocyte Esterase,Urine Large (Negative); Nitrite,Urine Positive (Negative); PH,Urine 8.5 pH Units (5.0-8.0); Protein,Urine >=300 mg/dL (Neg-Trace); Urobilinogen,Urine Normal (Normal)
[2018-01-13 12:52] LABS: RBC,Urine TNTC per hpf (0-3); WBC,Urine TNTC per hpf (0-3)
[2018-01-13 12:53] LABS: Bacteria,Urine Many per hpf (None-Few); Squamous Epithelial Cell,Urine Present per lpf (None-Few)
[2018-01-13] MEDS ORDERED: cefTRIAXone 1,000 MG in Water for inj. (sterile) 20 ML 10 ML IVP ONE (13:01)
[2018-01-13] MEDS ORDERED: Acetaminophen 325 MG TABLET PO PRN (14:30)
[2018-01-13] MEDS ORDERED: Naloxone 0.4 MG/ML INJ IVP PRN (14:30)
[2018-01-13] MEDS ORDERED: Bisacodyl 10 MG RECTAL SUPPOSITORY RC PRN (14:37)
[2018-01-13] MEDS ORDERED: Nitroglycerin 0.4 MG TAB.SUBL SL PRN (14:37)
[2018-01-13] MEDS ORDERED: ALPRAZolam 1 MG TABLET PO PRN (14:37)
[2018-01-13] MEDS ORDERED: MOM Conc 10 ML UD.LIQ PO PRN (14:37)
[2018-01-13] MEDS ORDERED: Ondansetron 4 MG/2 ML VIAL IVP PRN (14:43)
[2018-01-13] MEDS ORDERED: Pantoprazole 40 MG VIAL IVP SCH (14:45)
[2018-01-13] MEDS ORDERED: *HR* OxyCODONE Immed Rel 5 MG TABLET PO SCH (14:45)
[2018-01-13] MEDS ORDERED: *HR* FentaNYL PATCH 100 MCG PATCH TD SCH (14:45)
--- NOTE | 2018-01-13 14:52 | Nephrology Consult Note ---
Date of Encounter: 01/13/18 Time of Encounter: 14:50 Assessment and Plan (1) End stage renal disease Current Visit: No Status: Acute HD MWF at [facility]. Avoid nephrotxins and renal dose all medications. Renal Binders. Renal Diet. (2) Altered mental status Current Visit: Yes Status: Acute Dementia at baseline, possible related to UTI. Qualifiers: Altered mental status type: unspecified Qualified Code(s): R41.82 - Altered mental status, unspecified (3) UTI (urinary tract infection) Current Visit: Yes Status: Acute Per primary team. Qualifiers: Urinary tract infection type: acute cystitis Hematuria presence: with hematuria Qualified Code(s): N30.01 - Acute cystitis with hematuria History of Present Illness - Reason for Consult Consult date: 01/13/18 end stage renal disease - Chief Complaint rib pain - History of Present Illness Mr. Kenny is an 82 year old male well known to the practice. He is MWF at [facility]. He did receive 147 minutes of HD today but starting complaining of bilateral rib pain. Patient is a poor historian and confused much of the time. PMH: arthritis, cancer, CHF, coronary artery disease, diabetes, dialysis, GERD, hyperlipidemia, hypertension. Has had many recent admissions, most recently for a GI bleed. Resides in an ECF. Will not do any more HD today, will do a short treatment tomorrow if pain subsides and testing is complete. Denies fever/chills, nausea/vomiting. Will continue to follow up this hospital stay. Past Med Surg Social Fam HX - Past Medical History Medical history: arthritis, cancer, CHF, coronary artery disease, diabetes, dialysis, GERD, hyperlipidemia, hypertension, kidney stones, renal disease, other Additional medical history: prostate cancer Psychiatric history: anxiety - Past Surgical History Surgical History: cataract, cholecystectomy, knee replacement, pacemaker/AICD, other Additional surgical history: bilateral knee replacement, kidney stones, gastritis, left hand surgery, heart cath. - Social History Smoking Status: Never smoker Smokeless Tobacco Status: No Alcohol use: none Drug use: none - Family History Father Living Status: Hx Family Cardiac Disorders: Yes Mother Adopted: No Living Status: Hx Family Cardiac Disorders: Yes Hx Family Respiratory Disorders: No Hx Family Cancer: No Hx Family GI Disorders: No Hx Family Endocrine Disorder: No Hx Family Neuromuscular Disorders: No Hx Family Neurologic Disorders: No Hx Family HEENT Disorders: No Hx Family Autoimmune Disorders: No Medications and Allergies Clopidogrel [Plavix] 75 mg PO QAM #0 03/15/15 [History] Hydralazine HCl 100 mg PO SUTUTHSA #0 03/15/15 [History] Sertraline [Zoloft] 75 mg PO QPM 02/03/16 [History] Sevelamer [Renvela] 2,400 mg PO TIDWM 02/03/16 [History] Isosorbide MONOnitrate [Isosorbide Mononitrate ER] 120 mg PO DAILY 02/06/16 [ History] Nitroglycerin [Nitrostat] 0.4 mg SL Q5M PRN 02/06/16 [History] Polyethylene Glycol 3350 [MiraLAX] 17 gm PO DAILY 04/12/16 [History] Bisacodyl [Dulcolax] 10 mg RC HS PRN 09/24/16 [History] Docusate [Colace] 100 mg PO BID 09/24/16 [History] Magnesium Hydroxide [Milk of Magnesia] 2,400 mg PO DAILY PRN 09/24/16 [History] Allopurinol [Zyloprim 100 MG] 100 mg PO QAM 12/21/17 [History] Atorvastatin [Lipitor] 80 mg PO HS 12/21/17 [History] Ergocalciferol (VITAMIN D2) [Drisdol] 50,000 unit PO QWEEK 12/21/17 [History] Famotidine [Acid Health Care Recruiter] 10 mg PO QAM 12/21/17 [History] Furosemide [Lasix] 40 mg PO TUTHSA 12/21/17 [History] Glucagon,Human Recombinant [Glucagen] 1 mg IJ ONCE PRN 12/21/17 [History] Insulin ASPART [Novolog Flexpen] 5 units SQ TIDWM 12/21/17 [History] Insulin DETEMIR [Levemir Flextouch] 10 units SQ HS 12/21/17 [History] Lisinopril [Zestril] 10 mg PO SUTUTHSA 12/21/17 [History] Loratadine [Claritin] 10 mg PO DAILY 12/21/17 [History] Metoclopramide HCl 5 mg PO TIDWM 12/21/17 [History] Metoprolol [Lopressor] 50 mg PO SUTUTHSA 12/21/17 [History] Multivitamin with Minerals [One-A-Day Maximum Formula] 1 tab PO DAILY 12/21/17 [ History] Ondansetron HCl [Zofran] 4 mg PO Q8HR PRN 12/21/17 [History] Pregabalin [Lyrica] 50 mg PO TID 12/21/17 [History] Ranolazine [Ranexa] 500 mg PO BID 12/21/17 [History] Terazosin [Hytrin] 5 mg PO QPM 12/21/17 [History] Aspirin Enteric Coated [Aspirin EC] 325 mg PO DAILY tablet. 12/25/17 [Rx] ALPRAZolam [Xanax 1 MG Tablet] 1 mg PO MOWEFR PRN 7 Days #5 tablet 12/31/17 [Rx] FentaNYL PATCH [Duragesic] 100 mcg TD Q72H 7 Days #2 patch.td72 12/31/17 [Rx] OxyCODONE Immed Rel [Roxicodone 10 MG] 10 mg PO Q4H 5 Days #20 tablet 12/31/17 [ Rx] 3 Allergy/AdvReac Type Severity Reaction Status Date / Time morphine Allergy Hallucinati Verified 07/06/16 10:27 ng Review of Systems ROS unobtainable: due to mental status Exam - Vital Signs Vital signs: Initial Vital Signs Temp Pulse Resp BP Pulse Ox 98.3 F 80 18 124/54 96 01/13/18 10:36 01/13/18 10:36 01/13/18 10:36 01/13/18 10:36 01/13/18 10:36 Vital Signs - Last 8 Hours Temp Resp BP 01/13/18 14:24 98 F 18 130/61 Intake and Output 01/12/18 01/13/18 01/13/18 23:59 07:59 15:59 Intake Total Balance Intake: IV Fluids Rocephin 1,000 MG In Water for inj. (sterile) 10 ML @ 600 mls/ hr IVP ONCE ONE Rx#:[id number] - General Appearance General appearance: chronically ill, frail EENT: ATNC, hearing intact, vision intact Neck: supple Respiratory: clear Cardiology: edema (Bilateral +1 pitting edema.), normal S1, normal S2 - Dialysis Access Dialysis Vascular Access: Arteriovenous Fistula thrill: Yes bruit: Yes Gastrointestinal: normoactive bowel sounds, no tenderness, no guarding Integumentary: no rash, warm and dry Neurologic: confused Psychiatric: mood/affect appropriate, cooperative Results - Lab Results 01/13/18 10:45 01/13/18 10:45 Most recent lab results Calcium 8.6 mg/dL (8.6-10.3) 01/13/18 10:45 Consult Discharge Plan - Plan Referrals: Morales Fischer MD [Primary Care Provider] -
[2018-01-13 15:00] LABS: Amphetamine Screen,Urine Negative ng/mL (Cutoff=1000); Barbiturate Screen,Urine Negative ng/mL (Cutoff=200); Benzodiazepines Screen,Urine Negative ng/mL (Cutoff=200); Cannabinoid Screen,Urine Negative ng/mL (Cutoff = 50); Cocaine Screen,Urine Negative ng/mL (Cutoff= 300); Opiate Screen,Urine Negative ng/mL (Cutoff=300); Phencyclidine Screen,Urine Negative ng/mL (Cutoff=25)
--- NOTE | 2018-01-13 15:58 | Internal Med History&Physical ---
<Jv Slater - Last Filed: 01/13/18 19:10> Date of Encounter: 01/13/18 Time of Encounter: 14:00 Internal Medicine - H&P: HPI Chief complaint: AMS/Hallucinations Admitted From: Emergency Dept Plans for Post Hospital Care: Home History of present illness: Mr. Kenny is a 82 year old male w/PMH of arthritis, CHF, COPD, diabetes, ESRD on dialysis, GERD, HLD, HTN, and history of kidney stones presents from the ED w/ CC of AMS and hallucinations today during dialysis. Pt. complains of bilateral flank pain and lower rib pain. Denies falls or trauma. Pt. stated that he did not receive dialysis today, however spoke w/Dr. Lay @ pt. who reported that pt. did receive partial dialysis. Pt. mildly confused and not good historian. Pt. reports chronic constipation and urinary sx but denies recent illness, fever, chills, nausea, vomiting, changes in vision, unusual bleeding, headache, cough, congestion, abdominal pain, diarrhea, dizziness, lightheadedness, numbness, tingling, pre-syncope, or syncope. Past Med Surg Social Fam HX - Past Medical History Source: patient, old records reviewed Medical history: arthritis, cancer, CHF, coronary artery disease, diabetes, dialysis, GERD, hyperlipidemia, hypertension, kidney stones, renal disease, other Additional medical history: prostate cancer Psychiatric history: anxiety - Past Surgical History Surgical History: cataract, cholecystectomy, knee replacement, pacemaker/AICD, other Additional surgical history: bilateral knee replacement, kidney stones, gastritis, left hand surgery, heart cath. - Social History Smoking Status: Never smoker Smokeless Tobacco Status: No Alcohol use: none Drug use: none Activity Level: Wheelchair bound Recent Out of Country Travel Within the Last 8 Weeks: No Exposure or Possible Exposure to Illness During Travel: No - Family History Father Race: Family Member Ethnicity: Non- Living Status: Age at : 65 Cause of : ID Hx Family Cardiac Disorders: Yes (ID) Mother Adopted: No Race: Family Member Ethnicity: Non- Living Status: Age at : 62 Cause of : CAD Hx Family Cardiac Disorders: Yes (CAD) Brother Race: Family Member Ethnicity: Non- Living Status: Still Living Hx Family Medical Disorders: No Sister Race: Family Member Ethnicity: Non- Living Status: Still Living Hx Family Medical Disorders: No Internal Medicine - H&P: Meds Clopidogrel [Plavix] 75 mg PO QAM #0 03/15/15 [History] Hydralazine HCl 100 mg PO SUTUTHSA #0 03/15/15 [History] Sertraline [Zoloft] 75 mg PO QPM 02/03/16 [History] Sevelamer [Renvela] 2,400 mg PO TIDWM 02/03/16 [History] Isosorbide MONOnitrate [Isosorbide Mononitrate ER] 120 mg PO DAILY 02/06/16 [ History] Nitroglycerin [Nitrostat] 0.4 mg SL Q5M PRN 02/06/16 [History] Polyethylene Glycol 3350 [MiraLAX] 17 gm PO DAILY 04/12/16 [History] Bisacodyl [Dulcolax] 10 mg RC HS PRN 09/24/16 [History] Docusate [Colace] 100 mg PO BID 09/24/16 [History] Magnesium Hydroxide [Milk of Magnesia] 2,400 mg PO DAILY PRN 09/24/16 [History] Allopurinol [Zyloprim 100 MG] 100 mg PO QAM 12/21/17 [History] Atorvastatin [Lipitor] 80 mg PO HS 12/21/17 [History] Ergocalciferol (VITAMIN D2) [Drisdol] 50,000 unit PO QWEEK 12/21/17 [History] Famotidine [Acid Crew Leader Gluing] 10 mg PO QAM 12/21/17 [History] Furosemide [Lasix] 40 mg PO TUTHSA 12/21/17 [History] Glucagon,Human Recombinant [Glucagen] 1 mg IJ ONCE PRN 12/21/17 [History] Insulin ASPART [Novolog Flexpen] 5 units SQ TIDWM 12/21/17 [History] Insulin DETEMIR [Levemir Flextouch] 10 units SQ HS 12/21/17 [History] Lisinopril [Zestril] 10 mg PO SUTUTHSA 12/21/17 [History] Loratadine [Claritin] 10 mg PO DAILY 12/21/17 [History] Metoclopramide HCl 5 mg PO TIDWM 12/21/17 [History] Metoprolol [Lopressor] 50 mg PO SUTUTHSA 12/21/17 [History] Multivitamin with Minerals [One-A-Day Maximum Formula] 1 tab PO DAILY 12/21/17 [ History] Ondansetron HCl [Zofran] 4 mg PO Q8HR PRN 12/21/17 [History] Pregabalin [Lyrica] 50 mg PO TID 12/21/17 [History] Ranolazine [Ranexa] 500 mg PO BID 12/21/17 [History] Terazosin [Hytrin] 5 mg PO QPM 12/21/17 [History] Aspirin Enteric Coated [Aspirin EC] 325 mg PO DAILY tablet. 12/25/17 [Rx] ALPRAZolam [Xanax 1 MG Tablet] 1 mg PO MOWEFR PRN 7 Days #5 tablet 12/31/17 [Rx] FentaNYL PATCH [Duragesic] 100 mcg TD Q72H 7 Days #2 patch.td72 12/31/17 [Rx] OxyCODONE Immed Rel [Roxicodone 10 MG] 10 mg PO Q4H 5 Days #20 tablet 12/31/17 [ Rx] 3 Allergy/AdvReac Type Severity Reaction Status Date / Time morphine Allergy Hallucinati Verified 07/06/16 10:27 ng All Systems PM: A 10-system review of systems was performed and is negative for pertinent findings except as documented above in the HPI. - Constitutional Constitutional: as per HPI, no chills, no fever(s), no night sweats - EENT Eyes: no change in vision, no discharge, no pain, no photophobia Ears: no ear discharge, no ear pain, no tinnitus Nose, mouth and throat: no dysphagia, no nasal discharge, no neck pain, no sore throat - Breasts Breasts: as per HPI - Cardiovascular Cardiovascular ROS IM: no chest pain, no diaphoresis, no dyspnea, no lightheadedness, no palpitations, no syncope - Respiratory Respiratory: no cough, no dyspnea, no wheezing, no excessive phlegm production - Gastrointestinal Gastrointestinal: as per HPI, constipation (Chronic), no abdominal pain, no diarrhea, no hematemesis, no hematochezia, no melena, no nausea, no vomiting - Genitourinary Genitourinary ROS male: as per HPI, difficulty urinating, flank pain (Bilateral) , urinary frequency, urinary urgency - Musculoskeletal Musculoskeletal ROS IM: no numbness, no tingling - Integumentary Integumentary IM: no rash, no unusual bruising - Neurological Neurological ROS: as per HPI, behavioral changes, confusion, no convulsions, no focal weakness, no numbness, no tingling, no tremor(s) - Psychiatric Psychiatric: as per HPI, anxiety, behavioral changes, confusion, hallucinations - Endocrine Endocrine IM: as per HPI - Hematologic/Lymphatic Hematologic/Lymphatic: no easy bruising - Allergic/Immunologic Allergic/Immunologic: as per HPI - Constitutional Vitals: Temp Pulse Resp BP Pulse Ox 98 F 68 18 130/61 99 01/13/18 14:24 01/13/18 12:58 01/13/18 14:24 01/13/18 14:24 01/13/18 12:58 General appearance: Present: cooperative, A&O X 1, no acute distress, obese, answers questions appropriately (w/several attempts. ) - Head Head exam: Present: atraumatic, normocephalic - Eye Eye exam: Present: PERRL, conjuntiva pink, sclera anicteric Pupils: Present: PERRL - ENT ENT exam: Present: normal exam - Neck Neck exam general surgery: Present: supple, trachea midline. Absent: lymphadenopathy - Respiratory Respiratory exam: Present: CTAB. Absent: accessory muscle use, rales, rhonchi, wheezes - Cardiovascular Cardiovascular exam: Present: irregular rhythm (Electronic ventricular pacemaker ) - GI/Abdominal GI/Abdominal exam: Present: normal bowel sounds, soft, no peritoneal signs. Absent: distended, tenderness - Rectal Rectal exam: Present: deferred - Additional comments: exam deferred. - Extremities Exam Extremities exam: Present: pedal edema, warm, radial pulses palpable and symmetrical. Absent: calf tenderness, cyanotic - Back Exam Back exam: Present: normal inspection - Neurological Exam Neurological exam: Present: altered - Psychiatric Psychiatric exam: Present: anxious - Skin Skin exam: Present: dry, intact Internal Med - H&P Results - Labs CBC & Chem 7: 01/13/18 10:45 01/13/18 10:45 - EKG Data Prior EKG available for review: yes EKG comments: 01/13/18 16:04 EKG dated shows uncertain irregular rhythm, electronic ventricular pacemaker. Contour analysis based on intrinsic rhythm. RBBB, left posterior fascicular block, and marked ST depression. Consider subendocardial injury. EKG dated 01/13/18 shows electronic ventricular pacemaker. - Diagnostic Studies Chest x-ray Additional comments: Impressions Chest X-Ray 01/13/18 10:34 IMPRESSION: 1. Mild central congestion without overt pulmonary edema. 2. Stable mild enlargement of the cardiac silhouette. D/ / Ho Disla MD / oH Disla MD Interpreting Provider: Ho Disla MD CT scan - head Additional comments: Impressions Head CT 01/13/18 10:37 IMPRESSION: 1. No acute intracranial abnormality. 2. Mild chronic small vessel ischemic changes. 3. Severe atherosclerosis. D/ / Bereket Bennett MD / Bereket Bennett MD Interpreting Provider: Bereket Bennett MD - Assessment and plan (1) UTI (urinary tract infection) Current Visit: Yes Status: Acute Assessment and plan: Acute UTI from U/A on admission. Pt. reports urinary frequency and urgency. Denies fever, chills, nausea, vomiting. WBC 7.2 on admission. Pt. afebrile and asymptomatic for infection. Does not currently meet sepsis criteria but will be monitored closely. Monitor I&O and daily weight. Will use IV fluids judiciously d/t pts. ESRD on dialysis status. IVPB Rocephin administered in ED and will be continued @ 2,000 mg IVPB daily for infection coverage. Pt. and f/u labs to be monitored. Pt. discussed w/Dr. Bai who agrees w/plan of care. Pt. is moderate risk for further morbidity and infection d/t current sx, AMS, hx of renal dysfunction and reduced clearance d/t ESRD on dialysis, hx, and risk factors. Inpatient. Qualifiers: Urinary tract infection type: acute cystitis Hematuria presence: with hematuria Qualified Code(s): N30.01 - Acute cystitis with hematuria (2) Altered mental status Current Visit: Yes Status: Acute Assessment and plan: Acute AMS and hallucinations likely d/t current UTI. Pt. resident of [facility] and sent to ED from dialysis d/t AMS. Sitter ordered. Falls/safety precautions, up with assist, bed rest w/bathroom privileges w/assist only. Dysphagia screen ordered. On exam, pt. found to have three Fentanyl patches w/ administration dates of January 01, January 04, and January 13. Patches removed. Discussed this situation w/pts. son at bedside along w/plan to hold pts. Fentanyl patch order (Q72HR) to assess for improvement in mentation. Son expressed understanding and agreed w/plan of care. Pt. to be monitored closely. Qualifiers: Altered mental status type: disorientation Qualified Code(s): R41.0 - Disorientation, unspecified (3) ESRD (end stage renal disease) on dialysis Current Visit: Yes Status: Chronic Assessment and plan: Hx of chronic ESRD on dialysis. Pt. reports he is dialyzed M/W/F. Pt. stated that he did not complete dialysis today. Nephrology consult ordered and discussed w/Dr. Lay who reports that pt. received partial dialysis. Pt. sees Dr. Jeronimo. Pt. to be seen and I appreciate the consult and recommendations. Will use IV fluids judiciously and avoid nephrotoxins. Renal dosing on medications. Will order renal diet when pt. passes dysphagia screen. Monitor I&O and daily weight. Continue Renvela. (4) HLD (hyperlipidemia) Current Visit: Yes Status: Chronic Assessment and plan: Hx of chronic HLD. Lipid panel in a.m. labs. Continue pts. Lipitor. Qualifiers: Hyperlipidemia type: pure hypercholesterolemia Qualified Code(s): E78.00 - Pure hypercholesterolemia, unspecified; E78.0 - Pure hypercholesterolemia (5) HTN (hypertension) Current Visit: Yes Status: Chronic Assessment and plan: Hx of chronic HTN. Monitor pt. and VS. Continue pts. Isosorbide, lisinopril, Hytrin, Hydralazine, and Lopressor. Qualifiers: Hypertension type: essential hypertension Qualified Code(s): I10 - Essential (primary) hypertension (6) CHF (congestive heart failure) Current Visit: Yes Status: Chronic Assessment and plan: Hx of chronic CHF. Stable. Will use IV fluids judiciously and monitor for fluid overload. Qualifiers: Heart failure type: unspecified Heart failure chronicity: chronic Qualified Code(s): I50.9 - Heart failure, unspecified (7) GERD (gastroesophageal reflux disease) Current Visit: Yes Status: Chronic Assessment and plan: Hx of chronic GERD. IVP Zofran 4 mg every 6 hours when necessary for nausea and vomiting. IVP Protonix 40 mg daily. Continue pts. metoclopramide. Qualifiers: Esophagitis presence: esophagitis presence not specified Qualified Code(s) : K21.9 - Gastro-esophageal reflux disease without esophagitis (8) Anemia Current Visit: Yes Status: Chronic Assessment and plan: Hx of chronic anemia w/Hgb of 10.6 and Hct of 33.9 which is higher than pts. recent baseline. Monitor H/H in f/u labs. Iron profile ordered. Pt. denies unusual bleeding. Fecal hemoccult ordered. Qualifiers: Anemia type: unspecified type Qualified Code(s): D64.9 - Anemia, unspecified (9) History of pacemaker Current Visit: Yes Status: Chronic Assessment and plan: Hx of chronic Pacemaker. Continuous cardiac telemetry. (10) Type 2 diabetes mellitus Current Visit: Yes Status: Chronic Assessment and plan: Hx of chronic diabetes. BG checks ACHS. A1c in a.m. labs. Continue pts. insulin and add correction insulin w/hypoglycemic protocol. Qualifiers: Diabetes mellitus tester regulator insulin use: without longterm use Diabetes mellitus complication status: with kidney complications Diabetes mellitus complication detail: with chronic kidney disease Chronic kidney disease stage : on chronic dialysis Qualified Code(s): E11.22 - Type 2 diabetes mellitus with diabetic chronic kidney disease; N18.6 - End stage renal disease; Z99.2 - Dependence on renal dialysis (11) Anxiety Current Visit: Yes Status: Chronic Assessment and plan: Hx of chronic anxiety. Continue pts. Zoloft and Xanax. (12) CAD (coronary artery disease) Current Visit: Yes Status: Chronic Assessment and plan: Hx of chronic CAD. Continuous cardiac telemetry. Continue pts. Aspirin therapy , Lipitor, Plavix, hydralazine, isosorbide, lisinopril, Lopressor, Hytrin, and Ranexa. Qualifiers: Coronary Disease-Associated Artery/Lesion type: [place] artery [place] vs. transplanted heart: [place] heart Associated angina: angina presence unspecified Qualified Code(s): I25.10 - Atherosclerotic heart disease of [place] coronary artery without angina pectoris (13) DVT prophylaxis Current Visit: Yes Status: Acute Assessment and plan: Bilateral SCDs on LEs for DVT prophylaxis. - Time Spent With Patient Total time spent is greater than 50% in coordination of care (as documented) at patient's floor/unit and/or counseling patient: Greater than 35 minutes <Desire Bai - Last Filed: 01/14/18 00:20> Date of Encounter: 01/14/18 Internal Medicine - H&P: HPI History of present illness: Mr. Kenny is a 82 year old male All Systems PM: A 10-system review of systems was performed and is negative for pertinent findings except as documented above in the HPI. - Constitutional Vitals: Temp Pulse Resp BP Pulse Ox 97.9 F 60 18 101/61 94 01/13/18 19:50 01/13/18 19:50 01/13/18 19:50 01/13/18 19:50 01/13/18 19:50 Internal Med - H&P Results - Labs CBC & Chem 7: 01/13/18 10:45 01/13/18 10:45 - Attending Attestation I performed a history and physical exam of the patient and discussed his management with the FIELD OPERATIONS TECHNICIAN. I reviewed the FIELD OPERATIONS TECHNICIAN's note and agree with the documented findings and plan of care, except will also add continuos pulse ox monitoring. - Time Spent With Patient Total time spent is greater than 50% in coordination of care (as documented) at patient's floor/unit and/or counseling patient:
[2018-01-13] MEDS: Pregabalin 50 MG CAPSULE PO SCH ×2 (16:15→21:52)
[2018-01-13] MEDS ORDERED: D5% in Water 1,000 ML IVC PRN (16:18)
[2018-01-13] MEDS ORDERED: Dextrose Gel 15 GM/37.5 ML TUBE PO PRN ×2 (16:18)
[2018-01-13] MEDS ORDERED: *HR* Dextrose 50 % in Water (Syg) 50 ML SYRINGE IVP PRN (16:18)
[2018-01-13] MEDS: Insulin LISPRO 300 UNITS/3 ML VIAL SQ SCH (20:34)
[2018-01-13] MEDS: *HR* OxyCODONE Immed Rel 5 MG TABLET PO SCH (20:43)
--- NOTE | 2018-01-13 21:02 | Electrocardiograph Report ---
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
[2018-01-13] MEDS: Ranolazine 500 MG TAB.ER.12H PO SCH (21:52)
[2018-01-13] MEDS: Insulin DETEMIR 100 UNIT/ML X5UNITS SQ SCH (22:43)
[2018-01-14] MEDS: *HR* OxyCODONE Immed Rel 5 MG TABLET PO SCH ×2 (01:09→04:11)
[2018-01-14 04:31] LABS: Basophils % 0.3 %; Eosinophils # 0.1 K/mcL (0.0-0.6); Eosinophils % 1.5 %; Hematocrit 29.4 % (37.5-50.1); Hemoglobin 9.3 g/dL (12.9-16.9); Immature Granulocytes % 0.3 % (0-4); Lymphocytes # 1.1 K/mcL (0.6-4.6); Lymphocytes % 17.8 %; Mean Corpuscular HGB Conc 31.6 g/dL (31.6-35.5); Mean Corpuscular Hemoglobin 31.1 pg (28.0-33.3); Mean Corpuscular Volume 98.3 fL (83.0-100.0); Mean Platelet Volume 10.1 fL (9.4-12.4); Monocytes # 0.8 K/mcL (0.0-1.3); Platelet Count 176 K/mcL (140-400); Red Blood Count 2.99 M/mcL (4.19-5.50); Red Cell Distribution Width 14.4 % (11.5-14.5); Segmented Neutrophils % 66.1 %
[2018-01-14 04:51] LABS: Albumin 2.8 g/dL (3.5-5.7); Albumin/Globulin Ratio 0.8 (1.1-2.2); Bilirubin,Total 0.5 mg/dL (0.3-1.0); Calcium 8.9 mg/dL (8.6-10.3); Chol/HDL Ratio 2.1 (0-4.9); Globulin 3.4 g/dL (2.4-3.5); Magnesium 1.8 mg/dL (1.6-2.6); Potassium 3.9 mEq/L (3.5-5.1); Total Protein 6.2 g/dL (6.4-8.9)
[2018-01-14 06:40] LABS: Estimated Average Glucose 82 mg/dl; Hemoglobin A1C 4.5 %
[2018-01-14] MEDS: Insulin LISPRO 300 UNITS/3 ML VIAL SQ SCH ×3 (07:42→17:02)
[2018-01-14] MEDS ORDERED: *HR* OxyCODONE Immed Rel 5 MG TABLET PO PRN (07:53)
[2018-01-14] MEDS ORDERED: cefTRIAXone 2,000 MG in Water for inj. (sterile) 20 ML 20 ML IVP SCH (09:00)
[2018-01-14] MEDS ORDERED: Famotidine 20 MG TABLET PO SCH (09:00)
[2018-01-14] MEDS: Isosorbide MONOnitrate (24 HR) 60 MG TAB.ER.24H PO SCH (09:29)
[2018-01-14] MEDS: Multivit/Ca/Min/Fe/FA 1 TAB TABLET PO SCH (09:30)
[2018-01-14] MEDS: Pregabalin 50 MG CAPSULE PO SCH ×3 (09:30→22:02)
[2018-01-14] MEDS: Ranolazine 500 MG TAB.ER.12H PO SCH ×2 (09:30→22:03)
[2018-01-14] MEDS: Aspirin Enteric Coated 325 MG Tablet PO SCH (09:32)
[2018-01-14] MEDS: Loratadine 10 MG TABLET PO SCH (09:32)
[2018-01-14] MEDS ORDERED: cefTRIAXone 1,000 MG in Water for inj. (sterile) 20 ML 10 ML IVP SCH (13:00)
[2018-01-14] MEDS: hydrALAZINE 25 MG TABLET PO SCH (14:45)
[2018-01-14] MEDS: Furosemide 40 MG TABLET PO SCH (14:45)
--- NOTE | 2018-01-14 16:07 | Internal Med Progress Note ---
Date of Encounter: 01/14/18 Time of Encounter: 16:05 - Assessment and plan (1) Acute cystitis Current Visit: Yes Status: Acute Assessment and plan: Acute UTI from U/A on admission. [place] administered in ED and will continue as is for now. Culture showing Proteus mirabilis. Awaiting culture and sensitivity. Once resulted will discharged pt on appropriate antibiotic. ESRD on dialysis status. Qualifiers: Qualified Code(s): N30.00 - Acute cystitis without hematuria (2) Pacemaker Current Visit: No Status: Chronic (3) Type 2 diabetes mellitus Current Visit: Yes Status: Chronic Assessment and plan: Hx of chronic diabetes. BG checks ACHS. A1c in a.m. labs. Continue pts. insulin and add correction insulin w/hypoglycemic protocol. Qualifiers: Diabetes mellitus termite treater insulin use: without termite treater use Diabetes mellitus complication status: with kidney complications Diabetes mellitus complication detail: with chronic kidney disease Chronic kidney disease stage : on chronic dialysis Qualified Code(s): E11.22 - Type 2 diabetes mellitus with diabetic chronic kidney disease; N18.6 - End stage renal disease; Z99.2 - Dependence on renal dialysis (4) Altered mental state Current Visit: No Status: Resolved Assessment and plan: Acute AMS and hallucinations multifactorial, Pt. resident of [facility] and sent to ED from dialysis d/t AMS. pt was found to have multiple fentanyl patches on. On exam, pt. found to have three Fentanyl patches w/administration dates of January 01, January 04, and January 13. Patches removed. Pt also noted to have UTI. Mentation has significantly improved. Pt alert and oriented x 3 today, 2017. Sitter ordered. Falls/safety precautions, up with assist, bed rest w/bathroom privileges w/assist only. Pt. to be monitored closely. Qualifiers: Qualified Code(s): R41.82 - Altered mental status, unspecified (5) ESRD (end stage renal disease) on dialysis Current Visit: No Status: Chronic Assessment and plan: Hx of chronic ESRD on dialysis. Pt. reports he is dialyzed M/W/F.Nephrology consulting. (6) Anemia Current Visit: No Status: Acute Assessment and plan: Chronic likely related to ESRD. Will monitor CBC. Will check Iron, ferritin, folate, and B 12 levels. Qualifiers: Qualified Code(s): D64.9 - Anemia, unspecified (7) HLD (hyperlipidemia) Current Visit: Yes Status: Chronic Assessment and plan: Atorvastatin Qualifiers: Hyperlipidemia type: pure hypercholesterolemia Qualified Code(s): E78.00 - Pure hypercholesterolemia, unspecified; E78.0 - Pure hypercholesterolemia (8) HTN (hypertension) Current Visit: Yes Status: Chronic Assessment and plan: Lisinopril, Imdur, Lopressor, and hydralazine. Qualifiers: Hypertension type: essential hypertension Qualified Code(s): I10 - Essential (primary) hypertension (9) CHF (congestive heart failure) Current Visit: Yes Status: Chronic Assessment and plan: Lasix and on dialysis Qualifiers: Heart failure type: unspecified Heart failure chronicity: chronic Qualified Code(s): I50.9 - Heart failure, unspecified (10) GERD (gastroesophageal reflux disease) Current Visit: Yes Status: Chronic Assessment and plan: Prevacid Qualifiers: Esophagitis presence: esophagitis presence not specified Qualified Code(s) : K21.9 - Gastro-esophageal reflux disease without esophagitis (11) CAD (coronary artery disease) Current Visit: Yes Status: Chronic Assessment and plan: ASA and statin Qualifiers: Coronary Disease-Associated Artery/Lesion type: [place] artery [place] vs. transplanted heart: [place] heart Associated angina: angina presence unspecified Qualified Code(s): I25.10 - Atherosclerotic heart disease of [place] coronary artery without angina pectoris - Time Spent With Patient Total time spent is greater than 50% in coordination of care (as documented) at patient's floor/unit and/or counseling patient: less than 15 minutes - Subjective Interval history: Mr. Kenny is a 82 year old male w/PMH of arthritis, CHF, COPD, diabetes, ESRD on dialysis, GERD, HLD, HTN, and history of kidney stones presents from the ED w/ CC of AMS and hallucinations today during dialysis. - Constitutional Vitals: Temp Pulse Resp BP Pulse Ox 98.6 F 69 17 120/65 95 01/14/18 12:00 01/14/18 12:00 01/14/18 12:00 01/14/18 12:01/14/18 12:00 General appearance: Present: cooperative, A&O X 3, no acute distress, obese, answers questions appropriately (w/several attempts. ). Absent: A&O X 1 - Head Head exam: Present: atraumatic, normocephalic - Eye Eye exam: Present: PERRL, conjuntiva pink, sclera anicteric Pupils: Present: PERRL - Neck Neck exam general surgery: Present: supple, trachea midline. Absent: lymphadenopathy - Respiratory Respiratory exam: Present: CTAB. Absent: accessory muscle use, rales, rhonchi, wheezes - Cardiovascular Cardiovascular exam: Present: RRR, +S1, +S2, systolic murmur. Absent: diastolic murmur, gallop, rubs - GI/Abdominal GI/Abdominal exam: Present: normal bowel sounds, soft, no peritoneal signs. Absent: distended, tenderness - Extremities Exam Extremities exam: Present: pedal edema, warm, radial pulses palpable and symmetrical. Absent: calf tenderness, cyanotic - Neurological Exam Neurological exam: Present: CN II-XII intact, oriented X3, no focal deficits. Absent: pronater drift, facial droop, speech deficit - Skin Skin exam: Present: dry, intact Internal Medicine: Result - Labs CBC & Chem 7: 01/14/18 03:34 01/14/18 03:34 Labs: Short CBC 01/14/18 Range/Units 03:34 WBC 6.0 (4.3-11.1) K/mcL Hgb 9.3 L (12.9-16.9) g/dL Hct 29.4 L (37.5-50.1) % Plt Count 176 (140-400) K/mcL Neutrophils # 4.0 (1.6-8.9) K/mcL BMP 01/14/18 03:34 Sodium 135 L Potassium 3.9 Chloride 97 L Carbon Dioxide 25 BUN 50 H Creatinine 4.23 H Glucose 88 Calcium 8.9 Liver Function 01/14/18 Range/Units 03:34 Total Bilirubin 0.5 (0.3-1.0) mg/dL AST 18 (13-39) Units/L ALT 10 (7-52) Units/L Alkaline Phosphatase 136 H (34-104) Units/L Albumin 2.8 L (3.5-5.7) g/dL - ABG Interpretation ABG results: PT/INR, D-dimer PT 12.6 Seconds (9.4-12.1) H 01/13/18 10:45 Consult Discharge Plan - Plan Referrals: Morales Fischer MD [Primary Care Provider] - (Patient will follow up with ECF PCP)
[2018-01-15] MEDS: Insulin DETEMIR 100 UNIT/ML X5UNITS SQ SCH ×2 (01:19→20:15)
[2018-01-15] MEDS ORDERED: 0.9 % Sodium Chloride 2,000 ML ONE (06:18)
[2018-01-15] MEDS ORDERED: 0.9 % Sodium Chloride 250 ML IVC PRN (06:55)
[2018-01-15 07:57] LABS: Basophils % 0.4 %; Eosinophils # 0.2 K/mcL (0.0-0.6); Eosinophils % 2.9 %; Hematocrit 31.8 % (37.5-50.1); Hemoglobin 9.7 g/dL (12.9-16.9); Immature Granulocytes % 0.6 % (0-4); Lymphocytes # 1.3 K/mcL (0.6-4.6); Lymphocytes % 25.2 %; Mean Corpuscular HGB Conc 30.5 g/dL (31.6-35.5); Mean Corpuscular Volume 98.5 fL (83.0-100.0); Monocytes # 0.7 K/mcL (0.0-1.3); Monocytes % 12.6 %; Platelet Count 164 K/mcL (140-400); Red Blood Count 3.23 M/mcL (4.19-5.50); Red Cell Distribution Width 14.2 % (11.5-14.5); Segmented Neutrophils % 58.3 %
[2018-01-15 08:21] LABS: Albumin 2.9 g/dL (3.5-5.7); Albumin/Globulin Ratio 0.8 (1.1-2.2); Bilirubin,Total 0.5 mg/dL (0.3-1.0); Calcium 8.7 mg/dL (8.6-10.3); Globulin 3.6 g/dL (2.4-3.5); Potassium 4.6 mEq/L (3.5-5.1); Total Protein 6.5 g/dL (6.4-8.9)
[2018-01-15 08:23] LABS: % Iron Saturation 22 % (20-55); Iron 39 mcg/dL (65-175); Transferrin 126 mg/dL (203-362)
[2018-01-15] MEDS: Pregabalin 50 MG CAPSULE PO SCH ×3 (08:24→20:00)
[2018-01-15] MEDS: Ranolazine 500 MG TAB.ER.12H PO SCH ×2 (08:24→19:59)
[2018-01-15] MEDS: Multivit/Ca/Min/Fe/FA 1 TAB TABLET PO SCH (08:24)
[2018-01-15] MEDS: Aspirin Enteric Coated 325 MG Tablet PO SCH (08:24)
[2018-01-15] MEDS: Loratadine 10 MG TABLET PO SCH (08:24)
[2018-01-15] MEDS: Insulin LISPRO 300 UNITS/3 ML VIAL SQ SCH ×3 (08:25→17:46)
[2018-01-15] MEDS ORDERED: Ertapenem 1,000 MG in 0.9 % Sodium Chloride Mini Bag 100 ML IVPB SCH (09:00)
[2018-01-15] MEDS ORDERED: *HR* Heparin 5,000 UNIT/ML VIAL ONE (09:44)
--- NOTE | 2018-01-15 09:45 | Nephrology Progress Note ---
Date of Encounter: 01/15/18 Time of Encounter: 09:20 - Assessment and Plan (1) ESRD (end stage renal disease) on dialysis Status: Chronic HD planned for today. Subjective Principal diagnosis: ESRD Interval history: Pt was s/e prior to starting HD today. He was in his 2A room, and did not affirm N/V/D. Objective - Vital Signs Vital signs: Vital Signs Temp Pulse Resp BP Pulse Ox 01/15/18 08:35 97 01/15/18 07:42 97.7 F 75 17 122/51 97 01/15/18 05:30 97.6 F 70 17 109/66 96 01/15/18 00:15 98 F 65 17 110/59 97 01/14/18 21:22 97.5 F L 58 18 92/47 100 01/14/18 16:13 98.2 F 59 17 99/55 100 01/14/18 12:00 98.6 F 69 17 120/65 95 Intake and Output 01/14/18 01/15/18 01/15/18 23:59 07:59 15:59 Intake Total 120 / 120 240 / 240 120 / 120 Balance 120 / 120 240 / 240 120 / 120 Intake: Oral 120 / 120 240 / 240 120 / 120 Other: Meal Dinner Breakfast Percent of Meal Consumed 50% 75% Stool Size Large Stool Consistency formed Stool Color Brown # Bowel Movements 1 Weight 84.141 kg Blood Glucose* 82 101 Patient Weight 01/15/18 23:59 Weight 84.141 kg - General Appearance General appearance: Present: well-developed, appears started age, fatigue, frail EENT: Present: ATNC, PERRL Neck: Present: supple Respiratory: Present: clear Cardiology: Present: edema (mild ankle edema b/l), normal S1, normal S2 Dialysis Vascular Access: Arteriovenous Fistula thrill: Yes bruit: Yes Gastrointestinal: Present: normoactive bowel sounds, no guarding Integumentary: Present: warm and dry Neurologic: Present: confused, disoriented Musculoskeletal: Present: no deformities, no erythema Psychiatric: Present: cooperative - Lab 01/16/18 05:47 01/16/18 05:47 Most recent lab results Calcium 8.7 mg/dL (8.6-10.3) 01/15/18 07:03 Magnesium 1.8 mg/dL (1.6-2.6) 01/14/18 03:34 Consult Discharge Plan - Plan Additional Instructions: F/up with PCP in 1-2 weeks F/up for HD 3 times/week- F Referrals: Morales Fischer MD [Primary Care Provider] - (Patient will follow up with F PCP) Prescriptions: Ertapenem [INVanz] 500 mg IVPB DAILY 13 Days #13 vial
[2018-01-15] MEDS: Isosorbide MONOnitrate (24 HR) 60 MG TAB.ER.24H PO SCH (14:31)
--- NOTE | 2018-01-15 16:02 | Internal Med Progress Note ---
Date of Encounter: 01/15/18 Time of Encounter: 09:15 - Assessment and plan (1) UTI (urinary tract infection) Current Visit: Yes Status: Acute Assessment and plan: Urinalysis shows positive nitrite, large leukocyte esterase, many bacteria, too numerous to count RBC and WBC. Patient has been started on IV Rocephin. Final urine culture grows Proteus mirabilis, sensitive to carbapenems. We will switch antibiotics to IV ertapenem. Qualifiers: Urinary tract infection type: acute cystitis Hematuria presence: with hematuria Qualified Code(s): N30.01 - Acute cystitis with hematuria (2) Encephalopathy acute Current Visit: Yes Status: Acute Assessment and plan: Improving. Likely related to underlying infection. Patient also has mild dementia at baseline. Avoid sedatives/hypnotics. (3) History of pacemaker Current Visit: Yes Status: Chronic (4) Type 2 diabetes mellitus Current Visit: Yes Status: Chronic Assessment and plan: Blood sugars noted to be well controlled. Continue Accu-Chek blood glucose monitoring with sliding scale insulin as needed. Diabetic diet. Qualifiers: Diabetes mellitus termite treater insulin use: without termite treater use Diabetes mellitus complication status: with kidney complications Diabetes mellitus complication detail: with chronic kidney disease Chronic kidney disease stage : on chronic dialysis Qualified Code(s): E11.22 - Type 2 diabetes mellitus with diabetic chronic kidney disease; N18.6 - End stage renal disease; Z99.2 - Dependence on renal dialysis (5) Anemia Current Visit: Yes Status: Chronic Qualifiers: Anemia type: unspecified type Qualified Code(s): D64.9 - Anemia, unspecified (6) ESRD (end stage renal disease) on dialysis Current Visit: Yes Status: Chronic Assessment and plan: Nephrology on board, anticipate hemodialysis today. Continue home medications. (7) HLD (hyperlipidemia) Current Visit: Yes Status: Chronic Qualifiers: Hyperlipidemia type: unspecified Qualified Code(s): E78.5 - Hyperlipidemia , unspecified (8) HTN (hypertension) Current Visit: Yes Status: Chronic Assessment and plan: Blood pressure acceptable. Continue home medications. Qualifiers: Hypertension type: essential hypertension Qualified Code(s): I10 - Essential (primary) hypertension (9) CHF (congestive heart failure) Current Visit: Yes Status: Chronic Qualifiers: Heart failure type: systolic Heart failure chronicity: chronic Qualified Code(s): I50.22 - Chronic systolic (congestive) heart failure (10) GERD (gastroesophageal reflux disease) Current Visit: Yes Status: Chronic Qualifiers: Esophagitis presence: esophagitis presence not specified Qualified Code(s) : K21.9 - Gastro-esophageal reflux disease without esophagitis (11) DVT prophylaxis Current Visit: Yes Status: Acute Assessment and plan: Bilateral SCDs on LEs for DVT prophylaxis. (12) Anxiety Current Visit: Yes Status: Chronic (13) CAD (coronary artery disease) Current Visit: Yes Status: Chronic Qualifiers: Coronary Disease-Associated Artery/Lesion type: [place] artery [place] vs. transplanted heart: [place] heart Associated angina: without angina Qualified Code(s): I25.10 - Atherosclerotic heart disease of [place] coronary artery without angina pectoris - Time Spent With Patient Total time spent is greater than 50% in coordination of care (as documented) at patient's floor/unit and/or counseling patient: - Subjective Interval history: Reports mild abdominal pain. No chest pain, shortness of breath, cough. Able to tell me his name and that he is at the hospital, does not remember the reason for admission. Awaiting hemodialysis. - Constitutional Vitals: Temp Pulse Resp BP Pulse Ox 97.7 F 64 19 124/67 100 01/15/18 15:55 01/15/18 15:55 01/15/18 15:55 01/15/18 15:55 01/15/18 15:55 General appearance: Present: cooperative, A&O X 2, answers questions appropriately (Few questions) - Respiratory Respiratory exam: Present: CTAB. Absent: accessory muscle use, rales, rhonchi, wheezes - Cardiovascular Cardiovascular exam: Present: RRR, +S1, +S2. Absent: diastolic murmur, gallop, rubs, systolic murmur - GI/Abdominal GI/Abdominal exam: Present: normal bowel sounds, soft, no peritoneal signs. Absent: distended, tenderness - Extremities Exam Extremities exam: Present: pedal edema, warm, radial pulses palpable and symmetrical. Absent: calf tenderness, cyanotic Additional comments: B/L LISA wraps - Neurological Exam Neurological exam: Present: altered, CN II-XII intact, no focal deficits. Absent: pronater drift, facial droop, speech deficit Internal Medicine: Result - Labs CBC & Chem 7: 01/15/18 07:03 01/15/18 07:03 Labs: Short CBC 01/15/18 Range/Units 07:03 WBC 5.2 (4.3-11.1) K/mcL Hgb 9.7 L (12.9-16.9) g/dL Hct 31.8 L (37.5-50.1) % Plt Count 164 (140-400) K/mcL Neutrophils # 3.0 (1.6-8.9) K/mcL BMP 01/15/18 07:03 Sodium 133 L Potassium 4.6 Chloride 94 L Carbon Dioxide 27 BUN 61 H Creatinine 4.83 H Glucose 90 Calcium 8.7 Liver Function 01/15/18 Range/Units 07:03 Total Bilirubin 0.5 (0.3-1.0) mg/dL AST 24 (13-39) Units/L ALT 13 (7-52) Units/L Alkaline Phosphatase 172 H (34-104) Units/L Albumin 2.9 L (3.5-5.7) g/dL - ABG Interpretation ABG results: PT/INR, D-dimer PT 12.6 Seconds (9.4-12.1) H 01/13/18 10:45 Consult Discharge Plan - Plan Referrals: Morales Fischer MD [Primary Care Provider] - (Patient will follow up with ECF PCP)
[2018-01-16 06:15] LABS: Basophils % 0.4 %; Eosinophils # 0.1 K/mcL (0.0-0.6); Eosinophils % 2.2 %; Hematocrit 29.1 % (37.5-50.1); Hemoglobin 9.1 g/dL (12.9-16.9); Immature Granulocytes % 0.5 % (0-4); Lymphocytes # 1.1 K/mcL (0.6-4.6); Lymphocytes % 19.7 %; Mean Corpuscular HGB Conc 31.3 g/dL (31.6-35.5); Mean Corpuscular Hemoglobin 30.1 pg (28.0-33.3); Mean Corpuscular Volume 96.4 fL (83.0-100.0); Mean Platelet Volume 9.8 fL (9.4-12.4); Monocytes # 0.7 K/mcL (0.0-1.3); Monocytes % 13.4 %; Neutrophils # 3.5 K/mcL (1.6-8.9); Platelet Count 178 K/mcL (140-400); Red Blood Count 3.02 M/mcL (4.19-5.50); Red Cell Distribution Width 14.2 % (11.5-14.5); Segmented Neutrophils % 63.8 %
[2018-01-16 06:32] LABS: Albumin/Globulin Ratio 0.8 (1.1-2.2); Bilirubin,Total 0.6 mg/dL (0.3-1.0); Calcium 8.9 mg/dL (8.6-10.3); Globulin 3.7 g/dL (2.4-3.5); Potassium 4.4 mEq/L (3.5-5.1); Total Protein 6.7 g/dL (6.4-8.9)
--- NOTE | 2018-01-16 08:23 | Nephrology Progress Note ---
Date of Encounter: 01/16/18 Time of Encounter: 08:23 - Assessment and Plan (1) End stage renal disease Current Visit: No Status: Acute No HD today. HD tomorrow. Avoid nephrotoxins and renal dose all medications. Renal Diet Renal Binders Has been admitted 3 times in the past 2 months. Would recommend Palliative Consul to discuss goals of care with family. (2) Altered mental status Current Visit: Yes Status: Acute Likely secondary to UTI, seems to be improving. Qualifiers: Altered mental status type: disorientation Qualified Code(s): R41.0 - Disorientation, unspecified (3) UTI (urinary tract infection) Current Visit: Yes Status: Acute Per primary. Qualifiers: Urinary tract infection type: acute cystitis Hematuria presence: with hematuria Qualified Code(s): N30.01 - Acute cystitis with hematuria Subjective Principal diagnosis: AMS, rib pain Interval history: Pt seen and examined, doing well. Sitting up in chair eating breakfast. Objective - Vital Signs Vital signs: Vital Signs Temp Pulse Resp BP Pulse Ox 01/16/18 06:50 98.6 F 66 16 117/58 97 01/16/18 05:04 98.8 F 61 16 92/47 95 01/16/18 00:48 98 F 65 16 105/67 96 01/15/18 20:56 97.7 F 60 16 95/58 98 01/15/18 15:55 97.7 F 64 19 124/67 100 01/15/18 13:45 96.7 F L 15 145/77 01/15/18 13:30 139/79 01/15/18 13:15 132/75 01/15/18 13:00 134/73 01/15/18 12:45 143/73 01/15/18 12:30 149/84 01/15/18 12:15 139/72 01/15/18 12:00 136/86 01/15/18 11:45 145/75 01/15/18 11:30 143/70 01/15/18 11:15 140/69 01/15/18 11:00 130/66 01/15/18 10:45 131/66 01/15/18 10:30 128/63 01/15/18 10:15 134/65 01/15/18 10:00 132/62 01/15/18 09:45 132/66 01/15/18 09:30 96.8 F L 17 142/69 01/15/18 08:35 97 Intake and Output 01/15/18 01/16/18 01/16/18 23:59 07:59 15:59 Intake Total 240 / 240 300 / 300 Balance 240 / 240 300 / 300 Intake: Oral 240 / 240 300 / 300 Other: Meal Dinner Percent of Meal Consumed 50% Weight 84.14 kg Blood Glucose* 108 71 Patient Weight 01/16/18 23:59 Weight 84.14 kg - General Appearance General appearance: Present: chronically ill, frail EENT: Present: ATNC, hearing intact, vision intact Neck: Present: supple Respiratory: Present: clear Cardiology: Present: no edema, normal S1, normal S2 Dialysis Vascular Access: Arteriovenous Fistula thrill: Yes bruit: Yes Gastrointestinal: Present: normoactive bowel sounds, no tenderness, no guarding Integumentary: Present: no rash, warm and dry Neurologic: Present: alert and oriented x3 Psychiatric: Present: mood/affect appropriate, cooperative - Lab 01/16/18 05:47 01/16/18 05:47 Most recent lab results Calcium 8.9 mg/dL (8.6-10.3) 01/16/18 05:47 Magnesium 1.8 mg/dL (1.6-2.6) 01/14/18 03:34 - VTE Documentation of Mechanical Device: Intermittent pneumatic compression device Consult Discharge Plan - Plan Referrals: Morales Fischer MD [Primary Care Provider] - (Patient will follow up with ECF PCP) Prescriptions: Ertapenem [INVanz] 500 mg IVPB DAILY 13 Days #13 vial
[2018-01-16] MEDS: Insulin LISPRO 300 UNITS/3 ML VIAL SQ SCH ×2 (08:59→12:34)
[2018-01-16] MEDS: Isosorbide MONOnitrate (24 HR) 60 MG TAB.ER.24H PO SCH (09:22)
[2018-01-16] MEDS: Pregabalin 50 MG CAPSULE PO SCH ×2 (09:22→16:13)
[2018-01-16] MEDS: Aspirin Enteric Coated 325 MG Tablet PO SCH (09:22)
[2018-01-16] MEDS: Multivit/Ca/Min/Fe/FA 1 TAB TABLET PO SCH (09:23)
[2018-01-16] MEDS: Loratadine 10 MG TABLET PO SCH (09:23)
[2018-01-16] MEDS: Ranolazine 500 MG TAB.ER.12H PO SCH (09:23)
--- NOTE | 2018-01-16 13:56 | Discharge Summary ---
- NOTES TO OUTPATIENT PROVIDER Notes to Outpatient Provider: UTI with MDR Proteus, now on IV Ertapenem Date of Encounter: 01/16/18 Time of Encounter: 12:30 - Discharge Diagnosis (1) UTI (urinary tract infection) Priority: Primary Status: Acute Qualifiers: Urinary tract infection type: acute cystitis Hematuria presence: with hematuria Qualified Code(s): N30.01 - Acute cystitis with hematuria (2) Encephalopathy acute Priority: Primary Status: Acute (3) History of pacemaker Priority: Secondary Status: Chronic (4) Type 2 diabetes mellitus Priority: Secondary Status: Chronic Qualifiers: Diabetes mellitus middle or intermediate school principal insulin use: without middle or intermediate school principal use Diabetes mellitus complication status: with kidney complications Diabetes mellitus complication detail: with chronic kidney disease Chronic kidney disease stage : on chronic dialysis Qualified Code(s): E11.22 - Type 2 diabetes mellitus with diabetic chronic kidney disease; N18.6 - End stage renal disease; Z99.2 - Dependence on renal dialysis (5) Anemia Priority: Secondary Status: Chronic Qualifiers: Anemia type: unspecified type Qualified Code(s): D64.9 - Anemia, unspecified (6) ESRD (end stage renal disease) on dialysis Priority: Secondary Status: Chronic (7) HLD (hyperlipidemia) Priority: Secondary Status: Chronic Qualifiers: Hyperlipidemia type: unspecified Qualified Code(s): E78.5 - Hyperlipidemia , unspecified (8) HTN (hypertension) Priority: Secondary Status: Chronic Qualifiers: Hypertension type: essential hypertension Qualified Code(s): I10 - Essential (primary) hypertension (9) CHF (congestive heart failure) Priority: Secondary Status: Chronic Qualifiers: Heart failure type: systolic Heart failure chronicity: chronic Qualified Code(s): I50.22 - Chronic systolic (congestive) heart failure (10) GERD (gastroesophageal reflux disease) Priority: Secondary Status: Chronic Qualifiers: Esophagitis presence: esophagitis presence not specified Qualified Code(s) : K21.9 - Gastro-esophageal reflux disease without esophagitis (11) Anxiety Priority: Secondary Status: Chronic (12) CAD (coronary artery disease) Priority: Secondary Status: Chronic Qualifiers: Coronary Disease-Associated Artery/Lesion type: [place] artery [place] vs. transplanted heart: [place] heart Associated angina: without angina Qualified Code(s): I25.10 - Atherosclerotic heart disease of [place] coronary artery without angina pectoris Hospital course: Mr. Kenny is a 82 year old male with multiple medical problems including end- stage renal disease on hemodialysis, who was sent from dialysis unit due to altered mental status and hallucinations. Patient was noted to have UTI, was started on IV Rocephin. Urine culture eventually grew multidrug-resistant Proteus mirabilis and his antibiotics were changed to IV ertapenem to complete a 14 day course. Nephrology was consulted and patient underwent regular hemodialysis sessions while in the hospital. Patient's mental status gradually improved. He is noted to be on multiple sedatives including fentanyl patch, oral oxycodone and Lyrica at the [facility]. He is currently being discharged only on Lyrica. Discharge discussed with: patient, nurse, case management - Time Spent with Patient Total time spent providing and/or coordinating discharge services: Greater than 30 minutes (40 min) - Discharge Medications Prescriptions: Ertapenem [INVanz] 500 mg IVPB DAILY 13 Days #13 vial Home Medications: Clopidogrel [Plavix] 75 mg PO QAM #0 03/15/15 [History] Hydralazine HCl 100 mg PO SUTUTHSA #0 03/15/15 [History] Sertraline [Zoloft] 75 mg PO QPM 02/03/16 [History] Sevelamer [Renvela] 2,400 mg PO TIDWM 02/03/16 [History] Isosorbide MONOnitrate [Isosorbide Mononitrate ER] 120 mg PO DAILY 02/06/16 [ History] Nitroglycerin [Nitrostat] 0.4 mg SL Q5M PRN 02/06/16 [History] Polyethylene Glycol 3350 [MiraLAX] 17 gm PO DAILY 04/12/16 [History] Bisacodyl [Dulcolax] 10 mg RC HS PRN 09/24/16 [History] Docusate [Colace] 100 mg PO BID 09/24/16 [History] Magnesium Hydroxide [Milk of Magnesia] 2,400 mg PO DAILY PRN 09/24/16 [History] Allopurinol [Zyloprim 100 MG] 100 mg PO QAM 12/21/17 [History] Atorvastatin [Lipitor] 80 mg PO HS 12/21/17 [History] Ergocalciferol (VITAMIN D2) [Drisdol] 50,000 unit PO QWEEK 12/21/17 [History] Famotidine [Acid Volleyball Assistant Coach] 10 mg PO QAM 12/21/17 [History] Furosemide [Lasix] 40 mg PO TUTHSA 12/21/17 [History] Glucagon,Human Recombinant [Glucagen] 1 mg IJ ONCE PRN 12/21/17 [History] Insulin ASPART [Novolog Flexpen] 5 units SQ TIDWM 12/21/17 [History] Insulin DETEMIR [Levemir Flextouch] 10 units SQ HS 12/21/17 [History] Lisinopril [Zestril] 10 mg PO SUTUTHSA 12/21/17 [History] Loratadine [Claritin] 10 mg PO DAILY 12/21/17 [History] Metoclopramide HCl 5 mg PO TIDWM 12/21/17 [History] Metoprolol [Lopressor] 50 mg PO SUTUTHSA 12/21/17 [History] Multivitamin with Minerals [One-A-Day Maximum Formula] 1 tab PO DAILY 12/21/17 [ History] Ondansetron HCl [Zofran] 4 mg PO Q8HR PRN 12/21/17 [History] Ranolazine [Ranexa] 500 mg PO BID 12/21/17 [History] Terazosin [Hytrin] 5 mg PO QPM 12/21/17 [History] Aspirin Enteric Coated [Aspirin EC] 325 mg PO DAILY tablet. 12/25/17 [Rx] Ertapenem [INVanz] 500 mg IVPB DAILY 13 Days #13 vial 01/15/18 [Rx] Acetaminophen [Tylenol] 650 mg PO Q6HR PRN tablet 01/16/18 [Rx] Pregabalin [Lyrica] 50 mg PO TID 3 Days #10 01/16/18 [Rx] Allergies/Adverse Reactions: 3 Allergy/AdvReac Type Severity Reaction Status Date / Time morphine Allergy Hallucinati Verified 07/06/16 10:27 ng Date of admission: 01/13/18 14:31 Primary care physician: Morales Fischer MD Consults: 01/13/18 14:50 Consult to Nephrology [CONS] Routine Consulting Provider: Kidney Chrissy/RAS/ROSIE/HAZEL Reason for Consult: Patient is ESRD on dialysis M/W/F. Did not complete dialysis today d/t AMS and hallucinations. U/A shows UTI. Pt. receiving IVPB Rocephin 2,000 mg on dialysis days following dialysis. Will need inpt. dialysis. Call Completed: Yes 01/15/18 07:00 Consult to Dialysis [CONS] ONCE Discharging clinician: Clara Mendez Anticipated date of discharge: 01/16/18 - Constitutional Vitals: Temp Pulse Resp BP Pulse Ox 97.9 F 70 18 91/35 97 01/16/18 11:48 01/16/18 11:48 01/16/18 11:48 01/16/18 11:48 01/16/18 11:48 General appearance: Present: cooperative, A&O X 2 (somewhat confused), answers questions appropriately (Few questions) - Cardiovascular Cardiovascular exam: Present: RRR, +S1, +S2. Absent: diastolic murmur, gallop, rubs, systolic murmur - Patient Status Disposition: Transfer SNF Condition: Fair Functional capacity at discharge: uses cane/walker Overall status at discharge: patient is progressing back to baseline - Discharge Instructions Follow Up With: Morales Fischer MD [Primary Care Provider] - (Patient will follow up with ECF PCP) Additional Instructions: F/up with PCP in 1-2 weeks F/up for HD 3 times/week- MWF - Diet and Activity Activity: as per physical therapy Diet: diabetic diet, low fat, low cholesterol, low salt diet, other (renal diet) - VTE Documentation of Mechanical Device: Intermittent pneumatic compression device
--- NOTE | 2018-01-16 14:42 | Physician Discharge Referral ---
ExtendedCare Referral Info Transfer To: [facility] Provider in Charge: Clara Mendez Provider in Charge after Transfer: PCP Institutional Level of Care: Skilled - Diagnosis (1) UTI (urinary tract infection) Priority: Primary Status: Acute (2) Encephalopathy acute Priority: Primary Status: Acute (3) History of pacemaker Priority: Secondary Status: Chronic (4) Type 2 diabetes mellitus Priority: Secondary Status: Chronic (5) Anemia Priority: Secondary Status: Chronic (6) ESRD (end stage renal disease) on dialysis Priority: Secondary Status: Chronic (7) HLD (hyperlipidemia) Priority: Secondary Status: Chronic (8) HTN (hypertension) Priority: Secondary Status: Chronic (9) CHF (congestive heart failure) Priority: Secondary Status: Chronic (10) GERD (gastroesophageal reflux disease) Priority: Secondary Status: Chronic (11) Anxiety Priority: Secondary Status: Chronic (12) CAD (coronary artery disease) Priority: Secondary Status: Chronic Expected Duration of Placement: [facility] Prognosis: Fair - Transfer Medications Prescriptions: Ertapenem [INVanz] 500 mg IVPB DAILY 13 Days #13 vial Home Medications: Clopidogrel [Plavix] 75 mg PO QAM #0 03/15/15 [History] Hydralazine HCl 100 mg PO SUTUTHSA #0 03/15/15 [History] Sertraline [Zoloft] 75 mg PO QPM 02/03/16 [History] Sevelamer [Renvela] 2,400 mg PO TIDWM 02/03/16 [History] Isosorbide MONOnitrate [Isosorbide Mononitrate ER] 120 mg PO DAILY 02/06/16 [ History] Nitroglycerin [Nitrostat] 0.4 mg SL Q5M PRN 02/06/16 [History] Polyethylene Glycol 3350 [MiraLAX] 17 gm PO DAILY 04/12/16 [History] Bisacodyl [Dulcolax] 10 mg RC HS PRN 09/24/16 [History] Docusate [Colace] 100 mg PO BID 09/24/16 [History] Magnesium Hydroxide [Milk of Magnesia] 2,400 mg PO DAILY PRN 09/24/16 [History] Allopurinol [Zyloprim 100 MG] 100 mg PO QAM 12/21/17 [History] Atorvastatin [Lipitor] 80 mg PO HS 12/21/17 [History] Ergocalciferol (VITAMIN D2) [Drisdol] 50,000 unit PO QWEEK 12/21/17 [History] Famotidine [Acid Heavy Truck Driver] 10 mg PO QAM 12/21/17 [History] Furosemide [Lasix] 40 mg PO TUTHSA 12/21/17 [History] Glucagon,Human Recombinant [Glucagen] 1 mg IJ ONCE PRN 12/21/17 [History] Insulin ASPART [Novolog Flexpen] 5 units SQ TIDWM 12/21/17 [History] Insulin DETEMIR [Levemir Flextouch] 10 units SQ HS 12/21/17 [History] Lisinopril [Zestril] 10 mg PO SUTUTHSA 12/21/17 [History] Loratadine [Claritin] 10 mg PO DAILY 12/21/17 [History] Metoclopramide HCl 5 mg PO TIDWM 12/21/17 [History] Metoprolol [Lopressor] 50 mg PO SUTUTHSA 12/21/17 [History] Multivitamin with Minerals [One-A-Day Maximum Formula] 1 tab PO DAILY 12/21/17 [ History] Ondansetron HCl [Zofran] 4 mg PO Q8HR PRN 12/21/17 [History] Ranolazine [Ranexa] 500 mg PO BID 12/21/17 [History] Terazosin [Hytrin] 5 mg PO QPM 12/21/17 [History] Aspirin Enteric Coated [Aspirin EC] 325 mg PO DAILY tablet. 12/25/17 [Rx] Ertapenem [INVanz] 500 mg IVPB DAILY 13 Days #13 vial 01/15/18 [Rx] Acetaminophen [Tylenol] 650 mg PO Q6HR PRN tablet 01/16/18 [Rx] Pregabalin [Lyrica] 50 mg PO TID 3 Days #10 01/16/18 [Rx] Allergies/Adverse Reactions: 3 Allergy/AdvReac Type Severity Reaction Status Date / Time morphine Allergy Hallucinati Verified 07/06/16 10:27 ng - Respiratory Orders Smoking Cessation: Smoking cessation has been advised. For more information, call the [place] Tobacco Quit Line at 4-201-FCAH-NOW. - Advance Directives Code Status: Full Code - Mobility Orders Ambulate - Rehabiliation Orders Rehab Potential: Fair Rehab Orders: Sternal Precautions, ROM Exercises, Evaluation for Physical Therapy, Evaluation for Occupational Therapy - Diet Orders No Added Salt (BRIAN), No Concentrated Sweets (diabetic), Renal, Cardiac CERTIFICATION: I certify that the transfer of the above named patient to an Extended Care Facility is necessary for the continuing treatment of the diagnosis listed. The above information is true and accurate reflection of patient's current condition. Confidential - Redisclosure prohibited without a patient's written consent.
[2018-01-16] MEDS: hydrALAZINE 25 MG TABLET PO SCH (15:40)
[2018-01-16 16:05] VITALS: BP 106/56
[2018-01-16] MEDS: Furosemide 40 MG TABLET PO SCH (16:07)
== END 2018-01-16 16:30 | DRG 689 ==
LOC: 2ANU 10:31 → EMEROO 10:31 → SUATTDRO 14:31 → 2ANU 15:08
PROVIDERS: ADMIT Internal Medicine Cardiovascular Disease; ATTEND Internal Medicine

== ENCOUNTER 2018-03-15 09:35 | Inpatient (IN) ==
[2018-03-15] MEDS ORDERED: *HR* HYDROcodone/Acet 5/325 mg TABLET PO ONE (09:42)
--- NOTE | 2018-03-15 09:48 | Emergency Department Note ---
Disposition Clinical Impression: DVT, bilateral lower limbs Qualifiers: Affected thrombotic vein of extremity: tibial Chronicity: acute Qualified Code( s): I82.443 - Acute embolism and thrombosis of tibial vein, bilateral Disposition: Admitted As Inpatient Condition: Fair Referrals: Morales Fischer MD [Primary Care Provider] - Time of Disposition: 11:36 General Adult HPI - General Stated complaint: Foot pain Time Seen by Provider: 03/15/18 09:40 Source: patient, EMS Mode of arrival: EMS Limitations: no limitations Nursing Notes Reviewed: Yes Vital Signs Reviewed: Yes - History of Present Illness HPI Narrative: Nontoxic-appearing 82-year-old male is brought by EMS from dialysis for evaluation of worsening bilateral lower extremity pain. EMS crew reported that the patient was unable to finish his dialysis session this morning for complaints severe pain in the bilateral feet. The patient is a 3 day per week dialysis patient. He resides at a local [facility]. He is nonambulatory and spends most the day in his wheelchair. 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 He denies any fever or chills. He denies any known injury or trauma. Location: left, right, lower extremity Radiation: distal Pain Severity: moderate Pain Scale: 7 Quality: aching Consistency: constant Improves with: nothing Worsens with: nothing Associated symptoms: Reports: denies other symptoms Treatments Prior to Arrival: none - Related Data Home Medications Medication Instructions Recorded Confirmed Clopidogrel [Plavix] 75 mg PO QAM #0 03/15/15 01/13/18 Hydralazine HCl 100 mg PO SUTUTHSA #0 03/15/15 01/13/18 Sertraline [Zoloft] 75 mg PO QPM 02/03/16 01/13/18 Sevelamer [Renvela] 2,400 mg PO TIDWM 02/03/16 01/13/18 Isosorbide MONOnitrate [Isosorbide 120 mg PO DAILY 02/06/16 01/13/18 Mononitrate ER] Nitroglycerin [Nitrostat] 0.4 mg SL Q5M PRN 02/06/16 01/13/18 Polyethylene Glycol 3350 [MiraLAX] 17 gm PO DAILY 04/12/16 01/13/18 Bisacodyl [Dulcolax] 10 mg RC HS PRN 09/24/16 01/13/18 Docusate [Colace] 100 mg PO BID 09/24/16 01/13/18 Magnesium Hydroxide [Milk of 2,400 mg PO DAILY PRN 09/24/16 01/13/18 Magnesia] Allopurinol [Zyloprim 100 MG] 100 mg PO QAM 12/21/17 01/13/18 Atorvastatin [Lipitor] 80 mg PO HS 12/21/17 01/13/18 Ergocalciferol (VITAMIN D2) 50,000 unit PO QWEEK 12/21/17 01/13/18 [Drisdol] Famotidine [Acid [employer] Con[employer]ing [employer]] 10 mg PO QAM 12/21/17 01/13/18 Furosemide [Lasix] 40 mg PO TUTHSA 12/21/17 01/13/18 Glucagon,Human Recombinant 1 mg IJ ONCE PRN 12/21/17 01/13/18 [Glucagen] Insulin ASPART [Novolog Flexpen] 5 units SQ TIDWM 12/21/17 01/13/18 Insulin DETEMIR [Levemir Flextouch] 10 units SQ HS 12/21/17 01/13/18 Lisinopril [Zestril] [facility] 12/21/17 01/13/18 Loratadine [Claritin] 10 mg PO DAILY 12/21/17 01/13/18 Metoclopramide HCl 5 mg PO TIDWM 12/21/17 01/13/18 [facility]op[facility]opressor] [facility] 12/21/17 01/13/18 Multivitamin with Minerals 1 tab PO DAILY 12/21/17 01/13/18 [One-A-Day Maximum Formula] Ondansetron HCl [Zofran] 4 mg PO Q8HR PRN 12/21/17 01/13/18 Ranolazine [Ranexa] 500 mg PO BID 12/21/17 01/13/18 Terazosin [Hytrin] 5 mg PO QPM 12/21/17 01/13/18 Previous Rx's Medication Instructions Recorded Aspirin Enteric Coated [Aspirin EC] 325 mg PO DAILY tablet. 12/25/17 Ertapenem [INVanz] 500 mg IVPB DAILY 13 Days #13 vial 01/15/18 Acetaminophen [Tylenol] 650 mg PO Q6HR PRN tablet 01/16/18 Pregabalin [Lyrica] 50 mg PO TID 3 Days #10 01/16/18 Allergies Allergy/AdvReac Type Severity Reaction Status Date / Time morphine Allergy Hallucinati Verified 03/15/18 10:00 ng All systems ED: reviewed and negative except as stated. Constitutional: Denies: fever, chills, weakness, weight change Eyes: Denies: eye pain, eye discharge, vision change ENT ED: Denies: ear pain, throat pain, dental pain, hearing loss, epistaxis, congestion, dysphagia Cardiovascular: Denies: chest pain, palpitations, dyspnea on exertion, edema, syncope Respiratory: Denies: cough, dyspnea, wheezes, hemoptysis, stridor Gastrointestinal: Denies: abdominal pain, nausea, vomiting, diarrhea, constipation, hematemesis, melena, hematochezia Genitourinary: Denies: urgency, dysuria, frequency, hematuria Musculoskeletal: Reports: as per HPI, other (Bilateral foot pain). Denies: back pain, neck pain, arthralgia, myalgia Integumentary: Denies: rash, abrasion, lesions Neurological: Denies: headache, weakness, numbness, paresthesias, confusion, abnormal gait, vertigo Psychiatric: Denies: anxiety, depression, suicidal thoughts, homicidal thoughts , auditory hallucinations, visual hallucinations Endocrine: Denies: fatigue Hematological/Lymphatic: Denies: easy bleeding, easy bruising Allergic/Immunologic: Denies: facial swelling, urticaria Past Medical History - Past Medical History Attestation: Yes The following information was validated with the patient. Source: patient, nursing notes reviewed Medical history: Reports: arthritis, cancer, CHF, coronary artery disease, diabetes, dialysis, GERD, hyperlipidemia, hypertension, kidney stones, renal disease, other Surgical history: Reports: cataract, cholecystectomy, knee replacement, pacemaker/AICD, other Psychiatric history: Reports: anxiety - Social History Smoking Status: Never smoker Smokeless Tobacco Status: No Alcohol use: Reports: none Drug use: Reports: none Physical Exam - General Limitations: no limitations General appearance: alert, in no apparent distress - Head Head exam: atraumatic, normocephalic, normal inspection - Eye Eye exam: Present: normal appearance, PERRL, EOMI. Absent: nystagmus - ENT ENT exam: mucous membranes moist - Neck Neck exam: Present: normal inspection, full ROM, trachea midline - Chest Chest inspection: Present: normal inspection, symmetric chest wall rise - Expanded Lower Extremity Exam Upper leg exam: Present: normal inspection, full ROM Knee exam: Present: normal inspection, full ROM Lower leg exam: Present: tenderness (Diffuse, bilaterally), Homans' sign ( Bilaterally), other (3+ edema noted bilaterally). Absent: ecchymosis, erythema Ankle exam: Present: tenderness (Diffuse, bilaterally), other (3+ edema noted bilaterally). Absent: laceration, ecchymosis, erythema Foot/toe exam: Present: other (3+ edema noted bilaterally). Absent: laceration , ecchymosis, erythema, puncture wound Neurovascular/Tendon exam: Present: other (DP pulses auscultated bilaterally with doppler). Absent: normal capillary refill (capilary refill sluggish), pulse deficit, extremity cold to touch, pallor, foot drop Gait: unable to bear weight - Neurological Exam Neurological exam: Present: alert, oriented X3 - Psychiatric Psychiatric exam: Present: normal affect, normal mood - Skin Skin exam: Present: warm, dry, intact, normal color Course Course Narrative: I discussed this patient's case with Dr. Stone. Dr. Stone has reviewed the patient' s laboratory and ultrasound results. She agrees with admission to the hospitalist service and she does request that we speak with vascular surgery customs and immigration officer prior to admission to the hospital service. 1125: I spoke with Dr. Montenegro, vascular surgeon on-call. The patient will be admitted, heparinized, and vascular surgery will consult in house. 1135: I spoke with Dr. Singleton of the Hospital services accepted the patient for admission to the hospitalist care. Vital Signs Temperature 98.2 F 03/15/18 09:55 Pulse Rate 94 03/15/18 09:55 Respiratory Rate 20 03/15/18 09:55 Blood Pressure 186/66 03/15/18 09:55 O2 Sat by Pulse Oximetry 95 03/15/18 09:55 Temperature 98.2 F 03/15/18 09:55 Pulse Rate 94 03/15/18 09:55 Respiratory Rate 20 03/15/18 09:55 Blood Pressure 186/66 03/15/18 09:55 O2 Sat by Pulse Oximetry 95 03/15/18 09:55 Oxygen Delivery Oxygen Delivery Room Air Medical Decision Making - Medical Records Medical records reviewed: Yes I reviewed the patient's medical records. - Lab Data Lab results reviewed: Yes I reviewed the patient's lab results. Lab results narrative: Lab Results 03/15/18 03/15/18 03/15/18 Range/Units 09:53 09:53 09:53 WBC 7.6 (4.3-11.1) K/mcL RBC 3.45 L (4.19-5.50) M/mcL Hgb 10.3 L (12.9-16.9) g/dL Hct 32.4 L (37.5-50.1) % MCV 93.9 (83.0-100.0) fL MCH 29.9 (28.0-33.3) pg MCHC 31.8 (31.6-35.5) g/dL RDW 14.7 H (11.5-14.5) % Plt Count 154 (140-400) K/mcL MPV 9.8 (9.4-12.4) fL Immature Gran % 0.4 (0-4) % Seg Neutrophils % 74.3 % Lymphocytes % 15.5 % Monocytes % 7.6 % Eosinophils % 1.8 % Basophils % 0.4 % Neutrophils # 5.6 (1.6-8.9) K/mcL Lymphocytes # 1.2 (0.6-4.6) K/mcL Monocytes # 0.6 (0.0-1.3) K/mcL Eosinophils # 0.1 (0.0-0.6) K/mcL Basophils # 0.0 (0.0-0.2) K/mcL ESR 75 H (0-10) mm/hr PT (9.4-12.1) Seconds INR APTT (26.0-36.0) Seconds Sodium 133 L (136-145) mEq/L Potassium 3.6 (3.5-5.1) mEq/L Chloride 95 L (98-107) mEq/L Carbon Dioxide 27 (23-29) mEq/L BUN 40 H (8-23) mg/dL Creatinine 2.83 H (0.70-1.30) mg/dL Est GFR ( Amer) 26 L (> 60) Est GFR (Non-Af Amer) 22 L (> 60) BUN/Creatinine Ratio 14 (6-26) Glucose 244 H (70-105) mg/dL Calculated Osmolality 294 (280-300) Calcium 8.7 (8.6-10.3) mg/dL C-Reactive Protein 108 H (Less than 10) mg/L 03/15/18 Range/Units 09:54 WBC (4.3-11.1) K/mcL RBC (4.19-5.50) M/mcL Hgb (12.9-16.9) g/dL Hct (37.5-50.1) % MCV (83.0-100.0) fL MCH (28.0-33.3) pg MCHC (31.6-35.5) g/dL RDW (11.5-14.5) % Plt Count (140-400) K/mcL MPV (9.4-12.4) fL Immature Gran % (0-4) % Seg Neutrophils % % Lymphocytes % % Monocytes % % Eosinophils % % Basophils % % Neutrophils # (1.6-8.9) K/mcL Lymphocytes # (0.6-4.6) K/mcL Monocytes # (0.0-1.3) K/mcL Eosinophils # (0.0-0.6) K/mcL Basophils # (0.0-0.2) K/mcL ESR (0-10) mm/hr PT 12.6 H (9.4-12.1) Seconds INR 1.1 APTT 64.8 H (26.0-36.0) Seconds Sodium (136-145) mEq/L Potassium (3.5-5.1) mEq/L Chloride (98-107) mEq/L Carbon Dioxide (23-29) mEq/L BUN (8-23) mg/dL Creatinine (0.70-1.30) mg/dL Est GFR ( Amer) (> 60) Est GFR (Non-Af Amer) (> 60) BUN/Creatinine Ratio (6-26) Glucose (70-105) mg/dL Calculated Osmolality (280-300) Calcium (8.6-10.3) mg/dL C-Reactive Protein (Less than 10) mg/L Result diagrams: 03/15/18 09:53 03/15/18 09:53 Lab Results 03/15/18 03/15/18 03/15/18 Range/Units 09:53 09:53 09:53 WBC 7.6 (4.3-11.1) K/mcL RBC 3.45 L (4.19-5.50) M/mcL Hgb 10.3 L (12.9-16.9) g/dL Hct 32.4 L (37.5-50.1) % MCV 93.9 (83.0-100.0) fL MCH 29.9 (28.0-33.3) pg MCHC 31.8 (31.6-35.5) g/dL RDW 14.7 H (11.5-14.5) % Plt Count 154 (140-400) K/mcL MPV 9.8 (9.4-12.4) fL Immature Gran % 0.4 (0-4) % Seg Neutrophils % 74.3 % Lymphocytes % 15.5 % Monocytes % 7.6 % Eosinophils % 1.8 % Basophils % 0.4 % Neutrophils # 5.6 (1.6-8.9) K/mcL Lymphocytes # 1.2 (0.6-4.6) K/mcL Monocytes # 0.6 (0.0-1.3) K/mcL Eosinophils # 0.1 (0.0-0.6) K/mcL Basophils # 0.0 (0.0-0.2) K/mcL ESR 75 H (0-10) mm/hr PT (9.4-12.1) Seconds INR APTT (26.0-36.0) Seconds Sodium 133 L (136-145) mEq/L Potassium 3.6 (3.5-5.1) mEq/L Chloride 95 L (98-107) mEq/L Carbon Dioxide 27 (23-29) mEq/L BUN 40 H (8-23) mg/dL Creatinine 2.83 H (0.70-1.30) mg/dL Est GFR ( Amer) 26 L (> 60) Est GFR (Non-Af Amer) 22 L (> 60) BUN/Creatinine Ratio 14 (6-26) Glucose 244 H (70-105) mg/dL Calculated Osmolality 294 (280-300) Calcium 8.7 (8.6-10.3) mg/dL C-Reactive Protein 108 H (Less than 10) mg/L 08/11/18 Range/Units 09:54 WBC (4.3-11.1) K/mcL RBC (4.19-5.50) M/mcL Hgb (12.9-16.9) g/dL Hct (37.5-50.1) % MCV (83.0-100.0) fL MCH (28.0-33.3) pg MCHC (31.6-35.5) g/dL RDW (11.5-14.5) % Plt Count (140-400) K/mcL MPV (9.4-12.4) fL Immature Gran % (0-4) % Seg Neutrophils % % Lymphocytes % % Monocytes % % Eosinophils % % Basophils % % Neutrophils # (1.6-8.9) K/mcL Lymphocytes # (0.6-4.6) K/mcL Monocytes # (0.0-1.3) K/mcL Eosinophils # (0.0-0.6) K/mcL Basophils # (0.0-0.2) K/mcL ESR (0-10) mm/hr PT 12.6 H (9.4-12.1) Seconds INR 1.1 APTT 64.8 H (26.0-36.0) Seconds Sodium (136-145) mEq/L Potassium (3.5-5.1) mEq/L Chloride (98-107) mEq/L Carbon Dioxide (23-29) mEq/L BUN (8-23) mg/dL Creatinine (0.70-1.30) mg/dL Est GFR ( Amer) (> 60) Est GFR (Non-Af Amer) (> 60) BUN/Creatinine Ratio (6-26) Glucose (70-105) mg/dL Calculated Osmolality (280-300) Calcium (8.6-10.3) mg/dL C-Reactive Protein (Less than 10) mg/L - Radiology Data Radiology results reviewed: Yes I reviewed the patient's radiology results.
[2018-03-15 10:12] LABS: Basophils % 0.4 %; Eosinophils # 0.1 K/mcL (0.0-0.6); Eosinophils % 1.8 %; Hematocrit 32.4 % (37.5-50.1); Hemoglobin 10.3 g/dL (12.9-16.9); Immature Granulocytes % 0.4 % (0-4); Lymphocytes # 1.2 K/mcL (0.6-4.6); Lymphocytes % 15.5 %; Mean Corpuscular HGB Conc 31.8 g/dL (31.6-35.5); Mean Corpuscular Hemoglobin 29.9 pg (28.0-33.3); Mean Corpuscular Volume 93.9 fL (83.0-100.0); Mean Platelet Volume 9.8 fL (9.4-12.4); Monocytes # 0.6 K/mcL (0.0-1.3); Monocytes % 7.6 %; Neutrophils # 5.6 K/mcL (1.6-8.9); Platelet Count 154 K/mcL (140-400); Red Blood Count 3.45 M/mcL (4.19-5.50); Red Cell Distribution Width 14.7 % (11.5-14.5); Segmented Neutrophils % 74.3 %
[2018-03-15 10:24] LABS: Calcium 8.7 mg/dL (8.6-10.3); Potassium 3.6 mEq/L (3.5-5.1)
[2018-03-15] MEDS ORDERED: *HR* Heparin 5,000 UNIT/ML VIAL IVP ONE (11:19)
[2018-03-15] MEDS ORDERED: *HR* Heparin 5,000 UNIT/ML VIAL IVP PRN (11:19)
[2018-03-15 11:20] LABS: INR 1.1; Prothrombin Time 12.6 Seconds (9.4-12.1)
--- NOTE | 2018-03-15 11:21 | Emergency Department Note ---
Disposition Clinical Impression: DVT, bilateral lower limbs Disposition: Admitted As Inpatient Condition: Fair General Adult HPI - General Chief complaint: ED Extremity Injury, Lower Stated complaint: Foot pain Time Seen by Provider: 03/15/18 09:40 Source: patient, EMS Mode of arrival: EMS Limitations: no limitations - History of Present Illness Location: left, right, lower extremity Pain Scale: 7 Quality: aching Improves with: nothing Worsens with: nothing Associated symptoms: Reports: denies other symptoms Treatments Prior to Arrival: none - Related Data Home Medications Medication Instructions Recorded Confirmed Clopidogrel [Plavix] 75 mg PO QAM #0 03/15/15 03/15/18 Hydralazine HCl 100 mg PO SUTUTHSA #0 03/15/15 03/15/18 Sertraline [Zoloft] 75 mg PO QPM 02/03/16 03/15/18 Sevelamer [Renvela] 2,400 mg PO TIDWM 02/03/16 03/15/18 Isosorbide MONOnitrate [Isosorbide 120 mg PO DAILY 02/06/16 03/15/18 Mononitrate ER] Nitroglycerin [Nitrostat] 0.4 mg SL Q5M PRN 02/06/16 03/15/18 Polyethylene Glycol 3350 [MiraLAX] 17 gm PO DAILY 04/12/16 03/15/18 Bisacodyl [Dulcolax] 10 mg RC HS PRN 09/24/16 03/15/18 Docusate [Colace] 100 mg PO BID 09/24/16 03/15/18 Magnesium Hydroxide [Milk of 2,400 mg PO DAILY PRN 09/24/16 03/15/18 Magnesia] Allopurinol [Zyloprim 100 MG] 100 mg PO QAM 12/21/17 03/15/18 Atorvastatin [Lipitor] 80 mg PO HS 12/21/17 03/15/18 Ergocalciferol (VITAMIN D2) 50,000 unit PO QWEEK 12/21/17 03/15/18 [Drisdol] Famotidine [Acid Geological Engineer] 10 mg PO QAM 12/21/17 03/15/18 Furosemide [Lasix] 40 mg PO TUTHSA 12/21/17 03/15/18 Glucagon,Human Recombinant 1 mg IJ ONCE PRN 12/21/17 03/15/18 [Glucagen] Insulin ASPART [Novolog Flexpen] 5 units SQ TIDWM 12/21/17 03/15/18 Insulin DETEMIR [Levemir Flextouch] 10 units SQ HS 12/21/17 03/15/18 Lisinopril [Zestril] 10 mg PO SUTUTHSA 12/21/17 03/15/18 Loratadine [Claritin] 10 mg PO DAILY 12/21/17 03/15/18 Metoclopramide HCl 5 mg PO TIDWM 12/21/17 03/15/18 Metoprolol [Lopressor] 50 mg PO SUTUTHSA 12/21/17 03/15/18 Multivitamin with Minerals 1 tab PO DAILY 12/21/17 03/15/18 [One-A-Day Maximum Formula] Ondansetron HCl [Zofran] 4 mg PO Q8HR PRN 12/21/17 03/15/18 Ranolazine [Ranexa] 500 mg PO BID 12/21/17 03/15/18 Terazosin [Hytrin] 5 mg PO QPM 12/21/17 03/15/18 ALPRAZolam [Xanax 1 MG Tablet] 1 mg PO TUTHSA 03/15/18 03/15/18 Amoxicillin/Clavulanate [Augmentin] 875 mg PO BIDWM 03/15/18 03/15/18 Cinacalcet [Sensipar] 30 mg PO DAILY 03/15/18 03/15/18 Gabapentin [Neurontin] 300 mg PO TID 03/15/18 03/15/18 Oxycodone HCl [Oxaydo] 5 - 10 mg PO Q4H PRN 03/15/18 03/15/18 Previous Rx's Medication Instructions Recorded Aspirin Enteric Coated [Aspirin EC] 325 mg PO DAILY tablet. 12/25/17 Acetaminophen [Tylenol] 650 mg PO Q6HR PRN tablet 01/16/18 Allergies Allergy/AdvReac Type Severity Reaction Status Date / Time morphine Allergy Hallucinati Verified 03/15/18 10:00 ng Constitutional: Denies: fever, chills, weakness, weight change Eyes: Denies: eye pain, eye discharge, vision change ENT ED: Denies: ear pain, throat pain, dental pain, hearing loss, epistaxis, congestion, dysphagia Cardiovascular: Denies: chest pain, palpitations, dyspnea on exertion, edema, syncope Respiratory: Denies: cough, dyspnea, wheezes, hemoptysis, stridor Gastrointestinal: Denies: abdominal pain, nausea, vomiting, diarrhea, constipation, hematemesis, melena, hematochezia Genitourinary: Denies: urgency, dysuria, frequency, hematuria Musculoskeletal: Reports: as per HPI, other (Bilateral foot pain). Denies: back pain, neck pain, arthralgia, myalgia Integumentary: Denies: rash, abrasion, lesions Neurological: Denies: headache, weakness, numbness, paresthesias, confusion, abnormal gait, vertigo Psychiatric: Denies: anxiety, depression, suicidal thoughts, homicidal thoughts , auditory hallucinations, visual hallucinations Endocrine: Denies: fatigue Hematological/Lymphatic: Denies: easy bleeding, easy bruising Allergic/Immunologic: Denies: facial swelling, urticaria Past Medical History - Past Medical History Medical history: Reports: arthritis, cancer, CHF, coronary artery disease, diabetes, dialysis, GERD, hyperlipidemia, hypertension, kidney stones, renal disease, other Surgical history: Reports: cataract, cholecystectomy, knee replacement, pacemaker/AICD, other Psychiatric history: Reports: anxiety - Social History Smoking Status: Never smoker Smokeless Tobacco Status: No Alcohol use: Reports: none Drug use: Reports: none Physical Exam - General Limitations: no limitations General appearance: alert, in no apparent distress Course Vital Signs Temperature 98.2 F 03/15/18 09:55 Pulse Rate 94 03/15/18 09:55 Respiratory Rate 20 03/15/18 09:55 Blood Pressure 186/66 03/15/18 09:55 O2 Sat by Pulse Oximetry 95 03/15/18 09:55 Temperature 98.2 F 03/15/18 09:55 Pulse Rate 94 03/15/18 09:55 Respiratory Rate 20 03/15/18 12:16 Blood Pressure 115/57 03/15/18 12:16 O2 Sat by Pulse Oximetry 95 03/15/18 09:55 Oxygen Delivery Oxygen Delivery Room Air Medical Decision Making - Lab Data Result diagrams: 03/15/18 12:32 03/15/18 09:53 Lab Results 03/15/18 03/15/18 03/15/18 Range/Units 09:53 09:53 09:53 WBC 7.6 (4.3-11.1) K/mcL RBC 3.45 L (4.19-5.50) M/mcL Hgb 10.3 L (12.9-16.9) g/dL Hct 32.4 L (37.5-50.1) % MCV 93.9 (83.0-100.0) fL MCH 29.9 (28.0-33.3) pg MCHC 31.8 (31.6-35.5) g/dL RDW 14.7 H (11.5-14.5) % Plt Count 154 (140-400) K/mcL MPV 9.8 (9.4-12.4) fL Immature Gran % 0.4 (0-4) % Seg Neutrophils % 74.3 % Lymphocytes % 15.5 % Monocytes % 7.6 % Eosinophils % 1.8 % Basophils % 0.4 % Neutrophils # 5.6 (1.6-8.9) K/mcL Lymphocytes # 1.2 (0.6-4.6) K/mcL Monocytes # 0.6 (0.0-1.3) K/mcL Eosinophils # 0.1 (0.0-0.6) K/mcL Basophils # 0.0 (0.0-0.2) K/mcL ESR 75 H (0-10) mm/hr PT (9.4-12.1) Seconds INR APTT (26.0-36.0) Seconds Heparin Anti-Xa, Unfract (0.30-0.70) IU/mL Sodium 133 L (136-145) mEq/L Potassium 3.6 (3.5-5.1) mEq/L Chloride 95 L (98-107) mEq/L Carbon Dioxide 27 (23-29) mEq/L BUN 40 H (8-23) mg/dL Creatinine 2.83 H (0.70-1.30) mg/dL Est GFR ( Amer) 26 L (> 60) Est GFR (Non-Af Amer) 22 L (> 60) BUN/Creatinine Ratio 14 (6-26) Glucose 244 H (70-105) mg/dL Calculated Osmolality 294 (280-300) Calcium 8.7 (8.6-10.3) mg/dL C-Reactive Protein 108 H (Less than 10) mg/L 03/15/18 03/15/18 03/15/18 Range/Units 09:54 12:32 12:32 WBC 6.7 (4.3-11.1) K/mcL RBC 3.37 L (4.19-5.50) M/mcL Hgb 10.4 L (12.9-16.9) g/dL Hct 32.2 L (37.5-50.1) % MCV 95.5 (83.0-100.0) fL MCH 30.9 (28.0-33.3) pg MCHC 32.3 (31.6-35.5) g/dL RDW 14.6 H (11.5-14.5) % Plt Count 168 (140-400) K/mcL MPV 10.2 (9.4-12.4) fL Immature Gran % (0-4) % Seg Neutrophils % % Lymphocytes % % Monocytes % % Eosinophils % % Basophils % % Neutrophils # (1.6-8.9) K/mcL Lymphocytes # (0.6-4.6) K/mcL Monocytes # (0.0-1.3) K/mcL Eosinophils # (0.0-0.6) K/mcL Basophils # (0.0-0.2) K/mcL ESR (0-10) mm/hr PT 12.6 H 13.0 H (9.4-12.1) Seconds INR 1.1 1.2 APTT 64.8 H (26.0-36.0) Seconds Heparin Anti-Xa, Unfract 1.07 H* (0.30-0.70) IU/mL Sodium (136-145) mEq/L Potassium (3.5-5.1) mEq/L Chloride (98-107) mEq/L Carbon Dioxide (23-29) mEq/L BUN (8-23) mg/dL Creatinine (0.70-1.30) mg/dL Est GFR ( Amer) (> 60) Est GFR (Non-Af Amer) (> 60) BUN/Creatinine Ratio (6-26) Glucose (70-105) mg/dL Calculated Osmolality (280-300) Calcium (8.6-10.3) mg/dL C-Reactive Protein (Less than 10) mg/L 03/15/18 Range/Units 13:17 WBC (4.3-11.1) K/mcL RBC (4.19-5.50) M/mcL Hgb (12.9-16.9) g/dL Hct (37.5-50.1) % MCV (83.0-100.0) fL MCH (28.0-33.3) pg MCHC (31.6-35.5) g/dL RDW (11.5-14.5) % Plt Count (140-400) K/mcL MPV (9.4-12.4) fL Immature Gran % (0-4) % Seg Neutrophils % % Lymphocytes % % Monocytes % % Eosinophils % % Basophils % % Neutrophils # (1.6-8.9) K/mcL Lymphocytes # (0.6-4.6) K/mcL Monocytes # (0.0-1.3) K/mcL Eosinophils # (0.0-0.6) K/mcL Basophils # (0.0-0.2) K/mcL ESR (0-10) mm/hr PT (9.4-12.1) Seconds INR APTT (26.0-36.0) Seconds Heparin Anti-Xa, Unfract 0.90 H (0.30-0.70) IU/mL Sodium (136-145) mEq/L Potassium (3.5-5.1) mEq/L Chloride (98-107) mEq/L Carbon Dioxide (23-29) mEq/L BUN (8-23) mg/dL Creatinine (0.70-1.30) mg/dL Est GFR ( Amer) (> 60) Est GFR (Non-Af Amer) (> 60) BUN/Creatinine Ratio (6-26) Glucose (70-105) mg/dL Calculated Osmolality (280-300) Calcium (8.6-10.3) mg/dL C-Reactive Protein (Less than 10) mg/L Critical Care Time Critical Care Time: Yes Total Critical Care Time: 35 Attestation: Critical care performed: Time is exclusive of separately billable procedures. Time includes: direct patient care, patient reassessment, coordination of patient care, interpretation of data (laboratory data, radiology data, and respiratory data), review of patient's medical records, medical consultation and documentation of patient care. Procedures included in critical care time: Procedures excluded from critical care time: Attestation Statement - Attestation Attestation: For this encounter, I have reviewed the COLLECTION SYSTEMS CONSULTANT or PA documentation, treatment plan, and medical decision making; and I have had face to face time with this patient. Patient to ED from dialysis bilateral foot pain. On examination he has swelling to the feet are pink and warm. Plan. Ultrasound showed bilateral posterior tibial DVTs. We will discuss with vascular. Likely heparinization and admission.
[2018-03-15 11:23] LABS: Activated Partial Thrombo Time 64.8 Seconds (26.0-36.0)
[2018-03-15] MEDS: Heparin 25,000 UNIT/500 ML D5W 25,000 UNIT/500 ML BAG IVC SCH (12:05)
[2018-03-15] MEDS ORDERED: Naloxone 0.4 MG/ML INJ IVP PRN (12:11)
--- NOTE | 2018-03-15 12:25 | Internal Med History&Physical ---
<Dayan Jacome Jarred - Last Filed: 03/15/18 13:07> Date of Encounter: 03/15/18 Time of Encounter: 12:22 Internal Medicine - H&P: HPI Chief complaint: Leg Pain Admitted From: Home (Patient came from HD center lives at a ECF) Plans for Post Hospital Care: Transfer Automotive Project Engineer Care History of present illness: Mr. Kenny is a 82 year old male with history of ESRD, HTN, CAD, and type 2 diabetes mellitus. Patient indicated that he was at the HD center being dialyzed , when he began to have leg pain. The patient was brought here and had venous doppler studies which revealed bilat tibial DVT per the ED notes, however I was not able to visualize this report in [facility]. On assessment the patient was noted to to absent palpable pedal pulse. Pulses were obtained in the ED per doppler. Heparin drip being started while I was in room. The patient received a partial HD. Nephrology consultation placed. Creat is 2.83, k is 3.6, na is 133, and bun is 40. Past Med Surg Social Fam HX - Past Medical History Medical history: arthritis, cancer, CHF, coronary artery disease, diabetes, dialysis, GERD, hyperlipidemia, hypertension, kidney stones, renal disease, other Additional medical history: prostate cancer Psychiatric history: anxiety - Past Surgical History Surgical History: cataract, cholecystectomy, knee replacement, pacemaker/AICD, other Additional surgical history: bilateral knee replacement, kidney stones, gastritis, left hand surgery, heart cath. - Social History Smoking Status: Never smoker Smokeless Tobacco Status: No Alcohol use: none Drug use: none - Family History Father Family Member Ethnicity: Non- Living Status: Hx Family Cardiac Disorders: Yes (DE) Brother Family Member Ethnicity: Non- Living Status: Still Living Sister Family Member Ethnicity: Non- Living Status: Still Living Mother Adopted: No Family Member Ethnicity: Non- Living Status: Hx Family Cardiac Disorders: Yes (CAD) Hx Family Respiratory Disorders: No Hx Family Cancer: No Hx Family GI Disorders: No Hx Family Endocrine Disorder: No Hx Family Neuromuscular Disorders: No Hx Family Neurologic Disorders: No Hx Family HEENT Disorders: No Hx Family Autoimmune Disorders: No Internal Medicine - H&P: Meds Clopidogrel [Plavix] 75 mg PO QAM #0 03/15/15 [History] Hydralazine HCl 100 mg PO SUTUTHSA #0 03/15/15 [History] Sertraline [Zoloft] 75 mg PO QPM 02/03/16 [History] Sevelamer [Renvela] 2,400 mg PO TIDWM 02/03/16 [History] Isosorbide MONOnitrate [Isosorbide Mononitrate ER] 120 mg PO DAILY 02/06/16 [ History] Nitroglycerin [Nitrostat] 0.4 mg SL Q5M PRN 02/06/16 [History] Polyethylene Glycol 3350 [MiraLAX] 17 gm PO DAILY 04/12/16 [History] Bisacodyl [Dulcolax] 10 mg RC HS PRN 09/24/16 [History] Docusate [Colace] 100 mg PO BID 09/24/16 [History] Magnesium Hydroxide [Milk of Magnesia] 2,400 mg PO DAILY PRN 09/24/16 [History] Allopurinol [Zyloprim 100 MG] 100 mg PO QAM 12/21/17 [History] Atorvastatin [Lipitor] 80 mg PO HS 12/21/17 [History] Ergocalciferol (VITAMIN D2) [Drisdol] 50,000 unit PO QWEEK 12/21/17 [History] Famotidine [Acid Regulatory Affairs Associate] 10 mg PO QAM 12/21/17 [History] Furosemide [Lasix] 40 mg PO TUTHSA 12/21/17 [History] Glucagon,Human Recombinant [Glucagen] 1 mg IJ ONCE PRN 12/21/17 [History] Insulin ASPART [Novolog Flexpen] 5 units SQ TIDWM 12/21/17 [History] Insulin DETEMIR [Levemir Flextouch] 10 units SQ HS 12/21/17 [History] [facility]inopril [[facility]] [facility] 12/[facility]/17 [History] Loratadine [Claritin] 10 mg PO DAILY 12/21/17 [History] Metoclopramide HCl 5 mg PO TIDWM 12/21/17 [History] Metoprolol [Lopressor] 50 [facility] 12/21/17 [History] Multivitamin with Minerals [One-A-Day Maximum Formula] 1 tab PO DAILY 12/21/17 [ History] Ondansetron HCl [Zofran] 4 mg PO Q8HR PRN 12/21/17 [History] Ranolazine [Ranexa] 500 mg PO BID 12/21/17 [History] Terazosin [Hytrin] 5 mg PO QPM 12/21/17 [History] Aspirin Enteric Coated [Aspirin EC] 325 mg PO DAILY tablet. 12/25/17 [Rx] Acetaminophen [Tylenol] 650 mg PO Q6HR PRN tablet 01/16/18 [Rx] ALPRAZolam [Xanax 1 MG Tablet] 1 mg PO TUTHSA 03/15/18 [History] Amoxicillin/Clavulanate [Augmentin] 875 mg PO BIDWM 03/15/18 [History] Cinacalcet [Sensipar] 30 mg PO DAILY 03/15/18 [History] Gabapentin [Neurontin] 300 mg PO TID 03/15/18 [History] Oxycodone HCl [Oxaydo] 5 - 10 mg PO Q4H PRN 03/15/18 [History] 3 Allergy/AdvReac Type Severity Reaction Status Date / Time morphine Allergy Hallucinati Verified 03/15/18 10:00 ng All Systems PM: A 10-system review of systems was performed and is negative for pertinent findings except as documented above in the HPI. - Constitutional Constitutional: no chills, no fever(s), no night sweats - EENT Eyes: no change in vision, no discharge, no pain, no photophobia Ears: no ear discharge, no ear pain, no tinnitus Nose, mouth and throat: no dysphagia, no nasal discharge, no neck pain, no sore throat - Cardiovascular Cardiovascular ROS IM: edema, no chest pain, no diaphoresis, no dyspnea, no lightheadedness, no palpitations, no syncope - Respiratory Respiratory: no cough, no dyspnea, no wheezing, no excessive phlegm production - Gastrointestinal Gastrointestinal: no abdominal pain, no diarrhea, no hematemesis, no hematochezia, no melena, no nausea, no vomiting - Musculoskeletal Musculoskeletal ROS IM: no numbness, no tingling - Integumentary Integumentary IM: no rash, no unusual bruising - Neurological Neurological ROS: other (Leg pain), no confusion, no convulsions, no focal weakness, no numbness, no tingling, no tremor(s) - Hematologic/Lymphatic Hematologic/Lymphatic: no easy bruising - Constitutional Vitals: Temp Pulse Resp BP Pulse Ox 98.2 F 94 20 115/57 95 03/15/18 09:55 03/15/18 09:55 03/15/18 12:16 03/15/18 12:16 03/15/18 09:55 General appearance: Present: A&O X 3, answers questions appropriately - Head Head exam: Present: atraumatic, normocephalic - Eye Eye exam: Present: PERRL, conjuntiva pink, sclera anicteric Pupils: Present: PERRL - Neck Neck exam general surgery: Present: supple, trachea midline. Absent: lymphadenopathy - Respiratory Respiratory exam: Present: CTAB. Absent: accessory muscle use, rales, rhonchi, wheezes - Cardiovascular Cardiovascular exam: Present: RRR, +S1, +S2. Absent: diastolic murmur, gallop, rubs, systolic murmur - GI/Abdominal GI/Abdominal exam: Present: normal bowel sounds, soft, no peritoneal signs. Absent: distended, tenderness - Extremities Exam Extremities exam: Present: pedal edema, warm. Absent: calf tenderness, cyanotic , radial pulses palpable and symmetrical - Neurological Exam Neurological exam: Present: CN II-XII intact, oriented X3, no focal deficits. Absent: pronater drift, facial droop, speech deficit - Skin Skin exam: Present: dry, intact Internal Med - H&P Results - Labs CBC & Chem 7: 03/15/18 12:32 03/15/18 09:53 - Assessment and plan (1) DVT, bilateral lower limbs Current Visit: Yes Status: Acute Assessment and plan: Vascular was consulted by the ED Heparin drip infusing Circulation checks Qualifiers: Affected thrombotic vein of extremity: tibial Chronicity: acute Qualified Code(s): I82.443 - Acute embolism and thrombosis of tibial vein, bilateral (2) ESRD (end stage renal disease) on dialysis Current Visit: Yes Status: Chronic Assessment and plan: Consultation with Nephrology. Patient [facility] Monitor daily labs (3) Insulin dependent diabetes mellitus Current Visit: No Status: Acute Assessment and plan: Uncontrolled Accu-Cheks before meals at bedtime with moderate Humalog insulin scale coverage Goal is under 200 (4) HTN (hypertension) Current Visit: No Status: Chronic Assessment and plan: Bp is controlled Continue home meds-hydralazine, lisinopril, and metoprolol. Qualifiers: Hypertension type: essential hypertension Qualified Code(s): I10 - Essential (primary) hypertension - Time Spent With Patient Total time spent is greater than 50% in coordination of care (as documented) at patient's floor/unit and/or counseling patient: <Brooklyn Singleton - Last Filed: 03/15/18 16:21> Date of Encounter: 03/15/18 Internal Medicine - H&P: HPI History of present illness: Mr. Kenny is a 82 year old male All Systems PM: A 10-system review of systems was performed and is negative for pertinent findings except as documented above in the HPI. - Constitutional Vitals: Temp Pulse Resp BP Pulse Ox 98.2 F 94 20 115/57 95 03/15/18 09:55 03/15/18 09:55 03/15/18 12:16 03/15/18 12:16 03/15/18 09:55 Internal Med - H&P Results - Labs CBC & Chem 7: 03/15/18 12:32 03/15/18 09:53 - Attending Attestation I have personally performed a face to face evaluation on this patient. I have reviewed and agree with the care plan provided by RENTAL COORDINATOR Dayan Jacome. History and Exam by me shows: Mr. Kenny is a 82 year old male with history of ESRD, HTN, CAD, and type 2 diabetes mellitus. Patient indicated that he was at the HD center being dialyzed , when he began to have leg pain. The patient was brought here and had venous doppler studies which revealed bilat tibial DVT. Pt was started on Heparin gtt. He denied any CP / SOB Gen: A, A, O x 3 Chest; Diminished BS b/l, no crackles, No rales Heart: S1S2+ RRR No murmur Ext: mild tenderness b/l LE a/p 1. Acute b/l LE DVT on Heparin gtt will start him on Coumadin too 2. ESRD on HD Consult Nephro for HD - Time Spent With Patient Total time spent is greater than 50% in coordination of care (as documented) at patient's floor/unit and/or counseling patient:
[2018-03-15 12:42] LABS: Hematocrit 32.2 % (37.5-50.1); Hemoglobin 10.4 g/dL (12.9-16.9); Mean Corpuscular HGB Conc 32.3 g/dL (31.6-35.5); Mean Corpuscular Hemoglobin 30.9 pg (28.0-33.3); Mean Corpuscular Volume 95.5 fL (83.0-100.0); Mean Platelet Volume 10.2 fL (9.4-12.4); Platelet Count 168 K/mcL (140-400); Red Blood Count 3.37 M/mcL (4.19-5.50); Red Cell Distribution Width 14.6 % (11.5-14.5)
[2018-03-15] MEDS ORDERED: Dextrose Gel 15 GM/37.5 ML TUBE PO PRN ×2 (12:47)
[2018-03-15] MEDS ORDERED: D5% in Water 1,000 ML IVC PRN (12:47)
[2018-03-15] MEDS ORDERED: *HR* Dextrose 50 % in Water (Syg) 50 ML SYRINGE IVP PRN (12:47)
[2018-03-15 12:49] LABS: INR 1.2
[2018-03-15 12:54] LABS: Heparin anti-factor XA UFH 1.07 IU/mL (0.30-0.70)
[2018-03-15] MEDS: *HR* HYDROcodone/Acet 7.5/325 mg TABLET PO PRN ×3 (15:05→23:57)
[2018-03-15] MEDS ORDERED: Nitroglycerin 0.4 MG TAB.SUBL SL PRN (15:42)
[2018-03-15] MEDS ORDERED: Ondansetron ODT 4 MG TAB.RAPDIS PO PRN (15:42)
[2018-03-15] MEDS ORDERED: MOM Conc 10 ML UD.LIQ PO PRN (15:42)
[2018-03-15] MEDS ORDERED: ALPRAZolam 1 MG TABLET PO SCH (15:45)
--- NOTE | 2018-03-15 15:53 | Vascular/Endovasc Consult Note ---
Date of Encounter: 03/15/18 Time of Encounter: 14:30 Assessment and Plan (1) DVT, bilateral lower limbs Current Visit: Yes Status: Acute The pathophysiology and natural history of venous thromboembolism was discussed the patient WAS answered. The patient reports acute bilateral lower extremities pain and swelling. His venous duplex reveals bilateral tibial deep vein thrombosis. At this time anticoagulation with a heparin drip is recommended. The patient may then be transitioned to oral anticoagulation. The patient does have a history of chronic anemia. Would recheck his hemoglobin tomorrow to be sure he does not develop progressive anemia. Progressive anemia would be a contraindication to oral anticoagulation. Qualifiers: Affected thrombotic vein of extremity: tibial Chronicity: acute Qualified Code(s): I82.443 - Acute embolism and thrombosis of tibial vein, bilateral (2) ESRD (end stage renal disease) on dialysis Current Visit: Yes Status: Chronic (3) HLD (hyperlipidemia) Current Visit: Yes Status: Chronic The patient was counter atherosclerotic risk factor reduction. Qualifiers: Hyperlipidemia type: unspecified Qualified Code(s): E78.5 - Hyperlipidemia , unspecified (4) HTN (hypertension) Current Visit: No Status: Chronic Qualifiers: Hypertension type: essential hypertension Qualified Code(s): I10 - Essential (primary) hypertension (5) CAD (coronary artery disease) Current Visit: Yes Status: Chronic Qualifiers: Coronary Disease-Associated Artery/Lesion type: [place] artery [place] vs. transplanted heart: [place] heart Associated angina: without angina Qualified Code(s): I25.10 - Atherosclerotic heart disease of [place] coronary artery without angina pectoris (6) Anemia Current Visit: No Status: Acute Qualifiers: Anemia type: due to chronic kidney disease Chronic kidney disease stage: on chronic dialysis Qualified Code(s): N18.6 - End stage renal disease; D63.1 - Anemia in chronic kidney disease; Z99.2 - Dependence on renal dialysis - History of Present Illness Consult date: 03/15/18 Requesting physician: Shaun Garg Consult reason: Deep vein thrombosis Chief complaint: Leg swelling History of present illness: Mr. Kenny is a 82 year old male with history of end-stage renal disease, hypertension, coronary artery disease and diabetes. The patient presented to the emergency room with bilateral lower extremity pain and swelling today. As part of his evaluation he underwent a venous duplex. He was found to have bilateral lower extremity deep vein thrombosis. He was admitted to [facility] started on a heparin drip. Vascular surgery was counseled for further evaluation. He denies any fevers or chills. He denies any new ulcerations or gangrene. He denies chest pain or shortness of breath. Past Med Surg Social Fam HX - Past Medical History Medical history: arthritis, cancer, CHF, coronary artery disease, diabetes, dialysis, GERD, hyperlipidemia, hypertension, kidney stones, renal disease, other Additional medical history: prostate cancer Psychiatric history: anxiety - Past Surgical History Surgical History: cataract, cholecystectomy, knee replacement, pacemaker/AICD, other Additional surgical history: bilateral knee replacement, kidney stones, gastritis, left hand surgery, heart cath. - Social History Smoking Status: Never smoker Smokeless Tobacco Status: No Alcohol use: none Drug use: none - Family History Father Family Member Ethnicity: Non- Living Status: Hx Family Cardiac Disorders: Yes ([place]) Brother Family Member Ethnicity: Non- Living Status: Still Living Sister Family Member Ethnicity: Non- Living Status: Still Living Mother Adopted: No Family Member Ethnicity: Non- Living Status: Hx Family Cardiac Disorders: Yes (CAD) Hx Family Respiratory Disorders: No Hx Family Cancer: No Hx Family GI Disorders: No Hx Family Endocrine Disorder: No Hx Family Neuromuscular Disorders: No Hx Family Neurologic Disorders: No Hx Family HEENT Disorders: No Hx Family Autoimmune Disorders: No Medications and Allergies Clopidogrel [Plavix] 75 mg PO QAM #0 03/15/15 [History] Hydralazine HCl 100 mg PO SUTUTHSA #0 03/15/15 [History] Sertraline [Zoloft] 75 mg PO QPM 02/03/16 [History] Sevelamer [Renvela] 2,400 mg PO TIDWM 02/03/16 [History] Isosorbide MONOnitrate [Isosorbide Mononitrate ER] 120 mg PO DAILY 02/06/16 [ History] Nitroglycerin [Nitrostat] 0.4 mg SL Q5M PRN 02/06/16 [History] Polyethylene Glycol 3350 [MiraLAX] 17 gm PO DAILY 04/12/16 [History] Bisacodyl [Dulcolax] 10 mg RC HS PRN 09/24/16 [History] Docusate [Colace] 100 mg PO BID 09/24/16 [History] Magnesium Hydroxide [Milk of Magnesia] 2,400 mg PO DAILY PRN 09/24/16 [History] Allopurinol [Zyloprim 100 MG] 100 mg PO QAM 12/21/17 [History] Atorvastatin [Lipitor] 80 mg PO HS 12/21/17 [History] Ergocalciferol (VITAMIN D2) [Drisdol] 50,000 unit PO QWEEK 12/21/17 [History] Famotidine [Acid Trimmer Hand] 10 mg PO QAM 12/21/17 [History] Furosemide [Lasix] 40 [facility] 12/21/17 [History] Glucagon,Human Recombinant [Glucagen] 1 mg IJ ONCE PRN 12/21/17 [History] Insulin ASPART [Novolog Flexpen] 5 units SQ TIDWM 12/21/17 [History] Insulin DETEMIR [Levemir Flextouch] 10 units SQ 12/21/17 [History] Lisinopril [Zestril] 10 mg PO [facility] 12/21/17 [History] Loratadine [Claritin] 10 mg PO DAILY 12/21/17 [History] Metoclopramide HCl 5 mg PO TIDWM 12/21/17 [History] Metoprolol [Lopressor] 50 mg PO [facility] 12/21/17 [History] Multivitamin with Minerals [One-A-Day Maximum Formula] 1 tab PO DAILY 12/21/17 [ History] Ondansetron HCl [Zofran] 4 mg PO Q8HR PRN 12/21/17 [History] Ranolazine [Ranexa] 500 mg PO BID 12/21/17 [History] Terazosin [Hytrin] 5 mg PO QPM 12/21/17 [History] Aspirin Enteric Coated [Aspirin EC] 325 mg PO DAILY tablet. 12/25/17 [Rx] Acetaminophen [Tylenol] 650 mg PO Q6HR PRN tablet 01/16/18 [Rx] ALPRAZolam [Xanax 1 MG Tablet] 1 mg PO TUTHSA 03/15/18 [History] Amoxicillin/Clavulanate [Augmentin] 875 mg PO BIDWM 03/15/18 [History] Cinacalcet [Sensipar] 30 mg PO DAILY 03/15/18 [History] Gabapentin [Neurontin] 300 mg PO TID 03/15/18 [History] Oxycodone HCl [Oxaydo] 5 - 10 mg PO Q4H PRN 03/15/18 [History] 3 Allergy/AdvReac Type Severity Reaction Status Date / Time morphine Allergy Hallucinati Verified 03/15/18 10:00 ng All Systems Review: The remainder of the systems were reviewed and are negative - Constitutional Constitutional: no chills, no fever(s) - Cardiovascular Cardiovascular: no as per HPI, no chest pain at rest Exam General: Present: Conversant, No Apparent Distress HEENT: Present: Pupils equal Neck: Absent: JVD, Lymphadenopathy Cardiac: Present: Reg Rate and Rhythm Lungs: Present: Normal Breath Sounds, No Wheeze, Rales, Rhonchi Neuro: Present: Alert and responsive, No focal deficits noted, Motor nerves grossly intact, Sensory nerves grossly intact Abdomen: Present: Soft Vascular: Present: Normal capillary refill, Pulse, diminished (Pedal signals are present bilaterally), Edema (1+ bilateral lower extremity edema). Absent: Cyanosis Skin: Present: No rashes noted on visualized skin Musculoskeletal: Present: No Chest Wall Tenderness Consult Discharge Plan - Plan Referrals: Morales Fischer MD [Primary Care Provider] -
[2018-03-15] MEDS: Insulin LISPRO 300 UNITS/3 ML VIAL SQ SCH ×2 (17:25→22:00)
[2018-03-15] MEDS: Furosemide 40 MG TABLET PO SCH (17:27)
[2018-03-15] MEDS ORDERED: *HR* Warfarin 5 MG TABLET PO ONE (18:00)
[2018-03-15] MEDS ORDERED: Warfarin perPT PO PRN (18:00)
[2018-03-15] MEDS: Insulin DETEMIR 100 UNIT/ML X5UNITS SQ SCH (20:08)
[2018-03-15] MEDS: Ranolazine 500 MG TAB.ER.12H PO SCH (20:09)
[2018-03-15] MEDS: Gabapentin 300 MG CAPSULE PO SCH (20:09)
[2018-03-15] MEDS ORDERED: INSULIN DETEMIR 10 UNIT SQ SCH (21:00)
[2018-03-16 01:50] LABS: INR 1.1; Prothrombin Time 12.1 Seconds (9.4-12.1)
[2018-03-16 01:56] LABS: Calcium 8.9 mg/dL (8.6-10.3)
[2018-03-16] MEDS: *HR* Heparin 5,000 UNIT/ML VIAL IVP PRN ×2 (02:27→10:31)
[2018-03-16 02:40] LABS: Basophils % 0.3 %; Eosinophils # 0.2 K/mcL (0.0-0.6); Eosinophils % 3.1 %; Hematocrit 32.2 % (37.5-50.1); Hemoglobin 10.3 g/dL (12.9-16.9); Immature Granulocytes % 0.4 % (0-4); Lymphocytes # 1.2 K/mcL (0.6-4.6); Mean Corpuscular Hemoglobin 30.8 pg (28.0-33.3); Mean Corpuscular Volume 96.4 fL (83.0-100.0); Mean Platelet Volume 10.4 fL (9.4-12.4); Monocytes # 0.7 K/mcL (0.0-1.3); Monocytes % 9.7 %; Neutrophils # 4.7 K/mcL (1.6-8.9); Platelet Count 182 K/mcL (140-400); Red Blood Count 3.34 M/mcL (4.19-5.50); Red Cell Distribution Width 14.9 % (11.5-14.5); Segmented Neutrophils % 68.5 %
[2018-03-16] MEDS: *HR* HYDROcodone/Acet 7.5/325 mg TABLET PO PRN ×2 (04:38→08:29)
[2018-03-16] MEDS: Heparin 25,000 UNIT/500 ML D5W 25,000 UNIT/500 ML BAG IVC SCH ×2 (05:22→20:38)
--- NOTE | 2018-03-16 08:06 | Nephrology Consult Note ---
Date of Encounter: 03/16/18 Time of Encounter: 08:01 Assessment and Plan (1) ESRD (end stage renal disease) on dialysis Current Visit: Yes Status: Chronic Biochemically he is stable and next HD would be planned for Saturday. (2) DVT, bilateral lower limbs Current Visit: Yes Status: Acute Appreciate the primary team. Discussed with the primary team. Agree with V/Q scan. Qualifiers: Affected thrombotic vein of extremity: tibial Chronicity: acute Qualified Code(s): I82.443 - Acute embolism and thrombosis of tibial vein, bilateral History of Present Illness - Reason for Consult Consult date: 03/16/18 end stage renal disease Requesting physician: Brooklyn Singleton - Chief Complaint Hx of ESRD - History of Present Illness 82 y/o AAM with a pmh of ESRD and chronic debility who presented yesterday with progressively worsening LE pains and was noted to have DVTs and poor pedal pulses. I found him on my list this AM (Saturday) though was never paged. I logged into [facility] EHR and noted he completed 154 min of HD on 03/15 and see that in the last month his dialysis scheduled was changed to TTS. I also noted that on 03/01 his primary patient observer Dr. Jeronimo had documented in her comprehensive dialysis rounding note that the pt was c/o of Left LE "heel" pain. Nevertheless, this pt was noted to have since developed a DVT and now on A /C. Biochemically he is stable and next HD would be planned for Saturday. He complained of chest pain and was requesting a pain medication. He said that his feet and legs were not currently hurting. He was by himself in the 2A room. He did not affirm shortness of breath, N/V/D, F/C or rash. Past Med Surg Social Fam HX - Past Medical History Medical history: arthritis, cancer, CHF, coronary artery disease, diabetes, dialysis, GERD, hyperlipidemia, hypertension, kidney stones, renal disease, other Additional medical history: prostate cancer Psychiatric history: anxiety - Past Surgical History Surgical History: cataract, cholecystectomy, knee replacement, pacemaker/AICD, other Additional surgical history: bilateral knee replacement, kidney stones, gastritis, left hand surgery, heart cath. - Social History Smoking Status: Never smoker Smokeless Tobacco Status: No Alcohol use: none Drug use: none - Family History Father Family Member Ethnicity: Non- Living Status: Hx Family Cardiac Disorders: Yes ([place]) Brother Family Member Ethnicity: Non- Living Status: Still Living Sister Family Member Ethnicity: Non- Living Status: Still Living Mother Adopted: No Family Member Ethnicity: Non- Living Status: Hx Family Cardiac Disorders: Yes (CAD) Hx Family Respiratory Disorders: No Hx Family Cancer: No Hx Family GI Disorders: No Hx Family Endocrine Disorder: No Hx Family Neuromuscular Disorders: No Hx Family Neurologic Disorders: No Hx Family HEENT Disorders: No Hx Family Autoimmune Disorders: No Medications and Allergies Clopidogrel [Plavix] 75 mg PO QAM #0 03/15/15 [History] Hydralazine HCl 100 mg PO SUTUTHSA #0 03/15/15 [History] Sertraline [Zoloft] 75 mg PO QPM 02/03/16 [History] Sevelamer [Renvela] 2,400 mg PO TIDWM 02/03/16 [History] Isosorbide MONOnitrate [Isosorbide Mononitrate ER] 120 mg PO DAILY 02/06/16 [ History] Nitroglycerin [Nitrostat] 0.4 mg SL Q5M PRN 02/06/16 [History] Polyethylene Glycol 3350 [MiraLAX] 17 gm PO DAILY 04/12/16 [History] Bisacodyl [Dulcolax] 10 mg RC HS PRN 09/24/16 [History] Docusate [Colace] 100 mg PO BID 09/24/16 [History] Magnesium Hydroxide [Milk of Magnesia] 2,400 mg PO DAILY PRN 09/24/16 [History] Allopurinol [Zyloprim 100 MG] 100 mg PO QAM 12/21/17 [History] Atorvastatin [Lipitor] 80 mg PO HS 12/21/17 [History] Ergocalciferol (VITAMIN D2) [Drisdol] 50,000 unit PO QWEEK 12/21/17 [History] Famotidine [Acid Hydraulic Chair Assembler] 10 mg PO QAM 12/21/17 [History] Furosemide [Lasix] 40 mg PO TUTHSA 12/21/17 [History] Glucagon,Human Recombinant [Glucagen] 1 mg IJ ONCE PRN 12/21/17 [History] Insulin ASPART [Novolog Flexpen] 5 units SQ TIDWM 12/21/17 [History] Insulin DETEMIR [Levemir Flextouch] 10 units SQ HS 12/21/17 [History] Lisinopril [[facility]est[facility]] [facility] 12/21/17 [History] Loratadine [Claritin] 10 mg PO DAILY 12/21/17 [History] Metoclopramide HCl 5 mg PO TIDWM 12/21/17 [History] Metoprolol [Lopressor] 50 mg PO [facility] 12/21/17 [History] Multivitamin with Minerals [One-A-Day Maximum Formula] 1 tab PO DAILY 12/21/17 [ History] Ondansetron HCl [Zofran] 4 mg PO Q8HR PRN 12/21/17 [History] Ranolazine [Ranexa] 500 mg PO BID 12/21/17 [History] Terazosin [Hytrin] 5 mg PO QPM 12/21/17 [History] Aspirin Enteric Coated [Aspirin EC] 325 mg PO DAILY tablet. 12/25/17 [Rx] Acetaminophen [Tylenol] 650 mg PO Q6HR PRN tablet 01/16/18 [Rx] ALPRAZolam [Xanax 1 MG Tablet] 1 mg PO TUTHSA 03/15/18 [History] Amoxicillin/Clavulanate [Augmentin] 875 mg PO BIDWM 03/15/18 [History] Cinacalcet [Sensipar] 30 mg PO DAILY 03/15/18 [History] Gabapentin [Neurontin] 300 mg PO TID 03/15/18 [History] Oxycodone HCl [Oxaydo] 5 - 10 mg PO Q4H PRN 03/15/18 [History] 3 Allergy/AdvReac Type Severity Reaction Status Date / Time morphine Allergy Hallucinati Verified 03/15/18 10:00 ng Review of Systems All Systems: reviewed and no additional remarkable complaints except as stated Exam - Vital Signs Vital signs: Initial Vital Signs Temp Pulse Resp BP Pulse Ox 98.2 F 94 20 186/66 95 03/15/18 09:55 03/15/18 09:55 03/15/18 09:55 03/15/18 09:55 03/15/18 09:55 Vital Signs - Last 8 Hours Temp Pulse Resp BP Pulse Ox 03/16/18 06:43 98.0 F 65 20 113/64 96 03/16/18 04:37 97.5 F L 59 18 114/74 95 Intake and Output 03/15/18 03/16/18 03/16/18 23:59 07:59 15:59 Intake Total 323 / 323 297 / 297 Balance 323 / 323 297 / 297 Intake: IV Fluids 203 / 203 297 / 297 Heparin 25,000 UNIT/500 ML D5W 203 / 203 297 / 297 25,000 unit In 500 ml @ 14 UNIT /KG/HR 28.577 mls/hr IVC . [id number] ELISE Rx#:[id number] Oral 120 / 120 Other: Meal refused Percent of Meal Consumed 0% Weight 94.6 kg Blood Glucose* 92 53 - General Appearance General appearance: well-developed, appears started age, chronically ill, fatigue, frail EENT: ATNC, PERRL, mucous membranes moist Neck: supple Respiratory: clear Cardiology: no edema, normal S1, normal S2 - Dialysis Access Dialysis Vascular Access: Arteriovenous Fistula thrill: Yes bruit: Yes Gastrointestinal: normoactive bowel sounds, no tenderness, no guarding Integumentary: warm and dry Neurologic: no focal deficit, confused, disoriented Musculoskeletal: deformities (hand / finger amputations), no clubbing Results - Lab Results 03/16/18 01:25 03/16/18 01:25 Most recent lab results Calcium 8.9 mg/dL (8.6-10.3) 03/16/18 01:25 I reviewed the labs, vitals, imaging, med lists, progress notes in [facility] E[facility]. Consult Discharge Plan - Plan Referrals: Morales Fischer MD [Primary Care Provider] -
[2018-03-16] MEDS: Insulin LISPRO 300 UNITS/3 ML VIAL SQ SCH ×4 (08:11→19:57)
[2018-03-16] MEDS: Famotidine 20 MG TABLET PO SCH (08:28)
[2018-03-16] MEDS: Gabapentin 300 MG CAPSULE PO SCH ×3 (08:29→19:58)
[2018-03-16] MEDS: Loratadine 10 MG TABLET PO SCH (08:29)
[2018-03-16] MEDS: Multivit/Ca/Min/Fe/FA 1 TAB TABLET PO SCH (08:30)
[2018-03-16] MEDS: Ranolazine 500 MG TAB.ER.12H PO SCH ×2 (08:30→19:57)
[2018-03-16] MEDS: Isosorbide MONOnitrate (24 HR) 60 MG TAB.ER.24H PO SCH (08:30)
[2018-03-16] MEDS: hydrALAZINE 25 MG TABLET PO SCH (08:41)
[2018-03-16] MEDS ORDERED: Aspirin Enteric Coated 325 MG Tablet PO SCH (09:00)
--- NOTE | 2018-03-16 09:50 | Internal Med Progress Note ---
Hospitalist Progress Note - Encounter Date of Encounter: 03/16/18 Time of Encounter: 09:48 - Subjective Interval History: Mr. Kenny is a 82 year old male with history of ESRD, HTN, CAD, and type 2 diabetes mellitus. Patient indicated that he was at the HD center being dialyzed , when he began to have leg pain. The patient was brought here and had venous doppler studies which revealed bilat tibial DVT. Pt was admitted in the hospital started on Heparin gtt. He is alert, awake and O x 3. He is c/o anterior chest wall pain today. Denied any SOB. CP is non radiating, more like sharp pain. - Exam Vitals: Temp Pulse Resp BP Pulse Ox 98.0 F 65 20 113/64 96 03/16/18 06:43 03/16/18 06:43 03/16/18 06:43 03/16/18 06:43 03/16/18 06:43 Exam: Gen: Alert, awake, Oriented to time,place and person Chest: Diminished breath sounds B/L, No wheezing, No crackles, No rales Heart: S1S2+ RRR No murmurs Abd: Soft, NT, BS +, No organomegaly Ext: b/l LE calf tenderness +, trace edema + Neuro : Benign findings Skin: No rash. - Assessment and Plan (1) DVT, bilateral lower limbs Current Visit: Yes Status: Acute Assessment and Plan: Non provocative mostly due to sedentary life style DVT in both posterior tibial veins noticed on venous doppler cont Coumadin , bridging with heparin gtt Vascular surgery on board (2) Atypical chest pain Current Visit: Yes Status: Acute Assessment and Plan: Concerning for PE will get V/Q scan cont Heaprin gtt Duoneb and O2 (3) ESRD (end stage renal disease) on dialysis Current Visit: Yes Status: Chronic Assessment and Plan: HD as per Nephro recommendations (4) CAD (coronary artery disease) Current Visit: Yes Status: Chronic Assessment and Plan: resumed home meds (5) HLD (hyperlipidemia) Current Visit: Yes Status: Chronic Assessment and Plan: on statin (6) Chronic diastolic CHF (congestive heart failure) Current Visit: No Status: Chronic Assessment and Plan: not in exacerbation resumed all home meds (7) Diabetes mellitus Current Visit: No Status: Chronic Assessment and Plan: on ADA diet, ISS + Levemir (8) GERD (gastroesophageal reflux disease) Current Visit: No Status: Chronic Assessment and Plan: on PPI - Time Spent with Patient Total time spent is greater than 50% in coordination of care (as documented) at patient's floor/unit and/or counseling patient: Internal Medicine: Result - Labs CBC & Chem 7: 03/16/18 01:25 03/16/18 01:25 Labs: Short CBC 03/16/18 Range/Units 01:25 WBC 6.8 (4.3-11.1) K/mcL Hgb 10.3 L (12.9-16.9) g/dL Hct 32.2 L (37.5-50.1) % Plt Count 182 (140-400) K/mcL Neutrophils # 4.7 (1.6-8.9) K/mcL BMP 03/16/18 01:25 Sodium 132 L Potassium 4.0 Chloride 95 L Carbon Dioxide 27 BUN 51 H Creatinine 3.69 H Glucose 136 H Calcium 8.9 - ABG Interpretation ABG results: PT/INR, D-dimer PT 12.1 Seconds (9.4-12.1) 03/16/18 01:25 Consult Discharge Plan - Plan Referrals: Morales Fischer MD [Primary Care Provider] - (1) DVT, bilateral lower limbs Qualifiers: Affected thrombotic vein of extremity: tibial Chronicity: acute Qualified Code(s): I82.443 - Acute embolism and thrombosis of tibial vein, bilateral (4) CAD (coronary artery disease) Qualifiers: Coronary Disease-Associated Artery/Lesion type: [place] artery [place] vs. transplanted heart: [place] heart Associated angina: without angina Qualified Code(s): I25.10 - Atherosclerotic heart disease of [place] coronary artery without angina pectoris (5) HLD (hyperlipidemia) Qualifiers: Hyperlipidemia type: unspecified Qualified Code(s): E78.5 - Hyperlipidemia, unspecified (7) Diabetes mellitus Qualifiers: Diabetes mellitus type: type 2 Diabetes mellitus predatory animal exterminator insulin use: with chcf use Diabetes mellitus complication status: with kidney complications Diabetes mellitus complication detail: with chronic kidney disease Chronic kidney disease stage: on chronic dialysis Qualified Code(s): E11.22 - Type 2 diabetes mellitus with diabetic chronic kidney disease; N18.6 - End stage renal disease; Z79.4 - assisted (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
[2018-03-16] MEDS: *HR* OxyCODONE/APAP 10/325 TABLET PO PRN ×2 (10:30→14:32)
--- NOTE | 2018-03-16 14:08 | Vascular/Endovas Progress Note ---
Date of Encounter: 03/16/18 Time of Encounter: 13:35 - Assessment and plan (1) DVT, bilateral lower limbs Status: Acute The patient has bilateral tibial DVTs. He is tolerating heparin well. His hemoglobin has remained stable. He is being transitioned to Coumadin. Vascular surgery will sign off at this time. Reconsult if needed. Qualifiers: Affected thrombotic vein of extremity: tibial Chronicity: acute Qualified Code(s): I82.443 - Acute embolism and thrombosis of tibial vein, bilateral (2) ESRD (end stage renal disease) on dialysis Status: Chronic (3) HLD (hyperlipidemia) Status: Chronic The patient was counter atherosclerotic risk factor reduction. Qualifiers: Hyperlipidemia type: unspecified Qualified Code(s): E78.5 - Hyperlipidemia , unspecified (4) HTN (hypertension) Status: Chronic Qualifiers: Hypertension type: essential hypertension Qualified Code(s): I10 - Essential (primary) hypertension (5) CAD (coronary artery disease) Status: Chronic Qualifiers: Coronary Disease-Associated Artery/Lesion type: [place] artery [place] vs. transplanted heart: [place] heart Associated angina: without angina Qualified Code(s): I25.10 - Atherosclerotic heart disease of [place] coronary artery without angina pectoris (6) Anemia Status: Acute Qualifiers: Anemia type: due to chronic kidney disease Chronic kidney disease stage: on chronic dialysis Qualified Code(s): N18.6 - End stage renal disease; D63.1 - Anemia in chronic kidney disease; Z99.2 - Dependence on renal dialysis - Subjective Interval history: Patient is without complaints. He reports his legs are feeling better. He denies any chest pain or shortness of breath. Vital Signs, Last 4 Hours Temp Pulse Resp BP Pulse Ox 03/16/18 11:08 98.3 F 62 18 117/66 93 - Physical Examination General: Present: Conversant Cardiac: Present: Reg Rate and Rhythm Lungs: Present: Normal Breath Sounds Neuro: Present: Alert and responsive, Motor nerves grossly intact, Sensory nerves grossly intact Vascular: Present: Normal capillary refill, Edema (Trace bilateral lower extremity edema). Absent: Cyanosis Abdomen: Present: Soft Skin: Present: No rashes noted on visualized skin Results 03/18/18 00:09 03/18/18 00:09 Lab Results, Last 24 hours 08/12/18 08/12/18 08/12/18 01:25 01:25 01:25 WBC 6.8 Hgb 10.3 L Hct 32.2 L Plt Count 182 INR 1.1 Sodium 132 L Potassium 4.0 Chloride 95 L Carbon Dioxide 27 BUN 51 H Creatinine 3.69 H Glucose 136 H Calcium 8.9 Consult Discharge Plan - Plan Referrals: Morales Fischer MD [Primary Care Provider] - (Patient is from [facility]) Prescriptions: ALPRAZolam [Xanax 1 MG Tablet] 1 mg PO TUTHSA 3 Days #3 tablet Oxycodone HCl [Oxaydo] 5 mg PO Q4H PRN 2 Days #12 tablet.orl PRN Reason: Pain
[2018-03-16] MEDS ORDERED: Ipratropium/Albuterol Neb 3 ML IH PRN (17:20)
[2018-03-16] MEDS ORDERED: *HR* FentaNYL (PF) 100 MCG/2 ML VIAL IVP PRN (17:21)
[2018-03-16] MEDS ORDERED: *HR* Warfarin 7.5 MG TABLET PO ONE (18:00)
[2018-03-16] MEDS: Insulin DETEMIR 100 UNIT/ML X5UNITS SQ SCH (19:57)
[2018-03-17 04:27] LABS: Basophils % 0.3 %; Eosinophils # 0.1 K/mcL (0.0-0.6); Eosinophils % 0.6 %; Hematocrit 34.4 % (37.5-50.1); Hemoglobin 10.8 g/dL (12.9-16.9); Immature Granulocytes % 0.6 % (0-4); Lymphocytes % 9.3 %; Mean Corpuscular HGB Conc 31.4 g/dL (31.6-35.5); Mean Corpuscular Hemoglobin 31.1 pg (28.0-33.3); Mean Corpuscular Volume 99.1 fL (83.0-100.0); Mean Platelet Volume 10.9 fL (9.4-12.4); Monocytes # 0.9 K/mcL (0.0-1.3); Monocytes % 8.3 %; Platelet Count 163 K/mcL (140-400); Red Blood Count 3.47 M/mcL (4.19-5.50); Red Cell Distribution Width 14.9 % (11.5-14.5); Segmented Neutrophils % 80.9 %
[2018-03-17 04:28] LABS: Neutrophils # 8.7 K/mcL (1.6-8.9)
[2018-03-17 04:32] LABS: INR 1.7; Prothrombin Time 19.5 Seconds (9.4-12.1)
[2018-03-17 04:50] LABS: Calcium 8.8 mg/dL (8.6-10.3); Potassium 4.7 mEq/L (3.5-5.1)
[2018-03-17] MEDS: *HR* OxyCODONE/APAP 10/325 TABLET PO PRN ×4 (06:58→22:18)
[2018-03-17] MEDS: Multivit/Ca/Min/Fe/FA 1 TAB TABLET PO SCH (08:30)
[2018-03-17] MEDS: Ranolazine 500 MG TAB.ER.12H PO SCH ×2 (08:30→20:12)
[2018-03-17] MEDS: Loratadine 10 MG TABLET PO SCH (08:30)
[2018-03-17] MEDS: Gabapentin 100 MG CAPSULE PO SCH ×3 (08:31→20:12)
[2018-03-17] MEDS: Isosorbide MONOnitrate (24 HR) 60 MG TAB.ER.24H PO SCH (08:31)
[2018-03-17] MEDS: Famotidine 20 MG TABLET PO SCH (08:31)
[2018-03-17] MEDS: Insulin LISPRO 300 UNITS/3 ML VIAL SQ SCH ×4 (08:32→20:04)
--- NOTE | 2018-03-17 09:55 | Internal Med Progress Note ---
Hospitalist Progress Note - Encounter Date of Encounter: 03/17/18 Time of Encounter: 09:20 - Subjective Interval History: Mr. Kenny is a 82 year old male with history of ESRD, HTN, CAD, and type 2 diabetes mellitus. Patient indicated that he was at the HD center being dialyzed , when he began to have leg pain. The patient was brought here and had venous doppler studies which revealed bilat tibial DVT. Pt was admitted in the hospital started on Heparin gtt. He is alert, awake and O x 3. Denied any more CP. No SOB - Exam Vitals: Temp Pulse Resp BP Pulse Ox 97.6 F 68 18 95/61 98 03/17/18 07:11 03/17/18 07:11 03/17/18 07:11 03/17/18 07:11 03/17/18 07:11 Exam: Gen: Alert, awake, Oriented to time,place and person Chest: Diminished breath sounds B/L, No wheezing, No crackles, No rales Heart: S1S2+ RRR No murmurs Abd: Soft, NT, BS +, No organomegaly Ext: b/l LE calf tenderness +, trace edema + Neuro : Benign findings Skin: No rash. - Assessment and Plan (1) DVT, bilateral lower limbs Current Visit: Yes Status: Acute Assessment and Plan: Non provocative mostly due to sedentary life style DVT in both posterior tibial veins noticed on venous doppler cont Coumadin , bridging with heparin gtt INR - 1.7 today (2) Atypical chest pain Current Visit: Yes Status: Acute Assessment and Plan: Improved Mostly musculo skeletal Reviewed V/Q scan - Low probability for PE Duoneb and O2 (3) ESRD (end stage renal disease) on dialysis Current Visit: Yes Status: Chronic Assessment and Plan: HD as per Nephro recommendations (4) CAD (coronary artery disease) Current Visit: Yes Status: Chronic Assessment and Plan: resumed home meds (5) HLD (hyperlipidemia) Current Visit: Yes Status: Chronic Assessment and Plan: on statin (6) Chronic diastolic CHF (congestive heart failure) Current Visit: No Status: Chronic Assessment and Plan: not in exacerbation resumed all home meds (7) Diabetes mellitus Current Visit: No Status: Chronic Assessment and Plan: on ADA diet, ISS + Levemir (8) GERD (gastroesophageal reflux disease) Current Visit: No Status: Chronic Assessment and Plan: on PPI - Time Spent with Patient Total time spent is greater than 50% in coordination of care (as documented) at patient's floor/unit and/or counseling patient: Internal Medicine: Result - Labs CBC & Chem 7: 03/17/18 04:05 03/17/18 04:05 Labs: Short CBC 03/17/18 Range/Units 04:05 WBC 10.8 D (4.3-11.1) K/mcL Hgb 10.8 L (12.9-16.9) g/dL Hct 34.4 L (37.5-50.1) % Plt Count 163 (140-400) K/mcL Neutrophils # 8.7 (1.6-8.9) K/mcL BMP 03/17/18 04:05 Sodium 130 L Potassium 4.7 Chloride 92 L Carbon Dioxide 24 BUN 65 H Creatinine 4.63 H Glucose 112 H Calcium 8.8 - ABG Interpretation ABG results: PT/INR, D-dimer PT 19.5 Seconds (9.4-12.1) H D 03/17/18 04:05 - Impressions Impressions Pulmonary Perfusion Imaging 03/16/18 09:47 IMPRESSION: 1. Low probability of pulmonary embolism. 2. Central airway deposition on ventilation scan typical of COPD. 3. Left basilar atelectasis, scar or infiltrate with small left pleural effusion. 4. Stable right basilar subsegmental atelectasis or scar. 5. Cardiomegaly. 6. Calcific atherosclerosis aorta. D/ / Timmy Joshua / Timmy Joshua Interpreting Provider: Timmy Joshua Chest X-Ray 03/16/18 16:17 IMPRESSION: 1. Low probability of pulmonary embolism. 2. Central airway deposition on ventilation scan typical of COPD. 3. Left basilar atelectasis, scar or infiltrate with small left pleural effusion. 4. Stable right basilar subsegmental atelectasis or scar. 5. Cardiomegaly. 6. Calcific atherosclerosis aorta. D/ / Timmy Joshua / Timmy Joshua Interpreting Provider: Timmy Joshua Consult Discharge Plan - Plan Referrals: Morales Fischer MD [Primary Care Provider] - (1) DVT, bilateral lower limbs Qualifiers: Affected thrombotic vein of extremity: tibial Chronicity: acute Qualified Code(s): I82.443 - Acute embolism and thrombosis of tibial vein, bilateral (4) CAD (coronary artery disease) Qualifiers: Coronary Disease-Associated Artery/Lesion type: [place] artery [place] vs. transplanted heart: [place] heart Associated angina: without angina Qualified Code(s): I25.10 - Atherosclerotic heart disease of [place] coronary artery without angina pectoris (5) HLD (hyperlipidemia) Qualifiers: Hyperlipidemia type: unspecified Qualified Code(s): E78.5 - Hyperlipidemia, unspecified (7) Diabetes mellitus Qualifiers: Diabetes mellitus type: type 2 Diabetes mellitus nursing home insulin use: with rig builder helper use Diabetes mellitus complication status: with kidney complications Diabetes mellitus complication detail: with chronic kidney disease Chronic kidney disease stage: on chronic dialysis Qualified Code(s): E11.22 - Type 2 diabetes mellitus with diabetic chronic kidney disease; N18.6 - End stage renal disease; Z79.4 - 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
--- NOTE | 2018-03-17 11:33 | Nephrology Progress Note ---
<Wen Bhat - Last Filed: 03/17/18 13:06> Date of Encounter: 03/17/18 Time of Encounter: 11:27 - Assessment and Plan (1) ESRD (end stage renal disease) on dialysis Status: Chronic Current regimen is TTS at [facility]. Last tx was 03/15/18 at [facility]. Will plan for HD tomorrow 03/18/18. Renal dose and avoid nephrotoxins. Renal diet. (2) DVT, bilateral lower limbs Status: Acute Per primary team. Qualifiers: Affected thrombotic vein of extremity: tibial Chronicity: acute Qualified Code(s): I82.443 - Acute embolism and thrombosis of tibial vein, bilateral (3) Anemia Status: Acute Goal Ggb is 10-11. Hbg is 10.8. Will trend. Qualifiers: Qualified Code(s): D64.9 - Anemia, unspecified Subjective Principal diagnosis: foot pain Interval history: Pt seen and examined. Is in pain, RN at bedside to give PRN pain medication. Objective - Vital Signs Vital signs: Vital Signs Temp Pulse Resp BP Pulse Ox 03/17/18 11:22 97.6 F 59 18 95/56 91 03/17/18 07:11 97.6 F 68 18 95/61 98 03/17/18 03:37 97.7 F 87 16 103/65 94 03/16/18 23:55 97.8 F 59 16 90/55 97 03/16/18 20:30 93 03/16/18 19:40 97.9 F 63 16 88/49 93 03/16/18 16:10 98.5 F 78 20 120/80 93 Intake and Output 03/16/18 03/17/18 03/17/18 23:59 07:59 15:59 Intake Total 573 / 573 112 / 112 270 / 270 Output Total 0 / 0 Balance 573 / 573 112 / 112 270 / 270 Intake: IV Fluids 333 / 333 112 / 112 Heparin 25,000 UNIT/500 ML D5W 333 / 333 112 / 112 25,000 unit In 500 ml @ 14 UNIT /KG/HR 28.577 mls/hr IVC . [id number] [facility] Rx#:[id number] Oral 240 / 240 270 / 270 Output: Urine 0 / 0 Other: Meal Dinner Breakfast Percent of Meal Consumed 100% 50% Blood Glucose* 122 166 - General Appearance General appearance: Present: well-developed, well-nourished EENT: Present: ATNC, hearing intact, vision intact Neck: Present: supple Respiratory: Present: clear Cardiology: Present: no edema, normal S1, normal S2 Dialysis Vascular Access: Arteriovenous Fistula thrill: Yes bruit: Yes Gastrointestinal: Present: normoactive bowel sounds, no tenderness, no guarding Integumentary: Present: no rash, warm and dry Neurologic: Present: confused Additional Comments: Alert to self. Psychiatric: Present: mood/affect appropriate, cooperative - Lab 03/17/18 04:05 03/17/18 04:05 Most recent lab results Calcium 8.8 mg/dL (8.6-10.3) 03/17/18 04:05 Consult Discharge Plan - Plan Referrals: Morales Fischer MD [Primary Care Provider] - (Patient is from [facility]) Prescriptions: ALPRAZolam [Xanax 1 MG Tablet] 1 mg PO TUTHSA 3 Days #3 tablet Oxycodone HCl [Oxaydo] 5 mg PO Q4H PRN 2 Days #12 tablet.orl PRN Reason: Pain <Guerda Uriarte - Last Filed: 03/28/18 10:11> Date of Encounter: 03/17/18 - Assessment and Plan (1) ESRD (end stage renal disease) on dialysis Status: Chronic (2) DVT, bilateral lower limbs Status: Acute Qualifiers: Affected thrombotic vein of extremity: tibial Chronicity: acute Qualified Code(s): I82.443 - Acute embolism and thrombosis of tibial vein, bilateral (3) Anemia Status: Acute Qualifiers: Qualified Code(s): D64.9 - Anemia, unspecified Objective - Lab 03/18/18 00:09 03/18/18 00:09 Most recent lab results Calcium 8.8 mg/dL (8.6-10.3) 03/18/18 00:09 - Attending Attestation I examined this patient and my medical decision-making was reviewed with the Resident Physician/CUSTODIAN. I agree with the documented findings, disposition and treatment plan as described except to the extent set forth below. Pt seen and examined with complaint of back pain. Here with DVTs. Labs reviewed. Exam shows chronically ill appearing NAD somewhat disoriented with LE edema bilat with dressings in place. HD planned for tomorrow.
[2018-03-17] MEDS: Heparin 25,000 UNIT/500 ML D5W 25,000 UNIT/500 ML BAG IVC SCH (12:45)
[2018-03-17] MEDS: Acetaminophen 325 MG TABLET PO PRN ×2 (14:23→23:31)
[2018-03-17] MEDS ORDERED: *HR* Warfarin 1 MG TABLET PO ONE (18:00)
[2018-03-17] MEDS: Insulin DETEMIR 100 UNIT/ML X5UNITS SQ SCH (20:13)
[2018-03-18 00:50] LABS: Hematocrit 30.4 % (37.5-50.1); Mean Corpuscular HGB Conc 32.9 g/dL (31.6-35.5); Mean Corpuscular Hemoglobin 30.3 pg (28.0-33.3); Mean Platelet Volume 10.2 fL (9.4-12.4); Platelet Count 177 K/mcL (140-400); Red Cell Distribution Width 14.8 % (11.5-14.5)
[2018-03-18 01:02] LABS: Mean Corpuscular Volume 92.1 fL (83.0-100.0)
[2018-03-18 01:09] LABS: INR 3.4; Prothrombin Time 38.1 Seconds (9.4-12.1)
[2018-03-18 01:15] LABS: Calcium 8.8 mg/dL (8.6-10.3)
[2018-03-18] MEDS: *HR* Heparin 5,000 UNIT/ML VIAL IVP PRN (01:24)
[2018-03-18] MEDS: Heparin 25,000 UNIT/500 ML D5W 25,000 UNIT/500 ML BAG IVC SCH (02:08)
[2018-03-18] MEDS ORDERED: 0.9 % Sodium Chloride 1,000 ML ONE (07:17)
[2018-03-18] MEDS ORDERED: 0.9 % Sodium Chloride 250 ML IVC PRN (07:42)
[2018-03-18] MEDS: Insulin LISPRO 300 UNITS/3 ML VIAL SQ SCH ×2 (07:45→11:31)
[2018-03-18] MEDS ORDERED: 0.9 % Sodium Chloride 1,000 ML PRIME SCH (07:45)
[2018-03-18] MEDS ORDERED: *HR* Heparin 5,000 UNIT/ML VIAL ONE (07:58)
[2018-03-18 09:49] LABS: Hepatitis B Surface Antigen Nonreactive (Nonreactive)
[2018-03-18] MEDS: Loratadine 10 MG TABLET PO SCH (10:02)
[2018-03-18] MEDS: *HR* OxyCODONE/APAP 10/325 TABLET PO PRN (10:02)
[2018-03-18] MEDS: Multivit/Ca/Min/Fe/FA 1 TAB TABLET PO SCH (10:02)
[2018-03-18] MEDS: Isosorbide MONOnitrate (24 HR) 60 MG TAB.ER.24H PO SCH (10:02)
[2018-03-18] MEDS: Gabapentin 100 MG CAPSULE PO SCH (10:03)
[2018-03-18] MEDS: Famotidine 20 MG TABLET PO SCH (10:03)
[2018-03-18] MEDS: Ranolazine 500 MG TAB.ER.12H PO SCH (10:05)
--- NOTE | 2018-03-18 10:26 | Nephrology Progress Note ---
<Wen Bhat - Last Filed: 03/18/18 10:23> Date of Encounter: 03/18/18 Time of Encounter: 10:24 - Assessment and Plan (1) ESRD (end stage renal disease) on dialysis Status: Chronic Current regimen is TTS at [facility]. HD today. Renal dose and avoid nephrotoxins. Renal diet. (2) DVT, bilateral lower limbs Status: Acute Per primary team. Qualifiers: Affected thrombotic vein of extremity: tibial Chronicity: acute Qualified Code(s): I82.443 - Acute embolism and thrombosis of tibial vein, bilateral (3) Anemia Status: Acute Goal Ggb is 10-11. Hbg is 10, stable. Qualifiers: Qualified Code(s): D64.9 - Anemia, unspecified Subjective Principal diagnosis: foot pain Interval history: Pt seen and examined during HD, tolerating well. Objective - Vital Signs Vital signs: Vital Signs Temp Pulse Resp BP Pulse Ox 03/18/18 07:22 97.5 F L 63 18 119/61 96 03/18/18 03:44 97.6 F 72 16 97 03/17/18 23:25 97.6 F 63 17 99/61 92 03/17/18 19:59 97.8 F 67 16 103/59 93 03/17/18 16:58 97.5 F L 60 18 101/56 95 03/17/18 11:22 97.6 F 59 18 95/56 91 Intake and Output 03/17/18 03/18/18 03/18/18 23:59 07:59 15:59 Intake Total 60 / 60 500.0 / 500.0 0 / 0 Output Total 0 / 0 Balance 60 / 60 500.0 / 500.0 0 / 0 Intake: IV Fluids 500.0 / 500.0 Heparin 25,000 UNIT/500 ML D5W 500.0 / 500.0 25,000 unit In 500 ml @ 14 UNIT /KG/HR 28.577 mls/hr IVC . [id number] [facility] Rx#:[id number] Oral 60 / 60 0 / 0 Output: Urine 0 / 0 Other: Meal Dinner Percent of Meal Consumed 10% Stool Size Small Stool Consistency soft Stool Color Brown # Bowel Movement Diapers 1 Weight 97.6 kg Blood Glucose* 111 76 - General Appearance General appearance: Present: well-developed, well-nourished EENT: Present: ATNC, hearing intact, vision intact Neck: Present: supple Respiratory: Present: clear Cardiology: Present: edema (+2 pitting edema noted to bilat lower extremies.), normal S1, normal S2 Dialysis Vascular Access: Arteriovenous Fistula thrill: Yes bruit: Yes Gastrointestinal: Present: normoactive bowel sounds, no tenderness, no guarding Integumentary: Present: no rash, warm and dry Additional Comments: Alert to self and location at times. Confused at times. Psychiatric: Present: mood/affect appropriate, cooperative - Lab 03/18/18 00:09 03/18/18 00:09 Most recent lab results Calcium 8.8 mg/dL (8.6-10.3) 03/18/18 00:09 Consult Discharge Plan - Plan Referrals: Morales Fischer MD [Primary Care Provider] - (Patient is from [facility]) Prescriptions: ALPRAZolam [Xanax 1 MG Tablet] 1 mg PO TUTHSA 3 Days #3 tablet Oxycodone HCl [Oxaydo] 5 mg PO Q4H PRN 2 Days #12 tablet.orl PRN Reason: Pain <Guerda Uriarte - Last Filed: 03/28/18 11:20> Date of Encounter: 03/18/18 - Assessment and Plan (1) ESRD (end stage renal disease) on dialysis Status: Chronic (2) DVT, bilateral lower limbs Status: Acute Qualifiers: Affected thrombotic vein of extremity: tibial Chronicity: acute Qualified Code(s): I82.443 - Acute embolism and thrombosis of tibial vein, bilateral (3) Anemia Status: Acute Qualifiers: Qualified Code(s): D64.9 - Anemia, unspecified Objective - Lab 03/18/18 00:09 03/18/18 00:09 Most recent lab results Calcium 8.8 mg/dL (8.6-10.3) 03/18/18 00:09 - Attending Attestation I examined this patient and my medical decision-making was reviewed with the Resident Physician/SHEET METAL WELDER. I agree with the documented findings, disposition and treatment plan as described except to the extent set forth below. Pt seen and examined on HD doing ok, pain still an issue per pt. Exam chronically ill appearing AAmale in mild distress due to pain. LE edema noted with dressing in place. Labs reviewed. Continue HD with UF as tolerated. Pain control per primary team.
[2018-03-18 11:58] VITALS: BP 109/54
--- NOTE | 2018-03-18 11:59 | Discharge Summary ---
- NOTES TO OUTPATIENT PROVIDER Notes to Outpatient Provider: Follow-up INR with goal 2.0-3.0 Orders not resulted at time of discharge: Pending orders 03/18/18 07:13 Hepatitis B Surface Antibody Stat Hepatitis B Surface Antigen Stat 03/19/18 04:00 PT/INR [Prothrombin Time INR] [COAG] AM 0400 03/20/18 04:00 PT/INR [Prothrombin Time INR] [COAG] AM 0400 03/21/18 04:00 PT/INR [Prothrombin Time INR] [COAG] AM 0400 03/22/18 04:00 PT/INR [Prothrombin Time INR] [COAG] AM 0400 Date of Encounter: 03/18/18 Time of Encounter: 11:45 - Discharge Diagnosis (1) DVT, bilateral lower limbs Priority: Primary Status: Acute Qualifiers: Affected thrombotic vein of extremity: tibial Chronicity: acute Qualified Code(s): I82.443 - Acute embolism and thrombosis of tibial vein, bilateral (2) Diabetes mellitus Priority: Secondary Status: Chronic Qualifiers: Diabetes mellitus type: type 2 Diabetes mellitus custodial insulin use: with custodial use Diabetes mellitus complication status: with kidney complications Diabetes mellitus complication detail: with chronic kidney disease Chronic kidney disease stage: on chronic dialysis Qualified Code(s) : E11.22 - Type 2 diabetes mellitus with diabetic chronic kidney disease; N18.6 - End stage renal disease; Z79.4 - custodial (current) use of insulin; Z99.2 - Dependence on renal dialysis (3) Chronic diastolic CHF (congestive heart failure) Priority: Secondary Status: Chronic (4) ESRD (end stage renal disease) on dialysis Priority: Secondary Status: Chronic (5) HLD (hyperlipidemia) Priority: Secondary Status: Chronic Qualifiers: Hyperlipidemia type: unspecified Qualified Code(s): E78.5 - Hyperlipidemia , unspecified (6) GERD (gastroesophageal reflux disease) Priority: Secondary Status: Chronic Qualifiers: Esophagitis presence: esophagitis presence not specified Qualified Code(s) : K21.9 - Gastro-esophageal reflux disease without esophagitis (7) CAD (coronary artery disease) Priority: Secondary Status: Chronic Qualifiers: Coronary Disease-Associated Artery/Lesion type: [place] artery [place] vs. transplanted heart: [place] heart Associated angina: without angina Qualified Code(s): I25.10 - Atherosclerotic heart disease of [place] coronary artery without angina pectoris (8) Atypical chest pain Priority: Secondary Status: Acute Hospital course: Mr. Kenny is a 82 year old male with history of ESRD, HTN, CAD, and type 2 diabetes mellitus. Patient indicated that he was at the HD center being dialyzed , when he began to have leg pain. The patient was brought here and had venous doppler studies which revealed bilat tibial DVT per the ED notes. On assessment the patient was noted to to absent palpable pedal pulse. Pulses were obtained in the ED per doppler. A heparin drip was started and patient was admitted for further treatment. He was successfully bridged to coumadin. Vascular Surgery was consulted and agreed with plan. He did not require any oxygen support and he was hemodynamically stable. He was discharged to SNF to continue coumadin with goal INR 2.0-3.0. - Time Spent with Patient Total time spent providing and/or coordinating discharge services: - Discharge Medications Prescriptions: ALPRAZolam [Xanax 1 MG Tablet] 1 mg PO TUTHSA 3 Days #3 tablet Oxycodone HCl [Oxaydo] 5 mg PO Q4H PRN 2 Days #12 tablet.orl PRN Reason: Pain Home Medications: Clopidogrel [Plavix] 75 mg PO QAM #0 03/15/15 [History] Hydralazine HCl 100 mg PO SUTUTHSA #0 03/15/15 [History] Sertraline [Zoloft] 75 mg PO QPM 02/03/16 [History] Sevelamer [Renvela] 2,400 mg PO TIDWM 02/03/16 [History] Isosorbide MONOnitrate [Isosorbide Mononitrate ER] 120 mg PO DAILY 02/06/16 [ History] Nitroglycerin [Nitrostat] 0.4 mg SL Q5M PRN 02/06/16 [History] Polyethylene Glycol 3350 [MiraLAX] 17 gm PO DAILY 04/12/16 [History] Bisacodyl [Dulcolax] 10 mg RC HS PRN 09/24/16 [History] Docusate [Colace] 100 mg PO BID 09/24/16 [History] Magnesium Hydroxide [Milk of Magnesia] 2,400 mg PO DAILY PRN 09/24/16 [History] Allopurinol [Zyloprim 100 MG] 100 mg PO QAM 12/21/17 [History] Atorvastatin [Lipitor] 80 mg PO HS 12/21/17 [History] Ergocalciferol (VITAMIN D2) [Drisdol] 50,000 unit PO QWEEK 12/21/17 [History] Famotidine [Acid Innersole Maker] 10 mg PO QAM 12/21/17 [History] Furosemide [Lasix] 40 mg PO TUTHSA 12/21/17 [History] Glucagon,Human Recombinant [Glucagen] 1 mg IJ ONCE PRN 12/21/17 [History] Insulin ASPART [Novolog Flexpen] 5 units SQ TIDWM 12/21/17 [History] Insulin DETEMIR [Levemir Flextouch] 10 units SQ HS 12/21/17 [History] [facility]inop[facility] [[facility]] [facility] 12/21/17 [History] Loratadine [Claritin] 10 mg PO DAILY 12/21/17 [History] Metoclopramide HCl 5 mg PO TIDWM 12/21/17 [History] Metoprolol [Lopressor] 50 [facility] 12/21/17 [History] Multivitamin with Minerals [One-A-Day Maximum Formula] 1 tab PO DAILY 12/21/17 [ History] Ondansetron HCl [Zofran] 4 mg PO Q8HR PRN 12/21/17 [History] Ranolazine [Ranexa] 500 mg PO BID 12/21/17 [History] Terazosin [Hytrin] 5 mg PO QPM 12/21/17 [History] Aspirin Enteric Coated [Aspirin EC] 325 mg PO DAILY tablet. 12/25/17 [Rx] Acetaminophen [Tylenol] 650 mg PO Q6HR PRN tablet 01/16/18 [Rx] Amoxicillin/Clavulanate [Augmentin] 875 mg PO BIDWM 03/15/18 [History] Cinacalcet [Sensipar] 30 mg PO DAILY 03/15/18 [History] Gabapentin [Neurontin] 300 mg PO TID 03/15/18 [History] ALPRAZolam [Xanax 1 MG Tablet] 1 mg PO TUTHSA 3 Days #3 tablet 03/18/18 [Rx] Oxycodone HCl [Oxaydo] 5 mg PO Q4H PRN 2 Days #12 tablet.orl 03/18/18 [Rx] Warfarin perPT [Coumadin perPT] 1 each PO DAILY@1800 PRN each 03/18/18 [Rx] Allergies/Adverse Reactions: 3 Allergy/AdvReac Type Severity Reaction Status Date / Time morphine Allergy Hallucinati Verified 03/15/18 10:00 ng Date of admission: 03/15/18 14:35 Primary care physician: Morales Fischer MD Consults: 03/17/18 10:55 Consult to Auction Block Clerk [CONS] Routine Reason for SW Consult: rtn signature 03/18/18 07:45 Consult to Dialysis [CONS] ONCE Discharging clinician: Walter Cotton - Constitutional Vitals: Temp Pulse Resp BP Pulse Ox 96.9 F L 63 17 114/54 96 03/18/18 08:10 03/18/18 07:22 03/18/18 08:10 03/18/18 11:25 03/18/18 07:22 General appearance: Present: A&O X 3, answers questions appropriately Exam: Gen: Alert, awake, Oriented to time,place and person Chest: Diminished breath sounds B/L, No wheezing, No crackles, No rales Heart: S1S2+ RRR No murmurs Abd: Soft, NT, BS +, No organomegaly Ext: b/l LE calf tenderness +, trace edema + Skin: No rash. - Patient Status Disposition: Transfer SNF Condition: Fair Functional capacity at discharge: independent ambulation Overall status at discharge: patient is progressing back to baseline - Discharge Instructions Follow Up With: Morales Fischer MD [Primary Care Provider] - (Patient is from [facility]) Forms: ED Satisfaction Letter - Diet and Activity Activity: as per physical therapy Diet: advance to your usual diet
--- NOTE | 2018-03-18 12:09 | Physician Discharge Referral ---
ExtendedCare Referral Info Provider in Charge after Transfer: Other Institutional Level of Care: Skilled - Diagnosis (1) DVT, bilateral lower limbs Priority: Primary Status: Acute (2) Diabetes mellitus Priority: Secondary Status: Chronic (3) Chronic diastolic CHF (congestive heart failure) Priority: Secondary Status: Chronic (4) ESRD (end stage renal disease) on dialysis Priority: Secondary Status: Chronic (5) HLD (hyperlipidemia) Priority: Secondary Status: Chronic (6) GERD (gastroesophageal reflux disease) Priority: Secondary Status: Chronic (7) CAD (coronary artery disease) Priority: Secondary Status: Chronic (8) Atypical chest pain Priority: Secondary Status: Acute - Transfer Medications Prescriptions: ALPRAZolam [Xanax 1 MG Tablet] 1 mg PO TUTHSA 3 Days #3 tablet Oxycodone HCl [Oxaydo] 5 mg PO Q4H PRN 2 Days #12 tablet.orl PRN Reason: Pain Home Medications: Clopidogrel [Plavix] 75 mg PO QAM #0 03/15/15 [History] Hydralazine HCl 100 mg PO SUTUTHSA #0 03/15/15 [History] Sertraline [Zoloft] 75 mg PO QPM 02/03/16 [History] Sevelamer [Renvela] 2,400 mg PO TIDWM 02/03/16 [History] Isosorbide MONOnitrate [Isosorbide Mononitrate ER] 120 mg PO DAILY 02/06/16 [ History] Nitroglycerin [Nitrostat] 0.4 mg SL Q5M PRN 02/06/16 [History] Polyethylene Glycol 3350 [MiraLAX] 17 gm PO DAILY 04/12/16 [History] Bisacodyl [Dulcolax] 10 mg RC HS PRN 09/24/16 [History] Docusate [Colace] 100 mg PO BID 09/24/16 [History] Magnesium Hydroxide [Milk of Magnesia] 2,400 mg PO DAILY PRN 09/24/16 [History] Allopurinol [Zyloprim 100 MG] 100 mg PO QAM 12/21/17 [History] Atorvastatin [Lipitor] 80 mg PO HS 12/21/17 [History] Ergocalciferol (VITAMIN D2) [Drisdol] 50,000 unit PO QWEEK 12/21/17 [History] Famotidine [Acid Web Merchant] 10 mg PO QAM 12/21/17 [History] Furosemide [Lasix] 40 mg PO TUTHSA 12/21/17 [History] Glucagon,Human Recombinant [Glucagen] 1 mg IJ ONCE PRN 12/21/17 [History] Insulin ASPART [Novolog Flexpen] 5 units SQ TIDWM 12/21/17 [History] Insulin DETEMIR [Levemir Flextouch] 10 units SQ HS 12/21/17 [History] Lisinopril [Zestril] 10 mg PO SUTUTHSA 12/21/17 [History] Loratadine [Claritin] 10 mg PO DAILY 12/21/17 [History] Metoclopramide HCl 5 mg PO TIDWM 12/21/17 [History] Metoprolol [Lopressor] 50 mg PO SUTUTHSA 12/21/17 [History] Multivitamin with Minerals [One-A-Day Maximum Formula] 1 tab PO DAILY 12/21/17 [ History] Ondansetron HCl [Zofran] 4 mg PO Q8HR PRN 12/21/17 [History] Ranolazine [Ranexa] 500 mg PO BID 12/21/17 [History] Terazosin [Hytrin] 5 mg PO QPM 12/21/17 [History] Aspirin Enteric Coated [Aspirin EC] 325 mg PO DAILY tablet. 12/25/17 [Rx] Acetaminophen [Tylenol] 650 mg PO Q6HR PRN tablet 01/16/18 [Rx] Amoxicillin/Clavulanate [Augmentin] 875 mg PO BIDWM 03/15/18 [History] Cinacalcet [Sensipar] 30 mg PO DAILY 03/15/18 [History] Gabapentin [Neurontin] 300 mg PO TID 03/15/18 [History] ALPRAZolam [Xanax 1 MG Tablet] 1 mg PO TUTHSA 3 Days #3 tablet 03/18/18 [Rx] Oxycodone HCl [Oxaydo] 5 mg PO Q4H PRN 2 Days #12 tablet.orl 03/18/18 [Rx] Warfarin perPT [Coumadin perPT] 1 each PO DAILY@1800 PRN each 03/18/18 [Rx] Allergies/Adverse Reactions: 3 Allergy/AdvReac Type Severity Reaction Status Date / Time morphine Allergy Hallucinati Verified 03/15/18 10:00 ng - Respiratory Orders Smoking Cessation: Smoking cessation has been advised. For more information, call the [place] Tobacco Quit Line at 1-864-FLVQ-NOW. - Advance Directives Code Status: Full Code - Mobility Orders Other (as per physical therapy) - Rehabiliation Orders Rehab Potential: Fair Rehab Orders: Evaluation for Physical Therapy, Evaluation for Occupational Therapy - Diet Orders No Concentrated Sweets, Renal, Cardiac CERTIFICATION: I certify that the transfer of the above named patient to an Extended Care Facility is necessary for the continuing treatment of the diagnosis listed. The above information is true and accurate reflection of patient's current condition. Confidential - Redisclosure prohibited without a patient's written consent.
[2018-03-18] MEDS: hydrALAZINE 25 MG TABLET PO SCH (12:17)
[2018-03-18] MEDS: Furosemide 40 MG TABLET PO SCH (12:22)
[2018-03-19 06:31] LABS: Hepatitis B Surface Antibody 0.73 mIU/mL
== END 2018-03-18 13:30 | DRG 299 ==
LOC: 2ANU 09:35 → EMEROO 09:35 → 2ANU 12:27
PROVIDERS: ADMIT Family Medicine; ATTEND Family Medicine